=== PATIENT | male | born 1955 | race African-American/Black ===

== ENCOUNTER 2016-11-21 10:40 | Emergency (ER) | payer OTHER ==
[~2016-11-21] VITALS: Ht 182.9 cm; Wt 63.5 kg
[~2016-11-21 10:40] MED LIST: AMLO10TA4 PO; DIPH50CA37 PO; HYDR-548 PO; HYDR50TA3 PO; Lisinopril PO; OXYC30TA2 PO; PHEN100C4 PO; QUET300T2 PO
[2016-11-21] MEDS ORDERED: HYDROMORPHONE 1 MG/1 ML DISP.SYRIN IM ONE (11:00)
--- NOTE | 2016-11-21 11:06 | NUR ---
MSE COMPLETED, PT REC'D DILUADID, ACI GIVEN. PT AMBULATED W/O DIFF, STATED HE CALLED [facility] FOR A RIDE.
[2016-11-21 11:07] VITALS: BP 148/95
[2016-11-21] MEDS ORDERED: HYDROMORPHONE 2 MG/1 ML DISP.SYRIN ONE (11:09)
[2016-11-21] MEDS ORDERED: HYDROMORPHONE 1 MG/1 ML DISP.SYRIN ONE (11:10)
== END 2016-11-21 11:09 | disposition home or self-care (01) ==
LOC: ER 10:40
DX: M54.2 Cervicalgia (principal); G89.29 Other chronic pain; F17.200 Nicotine dependence, unspecified, uncomplicated; M25.552 Pain in left hip; I10 Essential (primary) hypertension; F31.9 Bipolar disorder, unspecified; F20.9 Schizophrenia, unspecified; Z88.6 Allergy status to analgesic agent; Z95.2 Presence of prosthetic heart valve
CPT/HCPCS: A4663; J1170

== ENCOUNTER 2016-12-20 10:39 | Emergency (ER) | payer OTHER ==
[~2016-12-20] VITALS: Ht 185.4 cm; Wt 61.2 kg
[2016-12-20] MEDS ORDERED: HYDROMORPHONE 1 MG/1 ML DISP.SYRIN IV ONE (11:00)
[2016-12-20] MEDS ORDERED: LABETALOL HCL 100 MG/20 ML VIAL IV ONE (11:00)
--- NOTE | 2016-12-20 11:09 | NUR ---
PT IS IN ROOM #1A. DR ROACH EVALUATED THE PT.
[2016-12-20] MEDS ORDERED: LABETALOL 20 MG/4 ML VIAL IV ONE (11:12)
[2016-12-20] MEDS ORDERED: HYDROMORPHONE 2 MG/1 ML DISP.SYRIN ONE (11:13)
--- NOTE | 2016-12-20 11:51 | NUR ---
PT WAS D/C TO HOME. D/C INSTRUCTIONS GIVEN TO THE PT.
[2016-12-20 11:53] VITALS: BP 151/86
== END 2016-12-20 11:58 | disposition home or self-care (01) ==
LOC: ER 10:39
DX: M54.9 Dorsalgia, unspecified (principal); I10 Essential (primary) hypertension; G89.29 Other chronic pain; M25.552 Pain in left hip; F17.200 Nicotine dependence, unspecified, uncomplicated; F31.9 Bipolar disorder, unspecified; F20.9 Schizophrenia, unspecified; Z88.6 Allergy status to analgesic agent; Z88.8 Allergy status to other drugs, medicaments and biological substances; W18.30XA Fall on same level, unspecified, initial encounter; Y93.89 Activity, other specified; Y99.8 Other external cause status; Y92.89 Other specified places as the place of occurrence of the external cause
CPT/HCPCS: 72170; 96374; 96375; 99284; A4663; J1170; J3490

== ENCOUNTER 2017-01-17 16:55 | Emergency (ER) | payer OTHER ==
[~2017-01-17] VITALS: Ht 185.4 cm; Wt 63.5 kg
[2017-01-17] MEDS ORDERED: HYDROMORPHONE 2 MG/1 ML DISP.SYRIN ONE (17:15)
[2017-01-17] MEDS ORDERED: HYDROMORPHONE 1 MG/1 ML DISP.SYRIN IV ONE (17:15)
[2017-01-17] MEDS ORDERED: HYDROMORPHONE 1 MG/1 ML DISP.SYRIN ONE (17:15)
[2017-01-17 17:19] VITALS: BP 159/101
--- NOTE | 2017-01-17 17:19 | NUR ---
Written and verbal after care instructions given. Patient verbalizes understanding of instructions. Stressed follow up with pmd. Pt states he will wait in room 4a and rest for a while before leaving.
--- NOTE | 2017-01-17 17:30 | NUR ---
Pt states he feels "much better", pt stated he will take the bus home and ambulated out of ER with steady gait.
== END 2017-01-17 17:32 | disposition home or self-care (01) ==
LOC: ER 16:55
DX: M25.552 Pain in left hip (principal); M25.551 Pain in right hip; G89.29 Other chronic pain; M54.2 Cervicalgia; I10 Essential (primary) hypertension; F20.9 Schizophrenia, unspecified; F31.9 Bipolar disorder, unspecified; Z88.6 Allergy status to analgesic agent; Z88.8 Allergy status to other drugs, medicaments and biological substances
CPT/HCPCS: A4663; J1170

== ENCOUNTER 2017-01-22 10:23 | Inpatient (IN) | payer OTHER ==
[~2017-01-22] VITALS: Ht 185.4 cm; Wt 65.8 kg
--- NOTE | 2017-01-22 11:02 | NUR ---
Pt ambulated to room with steady shuffled gait, changed into gown and placed on monitor. Pt ST on monitor. Resp even and unlabored. Pt c/o heavy etoh, not eating, generalized weakness, abd pain and N/V. No neuro deficits noted. Equal push/pull and manager publishing. MD at bedside.
[2017-01-22] MEDS ORDERED: IV NORMAL SALINE 1000 ML BAG IV ONE (11:15)
[2017-01-22] MEDS ORDERED: PANTOPRAZOLE SODIUM 40 MG VIAL IV ONE (11:15)
[2017-01-22 11:33] LABS: *BILIRUBIN,URIN NEGATIVE (NEGATIVE); *BLOOD, URINE NEGATIVE (NEGATIVE); *CLARITY,URINE CLEAR (CLEAR); *COLOR,URINE YELLOW (YELLOW); *KETONES,URINE NEGATIVE (NEGATIVE); *PROTEIN,URINE 1+ (NEGATIVE); LEUKOCYTE ESTERASE ,URINE NEGATIVE (NEGATIVE); NITRITE, URINE NEGATIVE (NEGATIVE); UGLUCOSE NEGATIVE (NEGATIVE)
[2017-01-22] MEDS ORDERED: PANTOPRAZOLE SODIUM 40 MG VIAL ONE (11:36)
[2017-01-22 11:44] LABS: CALCIUM 9.3 mg/dL (8.5-10.1); POTASSIUM 4.1 mmol/L (3.5-5.1)
[2017-01-22 11:44] LABS: RBC,URINE 0-3 /HPF (0-3)
[2017-01-22 11:45] LABS: BACTERIA,URINE NONE SEEN /HPF (NONE SEEN); SQUAMOUS EPITHELIAL CELL,UR MODERATE /HPF (NONE SEEN)
[2017-01-22 11:46] LABS: CALCIUM OXALATE CRYSTALS,UR MOD /HPF (NONE SEEN); MUCUS,URINE FEW /LPF (0-FEW)
[2017-01-22 11:50] LABS: ALBUMIN 3.4 g/dL (3.4-5.0); BILIRUBIN,DIRECT 0.1 mg/dL (0.0-0.2); BILIRUBIN,TOTAL 0.2 mg/dL (0.2-1.0); TOTAL PROTEIN, SERUM 8.1 g/dL (6.4-8.2)
[2017-01-22 11:51] LABS: TROPONIN I < 0.017 ng/mL (0.00-0.056)
[2017-01-22 12:00] LABS: BASOPHILS % (AUTO) 0.6 % (0.0-2.0); EOSINOPHILS # (AUTO) 0.3 K/uL (0.0-0.7); EOSINOPHILS % (AUTO) 6.6 % (0.0-7.0); HEMATOCRIT 38.6 % (40-50); HEMOGLOBIN 11.9 G/DL (14.0-18.0); LYMPHOCYTES # (AUTO) 1.1 K/UL (0.8-4.8); LYMPHOCYTES % (AUTO) 23.7 % (20.5-51.5); MEAN CORPUSCULAR HGB CONC 31 g/dL (32.0-37.0); MEAN CORPUSCULAR VOLUME 91.1 FL (82.0-92.0); MONOCYTES # (AUTO) 0.6 K/UL (0.1-1.30); MONOCYTES % (AUTO) 12.2 % (0.0-11.0); NEUTROPHILS # (AUTO) 2.6 K/UL (1.8-8.9); NEUTROPHILS % (AUTO) 56.9 % (38.5-71.5); PLATELET COUNT (AUTO) 199 K/UL (150-450); RED BLOOD CELL COUNT(AUTO) 4.24 MIL/UL (4.7-6.1); RED CELL DISTRIBUTION WIDTH 13.6 % (11.5-14.5); WHITE BLOOD COUNT (AUTO) 4.6 K/UL (4.0-11.2)
[2017-01-22] MEDS ORDERED: MORPHINE SULFATE 4 MG/1 ML DISP.SYRIN IV ONE (12:15)
[2017-01-22] MEDS ORDERED: LABETALOL HCL 100 MG/20 ML VIAL IV ONE (12:15)
[2017-01-22] MEDS ORDERED: diphenhydrAMINE 50 MG CAPSULE PO ONE (12:15)
[2017-01-22] MEDS ORDERED: ONDANSETRON 4 MG/2 ML VIAL IV ONE (12:15)
[2017-01-22] MEDS ORDERED: ONDANSETRON 4 MG/2 ML VIAL ONE (12:29)
[2017-01-22] MEDS ORDERED: MORPHINE SULFATE 4 MG/1 ML DISP.SYRIN ONE (12:29)
[2017-01-22] MEDS ORDERED: diphenhydrAMINE 50 MG CAPSULE ONE (12:31)
[2017-01-22] MEDS ORDERED: LABETALOL 20 MG/4 ML VIAL IV ONE (12:37)
--- NOTE | 2017-01-22 12:37 | NUR ---
pt conts to c/o pain. MD notified. Pt medicated for pain and nausea, will monitor for effects of medication. Pt medicated for elevated blood pressure, will monitor for effects of medication. Pt resting in position of comfort for self. Fluid bolus infusing freely to gravity
[2017-01-22 12:46] LABS: LACTIC ACID 1.3 mmol/L (0.4-2.0)
--- NOTE | 2017-01-22 14:45 | NUR ---
Per Dr Leon she spoke with Dr Gillespie via telephone and pt may be admitted to tele.
--- NOTE | 2017-01-22 14:55 | NUR ---
SBAR report given to tele floor, admission paperwork requested from ER admitting.
--- NOTE | 2017-01-22 15:25 | NUR ---
Pt trans to tele floor, admission paperwork still pending.
--- NOTE | 2017-01-22 15:30 | NUR ---
RECEIVED PATIENT FROM ER
[2017-01-22 16:20] VITALS: BP 185/128
[2017-01-22] MEDS ORDERED: ACETAMINOPHEN 325 MG TABLET PO PRN (16:45)
[2017-01-22] MEDS ORDERED: Z GUARD REMEDY PASTE 57 GM TUBE TOP PRN (16:45)
[2017-01-22] MEDS ORDERED: ZOLPIDEM 5 MG TABLET PO PRN (16:45)
[2017-01-22] MEDS ORDERED: ONDANSETRON 4 MG/2 ML VIAL IV PRN (16:45)
[2017-01-22] MEDS ORDERED: MVI ADULT 10 ML VIAL=1 AMP 10 ML, FOLIC ACID 1 MG, THIAMINE HCL INJ 100 MG, MAGNESIUM S... IV SCH ×5 (16:45)
[2017-01-22] MEDS ORDERED: MAGNESIUM HYDROXIDE 30 ML LIQUID UDC PO PRN (16:45)
[2017-01-22] MEDS ORDERED: THIAMINE HCL 200 MG/2 ML VIAL IM ONE (17:00)
[2017-01-22] MEDS ORDERED: MAGNESIUM SULFATE/D5W 100 ML IV SCH (17:00)
[2017-01-22] MEDS: IV D5/ 0.9% NACL 1,000 ML IV PRN (17:40)
[2017-01-22] MEDS: MULTIVITAMINS,THERAPEUTIC TABLET PO SCH (17:50)
[2017-01-22] MEDS: HYDROCODONE/APAP 5-325MG TABLET PO PRN (18:18)
--- NOTE | 2017-01-22 18:57 | NUR ---
GAVE REPORT TO WATER PUMP SERVICER
[2017-01-22 19:00] VITALS: BP 177/122
[2017-01-22] MEDS: LORAZEPAM 2 MG/1 ML VIAL IV PRN (19:05)
[2017-01-22 19:11] LABS: *AMPHETAMINE, URINE NEGATIVE (NEGATIVE); *BARBITURATE, URINE NEGATIVE (NEGATIVE); *CANNABINOID, URINE NEGATIVE (NEGATIVE); *COCCAINE, URINE NEGATIVE (NEGATIVE); *OPIATE, URINE NEGATIVE (NEGATIVE); *PHENCYCLIDINE SCREEN,URINE NEGATIVE (NEGATIVE)
--- NOTE | 2017-01-22 20:00 | NUR ---
received patient alert,slightly confused,received Ativan 2 mg iv ,stated does not help, remains anxious,keep asking for more pain medications,ivf,infiltrated,restarted in right wrist ,continue closely monitor.
[2017-01-22] MEDS: diphenhydrAMINE 50 MG CAPSULE PO SCH (20:56)
[2017-01-22] MEDS: QUETIAPINE FUMARATE 200 MG TABLET PO SCH (20:57)
[2017-01-22] MEDS ORDERED: Medication Not On Formulary EA (Quetiapine Fumarate (Seroquel) 800 MG) PO SCH (21:00)
[2017-01-22] MEDS ORDERED: AMLODIPINE 10 MG TABLET ONE (21:38)
[2017-01-22] MEDS ORDERED: HYDROCHLOROTHIAZIDE 25 MG TABLET ONE (21:38)
[2017-01-22] MEDS: AMLODIPINE 10 MG TABLET PO SCH (21:41)
[2017-01-22] MEDS: HYDROCHLOROTHIAZIDE 25 MG TABLET PO SCH (21:43)
--- NOTE | 2017-01-22 21:45 | NUR ---
bp 194/135, notified,to continue home bp medication Norvasc and Hydrochlorothiazide.first dose now and given,Md aware of patient wants more pain medication,no new order.
[2017-01-22 23:58] VITALS: BP 188/131
[2017-01-23] MEDS ORDERED: CLONIDINE HCL 0.1 MG TABLET PO ONE (01:00)
--- NOTE | 2017-01-23 01:00 | NUR ---
Clonidine 0.1 mg po admin for bp 188/131.
[2017-01-23] MEDS: LORAZEPAM 2 MG/1 ML VIAL IV PRN ×2 (02:42→18:49)
[2017-01-23 04:00] VITALS: BP 181/127
[2017-01-23] MEDS: hydrALAZINE HCL 25 MG TABLET PO PRN (04:54)
[2017-01-23] MEDS ORDERED: hydrALAZINE HCL 25 MG TABLET ONE (05:02)
[2017-01-23 06:45] LABS: CALCIUM 10.1 mg/dL (8.5-10.1); MAGNESIUM 1.9 mg/dL (1.8-2.4); PHOSPHOROUS 3.1 mg/dL (2.5-4.9); POTASSIUM 3.6 mmol/L (3.5-5.1)
[2017-01-23 07:00] LABS: EOSINOPHILS # (AUTO) 0.2 K/uL (0.0-0.7); LYMPHOCYTES # (AUTO) 1.2 K/UL (0.8-4.8); MONOCYTES # (AUTO) 0.4 K/UL (0.1-1.30)
[2017-01-23 07:04] LABS: EOSINOPHILS % (AUTO) 4.4 % (0.0-7.0); LYMPHOCYTES % (AUTO) 23.4 % (20.5-51.5); MEAN CORPUSCULAR HEMOGLOBIN 29.6 UUG (27.0-31.0); MEAN CORPUSCULAR HGB CONC 32 g/dL (32.0-37.0); MONOCYTES % (AUTO) 8.5 % (0.0-11.0); NEUTROPHILS # (AUTO) 3.4 K/UL (1.8-8.9); NEUTROPHILS % (AUTO) 63.7 % (38.5-71.5); PLATELET COUNT (AUTO) 182 K/UL (150-450); RED BLOOD CELL COUNT(AUTO) 4.65 MIL/UL (4.7-6.1); RED CELL DISTRIBUTION WIDTH 13.9 % (11.5-14.5); WHITE BLOOD COUNT (AUTO) 5.2 K/UL (4.0-11.2)
[2017-01-23 07:08] LABS: HEMOGLOBIN 13.8 G/DL (14.0-18.0)
[2017-01-23 07:09] LABS: HEMATOCRIT 42.8 % (40-50)
--- NOTE | 2017-01-23 07:56 | NUR ---
PATIENT RECEIVED IN ROOM RESTING WITH EYES CLOSED IN NO ACUTE DISTRESS. HR 101 ON AVIATION ELECTRONIC WARFARE OPERATOR. RESPIRATIONS EVEN AND UNLABORED. SAFETY MAINTAINED.
[2017-01-23] MEDS: diphenhydrAMINE 50 MG CAPSULE PO SCH ×2 (08:41→20:34)
[2017-01-23] MEDS: HYDROCHLOROTHIAZIDE 25 MG TABLET PO SCH (08:41)
[2017-01-23] MEDS: MULTIVITAMINS,THERAPEUTIC TABLET PO SCH (08:41)
[2017-01-23] MEDS: AMLODIPINE 10 MG TABLET PO SCH (08:41)
[2017-01-23] MEDS: HYDROCODONE/APAP 5-325MG TABLET PO PRN ×3 (08:44→20:34)
[2017-01-23] MEDS: IV D5/ 0.9% NACL 1,000 ML IV PRN ×2 (10:46→21:57)
[2017-01-23 11:13] VITALS: BP 142/94
--- NOTE | 2017-01-23 11:17 | NUR ---
PATIENT PARTICIPATED WITH PT AMBULATED IN ROOM WITH MAX ASSIST.
[2017-01-23 15:26] VITALS: BP 149/109
--- NOTE | 2017-01-23 18:35 | NUR ---
END OF SHIFT NOTE: PATIENT IN NO ACUTE DISTRESS THROUGHOUT SHIFT. PAIN MANAGED WITH MEDICATION PRESCRIBED. VSS. SR/ ST ON ACCOUNTING TECHNICIAN. ENCOURAGED PATIENT TO CALL FOR ASSISTANCE WHEN HE WANTS TO GET OUT OF BED AND VOICED UNDERSTANDING. FALL PRECAUTIONS IN PLACE. IVF RUNNING. CALL LIGHT AT REACH. NEEDS MET BY STAFF.
[2017-01-23 19:00] VITALS: BP 135/107
--- NOTE | 2017-01-23 20:00 | NUR ---
PATIENT CONFUSED,FORGETFUL,ATTEMPTING GETTING OUT OF BED VERY UNSTEADY GAIT,IVF IN RIGHT WRIST GOT INFILTRATED D/C AND RESTARTED IN LEFT HAND,TRANSFER PATIENT TO ROOM 211 FOR CLOSELY MONITOR.
[2017-01-23] MEDS: QUETIAPINE FUMARATE 200 MG TABLET PO SCH (20:35)
[2017-01-24] VITALS: BP 159/108
[2017-01-24 04:00] VITALS: BP 156/122
[2017-01-24] MEDS: hydrALAZINE HCL 25 MG TABLET PO PRN ×2 (06:40→20:05)
--- NOTE | 2017-01-24 07:00 | NUR ---
PATIENT RECEIVED IN ROOM RESTING WITH EYES CLOSED IN NO ACUTE DISTRESS. RESPIRATIONS EVEN AND UNLABORED. IVF RUNNING. FALL PRECAUTIONS IN PLACE.
[2017-01-24] MEDS: MULTIVITAMINS,THERAPEUTIC TABLET PO SCH (08:26)
[2017-01-24] MEDS: AMLODIPINE 10 MG TABLET PO SCH (08:27)
[2017-01-24] MEDS: LORAZEPAM 2 MG/1 ML VIAL IV PRN ×3 (08:28→22:43)
[2017-01-24] MEDS: diphenhydrAMINE 50 MG CAPSULE PO SCH ×2 (08:28→21:03)
[2017-01-24] MEDS: HYDROCHLOROTHIAZIDE 25 MG TABLET PO SCH (08:28)
[2017-01-24] MEDS: IV D5/ 0.9% NACL 1,000 ML IV PRN ×2 (08:29→22:47)
[2017-01-24 11:03] VITALS: BP 149/100
--- NOTE | 2017-01-24 12:00 | NUR ---
PATIENT PULLED OUT IV MOVING FROM CHAIR TO BED.
--- NOTE | 2017-01-24 14:30 | NUR ---
NEW IV SITE TO LFA GAUGE 20.
[2017-01-24 15:24] VITALS: BP 159/111
--- NOTE | 2017-01-24 19:15 | NUR ---
END OF SHIFT NOTE: PATIENT IN NO ACUTE DISTRESS THROUGHOUT SHIFT. PATIENT NEEDS RE-ORIENTATIONS AT TIMES. PATIENT IS IMPULSIVE AND GETS OUT OF BED WITHOUT ASSISTANCE AND HAS UNSTEADY GAIT. UNABLE TO FOLLOW DIRECTIONS DESPITE OF FREQUENT TEACHING DONE. ATIVAN PRN GIVEN ORDERED. VSS. RESPIRATIONS EVEN AND UNLABORED. INCONTINENT OF B+B. INDEPENDENT WITH BED MOBILITY. NEEDS MET BY STAFF.
[2017-01-24] MEDS: HYDROCODONE/APAP 5-325MG TABLET PO PRN (19:29)
[2017-01-24 20:00] VITALS: BP 164/112
--- NOTE | 2017-01-24 20:00 | NUR ---
PATIENT RESTING IN BED,NO AGITATION NOTED, STATED IN PAIN KEEP REQUESTING FOR PAIN MEDS,BP ELEVATED 164/112, APRESOLINE 25 MG ADMIN ,AND NORCO 5-325 MG PO GIVEN FOR PAIN.PATIENT REMAINS CONFUSED,FORGETFUL, HIGH RISK FALL,BED ALARM ON,CLOSELY MONITOR.
[2017-01-24] MEDS: QUETIAPINE FUMARATE 200 MG TABLET PO SCH (21:03)
[2017-01-25 00:15] VITALS: BP 135/99
[2017-01-25 04:24] VITALS: BP 132/100
[2017-01-25] MEDS: HYDROCODONE/APAP 5-325MG TABLET PO PRN ×4 (04:47→19:37)
--- NOTE | 2017-01-25 06:00 | NUR ---
End of shift report:patient sleep well through the night, appears comfortable,Caldwell admin for pain control, bp this am WNL,SR on tele monitor.
[2017-01-25 06:44] LABS: BASOPHILS % (AUTO) 0.2 % (0.0-2.0); EOSINOPHILS # (AUTO) 0.2 K/uL (0.0-0.7); EOSINOPHILS % (AUTO) 3.7 % (0.0-7.0); HEMATOCRIT 42.7 % (40-50); HEMOGLOBIN 13.5 G/DL (14.0-18.0); LYMPHOCYTES # (AUTO) 1.5 K/UL (0.8-4.8); LYMPHOCYTES % (AUTO) 30.8 % (20.5-51.5); MEAN CORPUSCULAR HEMOGLOBIN 28.5 UUG (27.0-31.0); MEAN CORPUSCULAR HGB CONC 32 g/dL (32.0-37.0); MEAN CORPUSCULAR VOLUME 90.1 FL (82.0-92.0); MONOCYTES # (AUTO) 0.6 K/UL (0.1-1.30); MONOCYTES % (AUTO) 11.4 % (0.0-11.0); NEUTROPHILS # (AUTO) 2.7 K/UL (1.8-8.9); NEUTROPHILS % (AUTO) 53.9 % (38.5-71.5); PLATELET COUNT (AUTO) 171 K/UL (150-450); RED BLOOD CELL COUNT(AUTO) 4.74 MIL/UL (4.7-6.1); RED CELL DISTRIBUTION WIDTH 13.6 % (11.5-14.5)
[2017-01-25 07:01] LABS: CALCIUM 9.8 mg/dL (8.5-10.1); CREATININE 0.9 mg/dL (0.6-1.3); POTASSIUM 3.2 mmol/L (3.5-5.1)
--- NOTE | 2017-01-25 08:00 | NUR ---
AWAKE COOPERATE BUT STILL CONFUSED NO SOB OR PAIN EAT BREAKFAST WELL ON ASPIRATION /FALL PRECAUTION BED ALARM ON AND CALL MEZA IN REACH CONTINUE IVF
[2017-01-25] MEDS: diphenhydrAMINE 50 MG CAPSULE PO SCH ×2 (08:29→20:50)
[2017-01-25] MEDS: HYDROCHLOROTHIAZIDE 25 MG TABLET PO SCH (08:29)
[2017-01-25] MEDS: MULTIVITAMINS,THERAPEUTIC TABLET PO SCH (08:29)
[2017-01-25] MEDS: AMLODIPINE 10 MG TABLET PO SCH (08:29)
[2017-01-25] MEDS: IV D5/ 0.9% NACL 1,000 ML IV PRN ×2 (08:59→19:50)
[2017-01-25] MEDS ORDERED: POTASSIUM CHLORIDE 20 MEQ POWDER PACKET PO ONE (09:30)
--- NOTE | 2017-01-25 10:00 | NUR ---
DR SHEIKH SEE PATIENT AND LAB RESULT NEW ORDER IN CHART POTASSIUM PO GAVE ORDER
[2017-01-25] MEDS: LORAZEPAM 2 MG/1 ML VIAL IV PRN (11:21)
[2017-01-25 11:37] VITALS: BP 141/98
--- NOTE | 2017-01-25 13:00 | NUR ---
EAT LUNCH WELL RESTING NO RESPIRATORY DISTRESS STATE MED ATIVAN HELP TO RELIEF ANXIETY
[2017-01-25 15:19] VITALS: BP 129/97
--- NOTE | 2017-01-25 17:00 | NUR ---
HEMODYNAMIC STATUS STABLE ,PAIN UNDER CONTROL SAFETY MEASURE PROVIDED CALL MEZA WITHIN REACH AND BED ALARM ON NO SOB OR RESPIRATORY DISTRESS
--- NOTE | 2017-01-25 19:40 | NUR ---
PATIENT RECEIVED IN ROOM AWAKE AND ALERT, IN NO ACUTE DISTRESS. RESPIRATIONS EVEN AND UNLABORED. C/O ABD PAIN, PRN NORCO GIVEN PER REQUEST PRESCRIBED. WILL REASSESS, SEE eMAR. IVF RUNNING. FALL PRECAUTIONS IN PLACE. CALL LIGHT IN REACH. WILL CONTINUE TO MONITOR
[2017-01-25 20:00] VITALS: BP 140/99
[2017-01-25] MEDS: QUETIAPINE FUMARATE 200 MG TABLET PO SCH (20:49)
[2017-01-25] MEDS: hydrALAZINE HCL 25 MG TABLET PO PRN (23:58)
[2017-01-26 00:23] VITALS: BP 156/105
[2017-01-26] MEDS: HYDROCODONE/APAP 5-325MG TABLET PO PRN ×3 (00:58→12:26)
[2017-01-26 04:53] VITALS: BP 130/94
[2017-01-26] MEDS: IV D5/ 0.9% NACL 1,000 ML IV PRN (05:26)
--- NOTE | 2017-01-26 06:00 | NUR ---
PT IN BED RESTING WITH EYES CLOSED. NO ACUTE DISTRESS NOTED. SLEPT WELL PER SHIFT. NO SIGNIFICANT CHANGES PER SHIFT. PAIN CONTROLLED WITH PRN NORCO GIVEN PRESCRIBED. ALL NEEDS MET BY STAFF. ON TELE SR ON THE MONITOR, HR-91 AT THIS TIME. CALL LIGHT IN REACH. FALL PRECAUTIONS & SAFETY MAINTAINED.
[2017-01-26 07:25] LABS: BASOPHILS % (AUTO) 0.5 % (0.0-2.0); EOSINOPHILS # (AUTO) 0.2 K/uL (0.0-0.7); EOSINOPHILS % (AUTO) 3.6 % (0.0-7.0); HEMATOCRIT 40.7 % (40-50); HEMOGLOBIN 12.8 G/DL (14.0-18.0); LYMPHOCYTES # (AUTO) 1.3 K/UL (0.8-4.8); LYMPHOCYTES % (AUTO) 27.3 % (20.5-51.5); MEAN CORPUSCULAR HEMOGLOBIN 28.4 UUG (27.0-31.0); MEAN CORPUSCULAR HGB CONC 31 g/dL (32.0-37.0); MEAN CORPUSCULAR VOLUME 90.2 FL (82.0-92.0); MONOCYTES # (AUTO) 0.6 K/UL (0.1-1.30); MONOCYTES % (AUTO) 13.1 % (0.0-11.0); NEUTROPHILS # (AUTO) 2.8 K/UL (1.8-8.9); NEUTROPHILS % (AUTO) 55.5 % (38.5-71.5); PLATELET COUNT (AUTO) 177 K/UL (150-450); RED BLOOD CELL COUNT(AUTO) 4.51 MIL/UL (4.7-6.1); RED CELL DISTRIBUTION WIDTH 13.5 % (11.5-14.5); WHITE BLOOD COUNT (AUTO) 4.9 K/UL (4.0-11.2)
[2017-01-26 07:29] LABS: CALCIUM 9.8 mg/dL (8.5-10.1); CREATININE 0.9 mg/dL (0.6-1.3); POTASSIUM 3.8 mmol/L (3.5-5.1)
[2017-01-26] MEDS: LORAZEPAM 2 MG/1 ML VIAL IV PRN (07:41)
--- NOTE | 2017-01-26 07:45 | NUR ---
RECEIVED PATIENT AWAKE ALERT TO SELF BUT CONFUSED AND DISORIENTED WANTING TO GO HOME WANTING TO KNOW WHEN THE DOCTOR WILL BE HERE GOT OUT OF BED SO MANY TIME SETTING OFF THE BED ALARM.PATIENT MEDICATED WITH ATIVAN ORDERED REASSURED MADE COMFORTABLE.
--- NOTE | 2017-01-26 08:10 | NUR ---
IV SITE INFILTERATED ATTEMPTED BY TWO NURSES TO REINSERT BUT UNABLE PATIENT IS COMPLAINING OF GENERALISED PAIN MEDICATED WITH ORAL PAIN MEDICATION ORDERED.PATIENT REMAINS CONFUSED AND DISORIENTED REORIENTATION IS ONGOING.
[2017-01-26] MEDS: diphenhydrAMINE 50 MG CAPSULE PO SCH (08:29)
[2017-01-26] MEDS: MULTIVITAMINS,THERAPEUTIC TABLET PO SCH (08:29)
[2017-01-26] MEDS: AMLODIPINE 10 MG TABLET PO SCH (08:30)
[2017-01-26] MEDS: HYDROCHLOROTHIAZIDE 25 MG TABLET PO SCH (08:33)
--- NOTE | 2017-01-26 09:25 | NUR ---
PATIENT REMOVED HIS TELEMETRY REFUSED TO HAVE IT REAPPLIED HE IS NOW FULLY DRESSED WITH HIS PERSONAL CLOTHES BUT I REMINDED HIM THAT HE STILL HAS TO WAIT FOR THE DOCTOR TO SEE HIM AND DISCHARGE HIM BEFORE HE CAN GO HOME SEEMS TO UNDERSTAND BUT VERY TEMPORARY.WILL CONTINUE TO OBSERVE.
[2017-01-26 11:09] VITALS: BP 131/96
--- NOTE | 2017-01-26 13:25 | NUR ---
PATIENT SEEN BY DR SHEIKH WITH ORDER TO DISCHARGE PATIENT TO [facility] TODAY.PATIENT AWARE AND STATED THAT HE WILL RATHER GO HOME BUT DR LOVE CONVINCED THE PATIENT TO GO FOR REHAB FIRST THEN HE CAN GO HOME.
--- NOTE | 2017-01-26 13:30 | NUR ---
CALLED PAULIN RACHAEL AND REPORT GIVEN TO MARION FOR CONTINUING CARE.
--- NOTE | 2017-01-26 13:40 | NUR ---
PATIENT DISCHARGED PICKED UP BY MED RESPONSE IN SATISFACTORY CONDITION WITH ALL HIS PERSONAL BELONGINGS.
[2017-01-26] MEDS ORDERED: HYDR25TA4 PO (22:19)
[2017-01-26] MEDS ORDERED: ACET325C PO (22:19)
[2017-01-26] MEDS ORDERED: HYDR-3651 PO (22:19)
[2017-01-26] MEDS ORDERED: MAGN400O4 PO (22:19)
[2017-01-26] MEDS ORDERED: HYDR-4076 PO (22:19)
[2017-01-26] MEDS ORDERED: ZOLP5TAB7 PO (22:19)
[2017-01-26] MEDS ORDERED: AMLO10TA2 PO (22:19)
[2017-01-26] MEDS ORDERED: MULT-24 PO (22:19)
[2017-01-26] MEDS ORDERED: MULTI INGREDIENT TP (22:19)
== END 2017-01-26 13:40 | DRG 775 ==
LOC: ER 10:23 → TELE 15:29 → MED 01-26 12:16
PROVIDERS: ADMIT Family Medicine; ATTEND Family Medicine
DX: F10.231 Alcohol dependence with withdrawal delirium (principal); N17.0 Acute kidney failure with tubular necrosis; E87.0 Hyperosmolality and hypernatremia; E86.9 Volume depletion, unspecified; F10.229 Alcohol dependence with intoxication, unspecified; Y90.9 Presence of alcohol in blood, level not specified; F31.9 Bipolar disorder, unspecified; D64.9 Anemia, unspecified; E87.6 Hypokalemia; F17.210 Nicotine dependence, cigarettes, uncomplicated; G89.29 Other chronic pain; Z96.649 Presence of unspecified artificial hip joint; I10 Essential (primary) hypertension
CPT/HCPCS: 36415; 70030-TC; 71010; 80307; 83605; 83690; 83735; 84100; 85025; 85730; 93005; 97001; 97116; 97530; A4663; C9113; J2060; J2270; J2405; J3411; J3475; J3490; J7030; J7042; Q0163

== ENCOUNTER 2017-01-26 20:16 | Emergency (ER) | payer OTHER ==
[~2017-01-26] VITALS: Ht 182.9 cm; Wt 65.8 kg
[~2017-01-26 20:16] MED LIST changes: -AMLO10TA4 PO; -HYDR-548 PO; -HYDR50TA3 PO; -Lisinopril PO; -OXYC30TA2 PO; -PHEN100C4 PO
--- NOTE | 2017-01-26 20:38 | NUR ---
PT SENT FOR EVAL. PT CONFUSED ATTEMPTING TO LEAVE [facility] HOME, COMING FROM [facility], PT IS ALERT, ORIENTED X 2-3, NO RESP DISTRESS NOTED OR REPORTED UPON ASSESSMENT...
--- NOTE | 2017-01-26 21:00 | NUR ---
PT CLEARED FOR PSYCH EVAL... LPS CONTACTED...
[2017-01-26 21:55] LABS: BASOPHILS # (AUTO) 0.1 K/uL (0.0-8.0); BASOPHILS % (AUTO) 0.7 % (0.0-2.0); EOSINOPHILS # (AUTO) 0.1 K/uL (0.0-0.7); EOSINOPHILS % (AUTO) 1.4 % (0.0-7.0); HEMATOCRIT 37.9 % (40-50); HEMOGLOBIN 11.8 G/DL (14.0-18.0); LYMPHOCYTES # (AUTO) 1.4 K/UL (0.8-4.8); LYMPHOCYTES % (AUTO) 17.3 % (20.5-51.5); MEAN CORPUSCULAR HEMOGLOBIN 28.2 UUG (27.0-31.0); MEAN CORPUSCULAR HGB CONC 31 g/dL (32.0-37.0); MEAN CORPUSCULAR VOLUME 90.8 FL (82.0-92.0); MONOCYTES # (AUTO) 0.9 K/UL (0.1-1.30); MONOCYTES % (AUTO) 11.2 % (0.0-11.0); NEUTROPHILS # (AUTO) 5.6 K/UL (1.8-8.9); NEUTROPHILS % (AUTO) 69.4 % (38.5-71.5); PLATELET COUNT (AUTO) 197 K/UL (150-450); RED BLOOD CELL COUNT(AUTO) 4.17 MIL/UL (4.7-6.1); RED CELL DISTRIBUTION WIDTH 13.7 % (11.5-14.5); WHITE BLOOD COUNT (AUTO) 8.1 K/UL (4.0-11.2)
[2017-01-26 21:57] LABS: *BILIRUBIN,URIN NEGATIVE (NEGATIVE); *BLOOD, URINE NEGATIVE (NEGATIVE); *CLARITY,URINE SLIGHTLY CLOUDY (CLEAR); *COLOR,URINE YELLOW (YELLOW); *KETONES,URINE TRACE (NEGATIVE); *PROTEIN,URINE NEGATIVE (NEGATIVE); *UROBILINOGEN,URINE 0.2 E.U./dl (NORMAL); LEUKOCYTE ESTERASE ,URINE NEGATIVE (NEGATIVE); NITRITE, URINE NEGATIVE (NEGATIVE); PH,URINE 5.5 (5.0-8.0); UGLUCOSE NEGATIVE (NEGATIVE)
--- NOTE | 2017-01-26 22:00 | NUR ---
PT NOT MEETING CRITERIA FOR HOLD, CONTACTED PTS [facility]IST[facility] STATES THEY NO LONGER HAVE PLACEMENT FOR PT... ADVISED...
[2017-01-26 22:09] LABS: CALCIUM 9.9 mg/dL (8.5-10.1); CARBON DIOXIDE 31 mmol/L (21-32); CHLORIDE 103 mmol/L (98-107); GFR 57 mL/min (>60); GLUCOSE 99 mg/dL (74-106); POTASSIUM 3.3 mmol/L (3.5-5.1); SODIUM SERUM 140 mmol/L (136-145); UREA NITROGEN, BLOOD 25 mg/dL (7-18)
[2017-01-26 22:10] LABS: BACTERIA,URINE NONE SEEN /HPF (NONE SEEN); SQUAMOUS EPITHELIAL CELL,UR NONE SEEN /HPF (NONE SEEN)
[2017-01-26 22:11] LABS: ETHANOL < 3 MG/DL (0-0)
[2017-01-26 22:14] LABS: CREATININE 1.5 mg/dL (0.6-1.3)
[2017-01-26 22:15] LABS: ALANINE AMINOTRANSFERASE 34 U/L (16-63); ALBUMIN 3.7 g/dL (3.4-5.0); ALKALINE PHOSPHATASE 134 U/L (50-136); ASPARTATE AMINOTRANSFERASE 33 U/L (15-37); BILIRUBIN,DIRECT 0.1 mg/dL (0.0-0.2); BILIRUBIN,TOTAL 0.2 mg/dL (0.2-1.0); TOTAL PROTEIN, SERUM 8.4 g/dL (6.4-8.2)
[2017-01-26 22:18] LABS: ACETAMINOPHEN < 2.0 ug/mL (10-30)
[2017-01-26] MEDS ORDERED: HYDR-3651 PO (22:19)
[2017-01-26] MEDS ORDERED: MULT-24 PO (22:19)
[2017-01-26] MEDS ORDERED: HYDR-4076 PO (22:19)
[2017-01-26] MEDS ORDERED: MULTI INGREDIENT TP (22:19)
[2017-01-26] MEDS ORDERED: ACET325C PO (22:19)
[2017-01-26] MEDS ORDERED: AMLO10TA2 PO (22:19)
[2017-01-26] MEDS ORDERED: ZOLP5TAB7 PO (22:19)
[2017-01-26] MEDS ORDERED: MAGN400O4 PO (22:19)
[2017-01-26] MEDS ORDERED: HYDR25TA4 PO (22:19)
[2017-01-26 22:20] LABS: *AMPHETAMINE, URINE NEGATIVE (NEGATIVE); *BARBITURATE, URINE NEGATIVE (NEGATIVE); *CANNABINOID, URINE NEGATIVE (NEGATIVE); *COCCAINE, URINE NEGATIVE (NEGATIVE); *OPIATE, URINE POSITIVE (NEGATIVE); *PHENCYCLIDINE SCREEN,URINE NEGATIVE (NEGATIVE)
[2017-01-26] MEDS ORDERED: QUETIAPINE FUMARATE 25 MG TABLET PO ONE (22:45)
--- NOTE | 2017-01-26 23:00 | NUR ---
PER ERMD, WILL HAVE SW MEET WITH PT FOR PLACEMENT...
[2017-01-26] MEDS ORDERED: QUETIAPINE FUMARATE 100 MG TABLET ONE (23:20)
[2017-01-26] MEDS ORDERED: QUETIAPINE FUMARATE 200 MG TABLET ONE (23:20)
--- NOTE | 2017-01-27 01:00 | NUR ---
PT IS ALERT, ORIENTED X 2-3, NO RESP DISTRESS NOTED OR REPORTED UPON ASSESSMENT... WILL CONTINUE TO MONITOR FOR SAFETY, COMFORT, AND PAIN....
[2017-01-27] MEDS ORDERED: HYDROMORPHONE HCL 2 MG TABLET PO ONE (02:30)
[2017-01-27] MEDS ORDERED: HYDROMORPHONE HCL 2 MG TABLET ONE (02:44)
--- NOTE | 2017-01-27 03:00 | NUR ---
PT IS ALERT, ORIENTED X 2-3, NO RESP DISTRESS NOTED OR REPORTED UPON ASSESSMENT... WILL CONTINUE TO MONITOR FOR SAFETY, COMFORT, AND PAIN.... PT REQUESTING SANDWICH AND DRINK, BOTH PROVIDED... PT RETURNED TO SLEEP...
--- NOTE | 2017-01-27 05:00 | NUR ---
PT IS ALERT, ORIENTED X 2-3, NO RESP DISTRESS NOTED OR REPORTED UPON ASSESSMENT... WILL CONTINUE TO MONITOR FOR SAFETY, COMFORT, AND PAIN....
--- NOTE | 2017-01-27 07:00 | NUR ---
CARE ENDORSED TO DAYSHIFT NURSE, PT PT IS ALERT, ORIENTED X 2-3, NO RESP DISTRESS NOTED OR REPORTED UPON ASSESSMENT...
--- NOTE | 2017-01-27 07:10 | NUR ---
PT IS RESTING IN BED W/ BOTH EYES CLOSED. NAD NOTED.
--- NOTE | 2017-01-27 07:30 | NUR ---
BREAKFAST PROVIDED. PT DENIES PAIN. LEFT MESSAGE FOR KRYSTYNA(LOOP SEWER). AWAITING CALL BACK.
--- NOTE | 2017-01-27 08:00 | NUR ---
PT STATES HE DOES NOT WANT TO GO BACK TO [facility]. HE LIKES TO BE DISCHARGED.
--- NOTE | 2017-01-27 08:02 | NUR ---
PT STATES" I DON'T WANT TO WAIT AND WANT TO LEAVE NOW. I DON'T CARE TO SEE SMALL BUSINESS CONSULTANT.". DR ROACH AWARE. Addendum: 01/27/17 at 0904 by MYOUABIAN PT STATES" I DO NOT WANT TO SEE SMALL BUSINESS CONSULTANT ANY MORE AND JUST WANT TO LEAVE, I CAN TAKE CARE OF MYSELF. I WANT TO JUST BE DISCHARGED." DR ROACH AWARE.
--- NOTE | 2017-01-27 08:03 | NUR ---
Patient discharged in stable conditon. Written and verbal after care instructions given. Patient verbalizes understanding of instructions. PT LEFT ER W/ STEADY GAIT.
[2017-01-27 09:15] VITALS: BP 139/103
== END 2017-01-27 08:09 | disposition home or self-care (01) ==
LOC: ER 20:23
DX: F31.9 Bipolar disorder, unspecified (principal); G89.29 Other chronic pain; I10 Essential (primary) hypertension; R51 Headache; F10.20 Alcohol dependence, uncomplicated; F17.200 Nicotine dependence, unspecified, uncomplicated; F20.9 Schizophrenia, unspecified; Z88.6 Allergy status to analgesic agent; Z88.8 Allergy status to other drugs, medicaments and biological substances
CPT/HCPCS: 36415; 70450; 71010; 80307; 85025; 93005; A4663; G0480-TC; G6040-TC

== ENCOUNTER 2017-02-28 18:33 | Emergency (ER) | payer OTHER ==
[~2017-02-28] VITALS: Ht 185.4 cm; Wt 67.1 kg
[~2017-02-28 18:33] MED LIST changes: +ACET325C PO; +AMLO10TA2 PO; +HYDR-3974 PO; +HYDR-4076 PO; +HYDR25TA4 PO; +MAGN400O6 PO; +MULT-24 PO; +MULTI INGREDIENT TP; +ZOLP5TAB8 PO
[2017-02-28] MEDS ORDERED: HYDROMORPHONE 1 MG/1 ML DISP.SYRIN IV ONE (20:45)
--- NOTE | 2017-02-28 21:23 | NUR ---
Patient discharged to home in stable conditon. Written and verbal after care instructions given. Patient verbalizes understanding of instructions.
[2017-02-28] MEDS ORDERED: HYDROMORPHONE 2 MG/1 ML DISP.SYRIN ONE (21:28)
[2017-02-28] MEDS ORDERED: HYDROMORPHONE 1 MG/1 ML DISP.SYRIN ONE (21:28)
== END 2017-02-28 21:59 | disposition home or self-care (01) ==
LOC: ER 18:39
DX: G89.29 Other chronic pain (principal); M25.551 Pain in right hip; M25.552 Pain in left hip; Z76.0 Encounter for issue of repeat prescription; F10.10 Alcohol abuse, uncomplicated; F17.200 Nicotine dependence, unspecified, uncomplicated; Z88.6 Allergy status to analgesic agent; I10 Essential (primary) hypertension; F20.9 Schizophrenia, unspecified; M54.9 Dorsalgia, unspecified; F32.9 Major depressive disorder, single episode, unspecified; Z96.643 Presence of artificial hip joint, bilateral
CPT/HCPCS: 96374; 99284; A4663; J1170 ×2

== ENCOUNTER 2017-03-20 17:12 | Inpatient (IN) | payer OTHER ==
[~2017-03-20] VITALS: Ht 188 cm; Wt 64.9 kg
--- NOTE | 2017-03-20 17:29 | NUR ---
Unable to reconcile medications from previous information due to pt's current medical condition.
[2017-03-20] MEDS ORDERED: IV NORMAL SALINE 1000 ML BAG IV ONE ×2 (17:30→18:45)
--- NOTE | 2017-03-20 17:30 | NUR ---
Code sepsis initiated per protocol, Dr. Edouard notified.
[2017-03-20] MEDS ORDERED: ACETAMINOPHEN 325 MG TABLET PO ONE (17:45)
[2017-03-20] MEDS ORDERED: ACETAMINOPHEN ES 500 MG TABLET ONE (17:59)
[2017-03-20 18:01] LABS: BASOPHILS % (AUTO) 0.1 % (0.0-2.0); EOSINOPHILS % (AUTO) 0.2 % (0.0-7.0); HEMATOCRIT 33.9 % (40-50); HEMOGLOBIN 11.3 G/DL (14.0-18.0); LYMPHOCYTES # (AUTO) 0.2 K/UL (0.8-4.8); LYMPHOCYTES % (AUTO) 0.8 % (20.5-51.5); MEAN CORPUSCULAR HEMOGLOBIN 28.9 UUG (27.0-31.0); MEAN CORPUSCULAR HGB CONC 33 g/dL (32.0-37.0); MONOCYTES # (AUTO) 0.2 K/UL (0.1-1.30); MONOCYTES % (AUTO) 0.8 % (0.0-11.0); NEUTROPHILS # (AUTO) 23.3 K/UL (1.8-8.9); NEUTROPHILS % (AUTO) 98.1 % (38.5-71.5); PLATELET COUNT (AUTO) 271 K/UL (150-450)
[2017-03-20 18:05] LABS: CREATININE 1.4 mg/dL (0.6-1.3); POTASSIUM 3.9 mmol/L (3.5-5.1)
--- NOTE | 2017-03-20 18:08 | NUR ---
Reviewed pt's home medications from previous record with pt and pt's current record updated accordingly.
[2017-03-20 18:09] LABS: WHITE BLOOD COUNT (AUTO) 23.7 K/UL (4.0-11.2)
[2017-03-20 18:11] LABS: BILIRUBIN,DIRECT 0.1 mg/dL (0.0-0.2); BILIRUBIN,TOTAL 0.4 mg/dL (0.2-1.0); TOTAL PROTEIN, SERUM 8.3 g/dL (6.4-8.2)
[2017-03-20 18:28] LABS: BAND % (MANUAL) 8 % (0-10); LYMPHOCYTES % (MANUAL) 2 % (20-40); MONOCYTES % (MANUAL) 1 % (2-10); NEUTROPHILS % (MANUAL) 89 % (42-75)
[2017-03-20] MEDS ORDERED: VANCOMYCIN IV 1,000 MG in IV DEXTROSE 5% 250 ML IV ONE (18:45)
[2017-03-20] MEDS ORDERED: GENTAMICIN SULFATE INJ 80 MG in IV DEXTROSE 5% 100 ML IV ONE (18:45)
[2017-03-20] MEDS ORDERED: CEFTAZIDIME 1 G in IV DEXTROSE 5% 50 ML IV ONE (18:45)
--- NOTE | 2017-03-20 19:30 | NUR ---
Received report from ANNALISA Whiteside. Assumed care of pt at this time. Pt resting in position of comfort for self. Pt ST on monitor. Resp even and unlabored. Pt c/o 04/16 chronic back pain. MD notified. Awaiting further orders. Admission pending. Awaiting call back from [facility] .
--- NOTE | 2017-03-20 19:40 | NUR ---
Clint paged for Dr. Farley
[2017-03-20] MEDS ORDERED: CEFTRIAXONE 1 G VIAL ONE (20:29)
[2017-03-20] MEDS ORDERED: GENTAMICIN SULFATE 80 MG/2 ML VIAL ONE (20:29)
[2017-03-20] MEDS ORDERED: CEFTRIAXONE 1 G in IV DEXTROSE 5% 50 ML IV ONE (20:30)
[2017-03-20 20:46] LABS: *BILIRUBIN,URIN NEGATIVE (NEGATIVE); *BLOOD, URINE NEGATIVE (NEGATIVE); *CLARITY,URINE CLEAR (CLEAR); *COLOR,URINE YELLOW (YELLOW); *KETONES,URINE NEGATIVE (NEGATIVE); *PROTEIN,URINE TRACE (NEGATIVE); LEUKOCYTE ESTERASE ,URINE TRACE (NEGATIVE); NITRITE, URINE NEGATIVE (NEGATIVE); UGLUCOSE NEGATIVE (NEGATIVE)
[2017-03-20 20:56] LABS: RBC,URINE 0-3 /HPF (0-3); SQUAMOUS EPITHELIAL CELL,UR FEW /HPF (NONE SEEN)
--- NOTE | 2017-03-20 21:00 | NUR ---
Second IV established. First ABT infusion completed with no adverse reactions noted. Second ABT infusion started, will monitor for any adverse reactions. Pt resting in position of comfort for self. Pt remains ST on monitor. Resp even and unlabored.
[2017-03-20] MEDS ORDERED: VANCOMYCIN IV 200 ML ONE (21:30)
--- NOTE | 2017-03-20 21:37 | NUR ---
No adverse reaction noted from Gentamicin. Vancomycin started, will monitor for any adverse reactions. Report called to ANNALISA Miller. Preparing to transfer pt to the floor.
--- NOTE | 2017-03-20 21:50 | NUR ---
RECEIVED PATIENT FROM ER VIA [employer]. DX: HEAT STROKE AND POSSIBLE ENDOCARDITIS UNDER THE CARE OF DR. CARLOS SANDERS. PATIENT IS ALERT, RESPONSIVE, IN NO ACUTE DISTRESS. BELONGING LIST DONE, PERSONAL MEDICATIONS ACCOUNTED AND TURNED OVER TO PHARMACY. PLAN OF CARE INITIATED. CALLED MD FOR NEW ADMISSION ORDERS. SAFETY MEASURES IN PLACE, CALL LIGHT WITHIN REACH, BED ALARM ON. WILL CONTINUE TO MONITOR. Addendum: 03/21/17 at 0459 by TRAN RAYMOND RN PT ADMITTED TO TELE. PT IS SINUS RHYTHM ON MECHANICAL PRODUCT ENGINEER.
[2017-03-20 22:08] VITALS: BP 107/73
[2017-03-20] MEDS ORDERED: ONDANSETRON 4 MG/2 ML VIAL IV PRN (23:15)
[2017-03-20] MEDS ORDERED: ZOLPIDEM 5 MG TABLET PO PRN (23:15)
[2017-03-20] MEDS ORDERED: Medication Not On Formulary EA (Acetaminophen 650 MG) PO PRN (23:15)
[2017-03-20] MEDS ORDERED: ACETAMINOPHEN 325 MG TABLET PO PRN (23:15)
[2017-03-20] MEDS ORDERED: HYDROCODONE/APAP 5-325MG TABLET PO PRN (23:15)
[2017-03-20] MEDS ORDERED: MAGNESIUM HYDROXIDE 30 ML LIQUID UDC PO PRN ×2 (23:15)
[2017-03-20] MEDS: HYDROMORPHONE 1 MG/1 ML DISP.SYRIN IV PRN (23:58)
[2017-03-21 00:02] VITALS: BP 111/70
[2017-03-21] MEDS ORDERED: HYDROMORPHONE 1 MG/1 ML DISP.SYRIN ONE ×2 (00:06→04:00)
[2017-03-21] MEDS: HYDROMORPHONE 1 MG/1 ML DISP.SYRIN IV PRN ×2 (03:52→08:29)
[2017-03-21 04:00] VITALS: BP 113/82
[2017-03-21] MEDS ORDERED: PIPERACILLIN SODIUM/TAZO 3.375 GM VIAL ONE (04:54)
[2017-03-21] MEDS: PIPERACILLIN/TAZOBACTAM/D5W 3.375 G in PREMIXED 1 EACH IV SCH ×3 (05:45→21:52)
--- NOTE | 2017-03-21 06:00 | NUR ---
PT SLEEPING, EASILY AROUSABLE, IN NO ACUTE DISTRESS. PT IS ON TELE - SINUS RHTHYM. IVF RUNNING, NO INFILTRATION NOTED. ANTIBIOTIC IV ADMINISTERED ORDERED, NO ADVERSE REACTION NOTED. CALL LIGHT WITHIN REACH, BED ALARM ON, WILL CONTINUE TO MONITOR.
[2017-03-21 07:09] LABS: EOSINOPHILS # (AUTO) 0.3 K/uL (0.0-0.7); EOSINOPHILS % (AUTO) 0.7 % (0.0-7.0); LYMPHOCYTES # (AUTO) 1.5 K/UL (0.8-4.8); LYMPHOCYTES % (AUTO) 3.8 % (20.5-51.5); MEAN CORPUSCULAR HGB CONC 33 g/dL (32.0-37.0); MEAN CORPUSCULAR VOLUME 88.9 FL (82.0-92.0); NEUTROPHILS # (AUTO) 35.7 K/UL (1.8-8.9); NEUTROPHILS % (AUTO) 90.5 % (38.5-71.5); PLATELET COUNT (AUTO) 215 K/UL (150-450)
[2017-03-21 07:19] LABS: HEMATOCRIT 28.2 % (40-50); HEMOGLOBIN 9.2 G/DL (14.0-18.0); RED BLOOD CELL COUNT(AUTO) 3.17 MIL/UL (4.7-6.1); WHITE BLOOD COUNT (AUTO) 39.5 K/UL (4.0-11.2)
[2017-03-21 08:00] LABS: BILIRUBIN,TOTAL 0.2 mg/dL (0.2-1.0); CREATININE 1.3 mg/dL (0.6-1.3); MAGNESIUM 1.7 mg/dL (1.8-2.4); PHOSPHOROUS 3.2 mg/dL (2.5-4.9); POTASSIUM 3.8 mmol/L (3.5-5.1); TOTAL PROTEIN, SERUM 6.8 g/dL (6.4-8.2)
--- NOTE | 2017-03-21 08:16 | NUR ---
DR. CIFUENTES NOTIFED OF WBC 39.5. NO NEW ORDERS.
[2017-03-21] MEDS: MULTIVITAMINS,THERAPEUTIC TABLET PO SCH (08:28)
[2017-03-21] MEDS: PANTOPRAZOLE SODIUM 40 MG TABLET.DR PO SCH (08:28)
[2017-03-21] MEDS ORDERED: MAGNESIUM OXIDE 400 MG TABLET PO ONE (08:30)
[2017-03-21 08:32] LABS: THYROID STIMULATING HORMONE 0.524 mIU/mL (0.358-3.740)
[2017-03-21] MEDS ORDERED: HEPARIN/D5W DRIP 500 ML IV PRN (09:30)
[2017-03-21 09:40] LABS: BAND % (MANUAL) 10 % (0-10); EOSINOPHILS % (MANUAL) 2 % (0-8); LYMPHOCYTES % (MANUAL) 5 % (20-40); MONOCYTES % (MANUAL) 2 % (2-10); NEUTROPHILS % (MANUAL) 81 % (42-75)
[2017-03-21] MEDS ORDERED: HEPARIN SODIUM,PORCINE 5,000 UNITS/ML VIAL IV PRN (10:30)
[2017-03-21] MEDS ORDERED: HEPARIN SODIUM,PORCINE 5,000 UNITS/ML VIAL IV ONE (10:30)
[2017-03-21] MEDS: FERROUS SULFATE 325 MG TABEC PO SCH ×2 (10:35→20:06)
[2017-03-21] MEDS: ASPIRIN EC 325 MG TABLET.DR PO SCH (10:47)
[2017-03-21] MEDS: diphenhydrAMINE 50 MG CAPSULE PO SCH ×2 (10:47→20:06)
[2017-03-21 11:04] VITALS: BP 107/77
[2017-03-21] MEDS: IV NS 1000 ML 1,000 ML IV PRN ×2 (11:52)
[2017-03-21] MEDS: HYDROMORPHONE 2 MG/1 ML DISP.SYRIN IV PRN ×3 (12:20→20:48)
[2017-03-21] MEDS ORDERED: VANCOMYCIN IV 1,250 MG in IV DEXTROSE 5% 500 ML IV SCH (15:00)
[2017-03-21 15:05] VITALS: BP 108/73
[2017-03-21] MEDS: VANCOMYCIN IV 1 G in PREMIXED 0 EACH IV SCH (15:22)
--- NOTE | 2017-03-21 15:44 | NUR ---
Clinical pharmacy note-Vancomycin dosing per pharmacy Subjective: To start Vancomycin dosing on this patient for documented infection(endocarditis per ER MD note) Objective: BUN 19 Scr 1.3 WBC 39.5 Temp 98 Assessment/Plan: Patient had Vancomycin 1 gram in ER last night at 2121. Will continue as 1gram IV every 18hrs(second dose today at 1500). Vancomycin trough by 4th dose(not ordered yet) for expected trough around 16. Will monitor renal function closely to adjust the dose if needed. Will follow daily.
--- NOTE | 2017-03-21 17:13 | NUR ---
0920 SPEECH WRITER CALLED TROPONIN RESULTS [address] CIFUENTES. NEW ORDER FOR HEPARIN DRIP. 1030 HEPARIN BOLUS GIVEN BY SPEECH WRITER PER PROTOCOL. 1113 HEPARIN DRIP INITIATED PER PROTOCOL. PT. TOLERATING DRIP WITH NO UNTOWARD EFFECTS. BLOOD CULTURE POSITIVE AND PT. STARTED ON VANCO IV PER NOV AND TOLERATING WELL. PT. FEELS IMPROVED PAIN CONTROL WITH DILAUDID 2MG IV. GOOD APPETITE. VOIDS WELL PER URINAL.
--- NOTE | 2017-03-21 18:27 | NUR ---
PT. OFF THE FLOOR TO CT OF HEAD. DISCUSSED CARE PLAN WITH DR. TO. HEPARIN ON HOLD UNTIL CT RESULTS BACK. PT. LEFT VIA [facility] WITH O2 VIA N/C.
--- NOTE | 2017-03-21 18:30 | NUR ---
PT. RETURN TO FLOOR. LASIX GIVEN PER NOV. AWAITING CT SCAN RESULTS.
[2017-03-21] MEDS: FUROSEMIDE 40 MG/4 ML VIAL IV SCH (18:33)
[2017-03-21 19:00] VITALS: BP 121/88
--- NOTE | 2017-03-21 20:00 | NUR ---
MD'S VERBAL ORDER FROM DR. GONZALEZ TAKEN AND READ BACK FOR SEROQUEL 300MG PO HS. NEW MD'S ORDER CARRIED OUT.
[2017-03-21] MEDS: DOCUSATE SODIUM 100 MG CAPSULE PO SCH (20:06)
[2017-03-21] MEDS ORDERED: QUETIAPINE FUMARATE 200 MG TABLET ONE (21:13)
--- NOTE | 2017-03-21 21:15 | NUR ---
CALLED NICOLE FROM RADIOLOGY TO FOLLOW UP CT SCAN HEAD RESULTS. Addendum: 03/22/17 at 0121 by TRAN RAYMOND RN CORRECTION: CT SCAN BRAIN RESULTS
--- NOTE | 2017-03-21 21:48 | NUR ---
DR. GONZALEZ NOTIFIED REGARDING BLOOD CULTURE RESULTS: GRAM POSITIVE COCCI IN CHAINS.
[2017-03-21] MEDS: QUETIAPINE FUMARATE 200 MG TABLET PO SCH (21:50)
--- NOTE | 2017-03-21 22:20 | NUR ---
DR. TO (GLOBAL VP CREATIVE + CONTENT MARKETING) NOTIFIED REGARDING CT SCAN BRAIN RESULTS - NO ACUTE INTRACTRANIAL STROKE/HEMORRHAGE (PLS REFER TO RADIOLOGY REPORT # [id number]). AWAITING FOR FURTHER NEW ORDERS/INSTRUCTION ON HEPARIN DRIP.
--- NOTE | 2017-03-21 23:30 | NUR ---
RESTARTED HEPARIN DRIP, WITNESSED BY EMILIE FANG, STRIP MILL OPERATOR AWARE. NO CHANGE FROM PREVIOUS RATE 19.5 ML/HR WITH PTT 45.9 PT IS ASLEEP, EASILY AROUSABLE, IN NO ACUTE DISTRESS. WILL CONTINUE TO MONITOR. Addendum: 03/21/17 at 2350 by TRAN RAYMOND RN PTT ORDERED 6 HRS AFTER START OF INFUSION. LAB ORDER REQUEST FOR 03/22/17 AT 0530 Addendum: 03/22/17 at 0124 by TRAN RAYMOND RN ADDITIONAL NOTES: FOLLOWED HEPARIN INFUSION PER PROTOCOL
[2017-03-22 00:03] VITALS: BP 118/85
[2017-03-22] MEDS: HYDROMORPHONE 2 MG/1 ML DISP.SYRIN IV PRN ×5 (00:53→20:33)
[2017-03-22 04:00] VITALS: BP 148/96
[2017-03-22] MEDS: PIPERACILLIN/TAZOBACTAM/D5W 3.375 G in PREMIXED 1 EACH IV SCH ×3 (05:04→22:01)
--- NOTE | 2017-03-22 05:42 | NUR ---
PT SLEPT WELL, IN NO ACUTE DISTRESS. PT IS ON TELE SINUS RHYTHM 90. HEPARIN DRIP INFUSING, NO S/S OF INFILTRATION. PTT LEVEL DRAWN AT 0530, AWAITING FOR RESULTS. PT NO S/S OF BLEEDING. ANTIBIOTIC IV ADMINISTERED ORDERED, NO ADVERSE REACTION NOTED. PAIN MANAGEMENT ORDERED, TREATMENT EFFECTIVE. CALL LIGHT WITHIN REACH, BED ALARM ON. WILL CONTINUE TO MONITOR.
[2017-03-22] MEDS: PANTOPRAZOLE SODIUM 40 MG TABLET.DR PO SCH (06:23)
[2017-03-22] MEDS: FUROSEMIDE 40 MG/4 ML VIAL IV SCH (08:43)
[2017-03-22] MEDS: FERROUS SULFATE 325 MG TABEC PO SCH ×2 (08:43→20:32)
[2017-03-22] MEDS: ASPIRIN EC 325 MG TABLET.DR PO SCH (08:43)
[2017-03-22] MEDS: diphenhydrAMINE 50 MG CAPSULE PO SCH ×2 (08:43→20:31)
[2017-03-22] MEDS: MULTIVITAMINS,THERAPEUTIC TABLET PO SCH (08:43)
[2017-03-22] MEDS: VANCOMYCIN IV 1 G in PREMIXED 0 EACH IV SCH (09:59)
[2017-03-22 10:04] LABS: BASOPHILS # (AUTO) 0.3 K/uL (0.0-8.0); BASOPHILS % (AUTO) 1.4 % (0.0-2.0); EOSINOPHILS # (AUTO) 0.1 K/uL (0.0-0.7); EOSINOPHILS % (AUTO) 0.6 % (0.0-7.0); HEMOGLOBIN 9.7 G/DL (14.0-18.0); LYMPHOCYTES # (AUTO) 1.1 K/UL (0.8-4.8); LYMPHOCYTES % (AUTO) 5.3 % (20.5-51.5); MEAN CORPUSCULAR HEMOGLOBIN 27.8 UUG (27.0-31.0); MEAN CORPUSCULAR HGB CONC 31 g/dL (32.0-37.0); MEAN CORPUSCULAR VOLUME 88.3 FL (82.0-92.0); MONOCYTES # (AUTO) 1.1 K/UL (0.1-1.30); MONOCYTES % (AUTO) 5.3 % (0.0-11.0); NEUTROPHILS # (AUTO) 18.7 K/UL (1.8-8.9); NEUTROPHILS % (AUTO) 87.4 % (38.5-71.5); PLATELET COUNT (AUTO) 257 K/UL (150-450)
[2017-03-22 10:09] LABS: CREATININE 1.1 mg/dL (0.6-1.3); POTASSIUM 3.5 mmol/L (3.5-5.1)
[2017-03-22 10:12] LABS: RED BLOOD CELL COUNT(AUTO) 3.51 MIL/UL (4.7-6.1); WHITE BLOOD COUNT (AUTO) 21.3 K/UL (4.0-11.2)
[2017-03-22 10:16] LABS: BILIRUBIN,TOTAL 0.2 mg/dL (0.2-1.0); MAGNESIUM 1.6 mg/dL (1.8-2.4); PHOSPHOROUS 2.8 mg/dL (2.5-4.9); TOTAL PROTEIN, SERUM 7.6 g/dL (6.4-8.2)
[2017-03-22 11:59] VITALS: BP 123/84
[2017-03-22 12:06] LABS: BAND % (MANUAL) 6 % (0-10); LYMPHOCYTES % (MANUAL) 2 % (20-40); MONOCYTES % (MANUAL) 6 % (2-10); NEUTROPHILS % (MANUAL) 86 % (42-75)
[2017-03-22] MEDS ORDERED: POTASSIUM CHLORIDE 20 MEQ POWDER PACKET PO ONE (13:30)
[2017-03-22] MEDS: MAGNESIUM SULFATE/D5W 100 ML IV SCH ×4 (14:03→20:41)
--- NOTE | 2017-03-22 16:01 | NUR ---
Clinical pharmacy note-Vancomycin dosing per pharmacy Subjective: To continue Vancomycin dosing on this patient for documented infection(endocarditis per ER MD note) Objective: BUN 19 (03/21) Scr 1.3 (03/21) WBC 39.5 (03/21) Temp 98.3 Assessment/Plan: Will continue as 1gram IV every 18hrs(third dose today at 0900). Vancomycin trough by 4th dose( ordered and due tomorrow 0230 early am) for expected trough around 16. Rn endorsed to hold if trough >20. Will check trough in am and continue as appropriate. Will monitor renal function closely to adjust the dose if needed. Will follow daily.
[2017-03-22 16:11] VITALS: BP 114/87
--- NOTE | 2017-03-22 17:02 | NUR ---
NO MAGNESIUM IN PIXIS. CALLED PHARMACY TO REFILL
--- NOTE | 2017-03-22 18:17 | NUR ---
STILL NO MAGNESIUM IN PIXIS, PHARMACY CALLED AGAIN
[2017-03-22 20:00] VITALS: BP 113/75
[2017-03-22] MEDS: DOCUSATE SODIUM 100 MG CAPSULE PO SCH (20:31)
[2017-03-22] MEDS: QUETIAPINE FUMARATE 200 MG TABLET PO SCH (20:32)
[2017-03-23] VITALS: BP 123/75
[2017-03-23] MEDS: VANCOMYCIN IV 1 G in PREMIXED 0 EACH IV SCH (03:35)
[2017-03-23 04:00] VITALS: BP 117/79
[2017-03-23] MEDS: HYDROMORPHONE 2 MG/1 ML DISP.SYRIN IV PRN ×5 (04:05→20:19)
[2017-03-23] MEDS: PIPERACILLIN/TAZOBACTAM/D5W 3.375 G in PREMIXED 1 EACH IV SCH ×2 (05:31→13:44)
[2017-03-23] MEDS: PANTOPRAZOLE SODIUM 40 MG TABLET.DR PO SCH (06:28)
--- NOTE | 2017-03-23 06:44 | NUR ---
PT IN BED, RESTING COMFERTABELY. RESP IS EVEN AND UNLABORED. NO SOB. ON 2L OF O2 VIA N.C. PT ON TELE MONITORING WITH SR. IV ON LEFT BREAST AND LORENZO MIDLINE, PATENT AND INTACT. PAIN CONTROLLED WELL WITH PRN MED. ALL DUE MEDS GIVEN ORDERED AND ANGELA WELL. CALL LIGHT KEPT WIT HIN REACH. WILL CONT TO MONITOR.
[2017-03-23 06:56] LABS: BILIRUBIN,TOTAL 0.5 mg/dL (0.2-1.0); MAGNESIUM 2.6 mg/dL (1.8-2.4); PHOSPHOROUS 3.8 mg/dL (2.5-4.9); POTASSIUM 3.9 mmol/L (3.5-5.1); TOTAL PROTEIN, SERUM 7.6 g/dL (6.4-8.2)
--- NOTE | 2017-03-23 08:05 | NUR ---
AWAKE ALERT NO SIGNS OF DISTRESS BUT CHRONIC LOWER CADY PAIN MANAGE WITH DILAUDID PRN. SR ON MONITOR
[2017-03-23] MEDS: MULTIVITAMINS,THERAPEUTIC TABLET PO SCH (08:09)
[2017-03-23] MEDS: FERROUS SULFATE 325 MG TABEC PO SCH ×2 (08:09→20:19)
[2017-03-23] MEDS: diphenhydrAMINE 50 MG CAPSULE PO SCH ×2 (08:09→20:20)
[2017-03-23] MEDS: ASPIRIN 81 MG TAB.CHEW PO SCH (08:11)
[2017-03-23] MEDS ORDERED: IV NORMAL SALINE 250 ML IV ONE (08:25)
[2017-03-23] MEDS ORDERED: IOHEXOL 300MG/ML 100 ML INFUS..BTL ONE (08:25)
[2017-03-23 10:29] LABS: BASOPHILS % (AUTO) 0.2 % (0.0-2.0); EOSINOPHILS # (AUTO) 0.1 K/uL (0.0-0.7); EOSINOPHILS % (AUTO) 0.6 % (0.0-7.0); HEMOGLOBIN 9.7 G/DL (14.0-18.0); LYMPHOCYTES # (AUTO) 1.3 K/UL (0.8-4.8); LYMPHOCYTES % (AUTO) 7.9 % (20.5-51.5); MEAN CORPUSCULAR HEMOGLOBIN 28.3 UUG (27.0-31.0); MEAN CORPUSCULAR HGB CONC 32 g/dL (32.0-37.0); MEAN CORPUSCULAR VOLUME 87.7 FL (82.0-92.0); MONOCYTES # (AUTO) 1.6 K/UL (0.1-1.30); MONOCYTES % (AUTO) 9.4 % (0.0-11.0); NEUTROPHILS # (AUTO) 13.6 K/UL (1.8-8.9); NEUTROPHILS % (AUTO) 81.9 % (38.5-71.5); PLATELET COUNT (AUTO) 278 K/UL (150-450); RED BLOOD CELL COUNT(AUTO) 3.42 MIL/UL (4.7-6.1); WHITE BLOOD COUNT (AUTO) 16.6 K/UL (4.0-11.2)
--- NOTE | 2017-03-23 10:30 | NUR ---
CT LUMBAR AND THORACIC SPINE DONE AWAITING FOR RESULTS
--- NOTE | 2017-03-23 10:58 | NUR ---
Clinical pharmacy note-Vancomycin dosing per pharmacy Subjective: To continue Vancomycin dosing on this patient for Sepsis, GPC bacteremia==> Strep preliminary Hx SBE, s/p valve replacement==> no obvious vegetations per 2D ECHO (Per ID note) Objective: BUN 11 Scr 1.0 WBC 21.3 Temp 99.1 Vanco trough level: 9.1 Assessment/Plan: Since vanco trough level is subtherapeutic, will change dose from 1gram IVPB q18hrs to 1gm IVPB q15h for predicted vanco trough level of 15.6 mcg/ml at steady state. Second dose is due today at 1800. Plan to draw vanco trough level before 4th dose of current regimen (not yet ordered). Will monitor renal function closely to adjust the dose if needed. Will follow daily.
[2017-03-23 11:56] VITALS: BP 110/61
--- NOTE | 2017-03-23 12:10 | NUR ---
CONTINUE WITH PAIN MANAGEMENT WITH TEMPORARY RELIEF
[2017-03-23 16:51] VITALS: BP 127/64
--- NOTE | 2017-03-23 17:35 | NUR ---
NO ACUTE CHANGE RESULT OF CT LUMBAR AND SPIE IN SEE COPY. NO SIGNS OF SOB, CONTINUE IV ANTIBIOTICS
[2017-03-23] MEDS ORDERED: VANCOMYCIN IV 1 G in PREMIXED 0 EACH IV SCH (18:00)
--- NOTE | 2017-03-23 19:20 | NUR ---
RECEIVED PT IN BED, AWAKE ALERT, WATCHING TV. RESP IS EVEN AND UNLABORED. NO SOB. NO ACUTE DISTRESS. PT IS SR ON TELE. MIDLINE IV ON RIGHT UPPER ARM, PATENT AND INTACT. CALL LIGHT KEPT WITHIN REACH.
[2017-03-23] MEDS: DOCUSATE SODIUM 100 MG CAPSULE PO SCH (20:18)
[2017-03-23] MEDS: QUETIAPINE FUMARATE 200 MG TABLET PO SCH (20:19)
[2017-03-23 21:02] VITALS: BP 133/81
[2017-03-23] MEDS ORDERED: CEFTRIAXONE 1 G VIAL ONE (22:06)
[2017-03-23] MEDS: CEFTRIAXONE 2 G in IV DEXTROSE 5% 100 ML IV SCH (23:04)
[2017-03-24 00:22] VITALS: BP 120/77
[2017-03-24] MEDS: HYDROMORPHONE 2 MG/1 ML DISP.SYRIN IV PRN ×5 (00:38→22:04)
[2017-03-24 04:18] VITALS: BP 142/78
[2017-03-24] MEDS: PANTOPRAZOLE SODIUM 40 MG TABLET.DR PO SCH (06:18)
--- NOTE | 2017-03-24 06:40 | NUR ---
PT IN BED, RESTING COMFORTABLY. RESP IS EVEN AND UNLABORED. NO SOB. NO ACUTE DISTRESS. PT MAINTAINED NPO P MIDNIGHT. INFORMED PT TO REMAIN NPO FOR KIANNA, PT ACKNOWLEDGED UNDERSTANDING. PT ON TELE WITH SR. PAIN MANAGED WITH PRN PAIN MEDICATIONS. R UPPER ARM MIDLINE IS PATENT AND INTACT.
--- NOTE | 2017-03-24 07:00 | NUR ---
NPO FOR KIANNA CONTINUE TELE MONITORING SR ON MONITOR
[2017-03-24] MEDS: FERROUS SULFATE 325 MG TABEC PO SCH ×2 (08:08→20:25)
[2017-03-24] MEDS: MULTIVITAMINS,THERAPEUTIC TABLET PO SCH (08:08)
[2017-03-24] MEDS: diphenhydrAMINE 50 MG CAPSULE PO SCH ×2 (08:08→20:25)
[2017-03-24] MEDS: ASPIRIN 81 MG TAB.CHEW PO SCH (08:08)
[2017-03-24 08:13] LABS: BASOPHILS # (AUTO) 0.1 K/uL (0.0-8.0); BASOPHILS % (AUTO) 0.5 % (0.0-2.0); EOSINOPHILS # (AUTO) 0.1 K/uL (0.0-0.7); EOSINOPHILS % (AUTO) 0.8 % (0.0-7.0); HEMATOCRIT 29.6 % (40-50); HEMOGLOBIN 9.7 G/DL (14.0-18.0); LYMPHOCYTES # (AUTO) 1.1 K/UL (0.8-4.8); LYMPHOCYTES % (AUTO) 7.9 % (20.5-51.5); MEAN CORPUSCULAR HEMOGLOBIN 28.5 UUG (27.0-31.0); MEAN CORPUSCULAR HGB CONC 33 g/dL (32.0-37.0); MEAN CORPUSCULAR VOLUME 87.1 FL (82.0-92.0); MONOCYTES # (AUTO) 1.4 K/UL (0.1-1.30); MONOCYTES % (AUTO) 10.1 % (0.0-11.0); NEUTROPHILS # (AUTO) 10.9 K/UL (1.8-8.9); NEUTROPHILS % (AUTO) 80.7 % (38.5-71.5); PLATELET COUNT (AUTO) 288 K/UL (150-450); WHITE BLOOD COUNT (AUTO) 13.6 K/UL (4.0-11.2)
[2017-03-24 08:17] LABS: CREATININE 0.9 mg/dL (0.6-1.3); PHOSPHOROUS 3.4 mg/dL (2.5-4.9); POTASSIUM 4.1 mmol/L (3.5-5.1)
--- NOTE | 2017-03-24 11:19 | NUR ---
TO OR FOR KIANNA VIA BED ACCOMPANIED BY STAFF, REPORT GIVEN TO STAFF
[2017-03-24 11:24] VITALS: BP 128/85
[2017-03-24] MEDS ORDERED: LIDOCAINE HCL 2% 5 ML JELLY ONE (11:27)
--- NOTE | 2017-03-24 14:00 | NUR ---
BACK FROM RR POST KIANNA ACCOMPANIED BY STAFF AWAKE ALERT NO SIGNS OF DISTRESS VS WNL
[2017-03-24] MEDS ORDERED: IV LACTATED RINGERS SOLUTION 1,000 ML BAG IV ONE (14:58)
[2017-03-24] MEDS ORDERED: PROPOFOL 200 MG/20 ML BOTTLE IV ONE (14:58)
--- NOTE | 2017-03-24 15:45 | NUR ---
SEEN BY DR SHEIKH SEE NOTES
[2017-03-24 15:51] VITALS: BP 127/81
[2017-03-24] MEDS: RIVAROXABAN 10 MG TABLET PO SCH (17:08)
[2017-03-24 20:00] VITALS: BP 123/83
[2017-03-24] MEDS: DOCUSATE SODIUM 100 MG CAPSULE PO SCH (20:25)
[2017-03-24] MEDS: CEFTRIAXONE 2 G in IV DEXTROSE 5% 100 ML IV SCH (20:25)
[2017-03-24] MEDS: QUETIAPINE FUMARATE 200 MG TABLET PO SCH (20:25)
[2017-03-25] MEDS: HYDROMORPHONE 2 MG/1 ML DISP.SYRIN IV PRN ×6 (02:06→23:44)
[2017-03-25 05:02] VITALS: BP 119/80
[2017-03-25] MEDS: PANTOPRAZOLE SODIUM 40 MG TABLET.DR PO SCH (06:09)
--- NOTE | 2017-03-25 07:07 | NUR ---
RES IN BED, RESTING COMFERTABELY. NO APPERENT DISTRESS. RESP IS EVEN AND UNLABORED. LOWER BACK PAIN MANAGED VIA PRN MEDS. ALL DUE MEDS GIVEN ORDERED AND TOLERATED WELL. CALL LIGHT WITHIN REACH.
[2017-03-25 07:40] LABS: BASOPHILS # (AUTO) 0.3 K/uL (0.0-8.0); BASOPHILS % (AUTO) 2.3 % (0.0-2.0); EOSINOPHILS # (AUTO) 0.2 K/uL (0.0-0.7); EOSINOPHILS % (AUTO) 1.3 % (0.0-7.0); HEMATOCRIT 28.7 % (40-50); HEMOGLOBIN 9.3 G/DL (14.0-18.0); LYMPHOCYTES # (AUTO) 1.2 K/UL (0.8-4.8); LYMPHOCYTES % (AUTO) 9.9 % (20.5-51.5); MEAN CORPUSCULAR HEMOGLOBIN 28.6 UUG (27.0-31.0); MEAN CORPUSCULAR HGB CONC 32 g/dL (32.0-37.0); MEAN CORPUSCULAR VOLUME 88.6 FL (82.0-92.0); MONOCYTES # (AUTO) 1.3 K/UL (0.1-1.30); MONOCYTES % (AUTO) 11.2 % (0.0-11.0); NEUTROPHILS # (AUTO) 8.8 K/UL (1.8-8.9); NEUTROPHILS % (AUTO) 75.3 % (38.5-71.5); PLATELET COUNT (AUTO) 279 K/UL (150-450); RED BLOOD CELL COUNT(AUTO) 3.24 MIL/UL (4.7-6.1); WHITE BLOOD COUNT (AUTO) 11.8 K/UL (4.0-11.2)
[2017-03-25 08:03] LABS: CREATININE 0.9 mg/dL (0.6-1.3); POTASSIUM 4.6 mmol/L (3.5-5.1)
[2017-03-25] MEDS: ASPIRIN 81 MG TAB.CHEW PO SCH (08:15)
[2017-03-25] MEDS: FERROUS SULFATE 325 MG TABEC PO SCH ×2 (08:15→20:28)
[2017-03-25] MEDS: diphenhydrAMINE 50 MG CAPSULE PO SCH ×2 (08:15→20:27)
[2017-03-25] MEDS: MULTIVITAMINS,THERAPEUTIC TABLET PO SCH (08:15)
[2017-03-25 09:55] LABS: BAND % (MANUAL) 1 % (0-10); EOSINOPHILS % (MANUAL) 2 % (0-8); LYMPHOCYTES % (MANUAL) 11 % (20-40); MONOCYTES % (MANUAL) 12 % (2-10); NEUTROPHILS % (MANUAL) 74 % (42-75)
[2017-03-25 11:27] VITALS: BP 113/75
--- NOTE | 2017-03-25 12:00 | NUR ---
TRANSFERRED FROM U TO 226 TELE STATUS SR WITH BB, ALERT AND ORIENTED X3 NO SIGNS OF DISTRESS. DENIES CHEST PAIN Addendum: 03/25/17 at 1626 by ALYSHA MENDEZ RN ERROR
--- NOTE | 2017-03-25 12:05 | NUR ---
CONTINUE WITH PAIN MANAGEMENT, DC PLANNING INITIATED AWAITING PICCLINE FOR PENITENTIARY USE FOR ANTIBIOTIC
[2017-03-25 15:41] VITALS: BP 122/84
--- NOTE | 2017-03-25 16:18 | NUR ---
NO CHANGE IN STATUS CONTINUE WITH OBSERVATION
[2017-03-25] MEDS: RIVAROXABAN 10 MG TABLET PO SCH (17:37)
--- NOTE | 2017-03-25 19:40 | NUR ---
RECEIVED PT'S A/A/O X4;S/P PICC LINE INSERTION X2 LUMENS @ RIGHT UPPER ARM;W/MINIMAL BLOODY OOZING;PRESSURE D/S'S ON;NO ACTIVE BLEEDING NOTED.PT HAD A PLAN TO [facility] AT 5AM BY [facility] FOR CTA CHEST;CONSENT'S DONE SINCE AM SHIFT;PT VERBALIZED UNDERSTANDING THE PROCEDURE NOTED.UPDATED THE PLAN OF CARE,PAIN MANAGEMENT DURING THIS TIME.ABX'S GIVEN MD'S ORDER;PT TOLERATED WELL,DENIED OF ANY CHEST PAIN NOTED.
[2017-03-25 20:00] VITALS: BP 158/97
[2017-03-25] MEDS: CEFTRIAXONE 2 G in IV DEXTROSE 5% 100 ML IV SCH (20:14)
[2017-03-25] MEDS: QUETIAPINE FUMARATE 200 MG TABLET PO SCH (20:27)
[2017-03-25] MEDS: DOCUSATE SODIUM 100 MG CAPSULE PO SCH (20:27)
--- NOTE | 2017-03-25 23:55 | NUR ---
SNACK'S GIVEN TO PT REQUEST PRIOR NPO AFTER MIDNIGHT FOR TEST IN AM;PT VERBALIZED UNDERSTANDING AND COOPERATIVE W/ADVICE NOTED.TELEMETRY'S SR 77/MIN.CONTINUED MONITORING TO PT.NO ACTIVE BLEEDING FROM THE PICC LINE SITE.
[2017-03-26] VITALS (7 sets, daily range): BP systolic 106–142; BP diastolic 65–90
--- NOTE | 2017-03-26 03:15 | NUR ---
CALLED [facility] @ BY GERI/BATCH DUMPER BUT IT'S SUBACUTE AREA;TRANSFERRED THE PHONE CALL TO NURSING INSURANCE RATER;GERI'S ABLE TO TALK TO MACIE /INSURANCE RATER;SHE STATED TO CALL AGAIN @ 8AM TODAY IN ORDER TO GIVE REPORT TO RN WHO'S ON DUTY AT THAT TIME. GERI/BATCH DUMPER ALSO CALLED [facility] ( MED RESPONSE)TO ARRANGE TRANSPORTATION AND WE GOT THE EARLIEST TIME WILL BE AT 8 AM;INGE/GUNJAN RADIOSONDE OPERATOR'S NOTIFIED UPON THIS TIME ABOUT THE ARRANGEMENT,INGE STATED THAT SHE'LL CALL [facility] IN ORDER TO CONFIRM WITH MACIE AGAIN.
[2017-03-26] MEDS: HYDROMORPHONE 2 MG/1 ML DISP.SYRIN IV PRN ×4 (03:37→21:53)
--- NOTE | 2017-03-26 06:30 | NUR ---
ASSISTED PT FOR BED BATH AND CHANGED GOWN,PICC LINE SITE'S CLEAN AND DRY,INTACT NOTED.KEPT NPO FOR CTA CHEST IN AM.EDUCATED TO PT ABOUT THE ARRANGEMENT THIS AM;PT VERBALIZED UNDERSTANDING AND COOPERATIVE W/ASSISTANCE;DENIED OF PAIN AT THIS TIME.TELEMETRY'S SR 74/MIN.NO DISTRESS NOTED IN THE SHIFT,PAIN'S CONTROLLED.
[2017-03-26 06:41] LABS: BASOPHILS % (AUTO) 0.3 % (0.0-2.0); EOSINOPHILS # (AUTO) 0.3 K/uL (0.0-0.7); EOSINOPHILS % (AUTO) 3.1 % (0.0-7.0); HEMATOCRIT 27.6 % (40-50); LYMPHOCYTES # (AUTO) 1.1 K/UL (0.8-4.8); MEAN CORPUSCULAR HEMOGLOBIN 28.5 UUG (27.0-31.0); MEAN CORPUSCULAR HGB CONC 33 g/dL (32.0-37.0); MEAN CORPUSCULAR VOLUME 87.8 FL (82.0-92.0); MONOCYTES # (AUTO) 1.1 K/UL (0.1-1.30); MONOCYTES % (AUTO) 12.5 % (0.0-11.0); NEUTROPHILS # (AUTO) 6.3 K/UL (1.8-8.9); NEUTROPHILS % (AUTO) 71.1 % (38.5-71.5); PLATELET COUNT (AUTO) 361 K/UL (150-450); RED BLOOD CELL COUNT(AUTO) 3.14 MIL/UL (4.7-6.1); WHITE BLOOD COUNT (AUTO) 8.8 K/UL (4.0-11.2)
[2017-03-26] MEDS: PANTOPRAZOLE SODIUM 40 MG TABLET.DR PO SCH (07:00)
[2017-03-26 07:04] LABS: CREATININE 0.9 mg/dL (0.6-1.3); POTASSIUM 3.8 mmol/L (3.5-5.1)
--- NOTE | 2017-03-26 07:25 | NUR ---
RESTING IN BED AWAKE ALERT AND ORIENTED X3 NO SIGNS OF PAIN OR DISTRESS WITH O2 3L NC, KEPT NPO FOR CTA , CT CHEST AT [place] AT 1100
--- NOTE | 2017-03-26 08:20 | NUR ---
TO RASHEEDA AGUILERA VIA [facility] FOR CTA CHEST, STABLE, NO SIGNS OF PAIN. REPORT GIVEN TO S.O. STAFF AND AMBULANCE CREW
[2017-03-26] MEDS: diphenhydrAMINE 50 MG CAPSULE PO SCH ×2 (08:47→20:27)
[2017-03-26] MEDS: FERROUS SULFATE 325 MG TABEC PO SCH ×2 (08:47→20:28)
[2017-03-26] MEDS: ASPIRIN 81 MG TAB.CHEW PO SCH (08:47)
[2017-03-26] MEDS: MULTIVITAMINS,THERAPEUTIC TABLET PO SCH (08:48)
--- NOTE | 2017-03-26 10:47 | NUR ---
STILL IN [facility]
--- NOTE | 2017-03-26 13:30 | NUR ---
BACK FROM [facility] AGUILER[facility] POST CTA CHEST AWAKE ALERT VIA AMBULANCE, NO SIGNS OF DISTRESS WITH 2L NC
[2017-03-26] MEDS: RIVAROXABAN 10 MG TABLET PO SCH (17:43)
--- NOTE | 2017-03-26 18:11 | NUR ---
NO ACUTE CHANGE, SLIGHT SEROUS DRAINAGE NOTED PICC LINE SITE DRESSING CHANGED ASEPTICALLY, FLUSHED ROUTINELY WITH GOOD BLOOD RETURN
[2017-03-26] MEDS: CEFTRIAXONE 2 G in IV DEXTROSE 5% 100 ML IV SCH (20:27)
[2017-03-26] MEDS: DOCUSATE SODIUM 100 MG CAPSULE PO SCH (20:28)
[2017-03-26] MEDS: QUETIAPINE FUMARATE 200 MG TABLET PO SCH (20:28)
[2017-03-27 00:23] VITALS: BP 127/76
[2017-03-27] MEDS: HYDROMORPHONE 2 MG/1 ML DISP.SYRIN IV PRN ×6 (02:29→23:07)
[2017-03-27 04:36] VITALS: BP 138/85
--- NOTE | 2017-03-27 05:41 | NUR ---
ON PAIN MANAGEMENT FOR LOWER BACK PAIN, MEDICATED WITH DILAUDID AND WITH HELP. PICC LINE ON LORENZO PATENT AND INTACT. IN NO ACUTE SIGNS OF DISTRESS. SAFETY MAINTAINED THROUGHOUT SHIFT. CALL LIGHT WITHIN.
[2017-03-27] MEDS: PANTOPRAZOLE SODIUM 40 MG TABLET.DR PO SCH (06:14)
--- NOTE | 2017-03-27 07:10 | NUR ---
PATIENT RECEIVED IN ROOM RESTING ALERT, AWAKE AND ORIENTED IN NO ACUTE DISTRESS. NO C/O PAIN AT THIS TIME. CALL LIGHT AT REACH.
[2017-03-27] MEDS: FERROUS SULFATE 325 MG TABEC PO SCH ×2 (08:20→20:51)
[2017-03-27] MEDS: MULTIVITAMINS,THERAPEUTIC TABLET PO SCH (08:20)
[2017-03-27] MEDS: diphenhydrAMINE 50 MG CAPSULE PO SCH ×2 (08:20→21:49)
[2017-03-27 11:34] VITALS: BP 118/78
[2017-03-27 15:59] VITALS: BP 138/84
[2017-03-27] MEDS: RIVAROXABAN 10 MG TABLET PO SCH (17:40)
--- NOTE | 2017-03-27 18:10 | NUR ---
END OF SHIFT NOTE: PATIENT IN NO ACUTE DISTRESS THROUGHOUT SHIFT. PAIN MANAGED WITH MEDICATION PRESCRIBED. VSS. PATIENT WITH GOOD APPETITE. ABLE TO ASSIST WITH ADLs. PICC LINE INTACT AND PATENT. NEEDS MET BY STAFF.
--- NOTE | 2017-03-27 19:00 | NUR ---
RECEIVED PATIENT IN BED, ALERT ORIENTED, NO SOB NO CHEST PAIN, ON PAIN MANAGEMENT, CONT ABX FOR ENDOCARDITIS WITH NO ASE NOTED, R UPPER ARM PICC LINE PATENT AND INTACT, CONT ON OXYGEN 2 LITERS NC, OXYGEN SAT WNL. NO S/S OF DISTRESS.
[2017-03-27 20:00] VITALS: BP 157/99
[2017-03-27] MEDS: CEFTRIAXONE 2 G in IV DEXTROSE 5% 100 ML IV SCH (20:50)
[2017-03-27] MEDS: DOCUSATE SODIUM 100 MG CAPSULE PO SCH (20:50)
[2017-03-27] MEDS: QUETIAPINE FUMARATE 200 MG TABLET PO SCH (20:52)
[2017-03-28] MEDS: HYDROMORPHONE 2 MG/1 ML DISP.SYRIN IV PRN ×5 (03:35→21:20)
[2017-03-28 05:18] VITALS: BP 159/85
--- NOTE | 2017-03-28 05:31 | NUR ---
PATIENT SLEPT MOST OF THE NIGHT, NO SOB NO CHEST PAIN, ON PAIN MANAGEMENT, KEPT CLEAN AND DRY, NO S/S OF DISTRESS.
[2017-03-28] MEDS: PANTOPRAZOLE SODIUM 40 MG TABLET.DR PO SCH (06:00)
[2017-03-28 06:50] LABS: POTASSIUM 4.2 mmol/L (3.5-5.1)
[2017-03-28 07:06] LABS: BASOPHILS % (AUTO) 0.4 % (0.0-2.0); EOSINOPHILS # (AUTO) 0.3 K/uL (0.0-0.7); EOSINOPHILS % (AUTO) 3.5 % (0.0-7.0); HEMOGLOBIN 9.8 G/DL (14.0-18.0); LYMPHOCYTES # (AUTO) 1.3 K/UL (0.8-4.8); LYMPHOCYTES % (AUTO) 16.1 % (20.5-51.5); MEAN CORPUSCULAR HEMOGLOBIN 28.1 UUG (27.0-31.0); MEAN CORPUSCULAR HGB CONC 32 g/dL (32.0-37.0); MEAN CORPUSCULAR VOLUME 87.8 FL (82.0-92.0); MONOCYTES # (AUTO) 0.8 K/UL (0.1-1.30); MONOCYTES % (AUTO) 10.8 % (0.0-11.0); NEUTROPHILS # (AUTO) 5.4 K/UL (1.8-8.9); NEUTROPHILS % (AUTO) 69.2 % (38.5-71.5); WHITE BLOOD COUNT (AUTO) 7.9 K/UL (4.0-11.2)
[2017-03-28 07:14] LABS: HEMATOCRIT 30.6 % (40-50); PLATELET COUNT (AUTO) 454 K/UL (150-450); RED BLOOD CELL COUNT(AUTO) 3.48 MIL/UL (4.7-6.1)
[2017-03-28] MEDS: diphenhydrAMINE 50 MG CAPSULE PO SCH ×2 (08:08→20:01)
[2017-03-28] MEDS: FERROUS SULFATE 325 MG TABEC PO SCH ×2 (08:08→20:45)
[2017-03-28] MEDS: MULTIVITAMINS,THERAPEUTIC TABLET PO SCH (08:08)
--- NOTE | 2017-03-28 08:10 | NUR ---
awake alert, states has low back pain- medicated with Dilaudid 2 mg IV as prn, 02 2l/nc, expalined plan of care-verbalized understanding, needs attended and safety measures maintained, call light within reach
--- NOTE | 2017-03-28 10:48 | NUR ---
Faxed [facility] [ ; [id number] [facility] [place] [address]] the patients inquiry. Guardado will review and follow up.
[2017-03-28 11:52] VITALS: BP 137/91
[2017-03-28 16:05] VITALS: BP 148/96
[2017-03-28] MEDS: RIVAROXABAN 10 MG TABLET PO SCH (17:34)
--- NOTE | 2017-03-28 18:10 | NUR ---
resting in bed, states pain 10/17, requested pain med q 4h this shift for lower back, no distress noted, all needs attended and met, comfort measures provided, safety measures maintained- call light within reach
[2017-03-28 19:42] VITALS: BP 148/94
--- NOTE | 2017-03-28 20:00 | NUR ---
RECEIVED PATIENT IN BED, ALERT ORIENTED, CONT ON PAIN MANAGEMENT, NO SOB NO CHEST PAIN NOTED, KEPT CLEAN AND DRY, CONT TO MONITOR.
[2017-03-28] MEDS: QUETIAPINE FUMARATE 200 MG TABLET PO SCH (20:01)
[2017-03-28] MEDS: DOCUSATE SODIUM 100 MG CAPSULE PO SCH (20:01)
[2017-03-28] MEDS: CEFTRIAXONE 2 G in IV DEXTROSE 5% 100 ML IV SCH (20:04)
[2017-03-29] MEDS: HYDROMORPHONE 2 MG/1 ML DISP.SYRIN IV PRN ×3 (02:23→10:49)
--- NOTE | 2017-03-29 05:07 | NUR ---
PATIENT SLEPT MOST OF THE NIGHT, ON PAIN MANAGEMENT, PICC LINE INTACT, PATENT, ON OXYGEN 2LITER NC, NO SOB NO CHEST PAIN , NO DESATURATION NOTED, CALL LIGHT WITHIN REACH. CONT TO MONITOR.
[2017-03-29 05:13] VITALS: BP 124/82
[2017-03-29] MEDS: PANTOPRAZOLE SODIUM 40 MG TABLET.DR PO SCH (06:05)
[2017-03-29 06:33] LABS: CREATININE 0.9 mg/dL (0.6-1.3); POTASSIUM 4.3 mmol/L (3.5-5.1)
--- NOTE | 2017-03-29 07:10 | NUR ---
awake alert and oriented, states pain on lower back 10/17, explained plan of care- verbalized understanding, PICC line on the right upper arm intact and in place, call light within reach
[2017-03-29 07:50] LABS: BASOPHILS # (AUTO) 0.2 K/uL (0.0-8.0); BASOPHILS % (AUTO) 2.2 % (0.0-2.0); EOSINOPHILS # (AUTO) 0.3 K/uL (0.0-0.7); EOSINOPHILS % (AUTO) 3.6 % (0.0-7.0); HEMATOCRIT 29.6 % (40-50); HEMOGLOBIN 9.5 G/DL (14.0-18.0); LYMPHOCYTES # (AUTO) 1.1 K/UL (0.8-4.8); LYMPHOCYTES % (AUTO) 12.4 % (20.5-51.5); MEAN CORPUSCULAR HEMOGLOBIN 27.9 UUG (27.0-31.0); MEAN CORPUSCULAR HGB CONC 32 g/dL (32.0-37.0); MONOCYTES # (AUTO) 0.9 K/UL (0.1-1.30); MONOCYTES % (AUTO) 10.2 % (0.0-11.0); NEUTROPHILS # (AUTO) 6.6 K/UL (1.8-8.9); NEUTROPHILS % (AUTO) 71.6 % (38.5-71.5); PLATELET COUNT (AUTO) 494 K/UL (150-450); WHITE BLOOD COUNT (AUTO) 9.1 K/UL (4.0-11.2)
[2017-03-29] MEDS: FERROUS SULFATE 325 MG TABEC PO SCH (08:46)
[2017-03-29] MEDS: diphenhydrAMINE 50 MG CAPSULE PO SCH (08:46)
[2017-03-29] MEDS: MULTIVITAMINS,THERAPEUTIC TABLET PO SCH (08:46)
[2017-03-29] MEDS ORDERED: FERR325T28 PO (09:10)
[2017-03-29] MEDS ORDERED: RIVA10TA PO (09:10)
[2017-03-29] MEDS ORDERED: QUET200T PO (09:10)
[2017-03-29] MEDS ORDERED: CEFT2VIA14 IV (09:10)
--- NOTE | 2017-03-29 10:42 | NUR ---
The patient will be discharged today to [facility] [ ; [address] [place] [address]] via [facility]. The patient is aware of his discharge and in agreement. He was reminded that he needs to finish his course of antibiotics and suggested not to leave AMA because he didn't finish his IV antibiotics from his last SNF placement and left AMA. He acknowledged and stated he made a mistake last time. Spoke to Debby from [facility] who confirmed that they will admit the patient today. His RN, Olivia, is aware of his discharge plan and will call the facility for the report.
--- NOTE | 2017-03-29 10:57 | NUR ---
medicated with Dilaudid 2mg iv as ordered prn for c/o low back pain, repositioned to side with heels off loaded with pillow- no redness noted, dry and applied lotion, call light within reach, informed ambulance will be here between [id number] for poultry picking machine tender to go to [facility]
--- NOTE | 2017-03-29 11:20 | NUR ---
report given to Maryse FANG at [facility]
[2017-03-29 12:02] VITALS: BP 126/84
[2017-03-29 12:04] VITALS: BP 126/84
--- NOTE | 2017-03-29 12:15 | NUR ---
discharge instructions given, verbalized understanding, informed home meds will be given to [facility]
--- NOTE | 2017-03-29 13:46 | NUR ---
ambulance here, report given, taken per gurney in stable condition with all belongings
== END 2017-03-29 13:46 | DRG 206 ==
LOC: ER 17:15 → TELE 21:37 → MED 03-24 14:45 → TELE 03-25 18:45 → MED 03-27 14:23
PROVIDERS: ADMIT Internal Medicine; ATTEND Internal Medicine
PROC: 05H533Z Insertion of Infusion Device into Right Subclavian Vein, Percutaneous Approach (ICD-10-PCS; principal; 2017-03-21)
PROC: B246ZZ4 Ultrasonography of Right and Left Heart, Transesophageal (ICD-10-PCS; 2017-03-24)
PROC: 05H533Z Insertion of Infusion Device into Right Subclavian Vein, Percutaneous Approach (ICD-10-PCS; 2017-03-25)
DX: T82.6XXA Infection and inflammatory reaction due to cardiac valve prosthesis, initial encounter (principal); R65.20 Severe sepsis without septic shock; I21.4 Non-ST elevation (NSTEMI) myocardial infarction; N17.0 Acute kidney failure with tubular necrosis; E43 Unspecified severe protein-calorie malnutrition; I50.43 Acute on chronic combined systolic (congestive) and diastolic (congestive) heart failure; A41.9 Sepsis, unspecified organism; B95.4 Other streptococcus as the cause of diseases classified elsewhere; E11.9 Type 2 diabetes mellitus without complications; I33.0 Acute and subacute infective endocarditis; T82.867A Thrombosis due to cardiac prosthetic devices, implants and grafts, initial encounter; Y71.2 Prosthetic and other implants, materials and accessory cardiovascular devices associated with adverse incidents; Y92.89 Other specified places as the place of occurrence of the external cause; I11.0 Hypertensive heart disease with heart failure; F31.9 Bipolar disorder, unspecified; F17.210 Nicotine dependence, cigarettes, uncomplicated; E83.42 Hypomagnesemia; E61.1 Iron deficiency; Z68.1 Body mass index [BMI] 19.9 or less, adult; G40.909 Epilepsy, unspecified, not intractable, without status epilepticus; G89.4 Chronic pain syndrome; Z86.19 Personal history of other infectious and parasitic diseases; F20.0 Paranoid schizophrenia; K04.7 Periapical abscess without sinus; K74.60 Unspecified cirrhosis of liver; Z91.81 History of falling; Z91.14 Patient's other noncompliance with medication regimen; Z95.3 Presence of xenogenic heart valve; Z96.643 Presence of artificial hip joint, bilateral; J18.9 Pneumonia, unspecified organism; M47.9 Spondylosis, unspecified; Z88.6 Allergy status to analgesic agent; Z88.8 Allergy status to other drugs, medicaments and biological substances; K76.9 Liver disease, unspecified; F10.21 Alcohol dependence, in remission
CPT/HCPCS: 36415; 36569; 70030-TC; 70450; 71010; 82378; 83550; 83605; 83735; 84100; 84443; 85025; 85730; 87040; 87077; 87086; 93005; 93307; 93312; A4663; C1751; J0696; J1170; J1580; J1644; J1940; J2543; J3370; J3475; J3490; J7030; J7050; J7060; J7120; Q0163; Q9967

== ENCOUNTER 2017-04-01 16:45 | Emergency (ER) | payer OTHER ==
[~2017-04-01] VITALS: Ht 182.9 cm; Wt 59.0 kg
[~2017-04-01 16:45] MED LIST changes: +CEFT2VIA14 IV; +FERR325T28 PO; -MULTI INGREDIENT TP; +QUET200T PO; +RIVA10TA PO
--- NOTE | 2017-04-01 17:40 | NUR ---
PT IS IN ROOM #2B. DR GRAY EVALUATED THE PT.
[2017-04-01] MEDS: HYDROCODONE/APAP 5-325MG TABLET PO ONE (17:55)
--- NOTE | 2017-04-01 17:56 | NUR ---
PT STATED HE NEEDS TO LEAVE , BECAUSE HE HAS [address] AND HE IS IN HURRY. PT LEFT ER. NO S/S OF DISTRESS THIS TIME . GAIT IS STABLE. DR GRAY NOTIFIED.
[2017-04-01] MEDS ORDERED: HYDROCODONE/APAP 5-325MG TABLET ONE (17:59)
== END 2017-04-01 18:00 | disposition left against medical advice (07) ==
LOC: ER 16:45
DX: M54.5 Low back pain (principal); G89.29 Other chronic pain; I10 Essential (primary) hypertension; F31.9 Bipolar disorder, unspecified; F20.9 Schizophrenia, unspecified; F10.20 Alcohol dependence, uncomplicated; F17.200 Nicotine dependence, unspecified, uncomplicated; Z53.20 Procedure and treatment not carried out because of patient's decision for unspecified reasons; Z88.6 Allergy status to analgesic agent; Z88.8 Allergy status to other drugs, medicaments and biological substances; Z79.01 Long term (current) use of anticoagulants; Z95.2 Presence of prosthetic heart valve; W01.0XXA Fall on same level from slipping, tripping and stumbling without subsequent striking against object, initial encounter; Y93.89 Activity, other specified; Y92.89 Other specified places as the place of occurrence of the external cause; Y99.8 Other external cause status
CPT/HCPCS: 72110; A4663

== ENCOUNTER 2017-04-10 17:52 | Emergency (ER) | payer OTHER ==
[~2017-04-10] VITALS: Ht 185.4 cm; Wt 59.0 kg
[~2017-04-10 17:52] MED LIST changes: -AMLO10TA2 PO; -CEFT2VIA14 IV; -HYDR-4076 PO; -MAGN400O6 PO; -QUET200T PO; -RIVA10TA PO; -ZOLP5TAB8 PO
[2017-04-10] MEDS ORDERED: HYDROMORPHONE 1 MG/1 ML DISP.SYRIN IV ONE (18:00)
--- NOTE | 2017-04-10 18:24 | NUR ---
PT WAS EVALUATED BY DR ROACH. PT WAS MEDICATED ACCORDING TO ER MD ORDER. PT TOLERATED TO MEDICATION WITHOUT COMPLICATIONS. PT WAS D/C TO HOME. D/C INSTRUCTIONS GIVEN TO THE PT.
[2017-04-10] MEDS ORDERED: HYDROMORPHONE 1 MG/1 ML DISP.SYRIN ONE (18:28)
[2017-04-10 18:32] VITALS: BP 142/65
== END 2017-04-10 18:33 | disposition home or self-care (01) ==
LOC: ER 17:53
DX: G89.29 Other chronic pain (principal); M54.2 Cervicalgia; M25.552 Pain in left hip; I10 Essential (primary) hypertension; F20.9 Schizophrenia, unspecified; Z88.6 Allergy status to analgesic agent; F17.200 Nicotine dependence, unspecified, uncomplicated; Z95.2 Presence of prosthetic heart valve; G40.909 Epilepsy, unspecified, not intractable, without status epilepticus; Z96.643 Presence of artificial hip joint, bilateral
CPT/HCPCS: A4663; J1170

== ENCOUNTER 2017-05-08 13:06 | Emergency (ER) | payer OTHER ==
[~2017-05-08] VITALS: Ht 188 cm; Wt 61.2 kg
[2017-05-08] MEDS ORDERED: HYDROMORPHONE 1 MG/1 ML DISP.SYRIN IV ONE (13:45)
--- NOTE | 2017-05-08 13:48 | NUR ---
PAMELA ADMIN, PT D/C'D HOME, ACI GIVEN. PT AMBULATED W/O DIFF/TOOK ALL BELONGINGS.
[2017-05-08 13:49] VITALS: BP 152/101
[2017-05-08] MEDS ORDERED: HYDROMORPHONE 2 MG/1 ML DISP.SYRIN ONE (13:55)
== END 2017-05-08 13:50 | disposition home or self-care (01) ==
LOC: ER 13:06
DX: M54.9 Dorsalgia, unspecified (principal); M54.2 Cervicalgia; M25.559 Pain in unspecified hip; I10 Essential (primary) hypertension; R56.9 Unspecified convulsions; F31.9 Bipolar disorder, unspecified; F20.9 Schizophrenia, unspecified
CPT/HCPCS: A4663; J1170

== ENCOUNTER 2017-06-08 19:22 | Emergency (ER) | payer OTHER ==
[~2017-06-08] VITALS: Ht 185.4 cm; Wt 61.2 kg
--- NOTE | 2017-06-08 22:30 | NUR ---
PATIENT IN WAITING ROOM WAITING FOR ROOM OPENING IN ER. PATIENT WITH NO DISTRESS NOTED
[2017-06-09] MEDS ORDERED: HYDROMORPHONE 1 MG/1 ML DISP.SYRIN IV ONE (01:45)
--- NOTE | 2017-06-09 01:48 | NUR ---
Patient discharged to home in stable conditon. Written and verbal after care instructions given. Patient verbalizes understanding of instructions.
[2017-06-09] MEDS ORDERED: HYDROMORPHONE 2 MG/1 ML DISP.SYRIN ONE ×2 (01:49→01:55)
== END 2017-06-09 01:52 | disposition home or self-care (01) ==
LOC: ER 19:23
DX: G89.29 Other chronic pain (principal); M25.552 Pain in left hip; M54.2 Cervicalgia; I10 Essential (primary) hypertension; F20.9 Schizophrenia, unspecified; F32.9 Major depressive disorder, single episode, unspecified; Z95.2 Presence of prosthetic heart valve; Z96.643 Presence of artificial hip joint, bilateral
CPT/HCPCS: A4663; J1170

== ENCOUNTER 2017-06-13 12:51 | Emergency (ER) | payer OTHER ==
[~2017-06-13] VITALS: Ht 185.4 cm; Wt 59.0 kg
--- NOTE | 2017-06-13 14:14 | NUR ---
Patient discharged to home in stable conditon. Written and verbal after care instructions given to patient. Patient verbalizes understanding of instructions. Patient left ER with brisk steady gait.
== END 2017-06-13 14:16 | disposition home or self-care (01) ==
LOC: ER 12:53
DX: G89.29 Other chronic pain (principal); M54.2 Cervicalgia; M25.559 Pain in unspecified hip; F17.200 Nicotine dependence, unspecified, uncomplicated; I10 Essential (primary) hypertension; Z95.2 Presence of prosthetic heart valve
CPT/HCPCS: A4663; J1170

== ENCOUNTER 2017-07-10 21:04 | Emergency (ER) | payer OTHER ==
[~2017-07-10] VITALS: Ht 185.4 cm; Wt 76.2 kg
--- NOTE | 2017-07-10 22:52 | NUR ---
Dr. Wang at bedside for MSE
[2017-07-10] MEDS ORDERED: MAGNESIUM CITRATE 296 ML BOTTLE PO ONE (23:00)
[2017-07-10] MEDS ORDERED: OXYCODONE/APAP 5-325 MG TABLET PO ONE (23:00)
[2017-07-10] MEDS ORDERED: MAGNESIUM HYDROXIDE 30 ML LIQUID UDC PO ONE (23:00)
--- NOTE | 2017-07-10 23:14 | NUR ---
Patient discharged to home in stable conditon. Written and verbal after care instructions given. Patient verbalizes understanding of instructions. WALKED OUT OF ER WITH NO DISTRESS NOTED
[2017-07-10 23:15] VITALS: BP 159/101
[2017-07-10] MEDS ORDERED: OXYCODONE/APAP 5-325 MG TABLET ONE (23:18)
[2017-07-10] MEDS ORDERED: MAGNESIUM CITRATE 296 ML BOTTLE ONE (23:19)
[2017-07-10] MEDS ORDERED: MAGNESIUM HYDROXIDE 30 ML LIQUID UDC ONE (23:19)
[2017-07-11] MEDS ORDERED: OXYC30TA2 PO (19:00)
== END 2017-07-10 23:16 | disposition home or self-care (01) ==
LOC: ER 21:05
DX: G89.29 Other chronic pain (principal); M25.552 Pain in left hip; F17.200 Nicotine dependence, unspecified, uncomplicated; F11.10 Opioid abuse, uncomplicated; I10 Essential (primary) hypertension; Z88.6 Allergy status to analgesic agent; Z95.2 Presence of prosthetic heart valve; F20.9 Schizophrenia, unspecified; G40.909 Epilepsy, unspecified, not intractable, without status epilepticus; Z98.890 Other specified postprocedural states
CPT/HCPCS: 99284; 99406; A4663

== ENCOUNTER 2017-07-11 18:51 | Emergency (ER) | payer OTHER ==
[~2017-07-11] VITALS: Ht 185.4 cm; Wt 63.5 kg
[2017-07-11] MEDS ORDERED: OXYC30TA2 PO (19:00)
[2017-07-11] MEDS ORDERED: HYDROMORPHONE 1 MG/1 ML DISP.SYRIN IV ONE (19:45)
[2017-07-11] MEDS ORDERED: HYDROMORPHONE 2 MG/1 ML DISP.SYRIN ONE (19:58)
--- NOTE | 2017-07-11 20:07 | NUR ---
Patient discharged to home in stable conditon. Written and verbal after care instructions given. Patient verbalizes understanding of instructions. WALKED OUT OF ER WITH STEADY GAIT.NO DISTRESS NOTED
[2017-07-11 20:10] VITALS: BP 159/100
== END 2017-07-11 20:11 | disposition home or self-care (01) ==
LOC: ER 18:55
DX: Z76.0 Encounter for issue of repeat prescription (principal); G89.29 Other chronic pain; M54.2 Cervicalgia; M25.551 Pain in right hip; M25.552 Pain in left hip; F17.200 Nicotine dependence, unspecified, uncomplicated; I10 Essential (primary) hypertension; F20.9 Schizophrenia, unspecified; Z88.6 Allergy status to analgesic agent; Z95.2 Presence of prosthetic heart valve; G40.909 Epilepsy, unspecified, not intractable, without status epilepticus
CPT/HCPCS: 96374; 99284; A4663; J1170

== ENCOUNTER 2017-08-10 18:21 | Emergency (ER) | payer OTHER ==
[~2017-08-10] VITALS: Ht 185.4 cm; Wt 63.2 kg
[~2017-08-10 18:21] MED LIST changes: -FERR325T28 PO; -HYDR-3974 PO; +OXYC30TA2 PO
--- NOTE | 2017-08-10 19:01 | NUR ---
DR ROACH AT THE BEDSIDE FOR EVAL AND EXAM.
[2017-08-10] MEDS ORDERED: HYDROMORPHONE 1 MG/1 ML DISP.SYRIN IV ONE ×2 (19:15→23:30)
[2017-08-10] MEDS ORDERED: HYDROMORPHONE 4 MG/1 ML DISP.SYRIN ONE ×2 (19:34→23:34)
[2017-08-10] MEDS ORDERED: LABETALOL HCL 100 MG/20 ML VIAL IV ONE ×3 (20:30→22:45)
[2017-08-10] MEDS ORDERED: LABETALOL HCL 100 MG/20 ML VIAL ONE ×2 (20:36→22:59)
--- NOTE | 2017-08-10 23:25 | NUR ---
Patient discharged to home in stable conditon. Written and verbal after care instructions given. Patient verbalizes understanding of instructions.
[2017-08-10 23:26] VITALS: BP 168/110
== END 2017-08-10 23:26 | disposition home or self-care (01) ==
LOC: ER 18:24
DX: G89.29 Other chronic pain (principal); I10 Essential (primary) hypertension; F20.9 Schizophrenia, unspecified; F32.9 Major depressive disorder, single episode, unspecified; G40.909 Epilepsy, unspecified, not intractable, without status epilepticus; Z88.5 Allergy status to narcotic agent; Z95.2 Presence of prosthetic heart valve; F17.200 Nicotine dependence, unspecified, uncomplicated; Z88.8 Allergy status to other drugs, medicaments and biological substances
CPT/HCPCS: 96374; 96375; 96376; 99284; A4663; J1170 ×2; J3490 ×2

== ENCOUNTER 2017-09-09 10:40 | Inpatient (IN) | payer OTHER ==
[~2017-09-09] VITALS: Ht 185.4 cm; Wt 59.9 kg
--- NOTE | 2017-09-09 12:54 | NUR ---
Spoke with Ronaldo ([phone] ) for PICC Line insertion (as ordered by ), eta 1.5 hrs.
--- NOTE | 2017-09-09 12:58 | NUR ---
[id number]- 1st contact with patient, Dr Judge at bedside. Patient is Aox4, respiration:easy, afebrile with congestive coughing heard, no sob at this time.
[2017-09-09] MEDS ORDERED: IV NORMAL SALINE 1000 ML BAG IV ONE (13:00)
--- NOTE | 2017-09-09 13:23 | NUR ---
IV fluid infusion is pending. Patient is waiting for the PICC line nurse, notified.
[2017-09-09] MEDS ORDERED: HYDROMORPHONE 1 MG/1 ML DISP.SYRIN IM ONE (13:30)
[2017-09-09] MEDS ORDERED: HYDROMORPHONE 1 MG/1 ML DISP.SYRIN ONE ×2 (13:55→16:41)
--- NOTE | 2017-09-09 14:49 | NUR ---
IVF bolus started w/ pump at right upper arm midline PIV.
[2017-09-09 14:51] LABS: BASOPHILS # (AUTO) 0.1 K/uL (0.0-8.0); BASOPHILS % (AUTO) 0.9 % (0.0-2.0); EOSINOPHILS # (AUTO) 0.1 K/uL (0.0-0.7); EOSINOPHILS % (AUTO) 0.8 % (0.0-7.0); HEMATOCRIT 36.4 % (36.7-47.1); HEMOGLOBIN 11.9 g/dL (12.5-16.3); LYMPHOCYTES # (AUTO) 1.5 K/uL (20.0-40.0); LYMPHOCYTES % (AUTO) 19.6 % (20.5-51.5); MEAN CORPUSCULAR HEMOGLOBIN 28.1 uug (23.8-33.4); MEAN CORPUSCULAR HGB CONC 33 g/dL (32.5-36.3); MEAN CORPUSCULAR VOLUME 85.9 fL (73.0-96.2); MONOCYTES # (AUTO) 0.6 K/uL (2.0-10.0); MONOCYTES % (AUTO) 7.6 % (0.0-11.0); NEUTROPHILS # (AUTO) 5.3 K/uL (1.8-8.9); NEUTROPHILS % (AUTO) 71.1 % (38.5-71.5); PLATELET COUNT (AUTO) 202 K/uL (152-348); RED BLOOD CELL COUNT(AUTO) 4.24 MIL/uL (4.06-5.63); WHITE BLOOD COUNT (AUTO) 7.5 K/uL (3.6-10.2)
[2017-09-09 14:58] LABS: *BILIRUBIN,URIN NEGATIVE (NEGATIVE); *BLOOD, URINE NEGATIVE (NEGATIVE); *CLARITY,URINE CLEAR (CLEAR); *COLOR,URINE YELLOW (YELLOW); *KETONES,URINE NEGATIVE (NEGATIVE); *PROTEIN,URINE NEGATIVE (NEGATIVE); *UROBILINOGEN,URINE 0.2 E.U./dl (NORMAL); LEUKOCYTE ESTERASE ,URINE NEGATIVE (NEGATIVE); NITRITE, URINE NEGATIVE (NEGATIVE); PH,URINE 7.5 (5.0-8.0); UGLUCOSE NEGATIVE (NEGATIVE)
[2017-09-09 15:01] LABS: POTASSIUM 3.8 mmol/L (3.5-5.1)
[2017-09-09 15:06] LABS: BILIRUBIN,DIRECT 0.1 mg/dL (0.0-0.2); BILIRUBIN,TOTAL 0.3 mg/dL (0.2-1.0); TOTAL PROTEIN, SERUM 8.6 g/dL (6.4-8.2)
[2017-09-09 15:06] LABS: RBC,URINE 0-3 /HPF (0-3); SQUAMOUS EPITHELIAL CELL,UR FEW /HPF (NONE SEEN); WBC,URINE 0-3 /HPF (0-3)
[2017-09-09] MEDS ORDERED: LABETALOL HCL 100 MG/20 ML VIAL IV ONE ×2 (15:15→15:45)
[2017-09-09] MEDS ORDERED: LABETALOL HCL 100 MG/20 ML VIAL ONE (15:32)
--- NOTE | 2017-09-09 15:41 | NUR ---
1000ML are all INFUSED, pt tolerated well.
[2017-09-09] MEDS ORDERED: diphenhydrAMINE 50 MG/1 ML VIAL IV ONE (16:30)
[2017-09-09] MEDS ORDERED: HYDROMORPHONE 1 MG/1 ML DISP.SYRIN IV ONE (16:30)
[2017-09-09] MEDS ORDERED: diphenhydrAMINE 50 MG/1 ML VIAL ONE (16:41)
--- NOTE | 2017-09-09 18:46 | NUR ---
Patient is resting comfortably on bed while watching bedside TV. PATIENT IS PAIN FREE AT THIS TIME.
--- NOTE | 2017-09-09 19:15 | NUR ---
hands off report gvjasen to ANNALISA toth
--- NOTE | 2017-09-09 19:23 | NUR ---
Assumed care of patient. no acute distress noted. All patient needs attended and met. Call light is within reach. Will continue to monitor patient.
--- NOTE | 2017-09-09 20:50 | NUR ---
Report given to Andrew FANG in inpatient tele. Patient noted with no acute distress and informed of transfer. Admitting MD Dr. Max Young. Belongings list completed
--- NOTE | 2017-09-09 21:02 | NUR ---
Pt. admitted to telemetry , under care of Dr. Young Belongs List completed
[2017-09-09] MEDS ORDERED: MAGNESIUM HYDROXIDE 30 ML LIQUID UDC PO PRN (22:45)
[2017-09-09] MEDS ORDERED: ENOXAPARIN SODIUM 40 MG/0.4 ML DISP.SYRIN SQ SCH (22:45)
[2017-09-09] MEDS ORDERED: QUETIAPINE FUMARATE 200 MG TABLET PO SCH (22:45)
[2017-09-09] MEDS ORDERED: ONDANSETRON 4 MG/2 ML VIAL IV PRN (22:45)
[2017-09-09] MEDS ORDERED: ACETAMINOPHEN 325 MG TABLET PO PRN (22:45)
[2017-09-09] MEDS ORDERED: CLONIDINE HCL 0.2 MG TABLET PO PRN (22:45)
[2017-09-09 22:49] VITALS: BP 170/113
--- NOTE | 2017-09-09 23:00 | NUR ---
PT IN ROOM C/O PAIN AND REQUESTING DILAUDID. STATES HE DOES NOT CARE ABOUT ANY OTHER MEDICATION BESIDES THIS MEDICATION. DR AADM EMMANUEL INFORMED AND STATED HE CAN ONLY TAKE OXYCONTIN NOW BUT REFUSES TO ORDER DILAUDED. PT INFORMED.
[2017-09-09] MEDS ORDERED: CLONIDINE HCL 0.2 MG TABLET ONE (23:22)
[2017-09-09] MEDS ORDERED: ENOXAPARIN SODIUM 40 MG/0.4 ML DISP.SYRIN SQ ONE (23:23)
[2017-09-09] MEDS ORDERED: QUETIAPINE FUMARATE 100 MG TABLET ONE (23:24)
[2017-09-09] MEDS ORDERED: QUETIAPINE FUMARATE 200 MG TABLET ONE (23:24)
--- NOTE | 2017-09-10 00:26 | NUR ---
PT IN ROOM STILL C/O PAIN AND REQUESTING DILAUDED IVP. DR YESY OWUSU AND STATED HE AGREES WITH DR ADAM EMMANUEL AND CAN ONLY RECEIVE OXYCONTIN PO AT THIS TIME. PT MADE AWARE. CONTINUE TO MONITOR. PT STATES HE REFUSES OXYCONTIN AND WILL JUST "WAIT". CALL LIGHT PLACED WITHIN REACH.
[2017-09-10 00:40] VITALS: BP 162/109
--- NOTE | 2017-09-10 01:00 | NUR ---
PT IN ROOM ALERT AWAKE IN NO ACUTE DISTRESS. BP NOW 162/109. DENIES ANY HEADACHES OR DIZZINESS. STATES HE WILL WAIT FOR PAIN MEDICATION IN THE MORNING. CONTINUING TO MONITOR I&O. CALL LIGHT WITHIN REACH.
[2017-09-10 04:32] VITALS: BP 115/74
--- NOTE | 2017-09-10 05:00 | NUR ---
PT IN ROOM ASLEEP IN NO ACUTE DISTRESS. BP NOTED 115/74. LAB DRAWS THIS AM. CONTINUE TO MONITOR. CALL LIGHT PLACED WITHIN REACH.
[2017-09-10 05:31] LABS: BASOPHILS % (AUTO) 0.7 % (0.0-2.0); CREATININE 1.1 mg/dL (0.6-1.3); EOSINOPHILS # (AUTO) 0.2 K/uL (0.0-0.7); EOSINOPHILS % (AUTO) 3.4 % (0.0-7.0); HEMATOCRIT 35.9 % (36.7-47.1); HEMOGLOBIN 12.1 g/dL (12.5-16.3); LYMPHOCYTES # (AUTO) 1.3 K/uL (20.0-40.0); LYMPHOCYTES % (AUTO) 26.8 % (20.5-51.5); MAGNESIUM 1.7 mg/dL (1.8-2.4); MEAN CORPUSCULAR HGB CONC 34 g/dL (32.5-36.3); MEAN CORPUSCULAR VOLUME 85.7 fL (73.0-96.2); MONOCYTES # (AUTO) 0.6 K/uL (2.0-10.0); MONOCYTES % (AUTO) 11.5 % (0.0-11.0); NEUTROPHILS # (AUTO) 2.8 K/uL (1.8-8.9); NEUTROPHILS % (AUTO) 57.6 % (38.5-71.5); PHOSPHOROUS 4.3 mg/dL (2.5-4.9); PLATELET COUNT (AUTO) 191 K/uL (152-348); POTASSIUM 3.4 mmol/L (3.5-5.1); RED BLOOD CELL COUNT(AUTO) 4.18 MIL/uL (4.06-5.63); WHITE BLOOD COUNT (AUTO) 4.9 K/uL (3.6-10.2)
[2017-09-10 05:54] LABS: THYROID STIMULATING HORMONE 0.892 mIU/mL (0.358-3.740)
--- NOTE | 2017-09-10 06:15 | NUR ---
PT REQUESTING ROUTINE OXYCONTIN AM MEDICATION EARLY. STATES THAT HE WANTS ANYTHING RIGHT NOW FOR HIS PAIN 7/10 TO LEFT HIP AREA. CHARGE NURSE AWARE.
[2017-09-10] MEDS ORDERED: OXYCODONE HCL 10 MG TAB.SR.12H PO ONE (06:16)
--- NOTE | 2017-09-10 07:35 | NUR ---
PT IN ROOM ALERT AWAKE IN NO ACUTE DISTRESS. . DENIES ANY HEADACHES OR DIZZINESS. STATES HE WILL WAIT FOR PAIN MEDICATION CONTINUING TO MONITOR I&O. CALL LIGHT WITHIN REACH.
[2017-09-10] MEDS ORDERED: OXYCODONE HCL 10 MG TAB.SR.12H PO SCH (09:00)
[2017-09-10] MEDS ORDERED: HYDROCHLOROTHIAZIDE 25 MG TABLET PO SCH (09:00)
[2017-09-10] MEDS ORDERED: MULTIVITAMINS,THERAPEUTIC TABLET PO SCH (09:00)
[2017-09-10 11:06] VITALS: BP 95/65
--- NOTE | 2017-09-10 13:25 | NUR ---
D/C ORDERS RECEIVED NOTED AND CARRIED OUT.PT LEFT THE FACILITY WITHOUT SIGNING THE PAPER ,D/C MIDLINE PER MD ORDERS.PT LEFT THE FACILITY VIA WALKING .
[2017-09-10] MEDS ORDERED: POTASSIUM CHLORIDE 20 MEQ TAB.PRT.SR PO ONE (14:00)
[2017-09-10] MEDS ORDERED: MAGNESIUM SULFATE/D5W 100 ML IV SCH (14:00)
[2017-09-10] MEDS ORDERED: OXYCODONE HCL 5 MG TABLET PO SCH (17:00)
[2017-09-10] MEDS ORDERED: ENOXAPARIN SODIUM 40 MG/0.4 ML DISP.SYRIN SQ SCH (21:00)
== END 2017-09-10 13:30 | disposition home or self-care (01) | DRG 199 ==
LOC: ER 10:40 → TELE 20:54
PROVIDERS: ATTEND Nurse Practitioner Acute Care
PROC: 05H533Z Insertion of Infusion Device into Right Subclavian Vein, Percutaneous Approach (ICD-10-PCS; principal; 2017-09-09)
DX: I11.9 Hypertensive heart disease without heart failure (principal); F20.9 Schizophrenia, unspecified; G40.909 Epilepsy, unspecified, not intractable, without status epilepticus; F17.210 Nicotine dependence, cigarettes, uncomplicated; G89.29 Other chronic pain; Z91.14 Patient's other noncompliance with medication regimen; Z59.0 Homelessness; Z95.2 Presence of prosthetic heart valve; Z96.643 Presence of artificial hip joint, bilateral; M19.90 Unspecified osteoarthritis, unspecified site; M54.2 Cervicalgia; R05 Cough; R06.02 Shortness of breath; Z88.6 Allergy status to analgesic agent; R51 Headache
CPT/HCPCS: 36415; 70030-TC; 71045; 83605; 83690; 83735; 84100; 84443; 85025; 85730; 87040; 87086; 93005; A4663; J1170; J1200; J1650; J3490

== ENCOUNTER 2017-09-15 09:28 | Emergency (ER) | payer OTHER ==
[~2017-09-15] VITALS: Ht 177.8 cm; Wt 63.2 kg
[2017-09-15] MEDS ORDERED: HYDROMORPHONE 1 MG/1 ML DISP.SYRIN IV ONE (10:00)
--- NOTE | 2017-09-15 10:39 | NUR ---
Patient discharged to home in stable conditon. Written and verbal after care instructions given. Patient verbalizes understanding of instructions.PT WALKS IN STEADY GAIT.
[2017-09-15] MEDS ORDERED: HYDROMORPHONE 2 MG/1 ML DISP.SYRIN ONE (10:40)
[2017-09-15] MEDS ORDERED: HYDROMORPHONE 1 MG/1 ML DISP.SYRIN ONE (10:41)
[2017-09-15] MEDS ORDERED: HYDROMORPHONE 1 MG/1 ML DISP.SYRIN IM ONE (10:45)
== END 2017-09-15 10:41 | disposition home or self-care (01) ==
LOC: ER 09:28
DX: G89.29 Other chronic pain (principal); G40.909 Epilepsy, unspecified, not intractable, without status epilepticus; M25.552 Pain in left hip; F32.9 Major depressive disorder, single episode, unspecified; F20.9 Schizophrenia, unspecified; I10 Essential (primary) hypertension; Z88.5 Allergy status to narcotic agent; Z95.2 Presence of prosthetic heart valve; F17.200 Nicotine dependence, unspecified, uncomplicated
CPT/HCPCS: A4663; J1170

== ENCOUNTER 2017-10-07 13:05 | Emergency (ER) | payer OTHER ==
[~2017-10-07] VITALS: Ht 185.4 cm; Wt 63.5 kg
[2017-10-07] MEDS ORDERED: HYDROMORPHONE 1 MG/1 ML DISP.SYRIN IV ONE (13:30)
[2017-10-07] MEDS ORDERED: HYDROMORPHONE 1 MG/1 ML DISP.SYRIN IM ONE (13:45)
[2017-10-07 13:52] VITALS: BP 155/106
--- NOTE | 2017-10-07 13:52 | NUR ---
Patient discharged to home in stable conditon. Written and verbal after care instructions given. Patient verbalizes understanding of instructions.
[2017-10-07] MEDS ORDERED: HYDROMORPHONE 2 MG/1 ML DISP.SYRIN ONE (13:55)
== END 2017-10-07 13:54 | disposition home or self-care (01) ==
LOC: ER 13:17
DX: G89.29 Other chronic pain (principal); M54.2 Cervicalgia; F20.9 Schizophrenia, unspecified; G40.909 Epilepsy, unspecified, not intractable, without status epilepticus; I10 Essential (primary) hypertension; F17.200 Nicotine dependence, unspecified, uncomplicated; Z88.5 Allergy status to narcotic agent; Z95.2 Presence of prosthetic heart valve; Z88.8 Allergy status to other drugs, medicaments and biological substances
CPT/HCPCS: 96372; 99283; A4663; J1170

== ENCOUNTER 2017-10-31 19:00 | Inpatient (IN) | payer OTHER ==
[~2017-10-31] VITALS: Ht 185.4 cm; Wt 69.4 kg
--- NOTE | 2017-10-31 19:20 | NUR ---
ADY AKHTAR AT BEDSIDE FOR MSE.
--- NOTE | 2017-10-31 19:25 | NUR ---
Call placed to [facility] for PICC Line placement.
[2017-10-31] MEDS ORDERED: IV NORMAL SALINE 1000 ML BAG IV ONE (19:30)
[2017-10-31] MEDS ORDERED: HYDROMORPHONE 1 MG/1 ML DISP.SYRIN IV ONE (19:30)
[2017-10-31] MEDS ORDERED: HYDROMORPHONE 4 MG/1 ML DISP.SYRIN ONE (19:41)
[2017-10-31] MEDS ORDERED: HYDROMORPHONE 1 MG/1 ML DISP.SYRIN IM ONE (19:45)
[2017-10-31 19:59] LABS: BASOPHILS % (AUTO) 0.7 % (0.0-2.0); CREATININE 1.2 mg/dL (0.6-1.3); EOSINOPHILS # (AUTO) 0.2 K/uL (0.0-0.7); EOSINOPHILS % (AUTO) 2.6 % (0.0-7.0); HEMOGLOBIN 10.7 g/dL (12.5-16.3); LYMPHOCYTES # (AUTO) 1.6 K/uL (20.0-40.0); LYMPHOCYTES % (AUTO) 28.1 % (20.5-51.5); MEAN CORPUSCULAR HEMOGLOBIN 28.5 uug (23.8-33.4); MEAN CORPUSCULAR HGB CONC 32 g/dL (32.5-36.3); MEAN CORPUSCULAR VOLUME 88.2 fL (73.0-96.2); MONOCYTES # (AUTO) 0.7 K/uL (2.0-10.0); MONOCYTES % (AUTO) 12.5 % (0.0-11.0); NEUTROPHILS # (AUTO) 3.2 K/uL (1.8-8.9); NEUTROPHILS % (AUTO) 56.1 % (38.5-71.5); PLATELET COUNT (AUTO) 438 K/uL (152-348); POTASSIUM 3.8 mmol/L (3.5-5.1); RED BLOOD CELL COUNT(AUTO) 3.74 MIL/uL (4.06-5.63); WHITE BLOOD COUNT (AUTO) 5.7 K/uL (3.6-10.2)
--- NOTE | 2017-10-31 20:00 | NUR ---
Lab at pt bedside for blood draw.
[2017-10-31 20:10] LABS: BILIRUBIN,DIRECT 0.1 mg/dL (0.0-0.2); BILIRUBIN,TOTAL 0.2 mg/dL (0.2-1.0); TOTAL PROTEIN, SERUM 8.9 g/dL (6.4-8.2)
--- NOTE | 2017-10-31 20:16 | NUR ---
Patient awaiting PICC placement at this time. patient in bed, no acute distress at this time. Endorses adequate pain relief s/p IM Dilaudid 3mg. Patient has significant cardiac history.Patient on manager cardiac cath , NSR noted. No acute distress at this time. Respirations even and unlabored. no SOB or congestion noted. no cardiovascular distress at this time. Denies chest pain. All pulses present and palpable. No GI/ distress noted. Denies Nausea/Vomiting. Patient noted w/ RLE swelling/redness. tender to touch. ER MD aware, awaiting further management . Patient plan of care at this time contains inpatient admission to Telemetry. Awaiting call back from [facility] for MD to MD panel call.
[2017-10-31] MEDS ORDERED: VANCOMYCIN IV 1,000 MG in IV DEXTROSE 5% 250 ML IV ONE (20:30)
[2017-10-31 20:37] LABS: *BILIRUBIN,URIN NEGATIVE (NEGATIVE); *BLOOD, URINE NEGATIVE (NEGATIVE); *COLOR,URINE YELLOW (YELLOW); *KETONES,URINE NEGATIVE (NEGATIVE); *PROTEIN,URINE 1+ (NEGATIVE); *UROBILINOGEN,URINE 0.2 E.U./dl (NORMAL); LEUKOCYTE ESTERASE ,URINE NEGATIVE (NEGATIVE); NITRITE, URINE NEGATIVE (NEGATIVE); PH,URINE 6.5 (5.0-8.0); UGLUCOSE NEGATIVE (NEGATIVE)
[2017-10-31 20:47] LABS: *CLARITY,URINE SLIGHTLY HAZY (CLEAR)
[2017-10-31 20:48] LABS: SQUAMOUS EPITHELIAL CELL,UR MODERATE /HPF (NONE SEEN)
--- NOTE | 2017-10-31 21:00 | NUR ---
PICC LINE TECH AT BEDSIDE FOR LINE PLACEMENT PER ORDER.
[2017-10-31] MEDS ORDERED: HYDROMORPHONE 2 MG/1 ML DISP.SYRIN ONE (21:03)
[2017-10-31] MEDS ORDERED: VANCOMYCIN IV 200 ML ONE (21:03)
--- NOTE | 2017-10-31 21:43 | NUR ---
Pt. admitted to TELE, under care of Dr. Tamayo Belongs List completed
--- NOTE | 2017-10-31 21:45 | NUR ---
PT RECEIVED FROM ED, VIA [employer]. ORIENTED TO ROOM. A/OX4. ABLE TO MAKE NEEDS KNOWN. IN NO ACUTE DISTRESS. NO C/O PAIN AT THIS TIME. BP ELEVATED AT 180/125, MD NOTIFIED.93 SINUS RHYTHM ON THE TELE MONITOR. IVF AND IV ABX VANCO INFUSING. PICC LINE ON LORENZO INTACT AND PATENT. ON RA, TOLERATING WELL. AFEBRILE. HOB ELEVATED. SAFETY MEASURES IMPLEMENTED. BED ALARM SET. CALL LIGHT WITHIN REACH.
[2017-10-31 22:14] VITALS: BP 180/125
[2017-10-31] MEDS ORDERED: MAGNESIUM HYDROXIDE 30 ML LIQUID UDC PO PRN (22:45)
[2017-10-31] MEDS ORDERED: ZOLPIDEM 5 MG TABLET PO PRN (22:45)
[2017-10-31] MEDS ORDERED: ACETAMINOPHEN 325 MG TABLET PO PRN (22:45)
[2017-10-31] MEDS ORDERED: ALBUTEROL SULFATE 2.5 MG/3 ML NEBU NEB PRN (22:45)
[2017-10-31] MEDS: BENAZEPRIL HCL 5 MG TABLET PO SCH (23:51)
[2017-10-31] MEDS: QUETIAPINE FUMARATE 200 MG TABLET PO SCH (23:51)
[2017-10-31] MEDS: CARVEDILOL 12.5 MG TABLET PO SCH (23:51)
[2017-11-01 00:37] VITALS: BP 182/125
[2017-11-01] MEDS ORDERED: PIPERACILLIN/TAZOBACTAM/D5W 100 ML IV ONE (00:45)
[2017-11-01] MEDS: PIPERACILLIN/TAZOBACTAM/D5W 3.375 G in PREMIXED 1 EACH IV SCH ×4 (00:58→21:05)
[2017-11-01] MEDS: HYDROMORPHONE 2 MG/1 ML DISP.SYRIN IV PRN ×5 (00:59→20:59)
[2017-11-01 04:00] VITALS: BP 131/87
--- NOTE | 2017-11-01 06:20 | NUR ---
END OF SHIFT NOTES. PT SLEPT WELL THROUGHOUT SHIFT. IN STABLE CONDITION. BP WNL. 71 SINUS RHYTHM ON THE TELE MONITOR. IV ABX INFUSED. PICC LINE INTACT AND PATENT. AFEBRILE. TOLERATED RA WELL. PAIN MANAGED. HEADACHE AND RIGHT LOWER LEG PAIN CEASED. ALL NEEDS ATTENDED. SAFETY MAINTAINED. CALL LIGHT WITHIN REACH.
[2017-11-01] MEDS: PANTOPRAZOLE SODIUM 40 MG TABLET.DR PO SCH (06:30)
[2017-11-01 07:38] LABS: BILIRUBIN,TOTAL 0.2 mg/dL (0.2-1.0); CREATININE 1.1 mg/dL (0.6-1.3); MAGNESIUM 1.9 mg/dL (1.8-2.4); PHOSPHOROUS 3.8 mg/dL (2.5-4.9); POTASSIUM 3.6 mmol/L (3.5-5.1); TOTAL PROTEIN, SERUM 7.1 g/dL (6.4-8.2)
[2017-11-01 07:52] LABS: BASOPHILS % (AUTO) 0.7 % (0.0-2.0); EOSINOPHILS # (AUTO) 0.2 K/uL (0.0-0.7); EOSINOPHILS % (AUTO) 3.2 % (0.0-7.0); LYMPHOCYTES # (AUTO) 1.3 K/uL (20.0-40.0); LYMPHOCYTES % (AUTO) 26.6 % (20.5-51.5); MEAN CORPUSCULAR HEMOGLOBIN 29.2 uug (23.8-33.4); MEAN CORPUSCULAR HGB CONC 33 g/dL (32.5-36.3); MEAN CORPUSCULAR VOLUME 89.6 fL (73.0-96.2); MONOCYTES # (AUTO) 0.7 K/uL (2.0-10.0); MONOCYTES % (AUTO) 14.1 % (0.0-11.0); NEUTROPHILS # (AUTO) 2.8 K/uL (1.8-8.9); NEUTROPHILS % (AUTO) 55.4 % (38.5-71.5); PLATELET COUNT (AUTO) 370 K/uL (152-348)
[2017-11-01 08:08] LABS: HEMATOCRIT 27.8 % (36.7-47.1); HEMOGLOBIN 9.1 g/dL (12.5-16.3)
[2017-11-01] MEDS: ASPIRIN EC 81 MG TABLET.DR PO SCH (08:08)
[2017-11-01] MEDS: BENAZEPRIL HCL 5 MG TABLET PO SCH ×2 (08:09→20:58)
[2017-11-01] MEDS: ASCORBIC ACID 500 MG TABLET PO SCH (08:09)
[2017-11-01] MEDS: CARVEDILOL 12.5 MG TABLET PO SCH ×2 (08:09→17:00)
[2017-11-01] MEDS: ZINC SULFATE 220 MG CAPSULE PO SCH (08:09)
[2017-11-01] MEDS: MULTIVITAMINS,THERAPEUTIC TABLET PO SCH (08:09)
[2017-11-01 08:15] LABS: THYROID STIMULATING HORMONE 3.437 mIU/mL (0.358-3.740)
[2017-11-01 11:42] VITALS: BP 137/89
--- NOTE | 2017-11-01 13:51 | NUR ---
MD consult received Reason: wound Patient admitted for cellulitis. On cardiac diet, eating well without issues, appetite is reportedly improving. n/v resolved. Nutrition assessment was completed. Patient is already on daily vitamins/minerals for wound healing (MVI, vitamin C 500mg, and zinc sulfate 220mg) Will f/u per nutrition policy. RD available PRN. Addendum: 11/01/17 at [address] Amended: Links added.
[2017-11-01] MEDS: VANCOMYCIN IV 1 G in PREMIXED 0 EACH IV SCH (14:14)
--- NOTE | 2017-11-01 14:17 | NUR ---
Clinical Pharmacy Note: Vancomycin Pharmacy to Dose Subjective: To start vanco in this 62 y/o gentleman for indication of cellulitis Objective: height 185 cm weight 63 kg BUN 15 Scr 1.2 wbc 5.7 temp 98.9 1gm vanco given in Er 10/31 @2121 Assessment/Plan Will start regiem n of vancomycin 1gm q18h for estimated trough of 16, 2nd dose today at 1500. Will order trough before 4th scheduled dose (not ordered yet). Will check renal function daily and dose per level if to appear unstable. Will follow
[2017-11-01 15:40] VITALS: BP 113/75
--- NOTE | 2017-11-01 18:00 | NUR ---
Patient alert, in no distress. Pain management as ordered. Skin care provided for right leg, pending wound consult. VS stable, afebrile. Safety measures in place, will continue to monitor.
--- NOTE | 2017-11-01 19:25 | NUR ---
PT RECEIVED IN BED, AWAKE. A/OX4. ABLE TO MAKE NEEDS KNOWN. V/S STABLE. IN NO ACUTE DISTRESS. PT C/O OF RIGHT LOWER LEG PAIN 03/16. IV TKO AT 3CC. PICC LIE INTACT AND PATENT, SALINE FLUSHED. ON RA, TOLERATING WELL AFEBRILE. RIGHT LEG OPEN TO AIR. HOB ELEVATED. SAFETY MEASURES IMPLEMENTED. BED ALARM SET. CALL LIGHT WITHIN REACH.
[2017-11-01 20:00] VITALS: BP 142/87
[2017-11-01] MEDS: QUETIAPINE FUMARATE 200 MG TABLET PO SCH (20:57)
[2017-11-01] MEDS ORDERED: DOCUSATE SODIUM 250 MG CAPSULE PO SCH (21:00)
[2017-11-02] MEDS: HYDROMORPHONE 2 MG/1 ML DISP.SYRIN IV PRN ×6 (00:46→22:41)
[2017-11-02 04:44] VITALS: BP 117/76
[2017-11-02] MEDS: PIPERACILLIN/TAZOBACTAM/D5W 3.375 G in PREMIXED 1 EACH IV SCH ×3 (05:10→22:41)
[2017-11-02] MEDS ORDERED: HYDROMORPHONE 2 MG/1 ML DISP.SYRIN ONE (05:45)
[2017-11-02] MEDS: PANTOPRAZOLE SODIUM 40 MG TABLET.DR PO SCH (06:54)
[2017-11-02] MEDS: ASCORBIC ACID 500 MG TABLET PO SCH (08:41)
[2017-11-02] MEDS: ASPIRIN EC 81 MG TABLET.DR PO SCH (08:41)
[2017-11-02] MEDS: ZINC SULFATE 220 MG CAPSULE PO SCH (08:41)
[2017-11-02] MEDS: MULTIVITAMINS,THERAPEUTIC TABLET PO SCH (08:41)
[2017-11-02] MEDS: BENAZEPRIL HCL 5 MG TABLET PO SCH ×2 (08:42→21:00)
[2017-11-02] MEDS: CARVEDILOL 12.5 MG TABLET PO SCH ×2 (08:42→18:17)
[2017-11-02] MEDS: VANCOMYCIN IV 1 G in PREMIXED 0 EACH IV SCH (08:44)
[2017-11-02 11:03] VITALS: BP 121/78
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
[2017-11-02] MEDS ORDERED: MINERAL OIL/PETROLATUM,WHITE 57 GM TUBE TOP PRN (11:45)
--- NOTE | 2017-11-02 14:30 | NUR ---
Wound treatment on right leg done as ordered. Wound with minimal exudate, no bleeding.
[2017-11-02 15:06] VITALS: BP 114/78
[2017-11-02] MEDS ORDERED: LIDOCAINE HCL 1% 20 ML VIAL IJ STA (16:36)
--- NOTE | 2017-11-02 16:40 | NUR ---
Clinical Pharmacy Note: Vancomycin Pharmacy to Dose Subjective: To continue vanco in this 62 y/o gentleman for indication of cellulitis Objective: height 185 cm weight 63 kg BUN 15 (11/01) Scr 1.2(11/01) wbc 5.7(11/01) temp 98.4 Assessment/Plan Will continue regiem n of vancomycin 1gm q18h for estimated trough of 16, 3rd dose today at 0900. Will order trough before 4th scheduled dose (not ordered yet). Will check renal function daily and dose per level if to appear unstable. Will follow
--- NOTE | 2017-11-02 18:00 | NUR ---
Patient is s/p wound debridement on right lower leg. Dressing intac/dry, no bleeding. VS stable, afebrile. Patient has been tolerating diet with good appetite. Pain management as ordered. Safety measures in place.
[2017-11-02 20:00] VITALS: BP 120/80
[2017-11-02] MEDS: QUETIAPINE FUMARATE 200 MG TABLET PO SCH (22:40)
[2017-11-02] MEDS ORDERED: DOCUSATE SODIUM 100 MG CAPSULE PO ONE (23:45)
[2017-11-03] VITALS (7 sets, daily range): BP systolic 117–174; BP diastolic 36–102
[2017-11-03] MEDS: DOCUSATE SODIUM 100 MG CAPSULE PO SCH ×2 (00:06→22:05)
[2017-11-03] MEDS: VANCOMYCIN IV 1 G in PREMIXED 0 EACH IV SCH ×2 (03:32→15:21)
[2017-11-03] MEDS: HYDROMORPHONE 2 MG/1 ML DISP.SYRIN IV PRN ×5 (05:26→22:06)
[2017-11-03] MEDS: PIPERACILLIN/TAZOBACTAM/D5W 3.375 G in PREMIXED 1 EACH IV SCH ×3 (05:27→22:06)
[2017-11-03 06:56] LABS: CREATININE 1.1 mg/dL (0.6-1.3); PHOSPHOROUS 3.6 mg/dL (2.5-4.9); POTASSIUM 3.8 mmol/L (3.5-5.1)
[2017-11-03 07:08] LABS: BASOPHILS % (AUTO) 0.6 % (0.0-2.0); EOSINOPHILS # (AUTO) 0.3 K/uL (0.0-0.7); EOSINOPHILS % (AUTO) 4.5 % (0.0-7.0); HEMATOCRIT 28.8 % (36.7-47.1); HEMOGLOBIN 9.5 g/dL (12.5-16.3); LYMPHOCYTES # (AUTO) 1.8 K/uL (20.0-40.0); LYMPHOCYTES % (AUTO) 31.9 % (20.5-51.5); MEAN CORPUSCULAR HEMOGLOBIN 29.4 uug (23.8-33.4); MEAN CORPUSCULAR HGB CONC 33 g/dL (32.5-36.3); MONOCYTES # (AUTO) 0.7 K/uL (2.0-10.0); MONOCYTES % (AUTO) 12.8 % (0.0-11.0); NEUTROPHILS # (AUTO) 2.8 K/uL (1.8-8.9); NEUTROPHILS % (AUTO) 50.2 % (38.5-71.5); PLATELET COUNT (AUTO) 328 K/uL (152-348); RED BLOOD CELL COUNT(AUTO) 3.24 MIL/uL (4.06-5.63); WHITE BLOOD COUNT (AUTO) 5.6 K/uL (3.6-10.2)
[2017-11-03] MEDS: PANTOPRAZOLE SODIUM 40 MG TABLET.DR PO SCH (08:51)
[2017-11-03] MEDS: CARVEDILOL 12.5 MG TABLET PO SCH ×2 (08:52→18:08)
[2017-11-03] MEDS: ASCORBIC ACID 500 MG TABLET PO SCH (09:45)
[2017-11-03] MEDS: ZINC SULFATE 220 MG CAPSULE PO SCH (09:45)
[2017-11-03] MEDS: ASPIRIN EC 81 MG TABLET.DR PO SCH (09:45)
[2017-11-03] MEDS: BENAZEPRIL HCL 5 MG TABLET PO SCH ×2 (09:46→21:00)
[2017-11-03] MEDS: MULTIVITAMINS,THERAPEUTIC TABLET PO SCH (09:49)
--- NOTE | 2017-11-03 13:05 | NUR ---
Clinical Pharmacy Note: Vancomycin Pharmacy to Dose Subjective: To continue vanco in this 62 y/o gentleman for indication of cellulitis Objective: height 185 cm weight 63 kg BUN 13 Scr 1.1 wbc 5.6 temp 98.0 Vanco trough level: 8.7 Assessment/Plan Since vanco trough level is 8.7 mcg/ml, will change vanco dose from 1gm IVPB q18h to vanco 1gm IVPB q12hr for estimated trough of 17 mcg/ml at steady state. 2nd dose is due today at 1500. Will order trough before 4th scheduled dose (not ordered yet). Will check renal function daily and adjust the dose if needed. Will follow
[2017-11-03] MEDS: CLONIDINE HCL 0.1 MG TABLET PO PRN (18:11)
[2017-11-03] MEDS: QUETIAPINE FUMARATE 200 MG TABLET PO SCH (22:06)
--- NOTE | 2017-11-03 22:28 | NUR ---
Lotensin not administered, not available in the Pyxis. BP 137, 87 P 69.
[2017-11-04] MEDS: HYDROMORPHONE 2 MG/1 ML DISP.SYRIN IV PRN ×6 (02:03→21:30)
[2017-11-04] MEDS: VANCOMYCIN IV 1 G in PREMIXED 0 EACH IV SCH ×2 (02:03→15:55)
[2017-11-04] MEDS: CLONIDINE HCL 0.1 MG TABLET PO PRN (04:41)
[2017-11-04 05:30] VITALS: BP 163/94
[2017-11-04] MEDS: PIPERACILLIN/TAZOBACTAM/D5W 3.375 G in PREMIXED 1 EACH IV SCH ×3 (05:36→21:39)
[2017-11-04 06:24] VITALS: BP 137/80
[2017-11-04] MEDS: PANTOPRAZOLE SODIUM 40 MG TABLET.DR PO SCH (06:42)
--- NOTE | 2017-11-04 06:43 | NUR ---
Pt requested to increase Dilaudid to 2mg last night because the original dosage wasn't effective after 30 mins. okay'd the new order. Pt continues in pain of right leg and asks for pain medication Q4H. Pt had large urine output last night, however, pt was drinking a lot of juice and water. Otherwise stable all night.
--- NOTE | 2017-11-04 07:32 | NUR ---
Received client in bed sleeping supine, no hydration running at this time. Removed 280mls of urine output from the urinal. No apparent s/s of pain, distress, discomfort or SOB. HOB is at semi high fowlers. Bed is at the lowest position for safety, call light within reach for assistance.
[2017-11-04] MEDS: MULTIVITAMINS,THERAPEUTIC TABLET PO SCH (08:33)
[2017-11-04] MEDS: ZINC SULFATE 220 MG CAPSULE PO SCH (08:33)
[2017-11-04] MEDS: ASCORBIC ACID 500 MG TABLET PO SCH (08:33)
[2017-11-04] MEDS: CARVEDILOL 12.5 MG TABLET PO SCH ×2 (08:34→17:28)
[2017-11-04] MEDS: BENAZEPRIL HCL 5 MG TABLET PO SCH ×2 (08:34→21:31)
[2017-11-04] MEDS: ASPIRIN EC 81 MG TABLET.DR PO SCH (08:34)
[2017-11-04 11:30] VITALS: BP 141/86
--- NOTE | 2017-11-04 12:57 | NUR ---
Wound care completed at this time, client tolerated well and noted to help lift up his right leg for treatment. Compliant with care. Client stated pain 7.5/10, pain medication given
--- NOTE | 2017-11-04 13:04 | NUR ---
Clinical Pharmacy Note: Vancomycin Pharmacy to Dose Subjective: To continue vanco in this 62 y/o gentleman for indication of cellulitis Objective: height 185 cm weight 63 kg BUN 13 (11/03) Scr 1.1(11/03) wbc 5.6(11/03) temp 98.0 Assessment/Plan Will continue vanco 1gm IVPB q12hr for estimated trough of 17 mcg/ml at steady state. 3rd dose was given today at 0203. Will order trough before 4th scheduled dose (ordered for today at 1430). Will check renal function daily and adjust the dose if needed. Will follow Addendum: 11/04/17 at 1531 by BRANDON TAMAYO VANCOMYCIN TROUGH 15.3 TODAY AT 1450. WILL CONTINUE SAME DOSE AND MONITOR DAILY
[2017-11-04 15:40] VITALS: BP 136/88
--- NOTE | 2017-11-04 18:00 | NUR ---
End of shift notes: Client has been compliant with medications and nursing care. Client has been in bed most of the day watching television. Snacks provided and given throughout the day as requested, pain medication given as ordered and as requested by client. There is no s/s of distress, discomfort, pain or SOB at this time. NS running at 3cc TKO for three lumen PICC line. Client is supine in a high fowlers position with the bed at lowest position for safety and call light within reach for assistance. Client is alert and oriented times 3-4. Client uses urinal. No O2 needed, client is in RA.
--- NOTE | 2017-11-04 19:30 | NUR ---
PT IN ROOM ALERT AWAKE IN NO ACUTE DISTRESS. PT'S DRESSING TO RIGHT LOWER EXTREMITY IN TACT WITH NO ACTIVE BLEEDING OR DRAINAGE. PICC LINE TO RIGHT UPPER ARM PATENT AND INTACT. PT AWARE TO ASK FOR ASSISTANCE WHEN NEEDED. NO REACTION TO RECENT IV ABX THERAPY. CONTINUE TO MONITOR. CALL LIGHT PLACED WITHIN REACH. DENIES ANY HEADACHES OR SOB.
[2017-11-04 20:00] VITALS: BP 156/84
[2017-11-04] MEDS: QUETIAPINE FUMARATE 200 MG TABLET PO SCH (21:30)
[2017-11-04] MEDS: DOCUSATE SODIUM 100 MG CAPSULE PO SCH (21:31)
[2017-11-05] MEDS: HYDROMORPHONE 2 MG/1 ML DISP.SYRIN IV PRN ×6 (01:22→23:23)
--- NOTE | 2017-11-05 02:00 | NUR ---
PT IN ROOM ASLEEP IN NO ACUTE DISTRESS SINCE RECEIVING RECENT DILAUDED MEDICATION. NO REACTION TO RECENT IV ZOSYN ABX THERAPY. CONTINUE TO MONITOR. CALL LIGHT PLACED WITHIN REACH.
[2017-11-05] MEDS: VANCOMYCIN IV 1 G in PREMIXED 0 EACH IV SCH ×2 (02:11→14:09)
--- NOTE | 2017-11-05 05:00 | NUR ---
PT IN ROOM ALERT IN NO ACUTE DISTRESS. STATES PAIN TO RIGHT LOWER EXTREMITY AFFECTED SITE. DRESSING REPLACED. PT TOLERATED WELL. CONTINUE TO MONITOR. PT AWARE TO ASK FOR ASSISTANCE WHEN NEEDED.
[2017-11-05 05:19] VITALS: BP 157/99
[2017-11-05] MEDS: PIPERACILLIN/TAZOBACTAM/D5W 3.375 G in PREMIXED 1 EACH IV SCH ×3 (06:21→21:51)
[2017-11-05] MEDS: PANTOPRAZOLE SODIUM 40 MG TABLET.DR PO SCH (06:34)
--- NOTE | 2017-11-05 07:26 | NUR ---
Received client sleeping supine in a high semi fowlers position. No apparent s/s of pain, SOB, distress or discomfort. ATB running from the rn plastic surgery. No oxygen in use. Urinal by bedside. bed at lowest position for safety and call light within reach for assistance
[2017-11-05] MEDS: ASPIRIN EC 81 MG TABLET.DR PO SCH (08:04)
[2017-11-05] MEDS: CARVEDILOL 12.5 MG TABLET PO SCH ×2 (08:05→17:47)
[2017-11-05] MEDS: ZINC SULFATE 220 MG CAPSULE PO SCH (08:05)
[2017-11-05] MEDS: ASCORBIC ACID 500 MG TABLET PO SCH (08:05)
[2017-11-05] MEDS: MULTIVITAMINS,THERAPEUTIC TABLET PO SCH (08:05)
--- NOTE | 2017-11-05 08:30 | NUR ---
Inform pharmacy that there was nor Lotensin in the pixis. Pharmacist aware and will send someone to re-stock
--- NOTE | 2017-11-05 09:40 | NUR ---
Call pharmacy to remind them about the Lotensin. Pharmacist aware about the time frame and stated someone should be up soon to re-stock
[2017-11-05] MEDS: BENAZEPRIL HCL 5 MG TABLET PO SCH ×2 (10:14→21:48)
--- NOTE | 2017-11-05 10:15 | NUR ---
Lotensin given late due to the unavailability in the Pyxis. Client was in no apparent distress, or discomfort, BP was 120/60
--- NOTE | 2017-11-05 10:46 | NUR ---
Wound care done, cleanse with NS, pat dry, hydrogel applied, covered with Mepilex and applied Eucerin to dry area. Noted, initialed, time and dated
[2017-11-05 11:32] VITALS: BP 139/86
--- NOTE | 2017-11-05 12:59 | NUR ---
Clinical Pharmacy Note: Vancomycin Pharmacy to Dose Subjective: To continue vanco in this 62 y/o gentleman for indication of cellulitis Objective: height 185 cm weight 63 kg BUN 13 (11/03) Scr 1.1(11/03) wbc 5.6(11/03) temp 98.2 Assessment/Plan Will continue Vancomycin 1 gram IV every 12hrs (6th dose given today at 0211) for now. Will monitor daily.
[2017-11-05 15:30] VITALS: BP 137/86
--- NOTE | 2017-11-05 19:00 | NUR ---
PATIENT ALERT ORIENTED, NO SOB NO CHEST PAIN, NOTED, CONT ON PAIN MANAGEMENT R LEG CELLULITIS, KEPT SITE CLEAN AND DRY, CONT TO MONITOR.
[2017-11-05 20:57] VITALS: BP 151/91
[2017-11-05] MEDS: DOCUSATE SODIUM 100 MG CAPSULE PO SCH (21:48)
[2017-11-05] MEDS: QUETIAPINE FUMARATE 200 MG TABLET PO SCH (21:48)
[2017-11-06] MEDS: VANCOMYCIN IV 1 G in PREMIXED 0 EACH IV SCH ×2 (02:10→15:00)
[2017-11-06 04:00] VITALS: BP 143/88
[2017-11-06] MEDS: PIPERACILLIN/TAZOBACTAM/D5W 3.375 G in PREMIXED 1 EACH IV SCH ×2 (05:42→13:13)
--- NOTE | 2017-11-06 05:53 | NUR ---
PATIENT SLEPT MOST OF THE NIGHT NO SOB NO CHEST PAIN, CONT ON PAIN MANAGEMENT, CONT TO MONITOR.
[2017-11-06] MEDS: HYDROMORPHONE 2 MG/1 ML DISP.SYRIN IV PRN ×3 (06:19→14:28)
[2017-11-06] MEDS: PANTOPRAZOLE SODIUM 40 MG TABLET.DR PO SCH (06:19)
[2017-11-06] MEDS: CARVEDILOL 12.5 MG TABLET PO SCH (08:09)
[2017-11-06] MEDS: ASPIRIN EC 81 MG TABLET.DR PO SCH (08:23)
[2017-11-06] MEDS: MULTIVITAMINS,THERAPEUTIC TABLET PO SCH (08:23)
[2017-11-06] MEDS: ZINC SULFATE 220 MG CAPSULE PO SCH (08:23)
[2017-11-06] MEDS: ASCORBIC ACID 500 MG TABLET PO SCH (08:23)
[2017-11-06] MEDS: BENAZEPRIL HCL 5 MG TABLET PO SCH (08:25)
[2017-11-06] MEDS ORDERED: ASPI-618 PO (10:18)
[2017-11-06] MEDS ORDERED: BENA5TAB2 PO (10:18)
[2017-11-06] MEDS ORDERED: CARV12.52 PO (10:18)
[2017-11-06] MEDS ORDERED: SULF1TAB48 PO (10:18)
[2017-11-06 10:55] VITALS: BP 135/87
--- NOTE | 2017-11-06 10:55 | NUR ---
Clinical Pharmacy Note: Vancomycin Pharmacy to Dose Subjective: To continue vanco in this 62 y/o gentleman for indication of cellulitis Objective: height 185 cm weight 63 kg BUN 13 (11/03) Scr 1.1(11/03) wbc 5.6(11/03) temp 97.8 trough: 15.3 (11/04 @1430) Assessment/Plan Will continue Vancomycin 1 gram IV every 12hrs for now. Will monitor daily. If renal function were to change, will order level or change regimen as needed. Will follow
[2017-11-06 14:06] VITALS: BP 140/89
--- NOTE | 2017-11-06 14:45 | NUR ---
PICC line triple lumen on right upper arm removed. Patient tolerated procedure well. Pressure dressing applied. No signs/symptoms of bleeding.
[2017-11-06 14:58] VITALS: BP 140/82
--- NOTE | 2017-11-06 15:00 | NUR ---
Vanco IV not administered. Patient discharged to home with home health.
--- NOTE | 2017-11-06 16:05 | NUR ---
Patient left the unit, ambulatory, assisted by NUTRITION AIDES TEACHER. Patient is alert, in no distress. Discharge papers, discharge teachings, prescription provided, patient verbalized understanding. VS stable, afebrile. PICC line removed, ID band removed, bus token provided, all belongings sent with the patient.
[2018-02-12] MEDS ORDERED: AMOX-430 PO (16:27)
== END 2017-11-06 16:15 | disposition home health service (06) | DRG 383 ==
LOC: ER 19:00 → TELE 21:04 → MED 11-01 11:30
PROVIDERS: ADMIT Internal Medicine; ATTEND Internal Medicine
PROC: 05HY33Z Insertion of Infusion Device into Upper Vein, Percutaneous Approach (ICD-10-PCS; 2017-10-31)
PROC: 0JBN0ZZ Excision of Right Lower Leg Subcutaneous Tissue and Fascia, Open Approach (ICD-10-PCS; principal; 2017-11-02)
DX: L03.115 Cellulitis of right lower limb (principal); E43 Unspecified severe protein-calorie malnutrition; I11.0 Hypertensive heart disease with heart failure; I50.42 Chronic combined systolic (congestive) and diastolic (congestive) heart failure; K74.60 Unspecified cirrhosis of liver; L97.819 Non-pressure chronic ulcer of other part of right lower leg with unspecified severity; I87.2 Venous insufficiency (chronic) (peripheral); G40.909 Epilepsy, unspecified, not intractable, without status epilepticus; M19.90 Unspecified osteoarthritis, unspecified site; Z95.2 Presence of prosthetic heart valve; Z96.643 Presence of artificial hip joint, bilateral; Z91.14 Patient's other noncompliance with medication regimen; Z98.1 Arthrodesis status; F20.0 Paranoid schizophrenia; Z79.899 Other long term (current) drug therapy; G89.4 Chronic pain syndrome; F17.210 Nicotine dependence, cigarettes, uncomplicated; D64.9 Anemia, unspecified; Z68.20 Body mass index [BMI] 20.0-20.9, adult
CPT/HCPCS: 36415; 36556; 36569; 70030-TC; 71045; 83550; 83605; 83735; 84100; 84443; 85025; 85730; 87040; 87086; 93005; A4217; A4663; J1170; J2543; J3370; J3490; J7030; J7040

== ENCOUNTER 2017-11-15 03:10 | Emergency (ER) | payer OTHER ==
[~2017-11-15] VITALS: Ht 182.9 cm; Wt 64.9 kg
[~2017-11-15 03:10] MED LIST changes: +ASPI-618 PO; +BENA5TAB2 PO; +CARV12.52 PO; +SULF1TAB48 PO
--- NOTE | 2017-11-15 05:00 | NUR ---
Dr. Judge at bedside for MSE.
[2017-11-15] MEDS ORDERED: HYDROMORPHONE 1 MG/1 ML DISP.SYRIN IM ONE (05:15)
[2017-11-15] MEDS ORDERED: HYDROMORPHONE 4 MG/1 ML DISP.SYRIN ONE (05:19)
--- NOTE | 2017-11-15 05:20 | NUR ---
Patient discharged to home in stable conditon. Written and verbal after care instructions given. Patient verbalizes understanding of instructions. Pt ambulated out of ER with steady gait, VSS, no acute signs of distress, reports feeling better, all belongings taken.
[2017-11-15 06:46] VITALS: BP 188/100
[2018-02-12] MEDS ORDERED: AMOX-430 PO (16:27)
== END 2017-11-15 05:20 | disposition home or self-care (01) ==
LOC: ER 03:13
DX: G89.29 Other chronic pain (principal); I10 Essential (primary) hypertension; Z76.0 Encounter for issue of repeat prescription; Z88.5 Allergy status to narcotic agent; Z88.8 Allergy status to other drugs, medicaments and biological substances; Z79.82 Long term (current) use of aspirin; Z79.891 Long term (current) use of opiate analgesic; Z79.899 Other long term (current) drug therapy
CPT/HCPCS: A4663; J1170

== ENCOUNTER 2017-12-10 15:02 | Emergency (ER) | payer OTHER ==
[~2017-12-10] VITALS: Ht 185.4 cm; Wt 63.5 kg
--- NOTE | 2017-12-10 15:45 | NUR ---
Pt d/c by with verbal ACI.
[2018-02-12] MEDS ORDERED: AMOX-430 PO (16:27)
== END 2017-12-10 16:00 | disposition home or self-care (01) ==
LOC: ER 15:04
DX: G89.29 Other chronic pain (principal); M54.2 Cervicalgia; M25.551 Pain in right hip; M25.552 Pain in left hip; I10 Essential (primary) hypertension; Z88.5 Allergy status to narcotic agent; Z88.8 Allergy status to other drugs, medicaments and biological substances; Z79.82 Long term (current) use of aspirin; Z79.891 Long term (current) use of opiate analgesic; Z79.899 Other long term (current) drug therapy
CPT/HCPCS: A4663

== ENCOUNTER 2018-01-20 09:50 | Emergency (ER) | payer OTHER ==
[~2018-01-20] VITALS: Ht 188 cm; Wt 77.1 kg
--- NOTE | 2018-01-20 10:12 | NUR ---
PATIENT WAS SEEN BY DR ROACH. DC, RX (INCLUDING PRECAUTIONS) GIVEN AND EXPLAINED TO PATIENT WHO STATES HE UNDERSTANDS ALL INSTRUCTIONS.
[2018-02-12] MEDS ORDERED: AMOX-430 PO (16:27)
== END 2018-01-20 10:14 | disposition home or self-care (01) ==
LOC: ER 09:50
DX: F32.9 Major depressive disorder, single episode, unspecified (principal); F20.9 Schizophrenia, unspecified; G89.29 Other chronic pain; G40.909 Epilepsy, unspecified, not intractable, without status epilepticus; I10 Essential (primary) hypertension; Z76.0 Encounter for issue of repeat prescription; Z79.82 Long term (current) use of aspirin; Z88.5 Allergy status to narcotic agent; Z95.2 Presence of prosthetic heart valve; F17.200 Nicotine dependence, unspecified, uncomplicated
CPT/HCPCS: A4663

== ENCOUNTER 2018-02-16 19:49 | Emergency (ER) | payer OTHER ==
[~2018-02-16] VITALS: Ht 188 cm; Wt 59.0 kg
[~2018-02-16 19:49] MED LIST changes: +AMOX-430 PO; -DIPH50CA37 PO; -OXYC30TA2 PO; -SULF1TAB48 PO
--- NOTE | 2018-02-16 20:14 | NUR ---
Dr. Judeg at bedside for MSE.
[2018-02-16] MEDS ORDERED: HYDROMORPHONE 2 MG/1 ML DISP.SYRIN ONE (20:23)
[2018-02-16] MEDS: HYDROMORPHONE 1 MG/1 ML DISP.SYRIN IM ONE (20:24)
--- NOTE | 2018-02-16 20:26 | NUR ---
Patient discharged to home in stable conditon. Written and verbal after care instructions given. Patient verbalizes understanding of instructions. Patient ambulated out of ER with steady gait, no acute signs of distress, VSS, all belongings taken.
[2018-02-16 20:28] VITALS: BP 125/89
== END 2018-02-16 20:28 | disposition home or self-care (01) ==
LOC: ER 19:52
DX: Z76.0 Encounter for issue of repeat prescription (principal); G89.29 Other chronic pain; G40.909 Epilepsy, unspecified, not intractable, without status epilepticus; I10 Essential (primary) hypertension; F20.9 Schizophrenia, unspecified; F17.210 Nicotine dependence, cigarettes, uncomplicated; Z96.643 Presence of artificial hip joint, bilateral; Z88.5 Allergy status to narcotic agent; Z88.6 Allergy status to analgesic agent; Z88.8 Allergy status to other drugs, medicaments and biological substances; Z59.0 Homelessness
CPT/HCPCS: A4663; J1170

== ENCOUNTER 2018-03-18 09:51 | Emergency (ER) | payer OTHER ==
[~2018-03-18] VITALS: Ht 185.4 cm; Wt 61.7 kg
[~2018-03-18 09:51] MED LIST changes: -BENA5TAB2 PO; +BENA5TAB5 PO
[2018-03-18] MEDS ORDERED: diphenhydrAMINE 50 MG/1 ML VIAL IM ONE (10:15)
[2018-03-18] MEDS ORDERED: MORPHINE SULFATE 4 MG/1 ML DISP.SYRIN IM ONE (10:15)
[2018-03-18] MEDS ORDERED: MORPHINE SULFATE 4 MG/1 ML DISP.SYRIN ONE (10:16)
[2018-03-18] MEDS ORDERED: diphenhydrAMINE 50 MG/1 ML VIAL ONE (10:16)
--- NOTE | 2018-03-18 10:25 | NUR ---
mse completed, meds admin, pt d/c'd home, aci/rx x4 given. pt ambulated w/o diff/took all belongings.
[2018-03-18 10:35] VITALS: BP 188/120
== END 2018-03-18 10:30 | disposition home or self-care (01) ==
LOC: ER 09:51
DX: Z76.0 Encounter for issue of repeat prescription (principal); G89.29 Other chronic pain; M54.2 Cervicalgia; M25.559 Pain in unspecified hip; I10 Essential (primary) hypertension; Z88.5 Allergy status to narcotic agent; Z88.8 Allergy status to other drugs, medicaments and biological substances; Z79.82 Long term (current) use of aspirin; Z79.899 Other long term (current) drug therapy; Z59.0 Homelessness
CPT/HCPCS: A4663; J1200; J2270

== ENCOUNTER 2018-04-12 18:40 | Emergency (ER) | payer OTHER ==
[~2018-04-12] VITALS: Ht 185.4 cm; Wt 59.6 kg
--- NOTE | 2018-04-12 19:07 | NUR ---
PT IS IN ROOM #2A, WAITING FOR DR NORTH RE-EVALUATION. REPORT GIVEN TO GRAIN WEIGHER RN.
--- NOTE | 2018-04-12 19:15 | NUR ---
Dr. Farley at bedside for pt evaluation.
--- NOTE | 2018-04-12 19:39 | NUR ---
EKG done, lab works being drawn.
[2018-04-12 20:56] LABS: BASOPHILS % (AUTO) 0.5 % (0.0-2.0); EOSINOPHILS # (AUTO) 0.1 K/uL (0.0-0.7); HEMOGLOBIN 11.9 g/dL (12.5-16.3); LYMPHOCYTES # (AUTO) 1.6 K/uL (20.0-40.0); LYMPHOCYTES % (AUTO) 18.9 % (20.5-51.5); MEAN CORPUSCULAR HEMOGLOBIN 28.5 uug (23.8-33.4); MEAN CORPUSCULAR HGB CONC 32 g/dL (32.5-36.3); MEAN CORPUSCULAR VOLUME 88.6 fL (73.0-96.2); MONOCYTES # (AUTO) 0.8 K/uL (2.0-10.0); MONOCYTES % (AUTO) 9.9 % (0.0-11.0); NEUTROPHILS # (AUTO) 5.9 K/uL (1.8-8.9); NEUTROPHILS % (AUTO) 69.7 % (38.5-71.5); PLATELET COUNT (AUTO) 253 K/uL (152-348); RED BLOOD CELL COUNT(AUTO) 4.18 MIL/uL (4.06-5.63); WHITE BLOOD COUNT (AUTO) 8.5 K/uL (3.6-10.2)
--- NOTE | 2018-04-12 21:00 | NUR ---
Multiple attempts to place saline lock with no success.
[2018-04-12 21:05] LABS: CREATININE 1.5 mg/dL (0.6-1.3); POTASSIUM 3.5 mmol/L (3.5-5.1)
--- NOTE | 2018-04-12 21:17 | NUR ---
Dr. Farley informed of orthostatic VS. Lying down 180/120; sitting 157/129; standing 161/119. No changes in HR 70's.
--- NOTE | 2018-04-12 21:22 | NUR ---
After multiple attempts by several RNs, Angio g 22 inserted at right lower forearm by Becky Madison LVN.
[2018-04-12 21:23] LABS: BILIRUBIN,DIRECT 0.1 mg/dL (0.0-0.2); BILIRUBIN,TOTAL 0.3 mg/dL (0.2-1.0); TOTAL PROTEIN, SERUM 8.5 g/dL (6.4-8.2)
--- NOTE | 2018-04-12 21:44 | NUR ---
PAGED EPPIC PANEL. WAITING FOR DR WARREN TO CALL BACK
--- NOTE | 2018-04-12 21:48 | NUR ---
Dr. Roy returned call and spoke with Dr. Farley.
[2018-04-12 22:34] LABS: *BILIRUBIN,URIN NEGATIVE (NEGATIVE); *BLOOD, URINE NEGATIVE (NEGATIVE); *CLARITY,URINE CLEAR (CLEAR); *COLOR,URINE YELLOW (YELLOW); *KETONES,URINE TRACE (NEGATIVE); *PROTEIN,URINE 2+ (NEGATIVE); LEUKOCYTE ESTERASE ,URINE TRACE (NEGATIVE); NITRITE, URINE NEGATIVE (NEGATIVE); PH,URINE 6.5 (5.0-8.0); UGLUCOSE NEGATIVE (NEGATIVE)
[2018-04-12 22:44] LABS: RBC,URINE 0-3 /HPF (0-3)
[2018-04-12 22:45] LABS: BACTERIA,URINE NONE SEEN /HPF (NONE SEEN); CALCIUM OXALATE CRYSTALS,UR FEW /HPF (NONE SEEN); MUCUS,URINE FEW /LPF (0-FEW); RENAL EPITHELIAL CELLS,URINE FEW /LPF (NONE SEEN); SQUAMOUS EPITHELIAL CELL,UR MODERATE /HPF (NONE SEEN)
[2018-04-12] MEDS ORDERED: HYDROMORPHONE 1 MG/1 ML DISP.SYRIN IV ONE (22:45)
[2018-04-12] MEDS ORDERED: IV NORMAL SALINE 1000 ML BAG IV ONE (22:45)
[2018-04-12] MEDS ORDERED: diphenhydrAMINE 50 MG/1 ML VIAL IV ONE (22:45)
[2018-04-12] MEDS ORDERED: diphenhydrAMINE 50 MG/1 ML VIAL ONE (23:03)
[2018-04-12] MEDS ORDERED: HYDROMORPHONE 2 MG/1 ML DISP.SYRIN ONE (23:04)
[2018-04-12] MEDS ORDERED: AMLO10TA4 PO (23:46)
[2018-04-12] MEDS ORDERED: HYDR-548 PO (23:47)
[2018-04-13] MEDS ORDERED: LABETALOL HCL 100 MG/20 ML VIAL ONE (02:43)
[2018-04-13] MEDS ORDERED: hydrALAZINE HCL 20 MG/1 ML VIAL IV ONE (02:45)
[2018-04-13] MEDS ORDERED: LABETALOL HCL 100 MG/20 ML VIAL IV ONE ×2 (02:45→03:15)
--- NOTE | 2018-04-13 03:00 | NUR ---
Dr. Farley aware Apresoline IV not available housewide.
[2018-04-13] MEDS ORDERED: CLONIDINE HCL 0.2 MG TABLET PO ONE ×2 (03:15→04:30)
[2018-04-13] MEDS ORDERED: HYDROMORPHONE 1 MG/1 ML DISP.SYRIN IM ONE (03:15)
--- NOTE | 2018-04-13 03:16 | NUR ---
Labetalol dose repeated, also given Catapres PO.
[2018-04-13] MEDS ORDERED: CLONIDINE HCL 0.2 MG TABLET ONE ×2 (03:17→04:34)
[2018-04-13] MEDS ORDERED: HYDROMORPHONE 2 MG/1 ML DISP.SYRIN ONE (03:19)
--- NOTE | 2018-04-13 03:40 | NUR ---
MD aware of persistent high blood pressure. Pt comfortable, watching TV show. Has been voiding to moderate amounts of clear monroe urine.
[2018-04-13] MEDS ORDERED: IV NORMAL SALINE 1000 ML BAG IV ONE (04:30)
[2018-04-13 07:35] LABS: CREATININE 1.3 mg/dL (0.6-1.3); POTASSIUM 3.6 mmol/L (3.5-5.1)
--- NOTE | 2018-04-13 07:38 | NUR ---
didiar report received from Mamadou FANG. is receiving 2nd dose of IV kcll Addendum: 04/13/18 at 0741 by CHRIS correction to last nurses notes/ IV kcl : wrong entry for this particula patient.
[2018-04-13 08:24] LABS: BASOPHILS % (AUTO) 0.6 % (0.0-2.0); EOSINOPHILS # (AUTO) 0.1 K/uL (0.0-0.7); EOSINOPHILS % (AUTO) 2.2 % (0.0-7.0); HEMATOCRIT 36.3 % (36.7-47.1); HEMOGLOBIN 11.4 g/dL (12.5-16.3); LYMPHOCYTES # (AUTO) 1.7 K/uL (20.0-40.0); LYMPHOCYTES % (AUTO) 29.3 % (20.5-51.5); MEAN CORPUSCULAR HEMOGLOBIN 28.4 uug (23.8-33.4); MEAN CORPUSCULAR HGB CONC 32 g/dL (32.5-36.3); MEAN CORPUSCULAR VOLUME 90.4 fL (73.0-96.2); MONOCYTES # (AUTO) 0.6 K/uL (2.0-10.0); MONOCYTES % (AUTO) 10.7 % (0.0-11.0); NEUTROPHILS # (AUTO) 3.2 K/uL (1.8-8.9); NEUTROPHILS % (AUTO) 57.2 % (38.5-71.5); PLATELET COUNT (AUTO) 217 K/uL (152-348); RED BLOOD CELL COUNT(AUTO) 4.01 MIL/uL (4.06-5.63); WHITE BLOOD COUNT (AUTO) 5.7 K/uL (3.6-10.2)
[2018-04-13 08:53] VITALS: BP 142/98
--- NOTE | 2018-04-13 09:05 | NUR ---
discharged with home going instructions and prescription for pain.
== END 2018-04-13 09:08 | disposition home or self-care (01) ==
LOC: ER 18:42
DX: K29.20 Alcoholic gastritis without bleeding (principal); I10 Essential (primary) hypertension; G89.29 Other chronic pain; F17.200 Nicotine dependence, unspecified, uncomplicated; Z88.5 Allergy status to narcotic agent; Z88.8 Allergy status to other drugs, medicaments and biological substances; Z59.0 Homelessness
CPT/HCPCS: 36415; 71045; 74176; 80048 ×2; 80076; 81001; 83605; 83690; 84484; 85025 ×2; 85730; 87040 ×2; 93005; 96361; 96372; 96374; 96375; 96376; 99285; A4663; J1170 ×2; J1200; J3490; J7030 ×2; 70030-TC

== ENCOUNTER 2018-05-07 14:36 | Emergency (ER) | payer OTHER ==
[~2018-05-07] VITALS: Ht 182.9 cm; Wt 63.5 kg
[~2018-05-07 14:36] MED LIST changes: +AMLO10TA4 PO; -AMOX-430 PO; -CARV12.52 PO; +HYDR-548 PO
[2018-05-07] MEDS ORDERED: CIPROFLOXACIN HCL 250 MG TABLET ONE (16:04)
--- NOTE | 2018-05-07 16:25 | NUR ---
at bedside to see and examine patient
--- NOTE | 2018-05-07 16:55 | NUR ---
dcd instructions and prescription given to patient. Pt. left room ambulatory [id number].
[2018-05-07] MEDS ORDERED: HYDROMORPHONE HCL 2 MG TABLET PO ONE (17:00)
== END 2018-05-07 17:00 | disposition home or self-care (01) ==
LOC: ER 14:36
DX: S70.02XA Contusion of left hip, initial encounter (principal); G89.29 Other chronic pain; M25.552 Pain in left hip; I10 Essential (primary) hypertension; F17.200 Nicotine dependence, unspecified, uncomplicated; Z88.5 Allergy status to narcotic agent; Z88.8 Allergy status to other drugs, medicaments and biological substances; Z59.0 Homelessness; W01.0XXA Fall on same level from slipping, tripping and stumbling without subsequent striking against object, initial encounter; Y93.89 Activity, other specified; Y92.89 Other specified places as the place of occurrence of the external cause; Y99.8 Other external cause status
CPT/HCPCS: 99283; A4663

== ENCOUNTER 2018-05-16 13:24 | Emergency (ER) | payer OTHER ==
[~2018-05-16] VITALS: Ht 182.9 cm; Wt 63.5 kg
[2018-05-16] MEDS ORDERED: HYDROMORPHONE 1 MG/1 ML DISP.SYRIN IM ONE (14:45)
[2018-05-16] MEDS ORDERED: diphenhydrAMINE 50 MG/1 ML VIAL IM ONE (14:45)
[2018-05-16] MEDS ORDERED: diphenhydrAMINE 50 MG/1 ML VIAL ONE (14:54)
[2018-05-16] MEDS ORDERED: HYDROMORPHONE 2 MG/1 ML DISP.SYRIN ONE (14:55)
--- NOTE | 2018-05-16 14:56 | NUR ---
Patient discharged to home in stable conditon with slow steady gait. Written and verbal after care instructions given to patient. Patient verbalizes understanding of instructions.
== END 2018-05-16 15:00 | disposition home or self-care (01) ==
LOC: ER 13:24
DX: S69.91XA Unspecified injury of right wrist, hand and finger(s), initial encounter (principal); G89.29 Other chronic pain; I10 Essential (primary) hypertension; F17.200 Nicotine dependence, unspecified, uncomplicated; Z88.5 Allergy status to narcotic agent; Z88.8 Allergy status to other drugs, medicaments and biological substances; Z59.0 Homelessness; W01.0XXA Fall on same level from slipping, tripping and stumbling without subsequent striking against object, initial encounter; Y93.89 Activity, other specified; Y92.89 Other specified places as the place of occurrence of the external cause; Y99.8 Other external cause status
CPT/HCPCS: 96372 ×2; 99284; A4663; J1170; J1200

== ENCOUNTER 2018-05-24 18:07 | Inpatient (IN) | payer OTHER ==
[~2018-05-24] VITALS: Ht 180.3 cm; Wt 64.9 kg
[2018-05-24] MEDS ORDERED: CEFEPIME HCL 1 G in IV DEXTROSE 5% 50 ML IV ONE (18:45)
[2018-05-24] MEDS ORDERED: VANCOMYCIN IV 1,000 MG in IV DEXTROSE 5% 250 ML IV ONE (18:45)
[2018-05-24] MEDS ORDERED: ACETAMINOPHEN 325 MG TABLET PO ONE (18:45)
[2018-05-24 19:46] LABS: BASOPHILS # (AUTO) 0.1 K/uL (0.0-8.0); BASOPHILS % (AUTO) 0.7 % (0.0-2.0); EOSINOPHILS # (AUTO) 0.1 K/uL (0.0-0.7); EOSINOPHILS % (AUTO) 0.5 % (0.0-7.0); HEMATOCRIT 30.9 % (36.7-47.1); LYMPHOCYTES # (AUTO) 1.2 K/uL (20.0-40.0); LYMPHOCYTES % (AUTO) 11.1 % (20.5-51.5); MEAN CORPUSCULAR HEMOGLOBIN 28.4 uug (23.8-33.4); MEAN CORPUSCULAR HGB CONC 32 g/dL (32.5-36.3); MEAN CORPUSCULAR VOLUME 87.8 fL (73.0-96.2); MONOCYTES # (AUTO) 1.8 K/uL (2.0-10.0); MONOCYTES % (AUTO) 16.1 % (0.0-11.0); NEUTROPHILS # (AUTO) 7.9 K/uL (1.8-8.9); NEUTROPHILS % (AUTO) 71.6 % (38.5-71.5); PLATELET COUNT (AUTO) 341 K/uL (152-348); RED BLOOD CELL COUNT(AUTO) 3.53 MIL/uL (4.06-5.63)
[2018-05-24 20:03] LABS: EOSINOPHILS % (MANUAL) 1 % (0-8); LYMPHOCYTES % (MANUAL) 9 % (20-40); MONOCYTES % (MANUAL) 12 % (2-10); NEUTROPHILS % (MANUAL) 78 % (42-75)
[2018-05-24 20:07] LABS: CREATININE 1.1 mg/dL (0.6-1.3); POTASSIUM 3.8 mmol/L (3.5-5.1)
[2018-05-24 20:13] LABS: BILIRUBIN,DIRECT 0.1 mg/dL (0.0-0.2); BILIRUBIN,TOTAL 0.3 mg/dL (0.2-1.0); TOTAL PROTEIN, SERUM 8.1 g/dL (6.4-8.2)
[2018-05-24] MEDS ORDERED: ACETAMINOPHEN 325 MG TABLET ONE (20:19)
[2018-05-24] MEDS ORDERED: VANCOMYCIN IV 200 ML ONE (20:35)
[2018-05-24] MEDS ORDERED: CEFEPIME HCL 1 G VIAL ONE (20:35)
[2018-05-24] MEDS ORDERED: IV NORMAL SALINE 1000 ML BAG IV ONE (20:45)
[2018-05-24] MEDS ORDERED: LIDOCAINE 1%-EPI 1:100,000 20 ML VIAL TP ONE (21:30)
[2018-05-24] MEDS ORDERED: HYDROMORPHONE 1 MG/1 ML DISP.SYRIN ONE (22:55)
[2018-05-24] MEDS ORDERED: HYDROMORPHONE 1 MG/1 ML DISP.SYRIN IV ONE (23:00)
[2018-05-25] VITALS: BP 160/107
[2018-05-25] MEDS ORDERED: ZOLPIDEM 5 MG TABLET PO PRN (00:15)
[2018-05-25] MEDS ORDERED: ACETAMINOPHEN 325 MG TABLET PO PRN (00:15)
[2018-05-25] MEDS ORDERED: PIPERACILLIN/TAZOBACTAM/D5W 50 ML IV SCH (01:00)
[2018-05-25] MEDS ORDERED: PIPERACILLIN SODIUM/TAZO 3.375 GM VIAL ONE (01:17)
[2018-05-25] MEDS: IV NS 1000 ML 1,000 ML IV PRN ×2 (01:33→18:03)
[2018-05-25] MEDS: HYDROMORPHONE 1 MG/1 ML DISP.SYRIN IV PRN ×6 (01:51→21:53)
[2018-05-25 04:00] VITALS: BP 128/74
[2018-05-25] MEDS: PANTOPRAZOLE SODIUM 40 MG TABLET.DR PO SCH (06:10)
[2018-05-25 06:38] LABS: CREATININE 1.1 mg/dL (0.6-1.3); MAGNESIUM 1.9 mg/dL (1.8-2.4); PHOSPHOROUS 3.1 mg/dL (2.5-4.9); POTASSIUM 3.4 mmol/L (3.5-5.1)
[2018-05-25 06:58] LABS: BASOPHILS % (AUTO) 0.4 % (0.0-2.0); EOSINOPHILS # (AUTO) 0.1 K/uL (0.0-0.7); EOSINOPHILS % (AUTO) 1.2 % (0.0-7.0); HEMOGLOBIN 9.1 g/dL (12.5-16.3); LYMPHOCYTES # (AUTO) 1.5 K/uL (20.0-40.0); LYMPHOCYTES % (AUTO) 16.2 % (20.5-51.5); MEAN CORPUSCULAR HEMOGLOBIN 28.6 uug (23.8-33.4); MEAN CORPUSCULAR HGB CONC 33 g/dL (32.5-36.3); MEAN CORPUSCULAR VOLUME 87.8 fL (73.0-96.2); MONOCYTES # (AUTO) 1.2 K/uL (2.0-10.0); MONOCYTES % (AUTO) 13.9 % (0.0-11.0); NEUTROPHILS # (AUTO) 6.1 K/uL (1.8-8.9); NEUTROPHILS % (AUTO) 68.3 % (38.5-71.5); PLATELET COUNT (AUTO) 313 K/uL (152-348); RED BLOOD CELL COUNT(AUTO) 3.19 MIL/uL (4.06-5.63)
[2018-05-25] MEDS: PIPERACILLIN/TAZOBACTAM/D5W 50 ML IV SCH ×3 (08:44→21:00)
[2018-05-25] MEDS: VANCOMYCIN IV 1 G in PREMIXED 0 EACH IV SCH ×2 (10:07→22:57)
[2018-05-25 11:47] LABS: *BILIRUBIN,URIN NEGATIVE (NEGATIVE); *BLOOD, URINE NEGATIVE (NEGATIVE); *CLARITY,URINE CLEAR (CLEAR); *COLOR,URINE YELLOW (YELLOW); *KETONES,URINE NEGATIVE (NEGATIVE); *PROTEIN,URINE 2+ (NEGATIVE); LEUKOCYTE ESTERASE ,URINE NEGATIVE (NEGATIVE); NITRITE, URINE NEGATIVE (NEGATIVE); UGLUCOSE NEGATIVE (NEGATIVE)
[2018-05-25 11:55] VITALS: BP 138/82
[2018-05-25 12:03] LABS: BACTERIA,URINE NONE SEEN /HPF (NONE SEEN); RBC,URINE 0-3 /HPF (0-3)
[2018-05-25 12:04] LABS: SQUAMOUS EPITHELIAL CELL,UR FEW /HPF (NONE SEEN)
[2018-05-25 14:00] VITALS: BP 133/87
[2018-05-25] MEDS ORDERED: POTASSIUM CHLORIDE 20 MEQ TAB.PRT.SR PO ONE (15:15)
[2018-05-25] MEDS ORDERED: POTASSIUM CHLORIDE 20 MEQ TAB.PRT.SR PO STA (15:32)
[2018-05-25 20:31] VITALS: BP 142/87
[2018-05-25] MEDS: QUETIAPINE FUMARATE 200 MG TABLET PO SCH (21:00)
[2018-05-26] MEDS: PIPERACILLIN/TAZOBACTAM/D5W 50 ML IV SCH ×4 (02:24→19:59)
[2018-05-26] MEDS: HYDROMORPHONE 1 MG/1 ML DISP.SYRIN IV PRN ×5 (03:54→19:59)
[2018-05-26 05:37] VITALS: BP 152/94
[2018-05-26] MEDS: PANTOPRAZOLE SODIUM 40 MG TABLET.DR PO SCH (06:10)
[2018-05-26 07:16] LABS: POTASSIUM 3.8 mmol/L (3.5-5.1)
[2018-05-26] MEDS: MULTIVITAMINS,THERAPEUTIC TABLET PO SCH (07:57)
[2018-05-26] MEDS: AMLODIPINE 10 MG TABLET PO SCH (07:58)
[2018-05-26] MEDS: HYDROCHLOROTHIAZIDE 25 MG TABLET PO SCH (07:59)
[2018-05-26 11:03] VITALS: BP 124/74
[2018-05-26] MEDS: VANCOMYCIN IV 1 G in PREMIXED 0 EACH IV SCH ×2 (11:34→22:10)
[2018-05-26] MEDS: IV NS 1000 ML 1,000 ML IV PRN (11:37)
[2018-05-26 15:03] VITALS: BP 109/58
[2018-05-26 19:32] VITALS: BP 143/96
[2018-05-26] MEDS: QUETIAPINE FUMARATE 200 MG TABLET PO SCH (20:42)
[2018-05-27] VITALS (14 sets, daily range): BP systolic 111–168; BP diastolic 75–104
[2018-05-27] MEDS: HYDROMORPHONE 1 MG/1 ML DISP.SYRIN IV PRN ×6 (00:34→23:28)
[2018-05-27] MEDS: PIPERACILLIN/TAZOBACTAM/D5W 50 ML IV SCH ×4 (02:06→19:34)
[2018-05-27] MEDS: PANTOPRAZOLE SODIUM 40 MG TABLET.DR PO SCH (06:03)
[2018-05-27] MEDS: IV NS 1000 ML 1,000 ML IV PRN (06:06)
[2018-05-27] MEDS: HYDROCHLOROTHIAZIDE 25 MG TABLET PO SCH (08:35)
[2018-05-27] MEDS: MULTIVITAMINS,THERAPEUTIC TABLET PO SCH (08:35)
[2018-05-27] MEDS: AMLODIPINE 10 MG TABLET PO SCH (08:36)
[2018-05-27] MEDS: VANCOMYCIN IV 1 G in PREMIXED 0 EACH IV SCH ×2 (10:24→21:08)
[2018-05-27] MEDS ORDERED: LIDOCAINE HCL 1% 20 ML VIAL MC ONE (14:51)
[2018-05-27] MEDS ORDERED: IV NORMAL SALINE 1000 ML BAG IV ONE (14:51)
[2018-05-27] MEDS ORDERED: PROPOFOL 200 MG/20 ML BOTTLE IV ONE (14:51)
[2018-05-27] MEDS ORDERED: hydrALAZINE HCL 20 MG/1 ML VIAL IV PRN (16:15)
[2018-05-27] MEDS: QUETIAPINE FUMARATE 200 MG TABLET PO SCH (20:26)
[2018-05-28] MEDS: PIPERACILLIN/TAZOBACTAM/D5W 50 ML IV SCH ×3 (01:33→13:43)
[2018-05-28] MEDS: IV NS 1000 ML 1,000 ML IV PRN ×2 (03:39→20:09)
[2018-05-28] MEDS: HYDROMORPHONE 1 MG/1 ML DISP.SYRIN IV PRN ×6 (03:39→21:04)
[2018-05-28 04:43] VITALS: BP 105/68
[2018-05-28 06:04] LABS: CREATININE 1.2 mg/dL (0.6-1.3); POTASSIUM 3.7 mmol/L (3.5-5.1)
[2018-05-28 06:18] LABS: BASOPHILS # (AUTO) 0.1 K/uL (0.0-8.0); EOSINOPHILS # (AUTO) 0.3 K/uL (0.0-0.7); EOSINOPHILS % (AUTO) 5.5 % (0.0-7.0); HEMATOCRIT 28.7 % (36.7-47.1); HEMOGLOBIN 9.5 g/dL (12.5-16.3); LYMPHOCYTES # (AUTO) 1.3 K/uL (20.0-40.0); LYMPHOCYTES % (AUTO) 25.3 % (20.5-51.5); MEAN CORPUSCULAR HEMOGLOBIN 28.4 uug (23.8-33.4); MEAN CORPUSCULAR HGB CONC 33 g/dL (32.5-36.3); MEAN CORPUSCULAR VOLUME 85.7 fL (73.0-96.2); MONOCYTES # (AUTO) 0.6 K/uL (2.0-10.0); MONOCYTES % (AUTO) 11.5 % (0.0-11.0); NEUTROPHILS # (AUTO) 2.9 K/uL (1.8-8.9); NEUTROPHILS % (AUTO) 56.7 % (38.5-71.5); PLATELET COUNT (AUTO) 391 K/uL (152-348); RED BLOOD CELL COUNT(AUTO) 3.35 MIL/uL (4.06-5.63); WHITE BLOOD COUNT (AUTO) 5.2 K/uL (3.6-10.2)
[2018-05-28] MEDS: PANTOPRAZOLE SODIUM 40 MG TABLET.DR PO SCH (06:23)
[2018-05-28] MEDS: HYDROCHLOROTHIAZIDE 25 MG TABLET PO SCH (08:35)
[2018-05-28] MEDS: AMLODIPINE 10 MG TABLET PO SCH (08:35)
[2018-05-28] MEDS: MULTIVITAMINS,THERAPEUTIC TABLET PO SCH (08:35)
[2018-05-28] MEDS: VANCOMYCIN IV 1 G in PREMIXED 0 EACH IV SCH (09:20)
[2018-05-28 11:13] VITALS: BP 123/75
[2018-05-28] MEDS ORDERED: hydrALAZINE HCL 10 MG TABLET PO PRN (12:00)
[2018-05-28 15:21] VITALS: BP 120/75
[2018-05-28 19:30] VITALS: BP 154/95
[2018-05-28] MEDS: QUETIAPINE FUMARATE 200 MG TABLET PO SCH (20:09)
[2018-05-28] MEDS: AMOXICILLIN-CLAVUL 875-125MG TABLET PO SCH (20:09)
[2018-05-29] MEDS: HYDROMORPHONE 1 MG/1 ML DISP.SYRIN IV PRN ×6 (00:07→17:06)
[2018-05-29 03:31] VITALS: BP 142/83
[2018-05-29] MEDS: PANTOPRAZOLE SODIUM 40 MG TABLET.DR PO SCH (06:08)
[2018-05-29] MEDS: IV NS 1000 ML 1,000 ML IV PRN (10:06)
[2018-05-29] MEDS: HYDROCHLOROTHIAZIDE 25 MG TABLET PO SCH (10:14)
[2018-05-29] MEDS: AMOXICILLIN-CLAVUL 875-125MG TABLET PO SCH (10:14)
[2018-05-29] MEDS: AMLODIPINE 10 MG TABLET PO SCH (10:15)
[2018-05-29] MEDS: MULTIVITAMINS,THERAPEUTIC TABLET PO SCH (10:15)
[2018-05-29 11:10] VITALS: BP 145/89
[2018-05-29 15:02] VITALS: BP 149/90
== END 2018-05-29 18:15 | disposition home or self-care (01) | DRG 710 ==
LOC: ER 18:09 → TELE 23:54 → MED 05-25 15:30
PROVIDERS: ADMIT Nurse Practitioner Acute Care; ATTEND Nurse Practitioner Acute Care
PROC: 0J9N0ZZ Drainage of Right Lower Leg Subcutaneous Tissue and Fascia, Open Approach (ICD-10-PCS; 2018-05-24)
PROC: B548ZZA Ultrasonography of Superior Vena Cava, Guidance (ICD-10-PCS; 2018-05-24)
PROC: 02HV33Z Insertion of Infusion Device into Superior Vena Cava, Percutaneous Approach (ICD-10-PCS; 2018-05-24)
PROC: B24BZZ4 Ultrasonography of Heart with Aorta, Transesophageal (ICD-10-PCS; principal; 2018-05-27)
DX: A41.9 Sepsis, unspecified organism (principal); E87.2 Acidosis; E43 Unspecified severe protein-calorie malnutrition; R64 Cachexia; M60.003 Infective myositis, unspecified right leg; L02.415 Cutaneous abscess of right lower limb; E88.09 Other disorders of plasma-protein metabolism, not elsewhere classified; F20.0 Paranoid schizophrenia; I11.0 Hypertensive heart disease with heart failure; Z95.2 Presence of prosthetic heart valve; G40.909 Epilepsy, unspecified, not intractable, without status epilepticus; L03.115 Cellulitis of right lower limb; Z68.1 Body mass index [BMI] 19.9 or less, adult; D63.8 Anemia in other chronic diseases classified elsewhere; G89.29 Other chronic pain; K76.9 Liver disease, unspecified; M19.90 Unspecified osteoarthritis, unspecified site; Z96.643 Presence of artificial hip joint, bilateral; Z98.1 Arthrodesis status; I25.2 Old myocardial infarction; E87.6 Hypokalemia; F17.210 Nicotine dependence, cigarettes, uncomplicated; F10.21 Alcohol dependence, in remission; F19.11 Other psychoactive substance abuse, in remission; M62.50 Muscle wasting and atrophy, not elsewhere classified, unspecified site; I50.32 Chronic diastolic (congestive) heart failure
CPT/HCPCS: 36415; 36556; 70030-TC; 71045; 83605; 83735; 84100; 85025; 85730; 87040; 87070; 87077; 87086; 93005; 93307; 93312; A4663; C1751; J0692; J1170; J2543; J3370; J3490; J7030; J7040; J7060

== ENCOUNTER 2018-06-07 12:34 | Emergency (ER) | payer OTHER ==
[~2018-06-07] VITALS: Ht 180.3 cm; Wt 61.2 kg
[~2018-06-07 12:34] MED LIST changes: -ASPI-618 PO; -BENA5TAB5 PO
[2018-06-07] MEDS ORDERED: HYDROCODONE/APAP 5-325MG TABLET ONE (12:50)
[2018-06-07] MEDS ORDERED: HYDROCODONE/APAP 5-325MG TABLET PO ONE (13:00)
--- NOTE | 2018-06-07 13:36 | NUR ---
Patient discharged to home in stable conditon. Written and verbal after care instructions given. Patient verbalizes understanding of instructions.
[2018-06-07 13:37] VITALS: BP 152/86
== END 2018-06-07 13:38 | disposition home or self-care (01) ==
LOC: ER 12:34
DX: S70.02XA Contusion of left hip, initial encounter (principal); I10 Essential (primary) hypertension; G89.29 Other chronic pain; F17.200 Nicotine dependence, unspecified, uncomplicated; Z88.5 Allergy status to narcotic agent; Z88.8 Allergy status to other drugs, medicaments and biological substances; Z59.0 Homelessness; W01.0XXA Fall on same level from slipping, tripping and stumbling without subsequent striking against object, initial encounter; Y93.89 Activity, other specified; Y92.89 Other specified places as the place of occurrence of the external cause; Y99.8 Other external cause status
CPT/HCPCS: 73502; A4663

== ENCOUNTER 2018-06-09 15:28 | Emergency (ER) | payer OTHER ==
[~2018-06-09] VITALS: Ht 182.9 cm; Wt 68.0 kg
[2018-06-09] MEDS ORDERED: HYDROMORPHONE 1 MG/1 ML DISP.SYRIN ONE (15:45)
[2018-06-09] MEDS ORDERED: HYDROMORPHONE 1 MG/1 ML DISP.SYRIN IM ONE (15:45)
[2018-06-09] MEDS ORDERED: HYDROMORPHONE 2 MG/1 ML DISP.SYRIN ONE (15:45)
[2018-06-09 15:51] VITALS: BP 148/98
--- NOTE | 2018-06-09 15:52 | NUR ---
Patient discharged to home in stable conditon. Written and verbal after care instructions given. Patient verbalizes understanding of instructions.
== END 2018-06-09 15:52 | disposition home or self-care (01) ==
LOC: ER 15:30
DX: G89.29 Other chronic pain (principal); M25.551 Pain in right hip; M25.552 Pain in left hip; M54.2 Cervicalgia; Z76.0 Encounter for issue of repeat prescription; I10 Essential (primary) hypertension; F17.200 Nicotine dependence, unspecified, uncomplicated; Z88.5 Allergy status to narcotic agent; Z88.8 Allergy status to other drugs, medicaments and biological substances; Z59.0 Homelessness
CPT/HCPCS: 96372; 99283; A4663; J1170 ×2

== ENCOUNTER 2018-06-10 14:25 | Emergency (ER) | payer OTHER ==
[~2018-06-10] VITALS: Ht 185.4 cm; Wt 60.8 kg
[2018-06-10] MEDS ORDERED: HYDROMORPHONE 1 MG/1 ML DISP.SYRIN IV ONE (15:00)
[2018-06-10] MEDS ORDERED: HYDROMORPHONE 2 MG/1 ML DISP.SYRIN ONE (15:00)
[2018-06-10] MEDS ORDERED: HYDROMORPHONE 1 MG/1 ML DISP.SYRIN ONE (15:00)
--- NOTE | 2018-06-10 15:20 | NUR ---
Patient discharged to home in stable conditon. Written and verbal after care instructions given. Patient verbalizes understanding of instructions.PT WALKS IN STEADY GAIT. PT NOT DRIVING
== END 2018-06-10 15:21 | disposition home or self-care (01) ==
LOC: ER 14:29
DX: G89.29 Other chronic pain (principal); M54.2 Cervicalgia; M25.551 Pain in right hip; M25.552 Pain in left hip; I10 Essential (primary) hypertension; F17.200 Nicotine dependence, unspecified, uncomplicated; Z88.5 Allergy status to narcotic agent; Z88.8 Allergy status to other drugs, medicaments and biological substances; Z59.0 Homelessness
CPT/HCPCS: 96374; 99284; A4663; J1170 ×2

== ENCOUNTER 2018-07-07 10:19 | Inpatient (IN) | payer OTHER ==
[~2018-07-07] VITALS: Ht 185.4 cm; Wt 61.7 kg
[~2018-07-07 10:19] MED LIST changes: +HYDR-4354 PO; -HYDR-548 PO
[2018-07-07] MEDS ORDERED: PHEN100C4 PO (10:44)
[2018-07-07] MEDS ORDERED: LIDOCAINE 1%-EPI 1:100,000 20 ML VIAL TP ONE (10:45)
[2018-07-07] MEDS ORDERED: LIDOCAINE 1%-EPI 1:100,000 20 ML VIAL ONE (10:55)
[2018-07-07 11:14] LABS: BASOPHILS % (AUTO) 0.3 % (0.0-2.0); EOSINOPHILS % (AUTO) 0.2 % (0.0-7.0); LYMPHOCYTES # (AUTO) 0.5 K/uL (20.0-40.0); LYMPHOCYTES % (AUTO) 8.4 % (20.5-51.5); MEAN CORPUSCULAR HGB CONC 33 g/dL (32.5-36.3); MEAN CORPUSCULAR VOLUME 84.3 fL (73.0-96.2); MONOCYTES # (AUTO) 0.4 K/uL (2.0-10.0); MONOCYTES % (AUTO) 7.3 % (0.0-11.0); NEUTROPHILS # (AUTO) 5.1 K/uL (1.8-8.9); NEUTROPHILS % (AUTO) 83.8 % (38.5-71.5); PLATELET COUNT (AUTO) 278 K/uL (152-348); RED BLOOD CELL COUNT(AUTO) 3.91 MIL/uL (4.06-5.63); WHITE BLOOD COUNT (AUTO) 6.1 K/uL (3.6-10.2)
[2018-07-07 11:23] LABS: CREATININE 1.4 mg/dL (0.6-1.3); POTASSIUM 3.9 mmol/L (3.5-5.1)
[2018-07-07] MEDS ORDERED: METOCLOPRAMIDE HCL 10 MG/2 ML VIAL IV PRN (13:30)
[2018-07-07] MEDS ORDERED: Z GUARD REMEDY PASTE 57 GM TUBE TOP PRN (13:30)
[2018-07-07] MEDS ORDERED: hydrALAZINE HCL 20 MG/1 ML VIAL IV PRN (13:30)
[2018-07-07] MEDS ORDERED: MAGNESIUM HYDROXIDE 30 ML LIQUID UDC PO PRN (13:30)
[2018-07-07] MEDS ORDERED: MORPHINE SULFATE 2 MG/1 ML DISP.SYRIN IV PRN (13:30)
[2018-07-07] MEDS ORDERED: NITROGLYCERIN 0.4 MG/TAB BOTTLE SL ONE (13:30)
[2018-07-07] MEDS ORDERED: ACETAMINOPHEN 325 MG TABLET PO PRN (13:30)
[2018-07-07] MEDS ORDERED: LORAZEPAM 2 MG/1 ML VIAL IV PRN (13:45)
--- NOTE | 2018-07-07 14:20 | NUR ---
PATIENT ADMITTED ON TELE TO ROOM 221 FROM ER. ARRIVED VIA GURNEY. HR SINUS TACHY. PATIENT COMPLAINS OF SLIGHT CHEST PAIN 12/15. ADMISSION ORDERS BY MD IN. NURSING ADMISSION ASSESSMENTS DONE. ORIENTED PATIENT TO ROOM/UNIT. COMFORT MEASURES PROVIDED. CALL LIGHT WITHIN REACH.
[2018-07-07] MEDS: HYDROMORPHONE 1 MG/1 ML DISP.SYRIN IV PRN ×2 (15:03→20:12)
[2018-07-07 15:14] VITALS: BP 153/103
--- NOTE | 2018-07-07 15:20 | NUR ---
PHARMACY CLINICAL NOTES: (VANCOMYCIN DOSING) S: 63 YO male with multiple previous admission for cellulitis. MD ordered Vancomycin O: BUN/SCR 13/1.4; WBC 6.1; TEMP 98.3; DOSING WT 143 LBS A/P: will Dose Vancomycin as 1 gm q18h, estimated peak of 40 and trough of 18. will ck level prior to 4th dose of vanco ( not ordered in [facility])and will adjust the dose if needed. Will continue to monitor.
[2018-07-07] MEDS ORDERED: VANCOMYCIN IV 1 G in PREMIXED 0 EACH IV SCH (16:00)
--- NOTE | 2018-07-07 16:00 | NUR ---
NITROGLYCERINE GIVEN EARLIER, PATIENT REPORTS CHEST PAIN HAS SUBSIDED
--- NOTE | 2018-07-07 18:17 | NUR ---
MIDLINE INSERTION DONE BY PICC LINE NURSE ON LORENZO #20, PROCEDURE WELL TOLERATED.
--- NOTE | 2018-07-07 18:38 | NUR ---
PATIENT IN ROOM AWAKE, STABLE THROUGHOUT SHIFT. ON TELE SINUS RHYTHM. S/P MIDLINE INSERTION, WELL TOLERATED. LORENZO #20 MIDLINE INTACT AND PATENT. IVF INFUSING WELL. ALL NEEDS ATTENDED AND ANTICIPATED. CALL LIGHT WITHIN REACH.
[2018-07-07] MEDS: IV NS 1000 ML 1,000 ML IV PRN (18:50)
[2018-07-07 19:54] VITALS: BP 146/94
[2018-07-07] MEDS: PHENYTOIN SODIUM EXTENDED 100 MG CAPSULE.SA PO SCH (20:11)
[2018-07-07] MEDS: HYDROCODONE/APAP 10-325 MG TABLET PO PRN (20:12)
[2018-07-07] MEDS: QUETIAPINE FUMARATE 200 MG TABLET PO SCH (20:13)
[2018-07-07] MEDS ORDERED: Medication Not On Formulary EA (Quetiapine Fumarate (Seroquel) 800 MG) PO SCH (21:00)
[2018-07-08] VITALS (7 sets, daily range): BP systolic 135–169; BP diastolic 87–112
[2018-07-08] MEDS: IV NS 1000 ML 1,000 ML IV PRN ×2 (03:40→16:47)
[2018-07-08] MEDS: HYDROMORPHONE 1 MG/1 ML DISP.SYRIN IV PRN ×4 (03:44→20:07)
--- NOTE | 2018-07-08 06:00 | NUR ---
STATES SLEPT WELL .AFTER PAIN MED GIVEN
[2018-07-08 06:31] LABS: BASOPHILS % (AUTO) 0.4 % (0.0-2.0); EOSINOPHILS # (AUTO) 0.1 K/uL (0.0-0.7); HEMATOCRIT 32.9 % (36.7-47.1); HEMOGLOBIN 10.6 g/dL (12.5-16.3); LYMPHOCYTES # (AUTO) 1.3 K/uL (20.0-40.0); LYMPHOCYTES % (AUTO) 35.2 % (20.5-51.5); MEAN CORPUSCULAR HEMOGLOBIN 27.9 uug (23.8-33.4); MEAN CORPUSCULAR HGB CONC 32 g/dL (32.5-36.3); MEAN CORPUSCULAR VOLUME 86.5 fL (73.0-96.2); MONOCYTES # (AUTO) 0.5 K/uL (2.0-10.0); MONOCYTES % (AUTO) 12.5 % (0.0-11.0); NEUTROPHILS # (AUTO) 1.8 K/uL (1.8-8.9); NEUTROPHILS % (AUTO) 48.9 % (38.5-71.5); PLATELET COUNT (AUTO) 234 K/uL (152-348); RED BLOOD CELL COUNT(AUTO) 3.81 MIL/uL (4.06-5.63); WHITE BLOOD COUNT (AUTO) 3.6 K/uL (3.6-10.2)
[2018-07-08] MEDS: PANTOPRAZOLE SODIUM 40 MG TABLET.DR PO SCH (06:32)
[2018-07-08 06:43] LABS: BILIRUBIN,DIRECT 0.1 mg/dL (0.0-0.2); BILIRUBIN,TOTAL 0.2 mg/dL (0.2-1.0); CREATININE 1.2 mg/dL (0.6-1.3); MAGNESIUM 1.8 mg/dL (1.8-2.4); PHOSPHOROUS 3.1 mg/dL (2.5-4.9); POTASSIUM 3.6 mmol/L (3.5-5.1); TOTAL PROTEIN, SERUM 7.5 g/dL (6.4-8.2)
--- NOTE | 2018-07-08 07:15 | NUR ---
PATIENT RECEIVED AWAKE AND ALERT THIS AM LAYING DOWN IN BED ABLE TO VERBALIZE NEEDS, CONTINUE TO MONITOR NO DISTRESS NOTED.
[2018-07-08] MEDS: HYDROCHLOROTHIAZIDE 25 MG TABLET PO SCH (08:20)
[2018-07-08] MEDS: MULTIVITAMINS,THERAPEUTIC TABLET PO SCH (08:20)
--- NOTE | 2018-07-08 08:20 | NUR ---
PATIENT COMPLAINING OF PAIN THIS AM, GENERALIZED PAIN AND RIGHT LEG. PAIN IS 7 OUT OF 10 AND FEELS IT GETTING WORSE, PRN JAMIN REFUSED , REQUESTED DILAUDID.
[2018-07-08] MEDS: AMLODIPINE 10 MG TABLET PO SCH (08:21)
[2018-07-08] MEDS: ASPIRIN EC 81 MG TABLET.DR PO SCH (08:21)
[2018-07-08] MEDS: NICOTINE 14 MG/24HR PATCH TD SCH (08:21)
[2018-07-08] MEDS: VANCOMYCIN IV 1 G in PREMIXED 0 EACH IV SCH ×2 (09:10→20:06)
--- NOTE | 2018-07-08 11:31 | NUR ---
PHARMACY CLINICAL NOTES: (VANCOMYCIN DOSING) S:To continue vanco dosing for this 63 YO male for cellulitis. O: BUN/SCR 12/1.2; WBC 3.6; TEMP 97.5 ht 185.4 cm wt 61.6 kg A/P: Since srcr has decreased, will change dose to Vancomycin as 1 gm q12h (as per previous vanco trough level estimated 15 mcg/ml). 1st dose was given today at 0900. will ck level prior to 4th dose of vanco ( not ordered in [facility]) and will adjust the dose if needed. Will continue to monitor. Will follow up
--- NOTE | 2018-07-08 19:20 | NUR ---
RECEIVED PATIENT LYING IN BED. AAOX4. IN NO ACUTE DISTRESS. COMPLAINED OF PAIN ON RIGHT LEG, WILL PROVIDE DILAUDID PER ORDER. DENIES ANY SOB. MIDLINE ON RIGHT UPPER ARM INTACT AND PATENT. IVF INFUSING. NEEDS ASSESSED AND ATTENDED TO. SAFETY MEASURE INITIATED AND CALL MEZA WITHIN REACH.
[2018-07-08] MEDS: QUETIAPINE FUMARATE 200 MG TABLET PO SCH (20:08)
[2018-07-08] MEDS: PHENYTOIN SODIUM EXTENDED 100 MG CAPSULE.SA PO SCH (20:08)
--- NOTE | 2018-07-08 20:30 | NUR ---
WOUND SPECIMEN AND TREATMENT DONE TO RIGHT LEG PER ORDER. PATIENT REFUSING KPAD AT THIS TIME.
[2018-07-09] MEDS: HYDROMORPHONE 1 MG/1 ML DISP.SYRIN IV PRN ×4 (02:07→20:47)
[2018-07-09] MEDS: ZOLPIDEM 5 MG TABLET PO PRN (02:11)
[2018-07-09 03:25] VITALS: BP 145/92
[2018-07-09] MEDS: PANTOPRAZOLE SODIUM 40 MG TABLET.DR PO SCH (06:04)
--- NOTE | 2018-07-09 06:28 | NUR ---
AAOX4. IN NO ACUTE DISTRESS. DILAUDID PRN PER ORDER GIVEN FOR COMPLAIN OF RIGHT LEG PAIN AND EFFECTIVE. DENIES ANY SOB. MIDLINE ON RIGHT UPPER ARM INTACT AND PATENT. IVF INFUSING. NO ADVERSE REACTION FROM IV ABX NOTED. NEEDS ATTENDED TO AND MET. SAFETY MEASURE MAINTAINED AND CALL MEZA WITHIN REACH.
[2018-07-09 06:51] LABS: BASOPHILS % (AUTO) 0.7 % (0.0-2.0); EOSINOPHILS # (AUTO) 0.2 K/uL (0.0-0.7); EOSINOPHILS % (AUTO) 3.5 % (0.0-7.0); HEMATOCRIT 32.1 % (36.7-47.1); HEMOGLOBIN 10.5 g/dL (12.5-16.3); LYMPHOCYTES # (AUTO) 1.3 K/uL (20.0-40.0); LYMPHOCYTES % (AUTO) 29.5 % (20.5-51.5); MEAN CORPUSCULAR HEMOGLOBIN 28.2 uug (23.8-33.4); MEAN CORPUSCULAR HGB CONC 33 g/dL (32.5-36.3); MEAN CORPUSCULAR VOLUME 86.4 fL (73.0-96.2); MONOCYTES # (AUTO) 0.5 K/uL (2.0-10.0); MONOCYTES % (AUTO) 10.8 % (0.0-11.0); NEUTROPHILS # (AUTO) 2.5 K/uL (1.8-8.9); NEUTROPHILS % (AUTO) 55.5 % (38.5-71.5); PLATELET COUNT (AUTO) 252 K/uL (152-348); RED BLOOD CELL COUNT(AUTO) 3.71 MIL/uL (4.06-5.63); WHITE BLOOD COUNT (AUTO) 4.4 K/uL (3.6-10.2)
[2018-07-09 07:04] LABS: CREATININE 1.2 mg/dL (0.6-1.3); POTASSIUM 4.1 mmol/L (3.5-5.1)
[2018-07-09 08:36] VITALS: BP 145/92
[2018-07-09] MEDS: MULTIVITAMINS,THERAPEUTIC TABLET PO SCH (08:38)
[2018-07-09] MEDS: ASPIRIN EC 81 MG TABLET.DR PO SCH (08:38)
[2018-07-09] MEDS: NICOTINE 14 MG/24HR PATCH TD SCH (08:38)
[2018-07-09] MEDS: AMLODIPINE 10 MG TABLET PO SCH (08:38)
[2018-07-09] MEDS: HYDROCHLOROTHIAZIDE 25 MG TABLET PO SCH (08:38)
[2018-07-09] MEDS: IV NS 1000 ML 1,000 ML IV PRN (08:45)
[2018-07-09] MEDS: VANCOMYCIN IV 1 G in PREMIXED 0 EACH IV SCH ×2 (09:17→22:02)
--- NOTE | 2018-07-09 09:42 | NUR ---
PHARMACY CLINICAL NOTES: (VANCOMYCIN DOSING) S:To continue vanco dosing for this 63 YO male for cellulitis. O: BUN/SCR 14/1.2; WBC 4.4; TEMP 98.2 ht 185.4 cm wt 61.6 kg Trough pending today at 2029 A/P: Will continue vanco 1 gm q12h (as per previous admit vanco trough level estimated 15 mcg/ml). Trough due tonight at 2030 before 4th dose. RN endorsed to hold if tr >20. Will check level in am and adjust as needed. Will follow
[2018-07-09 11:00] VITALS: BP 118/84
[2018-07-09] MEDS: SILVER SULFADIAZINE 1% CREAM 25 GM TUBE TP SCH (14:18)
[2018-07-09 15:14] VITALS: BP 133/87
--- NOTE | 2018-07-09 19:20 | NUR ---
RECEIVED PT AWAKE, ALERT AND ORIENTEDX4. PT SHOWS NO SIGNS OF DISTRESS. IV INTACT. CALL LIGHT WITHIN REACH. SAFETY AND COMFORT PROVIDED. WILL CONTINUE TO MONITOR.
[2018-07-09] MEDS: PHENYTOIN SODIUM EXTENDED 100 MG CAPSULE.SA PO SCH (20:42)
[2018-07-09] MEDS: QUETIAPINE FUMARATE 200 MG TABLET PO SCH (20:43)
[2018-07-09 22:09] VITALS: BP 135/90
--- NOTE | 2018-07-09 22:53 | NUR ---
HANDS OFF REPORT GIVEN TO ERICA FANG. PT STABLE WITH NO ACUTE DISTRESS. SAFETY AND COMFORT PROVIDED. WILL CONTINUE TO MONITOR.
--- NOTE | 2018-07-09 23:00 | NUR ---
Received pt report at bedside from ANNALISA NUNEZ. Pt resting comfortably in bed, arousable to name call and touch. Environmental safety maintained at all times. Comfort measures implemented. Call light within reach. Will continue to monitor and carry out all orders.
[2018-07-10] MEDS: IV NS 1000 ML 1,000 ML IV PRN (02:09)
[2018-07-10] MEDS: HYDROMORPHONE 1 MG/1 ML DISP.SYRIN IV PRN ×2 (02:13→08:18)
[2018-07-10] MEDS: ZOLPIDEM 5 MG TABLET PO PRN (02:15)
--- NOTE | 2018-07-10 05:33 | NUR ---
Assumed care from Nurse Iyer; patient not in acute distress; c/o pain x1 and medicated with dilaudid with good result; safety rounds done; bed alarm on; continue to monitor; continue plan of care
[2018-07-10 06:15] LABS: BASOPHILS % (AUTO) 0.8 % (0.0-2.0); EOSINOPHILS # (AUTO) 0.2 K/uL (0.0-0.7); EOSINOPHILS % (AUTO) 5.6 % (0.0-7.0); HEMATOCRIT 31.2 % (36.7-47.1); HEMOGLOBIN 10.1 g/dL (12.5-16.3); LYMPHOCYTES # (AUTO) 1.3 K/uL (20.0-40.0); LYMPHOCYTES % (AUTO) 30.4 % (20.5-51.5); MEAN CORPUSCULAR HEMOGLOBIN 28.2 uug (23.8-33.4); MEAN CORPUSCULAR HGB CONC 33 g/dL (32.5-36.3); MEAN CORPUSCULAR VOLUME 86.5 fL (73.0-96.2); MONOCYTES # (AUTO) 0.5 K/uL (2.0-10.0); MONOCYTES % (AUTO) 11.9 % (0.0-11.0); NEUTROPHILS # (AUTO) 2.2 K/uL (1.8-8.9); NEUTROPHILS % (AUTO) 51.3 % (38.5-71.5); PLATELET COUNT (AUTO) 250 K/uL (152-348); WHITE BLOOD COUNT (AUTO) 4.4 K/uL (3.6-10.2)
[2018-07-10] MEDS: PANTOPRAZOLE SODIUM 40 MG TABLET.DR PO SCH (06:16)
[2018-07-10 06:24] LABS: POTASSIUM 4.2 mmol/L (3.5-5.1)
[2018-07-10 06:26] VITALS: BP 125/88
[2018-07-10] MEDS: NICOTINE 14 MG/24HR PATCH TD SCH (08:00)
[2018-07-10] MEDS: ASPIRIN EC 81 MG TABLET.DR PO SCH (08:00)
[2018-07-10] MEDS: AMLODIPINE 10 MG TABLET PO SCH (08:00)
[2018-07-10] MEDS: HYDROCHLOROTHIAZIDE 25 MG TABLET PO SCH (08:00)
[2018-07-10] MEDS: MULTIVITAMINS,THERAPEUTIC TABLET PO SCH (08:00)
[2018-07-10] MEDS: VANCOMYCIN IV 1 G in PREMIXED 0 EACH IV SCH (08:47)
[2018-07-10] MEDS: SILVER SULFADIAZINE 1% CREAM 25 GM TUBE TP SCH (09:03)
[2018-07-10] MEDS ORDERED: SULF1TAB48 PO (10:40)
--- NOTE | 2018-07-10 11:16 | NUR ---
PHARMACY CLINICAL NOTES: (VANCOMYCIN DOSING) S:To continue vanco dosing for this 63 YO male for cellulitis. O: BUN/SCR 18/1.0; WBC 4.4; TEMP 98 ht 185.4 cm wt 61.6 kg Vanco trough level: 15.1 (drawn on 07/09 at 2030) A/P: Since vanco trough level is within therapeutic range, will continue same dose of vanco 1 gm IVPB q12h for today. Next dose due today at 2100. If srcr will remain as 1.0 or drop, will repeat the trough level to ensure therapeutic range. Will follow
[2018-07-10 11:24] VITALS: BP 141/97
[2018-07-10] MEDS: HYDROCODONE/APAP 10-325 MG TABLET PO PRN (12:28)
--- NOTE | 2018-07-10 12:41 | NUR ---
d/c orders received noted and carried out,d/c midline per md orders,d/c instruction and education given to the pt,pt verbalized understanding ll the instruction,pt said he willfollow up with his dr,pt left the facility via walking in stable condition
== END 2018-07-10 12:45 | disposition home or self-care (01) | DRG 199 ==
LOC: ER 10:19 → TELE 13:24 → MED 07-08 15:25
PROVIDERS: ADMIT Nurse Practitioner Acute Care; ATTEND Nurse Practitioner Acute Care
PROC: 0H9KXZZ Drainage of Right Lower Leg Skin, External Approach (ICD-10-PCS; principal; 2018-07-07)
PROC: 05HY33Z Insertion of Infusion Device into Upper Vein, Percutaneous Approach (ICD-10-PCS; principal; 2018-07-07)
DX: I16.0 Hypertensive urgency (principal); N17.0 Acute kidney failure with tubular necrosis; E43 Unspecified severe protein-calorie malnutrition; F20.0 Paranoid schizophrenia; I50.32 Chronic diastolic (congestive) heart failure; S81.831S Puncture wound without foreign body, right lower leg, sequela; D64.9 Anemia, unspecified; L02.415 Cutaneous abscess of right lower limb; I11.0 Hypertensive heart disease with heart failure; F10.10 Alcohol abuse, uncomplicated; F11.10 Opioid abuse, uncomplicated; F17.210 Nicotine dependence, cigarettes, uncomplicated; Z59.0 Homelessness; Z95.3 Presence of xenogenic heart valve; Z96.643 Presence of artificial hip joint, bilateral; Z98.1 Arthrodesis status; Z88.6 Allergy status to analgesic agent; K76.9 Liver disease, unspecified; X78.8XXS Intentional self-harm by other sharp object, sequela; F19.10 Other psychoactive substance abuse, uncomplicated; M19.90 Unspecified osteoarthritis, unspecified site; I70.0 Atherosclerosis of aorta; G89.29 Other chronic pain; I25.2 Old myocardial infarction; G40.909 Epilepsy, unspecified, not intractable, without status epilepticus; Z87.828 Personal history of other (healed) physical injury and trauma; F31.9 Bipolar disorder, unspecified; Z68.1 Body mass index [BMI] 19.9 or less, adult
CPT/HCPCS: 36415; 36569; 70030-TC; 71045; 83605; 83735; 84100; 85025; 85730; 87070; 93005; A4663; G0378; J1170; J3370; J3490; J7030

== ENCOUNTER 2018-07-10 19:22 | Emergency (ER) | payer OTHER ==
[~2018-07-10] VITALS: Ht 185.4 cm; Wt 61.7 kg
[~2018-07-10 19:22] MED LIST changes: -ACET325C PO; -HYDR-4354 PO; +HYDR-548 PO; +PHEN100C4 PO; +SULF1TAB48 PO
[2018-07-10] MEDS ORDERED: HYDROMORPHONE 1 MG/1 ML DISP.SYRIN ONE (20:06)
[2018-07-10] MEDS ORDERED: HYDROMORPHONE 2 MG/1 ML DISP.SYRIN ONE (20:06)
[2018-07-10] MEDS ORDERED: HYDROMORPHONE 1 MG/1 ML DISP.SYRIN IM ONE (20:15)
--- NOTE | 2018-07-10 20:22 | NUR ---
Patient discharged to home in stable conditon. Written and verbal after care instructions given. Patient verbalizes understanding of instructions.
== END 2018-07-10 20:23 | disposition home or self-care (01) ==
LOC: ER 19:24
DX: Z76.0 Encounter for issue of repeat prescription (principal); I10 Essential (primary) hypertension; G89.29 Other chronic pain; F17.200 Nicotine dependence, unspecified, uncomplicated; Z88.6 Allergy status to analgesic agent; Z88.8 Allergy status to other drugs, medicaments and biological substances
CPT/HCPCS: 96372; 99283; J1170 ×2; A4663

== ENCOUNTER 2018-09-10 10:15 | Emergency (ER) | payer OTHER ==
[~2018-09-10] VITALS: Ht 172.7 cm; Wt 68.0 kg
[~2018-09-10 10:15] MED LIST changes: -HYDR-548 PO; -SULF1TAB48 PO
--- NOTE | 2018-09-10 10:51 | NUR ---
Patient discharged to home in stable conditon. Written and verbal after care instructions given. Patient verbalizes understanding of instructions.pt walks in steady gait.
[2018-09-10] MEDS ORDERED: HYDROMORPHONE 2 MG/1 ML DISP.SYRIN ONE (10:55)
[2018-09-10] MEDS ORDERED: HYDROMORPHONE 1 MG/1 ML DISP.SYRIN ONE (10:55)
[2018-09-10] MEDS ORDERED: HYDROMORPHONE 1 MG/1 ML DISP.SYRIN IM ONE (11:00)
--- NOTE | 2018-09-10 11:00 | NUR ---
[facility] sandwich and juice provided for pt.
== END 2018-09-10 11:03 | disposition home or self-care (01) ==
LOC: ER 10:17
DX: G89.29 Other chronic pain (principal); I10 Essential (primary) hypertension; F17.200 Nicotine dependence, unspecified, uncomplicated; Z88.5 Allergy status to narcotic agent; Z88.8 Allergy status to other drugs, medicaments and biological substances; Z79.899 Other long term (current) drug therapy
CPT/HCPCS: 96372; 99283; J1170 ×2; A4663

== ENCOUNTER 2018-10-05 18:11 | Emergency (ER) | payer OTHER ==
[~2018-10-05] VITALS: Ht 185.4 cm; Wt 60.9 kg
--- NOTE | 2018-10-05 18:40 | NUR ---
PATIENT WAS MSE BY DR ROACH IN ROOM 05A
[2018-10-05] MEDS ORDERED: HYDROMORPHONE 1 MG/1 ML DISP.SYRIN IM ONE (18:45)
[2018-10-05] MEDS ORDERED: HYDROMORPHONE 2 MG/1 ML DISP.SYRIN ONE (18:50)
[2018-10-05] MEDS ORDERED: HYDROMORPHONE 1 MG/1 ML DISP.SYRIN ONE (18:50)
--- NOTE | 2018-10-05 18:57 | NUR ---
Patient discharged to home in stable conditon. Written and verbal after care instructions given. Patient verbalizes understanding of instructions.
[2018-10-05 19:00] VITALS: BP 146/92
[2018-10-18] MEDS ORDERED: LEVO500T2 PO (11:18)
[2018-10-18] MEDS ORDERED: SULF1TAB48 PO (11:18)
== END 2018-10-05 19:03 | disposition home or self-care (01) ==
LOC: ER 18:11
DX: G89.29 Other chronic pain (principal); M54.2 Cervicalgia; M25.552 Pain in left hip; I10 Essential (primary) hypertension; F17.200 Nicotine dependence, unspecified, uncomplicated; G40.909 Epilepsy, unspecified, not intractable, without status epilepticus; Z88.2 Allergy status to sulfonamides; Z79.899 Other long term (current) drug therapy; Z96.643 Presence of artificial hip joint, bilateral; Z88.8 Allergy status to other drugs, medicaments and biological substances
CPT/HCPCS: 96372; 99283; J1170 ×2; A4663

== ENCOUNTER 2018-10-14 17:01 | Inpatient (IN) | payer OTHER ==
[~2018-10-14] VITALS: Ht 185.4 cm; Wt 63.5 kg
--- NOTE | 2018-10-14 17:19 | NUR ---
PT A/OX4, PRESENTS TO THE ER C/O LUE PAIN. UPON ASSESSMENT, AN OPEN WOUND APPROXIMATELY 0.5 INCH IN LENGTH NOTED AT THE LAC. PT REPORTS THE WOUND HAS BEEN OPEN FOR ABOUT COUPLE WEEKS. PAIN IS NON-PROVOKED, SHARP IN QUALITY, DOES NOT RADIATE, 8/10, CONSTANT. PT DENIES C/P, SOB, N/V/D, DIZZINESS, HEADACHE. ER MD AT BEDSIDE FOR MSE.
[2018-10-14] MEDS ORDERED: OXYCODONE/APAP 5-325 MG TABLET ONE (17:26)
[2018-10-14] MEDS ORDERED: NEOMY/BACITRA/POLYMYXIN B OINT UD PACKET TP ONE ×2 (17:26→17:30)
[2018-10-14] MEDS ORDERED: CEFTRIAXONE 1 G VIAL ONE (17:27)
[2018-10-14] MEDS ORDERED: SULFAMETH/TRIMETH 800/160 MG TABLET ONE (17:27)
[2018-10-14] MEDS ORDERED: OXYCODONE/APAP 5-325 MG TABLET PO ONE (17:30)
[2018-10-14] MEDS ORDERED: SULFAMETH/TRIMETH 800/160 MG TABLET PO ONE (17:30)
[2018-10-14] MEDS ORDERED: CEFTRIAXONE 1 G VIAL IM ONE (17:30)
--- NOTE | 2018-10-14 17:56 | NUR ---
PT TAKEN TO RADIOLOGY FOR CT SCAN.
--- NOTE | 2018-10-14 18:09 | NUR ---
PT BACK IN ER FROM RADIOLOGY.
--- NOTE | 2018-10-14 19:07 | NUR ---
SHIFT REPORT GIVEN TO ANNALISA MAS.
--- NOTE | 2018-10-14 19:15 | NUR ---
Pt observed to be sitting up in bed AAO x 3, in no acute distress.
--- NOTE | 2018-10-14 20:45 | NUR ---
Pt stating that he is still having pain on LUE. Dr Farley notified. Pt in no acute distress.
--- NOTE | 2018-10-14 22:08 | NUR ---
Panel call placed to [employer] . Call back pending.
--- NOTE | 2018-10-14 22:17 | NUR ---
Dr. Farley on phone with Dr. Chiu.
--- NOTE | 2018-10-14 22:17 | NUR ---
ADY MD on phone with [employer] for panel call.
[2018-10-14 23:15] LABS: BASOPHILS % (AUTO) 0.7 % (0.0-2.0); EOSINOPHILS # (AUTO) 0.2 K/uL (0.0-0.7); EOSINOPHILS % (AUTO) 3.2 % (0.0-7.0); HEMATOCRIT 35.9 % (36.7-47.1); HEMOGLOBIN 11.5 g/dL (12.5-16.3); LYMPHOCYTES # (AUTO) 1.7 K/uL (20.0-40.0); LYMPHOCYTES % (AUTO) 31.4 % (20.5-51.5); MEAN CORPUSCULAR HEMOGLOBIN 27.1 uug (23.8-33.4); MEAN CORPUSCULAR HGB CONC 32 g/dL (32.5-36.3); MEAN CORPUSCULAR VOLUME 84.9 fL (73.0-96.2); MONOCYTES # (AUTO) 0.5 K/uL (2.0-10.0); MONOCYTES % (AUTO) 9.5 % (0.0-11.0); NEUTROPHILS # (AUTO) 2.9 K/uL (1.8-8.9); NEUTROPHILS % (AUTO) 55.2 % (38.5-71.5); PLATELET COUNT (AUTO) 316 K/uL (152-348); RED BLOOD CELL COUNT(AUTO) 4.23 MIL/uL (4.06-5.63); WHITE BLOOD COUNT (AUTO) 5.3 K/uL (3.6-10.2)
[2018-10-14 23:16] LABS: *BILIRUBIN,URIN NEGATIVE (NEGATIVE); *BLOOD, URINE NEGATIVE (NEGATIVE); *CLARITY,URINE CLEAR (CLEAR); *COLOR,URINE YELLOW (YELLOW); *KETONES,URINE NEGATIVE (NEGATIVE); *UROBILINOGEN,URINE 0.2 E.U./dl (NORMAL); LEUKOCYTE ESTERASE ,URINE NEGATIVE (NEGATIVE); NITRITE, URINE NEGATIVE (NEGATIVE); UGLUCOSE NEGATIVE (NEGATIVE)
[2018-10-14 23:30] LABS: BILIRUBIN,DIRECT 0.1 mg/dL (0.0-0.2); BILIRUBIN,TOTAL 0.2 mg/dL (0.2-1.0); POTASSIUM 4.6 mmol/L (3.5-5.1); TOTAL PROTEIN, SERUM 8.7 g/dL (6.4-8.2)
[2018-10-14] MEDS ORDERED: IV NS 1000 ML 1,000 ML IV PRN (23:32)
[2018-10-14 23:40] LABS: RBC,URINE 0-3 /HPF (0-3)
[2018-10-14 23:41] LABS: BACTERIA,URINE NONE SEEN /HPF (NONE SEEN); SQUAMOUS EPITHELIAL CELL,UR FEW /HPF (NONE SEEN)
--- NOTE | 2018-10-14 23:44 | NUR ---
Report given to Pranav HARRINGTON
[2018-10-14] MEDS ORDERED: Z GUARD REMEDY PASTE 57 GM TUBE TOP PRN (23:45)
[2018-10-14] MEDS ORDERED: ONDANSETRON 4 MG/2 ML VIAL IV PRN (23:45)
[2018-10-14] MEDS ORDERED: ACETAMINOPHEN 325 MG TABLET PO PRN (23:45)
[2018-10-14] MEDS ORDERED: CEFTRIAXONE 1 G in IV DEXTROSE 5% 50 ML IV SCH (23:45)
--- NOTE | 2018-10-15 00:05 | NUR ---
Pt. admitted to [facility] , under care of Dr. Chiu Belongs List completed
[2018-10-15 00:15] VITALS: BP 191/109
[2018-10-15] MEDS ORDERED: hydrALAZINE HCL 20 MG/1 ML VIAL IV ONE (00:30)
--- NOTE | 2018-10-15 00:30 | NUR ---
RECEIVED PATIENT VIA GURNEY FROM ER. PATIENT IS A/O X4. PLEASANT WHEN APPROACHED. C/O PAIN 8/10 IN LEFT ARM. H/L INTACT AND PATENT. BP 191/109. ALL OTHER VSS. ORIENTED PATIENT TO ROOM AND CALL LIGHT. NO RESP. DISTRESS NOTED. CALL LIGHT IN REACH. ALL NEEDS ATTENDED. WILL CONTINUE TO MONITOR.
--- NOTE | 2018-10-15 00:45 | NUR ---
NOTIFIED T[facility]-TRANSITION MGR J[employer] ENTERPRISE ARCHITECT FOR FURTHER ORDER. RECEIVED ORDER FOR HYDRALAZINE 10MG IVP X1. ADMINISTERED PER SWINE GENETICS RESEARCHER. WILL CONTINUE TO MONITOR AND ASSESS.
[2018-10-15] MEDS: HYDROCODONE/APAP 5-325MG TABLET PO PRN ×2 (00:59→12:10)
[2018-10-15] MEDS ORDERED: VANCOMYCIN IV 1 G in PREMIXED 0 EACH IV ONE (01:00)
--- NOTE | 2018-10-15 01:00 | NUR ---
PATIENT GIVEN NORCO 1 TAB PO PRN FOR PAIN.
[2018-10-15 01:15] VITALS: BP 129/58
--- NOTE | 2018-10-15 01:15 | NUR ---
PATIENT AWAKE, SITTING IN BED WATCHING TV. RECHECKED BLOOD PRESSURE 129/58. ALL OTHER VSS. WILL CONTINUE TO MONITOR AND ASSESS.
--- NOTE | 2018-10-15 01:40 | NUR ---
PATIENT C/O "FAST HEARTBEAT." CHECKED APICAL AND RECEIVED HEART RATE OF 115-120. PATIENT IS STILL C/O PAIN STATING NORCO IS INEFFECTIVE. CALLED OUT TO T[facility]IKO FOR FURTHER ORDERS.
[2018-10-15] MEDS ORDERED: LORAZEPAM 1 MG TABLET PO ONE (01:45)
[2018-10-15] MEDS ORDERED: HYDROMORPHONE 2 MG/1 ML DISP.SYRIN IV ONE (01:45)
--- NOTE | 2018-10-15 01:55 | NUR ---
PATIENT GIVEN DILAUDID 1MG IV X1 PER CLIENT CARE SPECIALIST AND ATIVAN 1MG PO PRN FOR ANXIETY. PATIENT ALSO PLACED ON TELE ORDERED PER SHINGLE CUTTER. ON TELE ST 120'S. WILL CONTINUE TO MONITOR AND ASSESS.
--- NOTE | 2018-10-15 03:00 | NUR ---
PATIENTS HEART RATE DECREASED TO ST 109. ALL OTHER VSS. WILL CONTINUE TO MONITOR AND ASSESS.
[2018-10-15 04:23] VITALS: BP 106/50
[2018-10-15 06:48] LABS: BASOPHILS % (AUTO) 0.4 % (0.0-2.0); EOSINOPHILS # (AUTO) 0.1 K/uL (0.0-0.7); EOSINOPHILS % (AUTO) 2.1 % (0.0-7.0); HEMATOCRIT 31.7 % (36.7-47.1); HEMOGLOBIN 10.3 g/dL (12.5-16.3); LYMPHOCYTES % (AUTO) 20.1 % (20.5-51.5); MEAN CORPUSCULAR HEMOGLOBIN 27.3 uug (23.8-33.4); MEAN CORPUSCULAR HGB CONC 32 g/dL (32.5-36.3); MEAN CORPUSCULAR VOLUME 84.1 fL (73.0-96.2); MONOCYTES # (AUTO) 0.5 K/uL (2.0-10.0); MONOCYTES % (AUTO) 9.5 % (0.0-11.0); NEUTROPHILS # (AUTO) 3.3 K/uL (1.8-8.9); NEUTROPHILS % (AUTO) 67.9 % (38.5-71.5); PLATELET COUNT (AUTO) 265 K/uL (152-348); RED BLOOD CELL COUNT(AUTO) 3.78 MIL/uL (4.06-5.63); WHITE BLOOD COUNT (AUTO) 4.8 K/uL (3.6-10.2)
[2018-10-15 06:59] LABS: BILIRUBIN,TOTAL 0.2 mg/dL (0.2-1.0); CREATININE 1.4 mg/dL (0.6-1.3); MAGNESIUM 1.8 mg/dL (1.8-2.4); PHOSPHOROUS 3.7 mg/dL (2.5-4.9); POTASSIUM 3.6 mmol/L (3.5-5.1); TOTAL PROTEIN, SERUM 7.1 g/dL (6.4-8.2)
[2018-10-15] MEDS: AMLODIPINE 10 MG TABLET PO SCH (08:52)
[2018-10-15] MEDS: MULTIVITAMINS,THERAPEUTIC TABLET PO SCH (08:52)
[2018-10-15] MEDS: HYDROCHLOROTHIAZIDE 25 MG TABLET PO SCH (08:53)
--- NOTE | 2018-10-15 11:36 | NUR ---
Clinical pharmacy note-Vancomycin dosing per pharmacy Subjective: To start Vancomycin dosing on this patient for cellulitis Objective: BUN 18 Scr 1.4 WBC 4.8 Temp 98.4 Ht 185.43cm Wt 63.5kg Assessment/Plan: Patient had Vancomycin 1 gram today at 0108. Will continue Vancomycin 1gram IV every 21hrs(second dose tonight at 2200) and draw trough by 4th dose (not ordered yet) for expected trough around 15. Will monitor daily.
[2018-10-15 12:16] VITALS: BP 122/76
--- NOTE | 2018-10-15 13:48 | NUR ---
WOUND CARE CONSULT: PT PRESENTS WITH SWELLING AND RED AREA TO LEFT ARM, DRY ESCHARS TO RT HAND AND LEFT FOOT, ALL PRESENT ON ADMISSION. RECOMMEND SURGICAL CONSULT FOR LEFT ARM. PT ABLE TO TURN AND REPOSITION IN BED. WILL SEE PRN. CURRENT ERYN SCORE IS 22. Addendum: 10/15/18 at 1349 by ANALI ÁLVAREZ RN Amended: Links added.
[2018-10-15] MEDS: IV NS 1000 ML 1,000 ML IV PRN (15:29)
[2018-10-15 16:03] VITALS: BP 113/76
[2018-10-15] MEDS: METHADONE HCL 10 MG TABLET PO PRN (16:07)
[2018-10-15] MEDS: CEFTRIAXONE 1 G in IV DEXTROSE 5% 50 ML IV SCH (16:07)
[2018-10-15] MEDS ORDERED: LIDOCAINE 2%-EPI 1:100,000 20 ML VIAL TP ONE (17:30)
--- NOTE | 2018-10-15 18:59 | NUR ---
patient has been cooperative with care, all needs met, reporting continuous pain. Pain medication changed to Methadone by LEATHA alvarenga. Patient had needle aspiration of left arm wound, and no orders for wound care provided at this time. Light compression in place for bleeding. Patient in bed, bed inlow position, side rails up x2.
[2018-10-15 20:00] VITALS: BP 124/70
--- NOTE | 2018-10-15 20:00 | NUR ---
RECEIVED PATIENT AWAKE IN BED. A/O X3. FORGETFUL AT TIMES. DENIES ANY PAIN OR DISCOMFORT. NO RESP. DISTRESS NOTED. IVF INFUSING WELL TO RIGHT FA #20 GAUGE. VS WNL. DRESSING NOTED TO LEFT UPPER ARM, C/D/I. BED ALARM ON FOR SAFETY. CALL LIGHT IN REACH. ALL NEEDS ATTENDED. WILL CONTINUE TO MONITOR AND ASSESS.
[2018-10-15] MEDS: CULTURELLE CAPSULE PO SCH (21:07)
[2018-10-15] MEDS: PHENYTOIN SODIUM EXTENDED 100 MG CAPSULE.SA PO SCH (21:07)
[2018-10-15] MEDS: QUETIAPINE FUMARATE 200 MG TABLET PO SCH (21:44)
[2018-10-15] MEDS: VANCOMYCIN IV 1 G in PREMIXED 0 EACH IV SCH (22:20)
[2018-10-16] MEDS: IV NS 1000 ML 1,000 ML IV PRN ×2 (02:41→18:33)
[2018-10-16] MEDS: METHADONE HCL 10 MG TABLET PO PRN ×2 (04:20→15:19)
--- NOTE | 2018-10-16 04:20 | NUR ---
PATIENT AWAKE IN BED. ASKING FOR METHADONE FOR PAIN. PATIENT GIVEN 10MG PO ORDERED PRN. VSS. BED ALARM ON. CALL LIGHT IN REACH. ALL NEEDS ATTENDED. WILL CONTINUE TO MONITOR AND ASSESS.
[2018-10-16 05:00] VITALS: BP 126/77
--- NOTE | 2018-10-16 05:02 | NUR ---
PATIENT ASLEEP IN BED. NO RESP. DISTRESS NOTED. VSS. IVF INFUSING. BED ALARM ON. CALL LIGHT IN REACH. ALL NEEDS ATTENDED. WILL CONTINUE TO MONITOR AND ASSESS.
--- NOTE | 2018-10-16 07:15 | NUR ---
received report from shift nurse manager nurse, patient in bed asleep, no distress noted at this time, bed in low position, side rails up x2. Bed alarm on.
[2018-10-16] MEDS: MULTIVITAMINS,THERAPEUTIC TABLET PO SCH (09:03)
[2018-10-16] MEDS: CULTURELLE CAPSULE PO SCH ×2 (09:03→20:48)
[2018-10-16] MEDS: HYDROCHLOROTHIAZIDE 25 MG TABLET PO SCH (09:05)
[2018-10-16] MEDS: AMLODIPINE 10 MG TABLET PO SCH (09:05)
[2018-10-16 11:23] VITALS: BP 122/66
--- NOTE | 2018-10-16 14:39 | NUR ---
Clinical pharmacy note-Vancomycin dosing per pharmacy Subjective: To continue Vancomycin dosing on this patient for cellulitis Objective: BUN 18 (28) Scr 1.4 (2/8) WBC 4.8 (2/8) Temp 98 Ht 185.43cm Wt 63.5kg trough due tomorrow at 1530 Assessment/Plan: Patient had Vancomycin 1 gram today at 0108. Will continue Vancomycin 1gram IV every 21hrs(3rd dose tonight at 1900) and draw trough by 4th dose (due tomorrow at 1530) for expected trough around 15. Will check level and adjust as needed Will monitor daily.
[2018-10-16 15:05] VITALS: BP 132/68
[2018-10-16] MEDS: CEFTRIAXONE 1 G in IV DEXTROSE 5% 50 ML IV SCH (16:59)
[2018-10-16] MEDS: VANCOMYCIN IV 1 G in PREMIXED 0 EACH IV SCH (18:54)
--- NOTE | 2018-10-16 19:00 | NUR ---
received from day shift rn alert and oriented, with the same ivf on, no complaints, able to turn to sides. encouraged to,
[2018-10-16 20:00] VITALS: BP 155/76
[2018-10-16] MEDS: QUETIAPINE FUMARATE 200 MG TABLET PO SCH (20:48)
[2018-10-16] MEDS: PHENYTOIN SODIUM EXTENDED 100 MG CAPSULE.SA PO SCH (20:48)
[2018-10-17] MEDS: MAGNESIUM HYDROXIDE 30 ML LIQUID UDC PO PRN (04:33)
--- NOTE | 2018-10-17 04:36 | NUR ---
patient voids via the urinal. Milk of magnesia given as patient has no recorded bm,toleratd well
[2018-10-17 04:45] VITALS: BP 138/90
--- NOTE | 2018-10-17 07:15 | NUR ---
RECEIVED REPORT FROM SUCCESS COACH, PATIENT IN BED , BED IN LOW POSITION WITH 2 SIDE RAILS UPS AND BED ALARM ON. NO C/O PAIN NOTED AT THIS TIME. NO ACUTE DISTRESS AT THIS TIME. WILL CONTINUE TO MONITOR.
[2018-10-17 07:16] LABS: CREATININE 0.9 mg/dL (0.6-1.3); MAGNESIUM 1.7 mg/dL (1.8-2.4); PHOSPHOROUS 3.9 mg/dL (2.5-4.9); POTASSIUM 3.9 mmol/L (3.5-5.1)
[2018-10-17 07:26] LABS: BASOPHILS % (AUTO) 0.7 % (0.0-2.0); EOSINOPHILS # (AUTO) 0.2 K/uL (0.0-0.7); EOSINOPHILS % (AUTO) 4.7 % (0.0-7.0); HEMATOCRIT 30.9 % (36.7-47.1); HEMOGLOBIN 10.1 g/dL (12.5-16.3); LYMPHOCYTES # (AUTO) 1.3 K/uL (20.0-40.0); LYMPHOCYTES % (AUTO) 33.9 % (20.5-51.5); MEAN CORPUSCULAR HEMOGLOBIN 27.4 uug (23.8-33.4); MEAN CORPUSCULAR HGB CONC 33 g/dL (32.5-36.3); MEAN CORPUSCULAR VOLUME 84.2 fL (73.0-96.2); MONOCYTES # (AUTO) 0.5 K/uL (2.0-10.0); MONOCYTES % (AUTO) 13.3 % (0.0-11.0); NEUTROPHILS # (AUTO) 1.8 K/uL (1.8-8.9); NEUTROPHILS % (AUTO) 47.4 % (38.5-71.5); PLATELET COUNT (AUTO) 249 K/uL (152-348); RED BLOOD CELL COUNT(AUTO) 3.67 MIL/uL (4.06-5.63); WHITE BLOOD COUNT (AUTO) 3.9 K/uL (3.6-10.2)
[2018-10-17] MEDS: CULTURELLE CAPSULE PO SCH ×2 (09:29→20:27)
[2018-10-17] MEDS: MULTIVITAMINS,THERAPEUTIC TABLET PO SCH (09:30)
[2018-10-17] MEDS: HYDROCHLOROTHIAZIDE 25 MG TABLET PO SCH (09:30)
[2018-10-17] MEDS: AMLODIPINE 10 MG TABLET PO SCH (09:30)
[2018-10-17] MEDS: METHADONE HCL 10 MG TABLET PO PRN ×2 (09:36→21:36)
[2018-10-17 11:06] VITALS: BP 120/76
[2018-10-17] MEDS: IV NS 1000 ML 1,000 ML IV PRN (11:40)
[2018-10-17] MEDS: MAGNESIUM SULFATE/D5W 100 ML IV SCH ×2 (12:06→13:28)
[2018-10-17 15:03] VITALS: BP 138/84
--- NOTE | 2018-10-17 16:25 | NUR ---
Clinical pharmacy note-Vancomycin dosing per pharmacy Subjective: To continue Vancomycin dosing on this 63 yo male patient for cellulitis Objective: BUN 16 Scr 0.9 WBC 3.9 Temp 98.3 Ht 185.43cm Wt 63.5kg Vanco trough level: 8.1 Assessment/Plan: Since vanco trough level is 8.1, Will change vanco dose from 1gram IVPB every 21hrs to 1gm IVPB q15h for predicted vanco trough level of 15 mcg/ml at steady state. 1st dose today at 1700. Plan to draw trough by 4th dose (not yet ordered). Will monitor renal function & adjust the dose if needed. Will monitor daily.
[2018-10-17] MEDS: MEROPENEM 1 G in IV NORMAL SALINE 100 ML IV SCH (16:26)
[2018-10-17] MEDS: VANCOMYCIN IV 1 G in PREMIXED 0 EACH IV SCH (17:26)
--- NOTE | 2018-10-17 18:51 | NUR ---
patient in bed in sitting position watching TV, with IV on right forearm patent. No SOB noted at this time, no c/o pain at this time. bed on low position with 2 siderails up, bed alarms on.
--- NOTE | 2018-10-17 19:23 | NUR ---
patient received on bed on high back rest alert and oriented, on isolation ESBL of the urine. with Merrem and vancomycin ivpb infusing per day shift rn, with call light withion reach
--- NOTE | 2018-10-17 19:42 | NUR ---
patient has no recorded bm and was given Milk of magnesia in the shift production associate yesterday and had no no bm after but claims he had a bm at 4pm 10/16 yesterday
[2018-10-17] MEDS: QUETIAPINE FUMARATE 200 MG TABLET PO SCH (20:27)
[2018-10-17] MEDS: PHENYTOIN SODIUM EXTENDED 100 MG CAPSULE.SA PO SCH (20:27)
--- NOTE | 2018-10-17 20:38 | NUR ---
VANCOMYCIN DOSE CONSUMED ,MEDICATIONS DUE GIVEN
[2018-10-17 20:39] VITALS: BP 136/83
[2018-10-18] MEDS: MEROPENEM 1 G in IV NORMAL SALINE 100 ML IV SCH (03:52)
[2018-10-18] MEDS: MAGNESIUM HYDROXIDE 30 ML LIQUID UDC PO PRN (05:13)
[2018-10-18 05:39] VITALS: BP 129/70
--- NOTE | 2018-10-18 06:17 | NUR ---
millk of magnesia given as patient has no bm yet
[2018-10-18 07:40] LABS: CREATININE 0.9 mg/dL (0.6-1.3); MAGNESIUM 2.1 mg/dL (1.8-2.4); POTASSIUM 4.2 mmol/L (3.5-5.1)
[2018-10-18] MEDS: CULTURELLE CAPSULE PO SCH (08:31)
[2018-10-18] MEDS: VANCOMYCIN IV 1 G in PREMIXED 0 EACH IV SCH (08:31)
[2018-10-18] MEDS: MULTIVITAMINS,THERAPEUTIC TABLET PO SCH (08:31)
[2018-10-18] MEDS: AMLODIPINE 10 MG TABLET PO SCH (08:35)
[2018-10-18] MEDS: HYDROCHLOROTHIAZIDE 25 MG TABLET PO SCH (08:38)
--- NOTE | 2018-10-18 08:40 | NUR ---
Clinical pharmacy note-Vancomycin dosing per pharmacy Subjective: To continue Vancomycin dosing on this 63 yo male patient for cellulitis Objective: BUN 16 Scr 0.9 WBC 3.9 (10/17) Temp 98.2 Ht 185.43cm Wt 63.5kg Vanco trough level: 8.1 (on 10/17 at 1530) Assessment/Plan: Will continue same dose of vanco 1gm IVPB q15h for today. 2nd dose dose today at 0800. Plan to draw trough by 4th dose (not yet ordered). Will monitor renal function & adjust the dose if needed. Will monitor daily.
[2018-10-18] MEDS: METHADONE HCL 10 MG TABLET PO PRN (09:56)
--- NOTE | 2018-10-18 09:56 | NUR ---
PATIENT REQUESTED FOR METHADONE GIVEN ORDERED AND EXPRESSED EFFECTIVENESS AND WILL CONTINUE TO OBSERVE
[2018-10-18 11:12] VITALS: BP 138/86
[2018-10-18] MEDS ORDERED: LEVO500T2 PO (11:18)
[2018-10-18] MEDS ORDERED: SULF1TAB48 PO (11:18)
--- NOTE | 2018-10-18 12:30 | NUR ---
PATIENT DISCHARGED TO SELF BY W/CHAIR ESCORTED TO OUTSIDE THE HOSPITAL IN FRONT OF [facility] STATED WILL CATCH THE BUS STATED DOES NOT LIVE FAR FROM HERE DISCHARGE INSTRUCTIONS AND PRESCRIPTIONS GIVEN INCLUDING TO FOLLOW UP WITH HIS PRIMARY DOCTOR AND TO TAKE HIS ANTIBIOTICS ORDERED AND HE EXPRESSED UNDERSTANDING.[facility] PHARMACIST WAS ALSO HERE TO EDUCATE PATIENT.LEFT WITH ALL OF HIS PERSONAL BELONGINGS IN SATISFACTORY CONDITION
[2018-10-18 20:22] VITALS: BP 121/85
== END 2018-10-18 12:30 | disposition home or self-care (01) | DRG 383 ==
LOC: ER 17:04 → MED 23:51 → TELE 10-15 01:00 → MED 10-15 10:50
PROVIDERS: ADMIT Internal Medicine; ATTEND Nurse Practitioner Acute Care
PROC: 0JJV3ZZ Inspection of Upper Extremity Subcutaneous Tissue and Fascia, Percutaneous Approach (ICD-10-PCS; principal; 2018-10-15)
PROC: 0HBRXZZ Excision of Toe Nail, External Approach (ICD-10-PCS; principal; 2018-10-15)
DX: L03.114 Cellulitis of left upper limb (principal); I13.0 Hypertensive heart and chronic kidney disease with heart failure and stage 1 through stage 4 chronic kidney disease, or unspecified chronic kidney disease; F11.20 Opioid dependence, uncomplicated; F20.0 Paranoid schizophrenia; I50.42 Chronic combined systolic (congestive) and diastolic (congestive) heart failure; S51.032S Puncture wound without foreign body of left elbow, sequela; D63.8 Anemia in other chronic diseases classified elsewhere; B96.1 Klebsiella pneumoniae [K. pneumoniae] as the cause of diseases classified elsewhere; X78.8XXS Intentional self-harm by other sharp object, sequela; Z91.14 Patient's other noncompliance with medication regimen; Z95.3 Presence of xenogenic heart valve; Z96.643 Presence of artificial hip joint, bilateral; G40.909 Epilepsy, unspecified, not intractable, without status epilepticus; G89.29 Other chronic pain; L60.3 Nail dystrophy; F31.9 Bipolar disorder, unspecified; M19.90 Unspecified osteoarthritis, unspecified site; Z79.899 Other long term (current) drug therapy; N39.0 Urinary tract infection, site not specified; Z16.12 Extended spectrum beta lactamase (ESBL) resistance; N18.9 Chronic kidney disease, unspecified; K76.9 Liver disease, unspecified; M19.022 Primary osteoarthritis, left elbow
CPT/HCPCS: 36415; 70030-TC; 71045; 73200; 83605; 83735; 84100; 85025; 85730; 87040; 87077; 87086; 93005; A4663; G0378; J0360; J0696; J1170; J2185; J3370; J3475; J3490; J7030; J7050; J7060

== ENCOUNTER 2018-10-25 17:30 | Emergency (ER) | payer OTHER ==
[~2018-10-25] VITALS: Ht 185.4 cm; Wt 62.6 kg
[~2018-10-25 17:30] MED LIST changes: +LEVO500T2 PO; +SULF1TAB48 PO
[2018-10-25] MEDS ORDERED: HYDROMORPHONE 1 MG/1 ML DISP.SYRIN IM ONE (19:15)
[2018-10-25] MEDS ORDERED: HYDROMORPHONE 2 MG/1 ML DISP.SYRIN ONE (19:24)
--- NOTE | 2018-10-25 19:28 | NUR ---
Patient given written and verbal discharge instructions. Patient verbalizes understanding of instructions. Patient is ambulatory with steady gait. Refuses offer of [facility] placement. Patient given list of available shelters in surrounding area. Homeless patient waiver form signed by patient.
[2018-10-25 19:29] VITALS: BP 154/94
== END 2018-10-25 19:30 | disposition home or self-care (01) ==
LOC: ER 17:30
DX: G89.29 Other chronic pain (principal); M25.551 Pain in right hip; M25.552 Pain in left hip; Z76.0 Encounter for issue of repeat prescription; I10 Essential (primary) hypertension; F17.200 Nicotine dependence, unspecified, uncomplicated; Z88.5 Allergy status to narcotic agent; Z88.8 Allergy status to other drugs, medicaments and biological substances; Z79.2 Long term (current) use of antibiotics; Z79.899 Other long term (current) drug therapy
CPT/HCPCS: 96372; 99283; J1170; A4663

== ENCOUNTER 2018-11-11 18:14 | Emergency (ER) | payer OTHER ==
[~2018-11-11] VITALS: Ht 182.9 cm; Wt 59.0 kg
--- NOTE | 2018-11-11 18:50 | NUR ---
Dr Judge is at bedside, pending orders at this time
--- NOTE | 2018-11-11 19:01 | NUR ---
SBAR to ANNALISA Stanley
[2018-11-11] MEDS ORDERED: HYDROMORPHONE 1 MG/1 ML DISP.SYRIN IM ONE (19:15)
[2018-11-11] MEDS ORDERED: HYDROMORPHONE 2 MG/1 ML DISP.SYRIN ONE (19:18)
[2018-11-11 19:28] VITALS: BP 166/97
== END 2018-11-11 19:29 | disposition home or self-care (01) ==
LOC: ER 18:14
DX: G89.29 Other chronic pain (principal); M54.2 Cervicalgia; M25.559 Pain in unspecified hip; Z76.0 Encounter for issue of repeat prescription; I10 Essential (primary) hypertension; F17.200 Nicotine dependence, unspecified, uncomplicated; Z88.5 Allergy status to narcotic agent; Z88.8 Allergy status to other drugs, medicaments and biological substances; Z79.899 Other long term (current) drug therapy; Z88.2 Allergy status to sulfonamides; Z79.1 Long term (current) use of non-steroidal anti-inflammatories (NSAID)
CPT/HCPCS: 96372; 99283; J1170; A4663

== ENCOUNTER 2018-12-08 11:30 | Emergency (ER) | payer OTHER ==
[~2018-12-08] VITALS: Ht 185.4 cm; Wt 62.6 kg
[~2018-12-08 11:30] MED LIST changes: -LEVO500T2 PO; -SULF1TAB48 PO
[2018-12-08] MEDS ORDERED: HYDROMORPHONE 1 MG/1 ML DISP.SYRIN IM ONE (12:30)
[2018-12-08] MEDS ORDERED: HYDROMORPHONE 2 MG/1 ML DISP.SYRIN ONE (12:37)
--- NOTE | 2018-12-08 12:42 | NUR ---
PT WAS EVALUATED BY DR ROACH. PT IS IN ROOM #1B UNDER DIRECT OBSERVATION OF LEN TURNER.
--- NOTE | 2018-12-08 12:43 | NUR ---
PT WAS D/C'd TO HOME. D/C INSTRUCTIONS GIVEN TO THE PT.
[2018-12-08 12:47] VITALS: BP 143/78
== END 2018-12-08 12:48 | disposition home or self-care (01) ==
LOC: ER 11:30
DX: Z48.01 Encounter for change or removal of surgical wound dressing (principal); G89.29 Other chronic pain; M54.2 Cervicalgia; M54.9 Dorsalgia, unspecified; I10 Essential (primary) hypertension; F17.200 Nicotine dependence, unspecified, uncomplicated; Z88.5 Allergy status to narcotic agent; Z88.8 Allergy status to other drugs, medicaments and biological substances; Z79.899 Other long term (current) drug therapy
CPT/HCPCS: 96372; 99283; J1170; A4663

== ENCOUNTER 2018-12-28 17:24 | Inpatient (IN) | payer OTHER ==
[~2018-12-28] VITALS: Ht 185.4 cm; Wt 60.5 kg
[2018-12-28] MEDS ORDERED: ACETAMINOPHEN ES 500 MG TABLET PO ONE (18:00)
[2018-12-28] MEDS ORDERED: IV NORMAL SALINE 1000 ML BAG IV ONE (18:00)
[2018-12-28] MEDS ORDERED: PIPERACILLIN SODIUM/TAZOBACTAM 3.375 G in IV DEXTROSE 5% 50 ML IV ONE (18:00)
[2018-12-28] MEDS ORDERED: VANCOMYCIN IV 1,000 MG in IV DEXTROSE 5% 250 ML IV ONE (18:00)
[2018-12-28 18:23] LABS: BASOPHILS % (AUTO) 0.3 % (0.0-2.0); EOSINOPHILS % (AUTO) 0.5 % (0.0-7.0); HEMATOCRIT 29.7 % (36.7-47.1); HEMOGLOBIN 9.4 g/dL (12.5-16.3); LYMPHOCYTES # (AUTO) 1.3 K/uL (20.0-40.0); LYMPHOCYTES % (AUTO) 13.3 % (20.5-51.5); MEAN CORPUSCULAR HEMOGLOBIN 26.4 uug (23.8-33.4); MEAN CORPUSCULAR HGB CONC 32 g/dL (32.5-36.3); MEAN CORPUSCULAR VOLUME 83.5 fL (73.0-96.2); MONOCYTES # (AUTO) 1.1 K/uL (2.0-10.0); MONOCYTES % (AUTO) 10.8 % (0.0-11.0); NEUTROPHILS # (AUTO) 7.6 K/uL (1.8-8.9); NEUTROPHILS % (AUTO) 75.1 % (38.5-71.5); PLATELET COUNT (AUTO) 274 K/uL (152-348); RED BLOOD CELL COUNT(AUTO) 3.56 MIL/uL (4.06-5.63); WHITE BLOOD COUNT (AUTO) 10.1 K/uL (3.6-10.2)
[2018-12-28 18:33] LABS: CREATININE 1.4 mg/dL (0.6-1.3); POTASSIUM 4.5 mmol/L (3.5-5.1)
[2018-12-28 18:38] LABS: BILIRUBIN,DIRECT 0.2 mg/dL (0.0-0.2); BILIRUBIN,TOTAL 0.3 mg/dL (0.2-1.0); TOTAL PROTEIN, SERUM 8.7 g/dL (6.4-8.2)
--- NOTE | 2018-12-28 18:40 | NUR ---
PT IS IN ROOM #2A. DR ROACH EVALUATED THE PT.
[2018-12-28] MEDS ORDERED: PIPERACILLIN/TAZOBACTAM/D5W 50 ML IV ONE (18:47)
[2018-12-28] MEDS ORDERED: ACETAMINOPHEN ES 500 MG TABLET ONE (18:47)
--- NOTE | 2018-12-28 19:16 | NUR ---
REPORT GIVEN TO REPORTS ANALYSIS MANAGERFAN MAIL EDITOR.
[2018-12-28] MEDS ORDERED: VANCOMYCIN IV 200 ML ONE (19:26)
[2018-12-28] MEDS ORDERED: HYDROMORPHONE 2 MG/1 ML DISP.SYRIN ONE (19:53)
[2018-12-28] MEDS ORDERED: HYDROMORPHONE 1 MG/1 ML DISP.SYRIN IV ONE (20:00)
--- NOTE | 2018-12-28 20:10 | NUR ---
Report given to Florecita FANG Tele.
[2018-12-28 20:21] LABS: *BILIRUBIN,URIN NEGATIVE (NEGATIVE); *BLOOD, URINE NEGATIVE (NEGATIVE); *CLARITY,URINE CLEAR (CLEAR); *COLOR,URINE YELLOW (YELLOW); *KETONES,URINE NEGATIVE (NEGATIVE); LEUKOCYTE ESTERASE ,URINE NEGATIVE (NEGATIVE); NITRITE, URINE NEGATIVE (NEGATIVE); PH,URINE 7.5 (5.0-8.0); UGLUCOSE NEGATIVE (NEGATIVE)
--- NOTE | 2018-12-28 20:25 | NUR ---
Received patient from ER, A/O x 3. Denies pain at the moment. On room air. Vital signs stable. Oriented patient to the room. Noted left leg cellulitis, bigger then the right leg. IVF infusing on the right AC, patent and intact. Safety initiated. Call light within reach. Will closely monitor.
[2018-12-28 20:28] LABS: SQUAMOUS EPITHELIAL CELL,UR FEW /HPF (NONE SEEN)
[2018-12-28] MEDS ORDERED: Z GUARD REMEDY PASTE 57 GM TUBE TOP PRN (21:00)
[2018-12-28] MEDS ORDERED: VANCOMYCIN IV 1 G in PREMIXED 0 EACH IV SCH (21:00)
[2018-12-28] MEDS ORDERED: ONDANSETRON 4 MG/2 ML VIAL IV PRN (21:00)
[2018-12-28] MEDS ORDERED: ZOLPIDEM 5 MG TABLET PO PRN (21:00)
[2018-12-28] MEDS ORDERED: MAGNESIUM HYDROXIDE 30 ML LIQUID UDC PO PRN (21:00)
[2018-12-28] MEDS: PIPERACILLIN SODIUM/TAZOBACTAM 4.5 G in IV DEXTROSE 5% 50 ML IV SCH ×2 (22:00→23:00)
[2018-12-28] MEDS: PHENYTOIN SODIUM EXTENDED 100 MG CAPSULE.SA PO SCH (22:02)
[2018-12-28] MEDS: HYDROCHLOROTHIAZIDE 25 MG TABLET PO SCH (22:03)
[2018-12-28] MEDS: AMLODIPINE 10 MG TABLET PO SCH (22:03)
[2018-12-28] MEDS: QUETIAPINE FUMARATE 200 MG TABLET PO SCH (22:03)
[2018-12-28] MEDS: IV NS 1000 ML 1,000 ML IV PRN (22:03)
[2018-12-28 22:30] VITALS: BP 160/105
[2018-12-29] VITALS: BP 148/88
[2018-12-29] MEDS ORDERED: PIPERACILLIN/TAZO 4.5 GM VIAL IV ONE (00:46)
[2018-12-29] MEDS: HYDROCODONE/APAP 5-325MG TABLET PO PRN ×3 (03:07→13:40)
[2018-12-29 05:00] VITALS: BP 141/86
--- NOTE | 2018-12-29 06:17 | NUR ---
IV on the right AC infiltrated. Will attempt to insert one. For now, IV is held back. Patient slept t/o shift. C/O pain in the left lower ext. Medication given, stated relief. Vital signs stable. Good urine output. All meds given as ordered. All needs met.
--- NOTE | 2018-12-29 07:00 | NUR ---
patient is resting in bed, AO4, pain on LLLeg reported and will follow up with pain med per orders shift coordinator nurse indorsed that IV was infiltrated and she needs to put ABX on Hold Safety reinforced
--- NOTE | 2018-12-29 07:30 | NUR ---
Called the pharmacy to put fluids and Abx on hold and ordered Mid Line waiting for Midline nurse
[2018-12-29] MEDS ORDERED: ZOLPIDEM 5 MG TABLET PO PRN (08:00)
[2018-12-29 08:18] LABS: CREATININE 1.2 mg/dL (0.6-1.3); MAGNESIUM 1.9 mg/dL (1.8-2.4); PHOSPHOROUS 3.4 mg/dL (2.5-4.9); POTASSIUM 4.1 mmol/L (3.5-5.1)
[2018-12-29] MEDS: HYDROCHLOROTHIAZIDE 25 MG TABLET PO SCH (09:31)
[2018-12-29] MEDS: AMLODIPINE 10 MG TABLET PO SCH (09:31)
[2018-12-29 10:08] LABS: THYROID STIMULATING HORMONE 0.997 mIU/mL (0.358-3.740)
--- NOTE | 2018-12-29 10:30 | NUR ---
Lab called about Gram posit blood culture preliminary Reported to Dr Max Callejas gonna order consult fo ID
--- NOTE | 2018-12-29 11:38 | NUR ---
Still waiting for Midline insertion
[2018-12-29 11:40] VITALS: BP 127/84
--- NOTE | 2018-12-29 13:24 | NUR ---
PHARMACY CLINICAL NOTES: ( VANCOMYCIN DOSING) S: To start vancomycin dosing for this 63 yo male for Cellulitis O: BUN/SCR 15/1.2 (decreasing), WBC 9.9, TEMP 97.8 ht 185 cm wt 60 kg A/P: Patient received vanco 1gm IVPB x1 in ED at 1800. No IV line this am (infiltrated per RN) until midline placed in the afternoon. Will start Vancomycin 1gm IVPB q12hrs as per previous vanco regimens (previous admissions). His srcr is decreasing. 1st dose today at 1430. Plan to check vanco trough level before 4th dose (not yet ordered). Will monitor renal function & adjust the dose if needed. Will follow
[2018-12-29] MEDS: ACETAMINOPHEN 325 MG TABLET PO PRN ×2 (13:39→20:05)
[2018-12-29] MEDS: PIPERACILLIN SODIUM/TAZOBACTAM 4.5 G in IV DEXTROSE 5% 50 ML IV SCH ×2 (13:47→21:25)
[2018-12-29] MEDS: VANCOMYCIN IV 1 G in PREMIXED 0 EACH IV SCH ×2 (13:57→14:41)
[2018-12-29 16:02] VITALS: BP 126/84
[2018-12-29 20:00] VITALS: BP 120/75
--- NOTE | 2018-12-29 20:00 | NUR ---
Received patient laying comfortably in bed. A/O x 3. No acute distress noted. Denies pain at the moment. On room air. IV on the right upper arm, patent and intact. IV fluids infusing. Small scab in the medial chest. Left leg open wound, right leg anterior to the knees, open wound. Wound care consult ordered. Noted left leg cellulitis, slightly bigger then the right leg. Safety initiated. Call light within reach. Will closely monitor.
[2018-12-29] MEDS: QUETIAPINE FUMARATE 200 MG TABLET PO SCH (20:05)
[2018-12-29] MEDS: PHENYTOIN SODIUM EXTENDED 100 MG CAPSULE.SA PO SCH (20:05)
[2018-12-29] MEDS: CULTURELLE CAPSULE PO SCH (20:05)
[2018-12-29] MEDS ORDERED: ACIDOPHILUS/BULGARICUS CHEW TAB PO SCH (21:00)
[2018-12-29] MEDS: IV NS 1000 ML 1,000 ML IV PRN (22:28)
--- NOTE | 2018-12-29 23:00 | NUR ---
Received report from the RN. patient is sleeping, no acute distress noted. Jerking movements of the right leg, AOx4. Comfort and safety provided. Good appetite and fluid intake.
[2018-12-30] MEDS: HYDROCODONE/APAP 5-325MG TABLET PO PRN ×2 (00:59→09:35)
[2018-12-30] MEDS: VANCOMYCIN IV 1 G in PREMIXED 0 EACH IV SCH ×2 (02:06→15:36)
[2018-12-30 04:56] VITALS: BP 151/75
[2018-12-30] MEDS: PIPERACILLIN SODIUM/TAZOBACTAM 4.5 G in IV DEXTROSE 5% 50 ML IV SCH ×3 (06:05→21:16)
--- NOTE | 2018-12-30 07:01 | NUR ---
Patient slept intermittently through the night. Leg pain was managed with fair results using [place] 5-325. Comfort and safety provided. Wound nurse was updated over the phone.
--- NOTE | 2018-12-30 07:10 | NUR ---
RECEIVED PATIENT IN BED, AWAKE, AOX4. DENIES CHEST PAIN OR SOB. COMPLAINS OF LEFT LEG MILD PAIN AND DOES NOT WANT PAIN MEDICATION AT THIS TIME. RIGHT ARM MIDLINE IN PLACE AND PATENT, FLUSHING WELL WITH NS AT 75 CC/HR RUNNING. ALL NEEDS MET. WILL CONTINUE TO MONITOR PATIENT FOR SAFETY/FALL PREVENTION/PAIN MANAGEMENT.
[2018-12-30 08:15] LABS: CREATININE 1.1 mg/dL (0.6-1.3); POTASSIUM 3.9 mmol/L (3.5-5.1)
[2018-12-30 08:27] LABS: BASOPHILS % (AUTO) 0.4 % (0.0-2.0); EOSINOPHILS # (AUTO) 0.1 K/uL (0.0-0.7); EOSINOPHILS % (AUTO) 0.8 % (0.0-7.0); HEMATOCRIT 30.3 % (36.7-47.1); HEMOGLOBIN 9.8 g/dL (12.5-16.3); LYMPHOCYTES # (AUTO) 0.7 K/uL (20.0-40.0); LYMPHOCYTES % (AUTO) 6.7 % (20.5-51.5); MEAN CORPUSCULAR HEMOGLOBIN 26.7 uug (23.8-33.4); MEAN CORPUSCULAR HGB CONC 32 g/dL (32.5-36.3); MEAN CORPUSCULAR VOLUME 82.5 fL (73.0-96.2); NEUTROPHILS # (AUTO) 8.9 K/uL (1.8-8.9); NEUTROPHILS % (AUTO) 83.1 % (38.5-71.5); PLATELET COUNT (AUTO) 297 K/uL (152-348); RED BLOOD CELL COUNT(AUTO) 3.67 MIL/uL (4.06-5.63); WHITE BLOOD COUNT (AUTO) 10.7 K/uL (3.6-10.2)
[2018-12-30] MEDS: AMLODIPINE 10 MG TABLET PO SCH (09:34)
[2018-12-30] MEDS: CULTURELLE CAPSULE PO SCH ×2 (09:35→20:33)
[2018-12-30] MEDS: HYDROCHLOROTHIAZIDE 25 MG TABLET PO SCH (09:35)
[2018-12-30 11:54] VITALS: BP 132/87
--- NOTE | 2018-12-30 14:04 | NUR ---
PHARMACY CLINICAL NOTES: ( VANCOMYCIN DOSING) S: To continue vancomycin dosing for this 63 yo male for Cellulitis O: BUN/SCR 13/1.1 , WBC 10.7, TEMP 98.5 ht 185 cm wt 60 kg A/P: Will continue Vancomycin 1gm IVPB q12hrs as per previous vanco regimens (previous admissions). His srcr is decreasing. 2nd dose give today at 0230. Plan to check vanco trough level before 4th dose (ordered tomorrow at 0230). Will endorse nurse to hold for over 20. Will monitor renal function & adjust the dose if needed. Will follow
[2018-12-30 15:41] VITALS: BP 152/105
[2018-12-30] MEDS: IV NS 1000 ML 1,000 ML IV PRN (18:02)
[2018-12-30] MEDS ORDERED: LIDOCAINE 1%-EPI 1:100,000 20 ML VIAL IJ ONE (18:30)
[2018-12-30] MEDS ORDERED: MORPHINE SULFATE 2 MG/1 ML DISP.SYRIN IV ONE (19:00)
--- NOTE | 2018-12-30 19:00 | NUR ---
BED SITE I AND D DONE . CONSENT SIGNED. TIME OUT PERFORMED. ONE TIME DOSE OF MORPHINE GIVEN ORDERED.
--- NOTE | 2018-12-30 19:10 | NUR ---
PATIENT COMPLIANT WITH ALL MEDICATION AND TREATMENT THROUGHOUT THE SHIFT. VITAL SIGNS STABLE. IV TO RIGHT ARM INTACT. SAFETY AND FALL PREVENTION IN PLACE.
--- NOTE | 2018-12-30 19:20 | NUR ---
RECEIVED PT AWAKE, ALERT AND ORIENTEDX4. PT SHOWS NO SIGNS OF ACUTE DISTRESS. PT IV INTACT.PT GIVEN ONE TIME PAIN MEDICATION FOR THE I AND D PROCEDURE DONE. PT TOLERATED IT WELL. SAFETY AND COMFORT PROVIDED. WILL CONTINUE TO MONITOR.
[2018-12-30 20:00] VITALS: BP 149/97
[2018-12-30] MEDS: QUETIAPINE FUMARATE 200 MG TABLET PO SCH (20:33)
[2018-12-30] MEDS: PHENYTOIN SODIUM EXTENDED 100 MG CAPSULE.SA PO SCH (20:34)
[2018-12-31] MEDS: VANCOMYCIN IV 1 G in PREMIXED 0 EACH IV SCH (03:51)
[2018-12-31 04:46] VITALS: BP 137/93
--- NOTE | 2018-12-31 04:52 | NUR ---
INFORMATION SENT: FACESHEET,24 HOURS REPORT,OPERATIVE RECORD,PROGRESS NOTES 12/30,UR 12/30 INSURANCE NAME: [facility] FAX NUMBER: [phone] / [phone] FAX SENT
[2018-12-31] MEDS: PIPERACILLIN SODIUM/TAZOBACTAM 4.5 G in IV DEXTROSE 5% 50 ML IV SCH (06:06)
[2018-12-31] MEDS: HYDROCODONE/APAP 5-325MG TABLET PO PRN (06:20)
--- NOTE | 2018-12-31 06:22 | NUR ---
PT SLEPT INTERMITTENTLY. PT SHOWS NO SIGNS OF ACUTE DISTRESS. PT IV INTACT. SAFETY AND COMFORT PROVIDED. DRESSING CHANGED. PT GIVEN NORCO FOR PAIN. PT TOLERATED IT WELL.WILL CONTINUE TO MONITOR.
[2018-12-31 07:30] LABS: BASOPHILS % (AUTO) 0.3 % (0.0-2.0); EOSINOPHILS # (AUTO) 0.1 K/uL (0.0-0.7); EOSINOPHILS % (AUTO) 0.8 % (0.0-7.0); HEMATOCRIT 30.9 % (36.7-47.1); HEMOGLOBIN 9.7 g/dL (12.5-16.3); LYMPHOCYTES # (AUTO) 0.8 K/uL (20.0-40.0); LYMPHOCYTES % (AUTO) 8.1 % (20.5-51.5); MEAN CORPUSCULAR HEMOGLOBIN 26.1 uug (23.8-33.4); MEAN CORPUSCULAR HGB CONC 32 g/dL (32.5-36.3); MEAN CORPUSCULAR VOLUME 82.8 fL (73.0-96.2); MONOCYTES # (AUTO) 0.9 K/uL (2.0-10.0); MONOCYTES % (AUTO) 9.4 % (0.0-11.0); NEUTROPHILS # (AUTO) 7.7 K/uL (1.8-8.9); NEUTROPHILS % (AUTO) 81.4 % (38.5-71.5); PLATELET COUNT (AUTO) 298 K/uL (152-348); RED BLOOD CELL COUNT(AUTO) 3.73 MIL/uL (4.06-5.63); WHITE BLOOD COUNT (AUTO) 9.4 K/uL (3.6-10.2)
--- NOTE | 2018-12-31 07:45 | NUR ---
WOUND CARE CONSULT WOUND CARE RECEIVED CONSULT FOR OPEN WOUND. WOUND CARE WILL DEFER CONSULT AND TREATMENT PLANS TO SURGICAL TEAM WHO ARE CURRENTLY FOLLOWING THIS PATIENT. PATIENT WITH ERYN AT 18, WILL SEE PRN.
[2018-12-31 07:46] LABS: POTASSIUM 3.4 mmol/L (3.5-5.1)
[2018-12-31] MEDS: AMLODIPINE 10 MG TABLET PO SCH (08:34)
[2018-12-31] MEDS: HYDROCHLOROTHIAZIDE 25 MG TABLET PO SCH (08:34)
[2018-12-31] MEDS: CULTURELLE CAPSULE PO SCH (08:34)
[2018-12-31] MEDS ORDERED: SILVER SULFADIAZINE 1% CREAM 50 GM TP SCH ×2 (09:00)
[2018-12-31] MEDS: IV NS 1000 ML 1,000 ML IV PRN (11:16)
[2018-12-31 11:45] VITALS: BP 132/86
[2018-12-31] MEDS ORDERED: MORPHINE SULFATE 2 MG/1 ML DISP.SYRIN IV ONE (11:45)
--- NOTE | 2018-12-31 11:58 | NUR ---
PHARMACY CLINICAL NOTES: ( VANCOMYCIN DOSING) S: To continue vancomycin dosing for this 63 yo male for Cellulitis O: BUN/SCR 10/1.0 , WBC 9.4, TEMP 98.9 Vanco trough level: 17.2 (on 12/31 at 0200) ht 185 cm wt 60 kg A/P: Since vanco trough level is within therapeutic range, will continue same dose of Vancomycin 1gm IVPB q12hrs for today. Next bond due today at 1600. Will monitor renal function & adjust the dose if needed. Will follow
[2018-12-31] MEDS ORDERED: POTASSIUM CHLORIDE 20 MEQ TAB.PRT.SR PO ONE (12:45)
--- NOTE | 2018-12-31 14:40 | NUR ---
Pt DC to self, $2 was provided for bus transportation.Pt DC with all exit care packet, belongings, valuables, and medication form the pharmacy. Pt refused to remove bandages to take pictures of the wounds. Pt states that he rather not take anything off again. pt Stable to DC.
--- NOTE | 2019-01-03 07:39 | NUR ---
INFORMATION SENT: FACESHEET,PROGRESS NOTES 12/31,UR 12/31,DICHARGE SUMMARY INSURANCE NAME: [facility] / [facility] FAX NUMBER: [phone] / [phone] FAX SENT
== END 2018-12-31 14:40 | disposition home or self-care (01) | DRG 383 ==
LOC: ER 17:24 → TELE3 20:13 → MEDSURG3 12-29 01:12
PROC: 05HY33Z Insertion of Infusion Device into Upper Vein, Percutaneous Approach (ICD-10-PCS; principal; 2018-12-29)
PROC: 0J9P3ZX Drainage of Left Lower Leg Subcutaneous Tissue and Fascia, Percutaneous Approach, Diagnostic (ICD-10-PCS; 2018-12-30)
DX: L03.116 Cellulitis of left lower limb (principal); N17.0 Acute kidney failure with tubular necrosis; E43 Unspecified severe protein-calorie malnutrition; R78.81 Bacteremia; F20.0 Paranoid schizophrenia; S81.832S Puncture wound without foreign body, left lower leg, sequela; D64.9 Anemia, unspecified; F31.9 Bipolar disorder, unspecified; I10 Essential (primary) hypertension; G40.909 Epilepsy, unspecified, not intractable, without status epilepticus; L02.416 Cutaneous abscess of left lower limb; Y28 Contact with sharp object, undetermined intent; Z95.2 Presence of prosthetic heart valve; M19.90 Unspecified osteoarthritis, unspecified site; K76.9 Liver disease, unspecified; G89.29 Other chronic pain; Z59.0 Homelessness; Z96.643 Presence of artificial hip joint, bilateral; Z79.899 Other long term (current) drug therapy; B95.5 Unspecified streptococcus as the cause of diseases classified elsewhere; Z68.1 Body mass index [BMI] 19.9 or less, adult
CPT/HCPCS: 36415; 36569; 70030-TC; 71045; 83605; 83735; 84100; 84443; 85025; 85730; 87040; 87070; 87077; 87086; 93005; 93307; A4663; A9150; G0378; J1170; J2270; J2543; J3370; J3490; J7030; J7060

== ENCOUNTER 2019-01-02 19:27 | Emergency (ER) | payer OTHER ==
[~2019-01-02] VITALS: Ht 185.4 cm; Wt 63.5 kg
[~2019-01-02 19:27] MED LIST changes: -MULT-24 PO
[2019-01-02] MEDS ORDERED: NEOMY/BACITRA/POLYMYXIN B OINT UD PACKET TP ONE ×2 (19:45→19:50)
--- NOTE | 2019-01-02 19:45 | NUR ---
Patient ambulated with stable gait. A/Ox4. Speech clear, speaks in complete sentences. Patient came in for wound check of his abscess on LLE (calf area) that has been I/D previously on 12/31/18. Pain localized to the calf, wound is packed. Patient in bed at lowest position, side rails upx2, call light within reach. Fall precautions implemented per protocol. LLE exposed in preparation for MSE by JUAN RAMON.
[2019-01-02] MEDS ORDERED: HYDROMORPHONE 2 MG/1 ML DISP.SYRIN ONE (19:51)
[2019-01-02] MEDS ORDERED: HYDROMORPHONE 1 MG/1 ML DISP.SYRIN IM ONE (20:00)
[2019-01-02 20:10] VITALS: BP 141/83
--- NOTE | 2019-01-02 20:10 | NUR ---
Patient discharged to home in stable conditon. Written and verbal after care instructions given. Patient verbalizes understanding of instructions. Denies any homelessness, states he lives in assisted living. Patient ambulated with stable gait.
== END 2019-01-02 20:12 | disposition home or self-care (01) ==
LOC: ER 19:30
DX: Z48.01 Encounter for change or removal of surgical wound dressing (principal); I10 Essential (primary) hypertension; F17.200 Nicotine dependence, unspecified, uncomplicated; Z88.5 Allergy status to narcotic agent; Z88.8 Allergy status to other drugs, medicaments and biological substances; Z79.899 Other long term (current) drug therapy
CPT/HCPCS: 96372; 99283; J1170; A4663

== ENCOUNTER 2019-02-10 20:05 | Emergency (ER) | payer OTHER ==
[~2019-02-10] VITALS: Ht 185.4 cm; Wt 59.0 kg
[2019-02-10] MEDS ORDERED: HYDROMORPHONE 1 MG/1 ML DISP.SYRIN IV ONE (20:30)
[2019-02-10] MEDS ORDERED: HYDROMORPHONE 2 MG/1 ML DISP.SYRIN ONE (20:32)
--- NOTE | 2019-02-10 20:44 | NUR ---
Patient discharged to home in stable conditon. Written and verbal after care instructions given. Patient verbalizes understanding of instructions. Pt left ER with stable gait. States pain has subsided. Pt states he lives in in a board & care facility. No acute distress noted.
[2019-02-10 20:45] VITALS: BP 147/89
== END 2019-02-10 20:46 | disposition home or self-care (01) ==
LOC: ER 20:08
DX: G89.29 Other chronic pain (principal); M54.2 Cervicalgia; M25.551 Pain in right hip; M25.552 Pain in left hip; I10 Essential (primary) hypertension; F17.200 Nicotine dependence, unspecified, uncomplicated; Z88.5 Allergy status to narcotic agent; Z88.8 Allergy status to other drugs, medicaments and biological substances; Z79.899 Other long term (current) drug therapy
CPT/HCPCS: 96374; 99283; J1170; A4663

== ENCOUNTER 2019-04-26 19:15 | Emergency (ER) | payer MEDICARE, OTHER ==
[~2019-04-26] VITALS: Ht 180.3 cm; Wt 62.6 kg
--- NOTE | 2019-04-26 19:58 | NUR ---
Patient left without being seen by ER physician.
--- NOTE | 2019-04-26 20:03 | NUR ---
Pt walked out of ER in stable gait. No acute distress noted.
== END 2019-04-26 20:04 | disposition left against medical advice (07) ==
LOC: ER 19:20
DX: Z53.21 Procedure and treatment not carried out due to patient leaving prior to being seen by health care provider (principal)

== ENCOUNTER 2019-04-27 18:22 | Emergency (ER) | payer MEDICARE, OTHER ==
[~2019-04-27] VITALS: Ht 185.4 cm; Wt 64.9 kg
--- NOTE | 2019-04-27 19:05 | NUR ---
at bedside to examine patient.
--- NOTE | 2019-04-27 19:05 | NUR ---
Report given to rn. Stanley.
[2019-04-27] MEDS ORDERED: HYDROMORPHONE 1 MG/1 ML DISP.SYRIN IM ONE (19:15)
[2019-04-27] MEDS ORDERED: HYDROMORPHONE 2 MG/1 ML DISP.SYRIN ONE (19:15)
--- NOTE | 2019-04-27 19:16 | NUR ---
Patient discharged to home in stable conditon. Written and verbal after care instructions given. Patient verbalizes understanding of instructions. Pt ambulated out of ER with steady gait, no acute signs of distress, VSS, all belongings taken.
[2019-04-27 19:17] VITALS: BP 152/105
== END 2019-04-27 19:18 | disposition home or self-care (01) ==
LOC: ER 18:25
DX: G89.29 Other chronic pain (principal); M54.2 Cervicalgia; M25.559 Pain in unspecified hip; I10 Essential (primary) hypertension; F20.9 Schizophrenia, unspecified; F17.200 Nicotine dependence, unspecified, uncomplicated; Z88.5 Allergy status to narcotic agent; Z88.8 Allergy status to other drugs, medicaments and biological substances; Z79.899 Other long term (current) drug therapy
CPT/HCPCS: 96372; 99283; J1170; A4663

== ENCOUNTER 2019-06-10 21:49 | Emergency (ER) | payer MEDICARE, OTHER ==
[~2019-06-10] VITALS: Ht 182.9 cm; Wt 59.0 kg
--- NOTE | 2019-06-10 22:00 | NUR ---
PT RECEIVED AMBULATORY W/ ANTALGIC GAIT, ASSISTED BY OWN CANE PT ENDORSES CHRONIC LOWER BACK PN DENIES PARESTHESIAS NOR RADICULOPATHIES TO LE DENIES CHANGES IN B/B FUNCTION
[2019-06-10] MEDS ORDERED: HYDROMORPHONE 1 MG/1 ML DISP.SYRIN IM ONE (22:45)
[2019-06-10] MEDS ORDERED: HYDROMORPHONE 2 MG/1 ML DISP.SYRIN ONE (23:05)
[2019-06-10] MEDS ORDERED: HYDROMORPHONE 1 MG/1 ML DISP.SYRIN ONE (23:05)
--- NOTE | 2019-06-10 23:07 | NUR ---
PT REASSSESSMENT OF IM MEDS DONE AT THIS TIME. PT REQUESTS TO BE DISCHARGED AT THIS TIME PT STATES DECREASE IN PAIN FROM 05/17 TO 8 Patient discharged to home in stable conditon. Written and verbal after care instructions given. Patient verbalizes understanding of instructions. AMBULATORY W/ STABLE GAIT W/ ASSISTANCE OF CANE ALL BELONGINGS W/ PT
[2019-06-11 00:01] VITALS: BP 150/98
== END 2019-06-10 23:07 | disposition home or self-care (01) ==
LOC: ER 21:51
DX: G89.29 Other chronic pain (principal); M54.2 Cervicalgia; M25.552 Pain in left hip; M54.9 Dorsalgia, unspecified; F31.9 Bipolar disorder, unspecified; F20.9 Schizophrenia, unspecified; I10 Essential (primary) hypertension; F17.210 Nicotine dependence, cigarettes, uncomplicated; Z88.5 Allergy status to narcotic agent; Z88.8 Allergy status to other drugs, medicaments and biological substances; Z79.899 Other long term (current) drug therapy
CPT/HCPCS: 96372; 99283; J1170 ×2; A4663

== ENCOUNTER 2019-07-12 08:49 | Emergency (ER) | payer MEDICARE, OTHER ==
--- NOTE | 2019-07-12 08:59 | NUR ---
PT LEFT WITHOUT BEEN TRIAGED.
== END 2019-07-12 09:07 | disposition left against medical advice (07) ==
LOC: ER 08:49
DX: Z53.21 Procedure and treatment not carried out due to patient leaving prior to being seen by health care provider (principal)

== ENCOUNTER 2019-07-14 19:02 | Emergency (ER) | payer MEDICARE, OTHER ==
[~2019-07-14] VITALS: Ht 188 cm; Wt 63.5 kg
[2019-07-14] MEDS ORDERED: HYDROMORPHONE 1 MG/1 ML DISP.SYRIN ONE (19:24)
[2019-07-14] MEDS ORDERED: HYDROMORPHONE 2 MG/1 ML DISP.SYRIN ONE (19:24)
[2019-07-14] MEDS ORDERED: HYDROMORPHONE 1 MG/1 ML DISP.SYRIN IM ONE (19:30)
--- NOTE | 2019-07-14 19:34 | NUR ---
Pt states he wants to be d/c at this time. No acute distress noted. Patient discharged to home in stable conditon. Written and verbal after care instructions given. Patient verbalizes understanding of instructions. Pt walked out of ER in stable gait.
[2019-07-14 19:37] VITALS: BP 169/108
== END 2019-07-14 19:34 | disposition home or self-care (01) ==
LOC: ER 19:02
DX: G89.29 Other chronic pain (principal); M54.2 Cervicalgia; M25.559 Pain in unspecified hip; F20.9 Schizophrenia, unspecified; F31.9 Bipolar disorder, unspecified; I10 Essential (primary) hypertension; F17.210 Nicotine dependence, cigarettes, uncomplicated; Z88.5 Allergy status to narcotic agent; Z88.8 Allergy status to other drugs, medicaments and biological substances; Z79.899 Other long term (current) drug therapy
CPT/HCPCS: 96372; 99283; J1170 ×2; A4663

== ENCOUNTER 2019-07-25 10:09 | Emergency (ER) | payer MEDICARE, OTHER ==
[~2019-07-25] VITALS: Ht 188 cm; Wt 63.5 kg
[2019-07-25] MEDS ORDERED: HYDROMORPHONE 1 MG/1 ML DISP.SYRIN IM ONE (10:30)
[2019-07-25] MEDS ORDERED: HYDROMORPHONE 2 MG/1 ML DISP.SYRIN ONE (10:35)
[2019-07-25 10:41] VITALS: BP 159/110
--- NOTE | 2019-07-25 10:41 | NUR ---
Patient discharged to home in stable conditon. Written and verbal after care instructions given. Patient verbalizes understanding of instructions.
== END 2019-07-25 10:42 | disposition home or self-care (01) ==
LOC: ER 10:09
DX: G89.29 Other chronic pain (principal); M54.2 Cervicalgia; M25.551 Pain in right hip; M25.552 Pain in left hip; F31.9 Bipolar disorder, unspecified; F20.9 Schizophrenia, unspecified; F17.210 Nicotine dependence, cigarettes, uncomplicated; Z88.5 Allergy status to narcotic agent; Z88.8 Allergy status to other drugs, medicaments and biological substances; Z79.899 Other long term (current) drug therapy
CPT/HCPCS: 96372; 99283; J1170; A4663

== ENCOUNTER 2019-07-30 10:19 | Emergency (ER) | payer MEDICARE, OTHER ==
[~2019-07-30] VITALS: Ht 188 cm; Wt 63.5 kg
--- NOTE | 2019-07-30 10:39 | NUR ---
Patient discharged to home in stable conditon & steady gait. Written and verbal after care instructions given to patient. Patient verbalizes understanding & compliance of instructions.
[2019-07-30 10:40] VITALS: BP 172/99
[2019-07-30] MEDS ORDERED: IBUPROFEN 600 MG TABLET ONE (10:40)
[2019-07-30] MEDS ORDERED: IBUPROFEN 600 MG TABLET PO ONE (10:45)
== END 2019-07-30 10:51 | disposition home or self-care (01) ==
LOC: ER 10:19
DX: G40.909 Epilepsy, unspecified, not intractable, without status epilepticus (principal); F31.9 Bipolar disorder, unspecified; I10 Essential (primary) hypertension; F17.210 Nicotine dependence, cigarettes, uncomplicated; Z76.0 Encounter for issue of repeat prescription; Z88.5 Allergy status to narcotic agent; Z88.8 Allergy status to other drugs, medicaments and biological substances; Z79.899 Other long term (current) drug therapy
CPT/HCPCS: A4663

== ENCOUNTER 2019-08-14 09:43 | Emergency (ER) | payer MEDICARE, OTHER ==
[~2019-08-14] VITALS: Ht 182.9 cm; Wt 68.5 kg
[2019-08-14] MEDS ORDERED: HYDROMORPHONE 2 MG/1 ML DISP.SYRIN ONE (10:09)
--- NOTE | 2019-08-14 10:14 | NUR ---
Patient given written and verbal discharge instructions. Patient verbalizes understanding of instructions. Patient is ambulatory with stable gait. Refuses offer of alf placement. Patient given list of available shelters in surrounding area.
[2019-08-14] MEDS ORDERED: HYDROMORPHONE 1 MG/1 ML DISP.SYRIN IM ONE (10:15)
== END 2019-08-14 10:18 | disposition home or self-care (01) ==
LOC: ER 09:43
DX: G89.29 Other chronic pain (principal); M25.552 Pain in left hip; M54.2 Cervicalgia; F31.9 Bipolar disorder, unspecified; F17.210 Nicotine dependence, cigarettes, uncomplicated; F20.9 Schizophrenia, unspecified; Z76.0 Encounter for issue of repeat prescription; Z88.5 Allergy status to narcotic agent; Z88.8 Allergy status to other drugs, medicaments and biological substances; Z79.899 Other long term (current) drug therapy
CPT/HCPCS: 96372; 99283; J1170; A4663

== ENCOUNTER 2019-08-28 11:13 | Emergency (ER) | payer MEDICARE, OTHER ==
[~2019-08-28] VITALS: Ht 185.4 cm; Wt 61.7 kg
--- NOTE | 2019-08-28 11:34 | NUR ---
Dr Judge at the bedside for MSE.
[2019-08-28] MEDS: IV NORMAL SALINE 1000 ML BAG IV ONE (11:59)
[2019-08-28 12:24] LABS: BASOPHILS % (AUTO) 0.4 % (0.0-2.0); EOSINOPHILS # (AUTO) 0.1 K/uL (0.0-0.7); EOSINOPHILS % (AUTO) 1.5 % (0.0-7.0); HEMATOCRIT 41.7 % (36.7-47.1); HEMOGLOBIN 13.2 g/dL (12.5-16.3); LYMPHOCYTES # (AUTO) 1.3 K/uL (20.0-40.0); MEAN CORPUSCULAR HEMOGLOBIN 28.7 uug (23.8-33.4); MEAN CORPUSCULAR HGB CONC 32 g/dL (32.5-36.3); MEAN CORPUSCULAR VOLUME 90.6 fL (73.0-96.2); MONOCYTES # (AUTO) 0.5 K/uL (2.0-10.0); MONOCYTES % (AUTO) 11.2 % (0.0-11.0); NEUTROPHILS # (AUTO) 2.8 K/uL (1.8-8.9); NEUTROPHILS % (AUTO) 59.9 % (38.5-71.5); PLATELET COUNT (AUTO) 198 K/uL (152-348); POTASSIUM 3.7 mmol/L (3.5-5.1); WHITE BLOOD COUNT (AUTO) 4.7 K/uL (3.6-10.2)
[2019-08-28 12:30] LABS: BILIRUBIN,DIRECT 0.1 mg/dL (0.0-0.2); BILIRUBIN,TOTAL 0.2 mg/dL (0.2-1.0); TOTAL PROTEIN, SERUM 8.2 g/dL (6.4-8.2)
[2019-08-28 12:37] LABS: PHENYTOIN (DILANTIN) < 0.5 ug/mL (10.0-20.0)
[2019-08-28] MEDS ORDERED: HYDROMORPHONE 2 MG/1 ML DISP.SYRIN ONE ×2 (12:38→13:48)
[2019-08-28] MEDS: HYDROMORPHONE 1 MG/1 ML DISP.SYRIN IV ONE ×2 (12:40→13:48)
--- NOTE | 2019-08-28 12:47 | NUR ---
Patient is resting comfortably in bed with eyes closed, NAD noted.
[2019-08-28 13:59] VITALS: BP 143/78
--- NOTE | 2019-08-28 13:59 | NUR ---
Patient discharged to home in stable conditon. Written and verbal after care instructions given. Patient verbalizes understanding of instructions.
[2019-08-28 14:23] LABS: *BILIRUBIN,URIN NEGATIVE (NEGATIVE); *BLOOD, URINE NEGATIVE (NEGATIVE); *CLARITY,URINE CLEAR (CLEAR); *COLOR,URINE YELLOW (YELLOW); *KETONES,URINE NEGATIVE (NEGATIVE); *UROBILINOGEN,URINE 0.2 E.U./dl (NORMAL); LEUKOCYTE ESTERASE ,URINE NEGATIVE (NEGATIVE); NITRITE, URINE NEGATIVE (NEGATIVE); PH,URINE 6.5 (5.0-8.0); UGLUCOSE NEGATIVE (NEGATIVE)
== END 2019-08-28 14:00 | disposition home or self-care (01) ==
LOC: ER 11:13
DX: G89.29 Other chronic pain (principal); M54.2 Cervicalgia; M25.551 Pain in right hip; M25.552 Pain in left hip; R42 Dizziness and giddiness; R53.1 Weakness; I10 Essential (primary) hypertension; F17.210 Nicotine dependence, cigarettes, uncomplicated; Z88.5 Allergy status to narcotic agent; Z88.8 Allergy status to other drugs, medicaments and biological substances; Z79.899 Other long term (current) drug therapy
CPT/HCPCS: 36415; 71045; 80048; 80076; 80185; 81001; 83690; 83880; 84484; 85025; 85730; 87077; 87086; 87186; 87400; 93005; 96361; 96374; 96376; 99284; J1170 ×2; 70030-TC; A4663; J7030

== ENCOUNTER 2019-09-07 12:38 | Emergency (ER) | payer MEDICARE, OTHER ==
[~2019-09-07] VITALS: Ht 190.5 cm; Wt 63.5 kg
[2019-09-07 13:40] LABS: BASOPHILS # (AUTO) 0.1 K/uL (0.0-8.0); BASOPHILS % (AUTO) 0.9 % (0.0-2.0); EOSINOPHILS # (AUTO) 0.1 K/uL (0.0-0.7); EOSINOPHILS % (AUTO) 1.9 % (0.0-7.0); HEMATOCRIT 38.5 % (36.7-47.1); HEMOGLOBIN 12.5 g/dL (12.5-16.3); LYMPHOCYTES % (AUTO) 14.3 % (20.5-51.5); MEAN CORPUSCULAR HEMOGLOBIN 29.1 uug (23.8-33.4); MEAN CORPUSCULAR HGB CONC 32 g/dL (32.5-36.3); MONOCYTES # (AUTO) 0.7 K/uL (2.0-10.0); MONOCYTES % (AUTO) 11.1 % (0.0-11.0); NEUTROPHILS # (AUTO) 4.8 K/uL (1.8-8.9); NEUTROPHILS % (AUTO) 71.8 % (38.5-71.5); PLATELET COUNT (AUTO) 232 K/uL (152-348); RED BLOOD CELL COUNT(AUTO) 4.28 MIL/uL (4.06-5.63); WHITE BLOOD COUNT (AUTO) 6.7 K/uL (3.6-10.2)
[2019-09-07 13:52] LABS: BILIRUBIN,DIRECT 0.1 mg/dL (0.0-0.2); BILIRUBIN,TOTAL 0.2 mg/dL (0.2-1.0); CREATININE 1.3 mg/dL (0.6-1.3); POTASSIUM 3.9 mmol/L (3.5-5.1); TOTAL PROTEIN, SERUM 7.6 g/dL (6.4-8.2)
[2019-09-07] MEDS: HYDROMORPHONE 1 MG/1 ML DISP.SYRIN IV ONE ×2 (14:49→14:57)
--- NOTE | 2019-09-07 14:50 | NUR ---
PATIENT WAS SEEN BY MD. HE C/O "SEVERE BODY PAIN". STATES HE TAKES "OXY AND OTHER DRUGS AND HAS HIGH TOLERANCE" FOR PAIN MEDS.
[2019-09-07] MEDS ORDERED: HYDROMORPHONE 2 MG/1 ML DISP.SYRIN ONE (14:58)
--- NOTE | 2019-09-07 15:17 | NUR ---
MED GIVEN SLOWLY ORDERED. PATIEN STATES PAIN HAS DIMINISHED. HE STATES HE DOES NOT DRIVE AND IS AWARE OF DILAUDID PRECAUTIONS/DRUG INTERACTIONS.
--- NOTE | 2019-09-07 15:18 | NUR ---
DC AND FOLLOW UP INSTRUCTIONS GIVEN AND EXPLAINED TO PATIENT WHO STATES HE UNDERSTANDS ALL INSTRUCTIONS.
--- NOTE | 2019-09-07 15:18 | NUR ---
IV removed. Catheter intact and site benign. Pressure and 4x4 gauze applied to site. No bleeding noted.
[2019-09-07 15:59] LABS: THYROID STIMULATING HORMONE 0.342 mIU/mL (0.358-3.740)
[2019-09-12 12:06] LABS: CALCITRIOL VIT D,1,25 DIHYDROX 38.7 pg/mL (19.9-79.3)
== END 2019-09-07 15:19 | disposition home or self-care (01) ==
LOC: ER 12:41
DX: G89.29 Other chronic pain (principal); R53.1 Weakness; I10 Essential (primary) hypertension; F20.9 Schizophrenia, unspecified; F17.210 Nicotine dependence, cigarettes, uncomplicated; Z88.5 Allergy status to narcotic agent; Z88.8 Allergy status to other drugs, medicaments and biological substances; Z79.899 Other long term (current) drug therapy
CPT/HCPCS: 36415; 71045; 80048; 80061; 80076; 82607; 82652; 82728; 83036; 83690; 84153; 84443; 84484; 85025; 85651; 86592; 87806; 93005; 96374; 99284; J1170; 70030-TC; A4663

== ENCOUNTER 2019-10-11 18:30 | Emergency (ER) | payer MEDICARE, OTHER ==
[~2019-10-11] VITALS: Ht 185.4 cm; Wt 67.1 kg
--- NOTE | 2019-10-11 19:13 | NUR ---
RECEIVED HAND OFF AND SBAR FR OUTGOING DAY SHIFT RN (SHANTEL)
--- NOTE | 2019-10-11 19:14 | NUR ---
SBAR report given to Rachael FANG
[2019-10-11] MEDS ORDERED: HYDROMORPHONE 1 MG/1 ML DISP.SYRIN ONE (19:26)
[2019-10-11] MEDS ORDERED: HYDROMORPHONE 2 MG/1 ML DISP.SYRIN ONE ×2 (19:26→20:53)
[2019-10-11] MEDS: HYDROMORPHONE 1 MG/1 ML DISP.SYRIN IM ONE ×2 (19:51→20:57)
[2019-10-11 19:57] LABS: BASOPHILS % (AUTO) 0.6 % (0.0-2.0); EOSINOPHILS # (AUTO) 0.5 K/uL (0.0-0.7); EOSINOPHILS % (AUTO) 8.9 % (0.0-7.0); HEMATOCRIT 36.8 % (36.7-47.1); HEMOGLOBIN 11.8 g/dL (12.5-16.3); LYMPHOCYTES # (AUTO) 1.6 K/uL (20.0-40.0); LYMPHOCYTES % (AUTO) 29.6 % (20.5-51.5); MEAN CORPUSCULAR HEMOGLOBIN 28.4 uug (23.8-33.4); MEAN CORPUSCULAR HGB CONC 32 g/dL (32.5-36.3); MEAN CORPUSCULAR VOLUME 88.3 fL (73.0-96.2); MONOCYTES # (AUTO) 0.7 K/uL (2.0-10.0); MONOCYTES % (AUTO) 13.8 % (0.0-11.0); NEUTROPHILS # (AUTO) 2.5 K/uL (1.8-8.9); NEUTROPHILS % (AUTO) 47.1 % (38.5-71.5); PLATELET COUNT (AUTO) 237 K/uL (152-348); RED BLOOD CELL COUNT(AUTO) 4.17 MIL/uL (4.06-5.63); WHITE BLOOD COUNT (AUTO) 5.4 K/uL (3.6-10.2)
[2019-10-11 20:04] LABS: CREATININE 1.3 mg/dL (0.6-1.3); POTASSIUM 4.1 mmol/L (3.5-5.1)
[2019-10-11 20:09] LABS: BILIRUBIN,DIRECT 0.1 mg/dL (0.0-0.2); BILIRUBIN,TOTAL 0.2 mg/dL (0.2-1.0); TOTAL PROTEIN, SERUM 8.3 g/dL (6.4-8.2)
--- NOTE | 2019-10-11 21:03 | NUR ---
PT DENIES PAIN STATES SECOND JOVANID DOES HELPED WITH HIP PAIN SIGNED HOMELESS DISCHARGE WAIVER Patient discharged to home in stable conditon. Written and verbal after care instructions given. Patient verbalizes understanding of instructions. PT AMBULATORY W/ STABLE GAIT ALL BELONGINGS W/ PT
[2019-10-11 21:04] VITALS: BP 150/89
== END 2019-10-11 21:05 | disposition home or self-care (01) ==
LOC: ER 18:31
DX: G89.29 Other chronic pain (principal); M25.552 Pain in left hip; F17.210 Nicotine dependence, cigarettes, uncomplicated; F10.10 Alcohol abuse, uncomplicated; I10 Essential (primary) hypertension; F31.9 Bipolar disorder, unspecified; Z88.5 Allergy status to narcotic agent; Z88.8 Allergy status to other drugs, medicaments and biological substances; Z79.899 Other long term (current) drug therapy; Z60.2 Problems related to living alone; Z96.642 Presence of left artificial hip joint; Z95.2 Presence of prosthetic heart valve
CPT/HCPCS: 36415; 80048; 80076; 83690; 84484; 85025; 85730; 96372 ×2; 99283; J1170 ×3; 70030-TC; A4663

== ENCOUNTER 2019-10-21 09:26 | Emergency (ER) | payer MEDICARE, OTHER ==
[~2019-10-21] VITALS: Ht 185.4 cm; Wt 63.5 kg
[2019-10-21] MEDS ORDERED: HYDROMORPHONE 1 MG/1 ML DISP.SYRIN IM ONE (10:00)
[2019-10-21] MEDS ORDERED: HYDROMORPHONE 2 MG/1 ML DISP.SYRIN ONE (10:11)
--- NOTE | 2019-10-21 10:14 | NUR ---
Pt is in room #1b. Dr Judge evaluated the pt.
--- NOTE | 2019-10-21 10:22 | NUR ---
PT WAS D/C'D TO HOME. D/C INSTRUCTIONS GIVEN TO THE PT.
[2019-10-21 10:31] VITALS: BP 136/81
== END 2019-10-21 10:32 | disposition home or self-care (01) ==
LOC: ER 09:26
DX: R07.89 Other chest pain (principal); M25.562 Pain in left knee; G89.29 Other chronic pain; M54.2 Cervicalgia; M25.552 Pain in left hip; F32.9 Major depressive disorder, single episode, unspecified; I10 Essential (primary) hypertension; F17.210 Nicotine dependence, cigarettes, uncomplicated; Z88.5 Allergy status to narcotic agent; Z88.8 Allergy status to other drugs, medicaments and biological substances; Z79.899 Other long term (current) drug therapy; W18.39XA Other fall on same level, initial encounter; Y93.89 Activity, other specified; Y92.89 Other specified places as the place of occurrence of the external cause; Y99.8 Other external cause status
CPT/HCPCS: 71045; 73564; 96372; 99284; J1170; A4663

== ENCOUNTER 2019-11-05 10:49 | Emergency (ER) | payer MEDICARE, OTHER ==
--- NOTE | 2019-11-05 10:55 | NUR ---
pt decided to leave without being triaged.
== END 2019-11-05 10:58 | disposition left against medical advice (07) ==
LOC: ER 10:49
DX: M79.606 Pain in leg, unspecified (principal); Z53.21 Procedure and treatment not carried out due to patient leaving prior to being seen by health care provider

== ENCOUNTER 2019-11-09 15:22 | Emergency (ER) | payer MEDICARE, OTHER ==
[~2019-11-09] VITALS: Ht 185.4 cm; Wt 65.8 kg
[2019-11-09] MEDS ORDERED: HYDROMORPHONE 1 MG/1 ML DISP.SYRIN IM ONE (15:30)
[2019-11-09] MEDS ORDERED: HYDROMORPHONE 2 MG/1 ML DISP.SYRIN ONE (15:37)
[2019-11-09 15:53] VITALS: BP 140/80
== END 2019-11-09 15:54 | disposition home or self-care (01) ==
LOC: ER 15:25
DX: G89.29 Other chronic pain (principal); F17.210 Nicotine dependence, cigarettes, uncomplicated; F31.9 Bipolar disorder, unspecified; Z88.5 Allergy status to narcotic agent; Z88.8 Allergy status to other drugs, medicaments and biological substances; Z60.2 Problems related to living alone; Z79.899 Other long term (current) drug therapy
CPT/HCPCS: 96372; 99284; J1170; A4663

== ENCOUNTER 2019-11-12 11:32 | Emergency (ER) | payer MEDICARE, OTHER ==
[~2019-11-12] VITALS: Ht 182.9 cm; Wt 63.5 kg
[2019-11-12] MEDS ORDERED: HYDROMORPHONE 2 MG/1 ML DISP.SYRIN ONE (11:55)
[2019-11-12] MEDS ORDERED: SULFAMETH/TRIMETH 800/160 MG TABLET ONE (11:56)
[2019-11-12] MEDS ORDERED: LIDOCAINE HCL 2% 20 ML VIAL TP ONE (12:00)
[2019-11-12] MEDS ORDERED: HYDROMORPHONE 1 MG/1 ML DISP.SYRIN IM ONE (12:00)
[2019-11-12] MEDS ORDERED: diphenhydrAMINE 50 MG/1 ML VIAL IM ONE (12:00)
[2019-11-12] MEDS ORDERED: SULFAMETH/TRIMETH 800/160 MG TABLET PO ONE (12:00)
--- NOTE | 2019-11-12 12:11 | NUR ---
Patient discharged to home in stable condition with steady gait. Written and verbal after care instructions given to patient. Patient verbalized understanding & compliance of instructions.
[2019-12-05] MEDS ORDERED: CLON0.1T14 PO (11:45)
[2019-12-05] MEDS ORDERED: ACID1TAB4 PO (11:45)
[2019-12-05] MEDS ORDERED: ASPI-618 PO (11:45)
[2019-12-05] MEDS ORDERED: ACET325T53 PO (11:45)
[2019-12-05] MEDS ORDERED: LACT296L PO (11:45)
[2019-12-05] MEDS ORDERED: HYDR2TAB4 PO (11:45)
[2019-12-05] MEDS ORDERED: NITR100C11 PO (11:45)
[2019-12-05] MEDS ORDERED: MULT1TAB73 PO (11:45)
[2019-12-05] MEDS ORDERED: FAMO-132 PO (11:45)
[2019-12-05] MEDS ORDERED: METO25TA6 PO (11:45)
== END 2019-11-12 12:14 | disposition home or self-care (01) ==
LOC: ER 11:39
DX: L02.415 Cutaneous abscess of right lower limb (principal); F17.200 Nicotine dependence, unspecified, uncomplicated; G89.29 Other chronic pain; Z88.8 Allergy status to other drugs, medicaments and biological substances; Z60.2 Problems related to living alone; Z79.899 Other long term (current) drug therapy
CPT/HCPCS: 96372; 99283; J1170; A4217; A4663

== ENCOUNTER 2019-11-21 16:08 | Emergency (ER) | payer MEDICARE, OTHER ==
[~2019-11-21] VITALS: Ht 185.4 cm; Wt 64.9 kg
[2019-11-21] MEDS ORDERED: HYDROMORPHONE 1 MG/1 ML DISP.SYRIN ONE (16:30)
[2019-11-21] MEDS ORDERED: HYDROMORPHONE 1 MG/1 ML DISP.SYRIN IM ONE (16:30)
[2019-11-21] MEDS ORDERED: HYDROMORPHONE 2 MG/1 ML DISP.SYRIN ONE (16:30)
--- NOTE | 2019-11-21 17:06 | NUR ---
Patient discharged to home in stable conditon. Written and verbal after care instructions given. Patient verbalizes understanding of instructions.
== END 2019-11-21 17:00 | disposition home or self-care (01) ==
LOC: ER 16:10
DX: G89.29 Other chronic pain (principal); M54.2 Cervicalgia; M25.552 Pain in left hip; M25.551 Pain in right hip; F17.210 Nicotine dependence, cigarettes, uncomplicated; Z88.5 Allergy status to narcotic agent; Z88.8 Allergy status to other drugs, medicaments and biological substances; Z79.899 Other long term (current) drug therapy
CPT/HCPCS: 96372; 99283; J1170 ×2; A4663

== ENCOUNTER 2019-12-01 19:07 | Inpatient (IN) | payer OTHER, MEDICARE ==
[~2019-12-01] VITALS: Ht 185.4 cm; Wt 63.5 kg
--- NOTE | 2019-12-01 19:31 | NUR ---
Dr. Judge at bedside for MSE.
[2019-12-01] MEDS ORDERED: IV NORMAL SALINE 1000 ML BAG IV ONE (19:45)
--- NOTE | 2019-12-01 20:00 | NUR ---
Unable to start IV after 3 attempts, aware.
--- NOTE | 2019-12-01 20:05 | NUR ---
Xray at bedside.
--- NOTE | 2019-12-01 20:10 | NUR ---
IV normal saline not given due to no IV site.
[2019-12-01 20:24] LABS: BASOPHILS % (AUTO) 0.7 % (0.0-2.0); EOSINOPHILS # (AUTO) 0.2 K/uL (0.0-0.7); EOSINOPHILS % (AUTO) 2.2 % (0.0-7.0); HEMATOCRIT 31.9 % (36.7-47.1); HEMOGLOBIN 10.4 g/dL (12.5-16.3); LYMPHOCYTES # (AUTO) 1.3 K/uL (20.0-40.0); LYMPHOCYTES % (AUTO) 18.6 % (20.5-51.5); MEAN CORPUSCULAR HEMOGLOBIN 28.4 uug (23.8-33.4); MEAN CORPUSCULAR HGB CONC 33 g/dL (32.5-36.3); MEAN CORPUSCULAR VOLUME 86.6 fL (73.0-96.2); MONOCYTES # (AUTO) 0.8 K/uL (2.0-10.0); MONOCYTES % (AUTO) 11.7 % (0.0-11.0); NEUTROPHILS # (AUTO) 4.8 K/uL (1.8-8.9); NEUTROPHILS % (AUTO) 66.8 % (38.5-71.5); PLATELET COUNT (AUTO) 313 K/uL (152-348); RED BLOOD CELL COUNT(AUTO) 3.68 MIL/uL (4.06-5.63); WHITE BLOOD COUNT (AUTO) 7.1 K/uL (3.6-10.2)
[2019-12-01 20:29] LABS: CREATININE 1.8 mg/dL (0.6-1.3); POTASSIUM 4.1 mmol/L (3.5-5.1)
[2019-12-01 20:35] LABS: BILIRUBIN,DIRECT 0.1 mg/dL (0.0-0.2); BILIRUBIN,TOTAL 0.2 mg/dL (0.2-1.0); TOTAL PROTEIN, SERUM 8.2 g/dL (6.4-8.2)
--- NOTE | 2019-12-01 20:43 | NUR ---
Pt unable to provide urine sample at this time.
--- NOTE | 2019-12-01 20:55 | NUR ---
Note mellisa in [facility] - 12/01/19 at [address] Judge on panel call with Dr. Sage Tamayo. Patient accepted for admission to [facility], diagnosis: failure to thrive, intractable pain, and hemodynamic instability.
--- NOTE | 2019-12-01 21:04 | NUR ---
Dr. Judge on panel call with Dr. Sage Tamayo. Patient accepted for admission to [facility], diagnosis: failure to thrive, intractable pain, and hemodynamic instability.
[2019-12-01] MEDS ORDERED: ONDANSETRON 4 MG/2 ML VIAL IV PRN (21:15)
[2019-12-01] MEDS ORDERED: HYDROCODONE/APAP 10-325 MG TABLET PO PRN (21:15)
[2019-12-01] MEDS ORDERED: ACETAMINOPHEN 325 MG TABLET PO PRN (21:15)
--- NOTE | 2019-12-01 22:21 | NUR ---
Report given to Orin FANG Medsurg.
--- NOTE | 2019-12-01 22:40 | NUR ---
Pt transported to [facility], awaiting PICC line insertion.
[2019-12-01] MEDS: QUETIAPINE FUMARATE 200 MG TABLET PO SCH (23:18)
[2019-12-01] MEDS: PHENYTOIN SODIUM EXTENDED 100 MG CAPSULE.SA PO SCH (23:18)
[2019-12-01 23:30] VITALS: BP 146/86
[2019-12-02] MEDS ORDERED: CLONIDINE HCL 0.1 MG TABLET PO PRN (00:30)
--- NOTE | 2019-12-02 01:02 | NUR ---
Patient admitted to Med/surg. Dx: Pain,weakness. A/Ox4. No signs of acute distress noted. Patient has no IV access. PICC line is ordered. Patient ambulates with standby assist. SBP was elevated when first arrived 170-180s. Notified Dr. Cazares. However gave night medication and rechecked BP and was in 140s, but Dr. Cazares ordered Clonidine 0.1mg PRN for SBP >150. No open skin, dry skin on upper and lower extremities. Urine sample sent to lab. Patient oriented to room and unit. Safety measures initiated. Bed is low and locked, call light within reach.
[2019-12-02 01:04] LABS: *BILIRUBIN,URIN NEGATIVE (NEGATIVE); *BLOOD, URINE 2+ (NEGATIVE); *CLARITY,URINE CLOUDY (CLEAR); *COLOR,URINE YELLOW (YELLOW); *KETONES,URINE NEGATIVE (NEGATIVE); *UROBILINOGEN,URINE 0.2 E.U./dl (NORMAL); LEUKOCYTE ESTERASE ,URINE TRACE (NEGATIVE); NITRITE, URINE NEGATIVE (NEGATIVE); UGLUCOSE NEGATIVE (NEGATIVE)
--- NOTE | 2019-12-02 01:05 | NUR ---
Seizure precautions initiated
[2019-12-02 02:19] LABS: WBC,URINE 50-80 /HPF (0-3)
[2019-12-02 02:20] LABS: BACTERIA,URINE MANY /HPF (NONE SEEN); SQUAMOUS EPITHELIAL CELL,UR FEW /HPF (NONE SEEN)
--- NOTE | 2019-12-02 03:54 | NUR ---
Report given to ANNALISA Hillman for continuity of care. Patient is sleeping, no distress noted.
--- NOTE | 2019-12-02 04:00 | NUR ---
Patient received into care laying in bed sleeping. Patient has no s/s of acute distress or discomfort noted or observed by nurse. All safety, fall, and seizure precautions are in place. Call light and personal items are within reach. Will continue to monitor and assess.
[2019-12-02 04:23] VITALS: BP 151/79
[2019-12-02] MEDS: PANTOPRAZOLE SODIUM 40 MG TABLET.DR PO SCH (06:00)
--- NOTE | 2019-12-02 06:00 | NUR ---
Patient slept the remainder of the shift with no complaints of pain or discomfort. Blood pressure of 151/79 was addressed with prescribed catapres at 0.1mg. All safety, fall, and seizure precaution measures remain in place. Call light and personal items are within reach.
[2019-12-02 06:26] LABS: BILIRUBIN,TOTAL 0.2 mg/dL (0.2-1.0); CREATININE 1.5 mg/dL (0.6-1.3); MAGNESIUM 1.9 mg/dL (1.8-2.4); POTASSIUM 3.8 mmol/L (3.5-5.1); TOTAL PROTEIN, SERUM 7.3 g/dL (6.4-8.2)
[2019-12-02 06:33] LABS: THYROID STIMULATING HORMONE 2.679 mIU/mL (0.358-3.740)
[2019-12-02 06:35] LABS: BASOPHILS % (AUTO) 0.5 % (0.0-2.0); EOSINOPHILS # (AUTO) 0.2 K/uL (0.0-0.7); EOSINOPHILS % (AUTO) 3.7 % (0.0-7.0); HEMATOCRIT 30.4 % (36.7-47.1); HEMOGLOBIN 9.7 g/dL (12.5-16.3); LYMPHOCYTES # (AUTO) 1.6 K/uL (20.0-40.0); LYMPHOCYTES % (AUTO) 27.3 % (20.5-51.5); MEAN CORPUSCULAR HEMOGLOBIN 27.9 uug (23.8-33.4); MEAN CORPUSCULAR HGB CONC 32 g/dL (32.5-36.3); MEAN CORPUSCULAR VOLUME 87.2 fL (73.0-96.2); MONOCYTES % (AUTO) 16.7 % (0.0-11.0); NEUTROPHILS % (AUTO) 51.8 % (38.5-71.5); PLATELET COUNT (AUTO) 272 K/uL (152-348); RED BLOOD CELL COUNT(AUTO) 3.49 MIL/uL (4.06-5.63); WHITE BLOOD COUNT (AUTO) 5.8 K/uL (3.6-10.2)
--- NOTE | 2019-12-02 07:00 | NUR ---
Received patient in bed asleep but arousable by name. On room air with no SOB. No s/s of distress. Siderail pads in place for seizure precaution. Bed locked, in lowest position, [id number] up. Call light and personal belongings within reach. Will continue to monitor.
[2019-12-02 07:37] LABS: EOSINOPHILS % (MANUAL) 5 % (0-8); LYMPHOCYTES % (MANUAL) 23 % (20-40); MONOCYTES % (MANUAL) 14 % (2-10); NEUTROPHILS % (MANUAL) 58 % (42-75)
[2019-12-02 08:00] VITALS: BP 140/77
[2019-12-02] MEDS: AMLODIPINE 10 MG TABLET PO SCH (08:46)
[2019-12-02] MEDS: HYDROCHLOROTHIAZIDE 25 MG TABLET PO SCH (08:46)
--- NOTE | 2019-12-02 08:55 | NUR ---
Patient complained of 8/10 aching, chronic generalized pain but mostly on his back, [place] PRN given as ordered.
[2019-12-02] MEDS ORDERED: INFLUENZA VACCINE 2019-2020 0.5 ML DISP.SYRIN IM ONE (09:00)
--- NOTE | 2019-12-02 09:16 | NUR ---
Patient refused Flu vaccine since he received it last Jul 2019 in [place] per patient. Flu vaccine syringe given to pharmacy [facility].
[2019-12-02 12:00] VITALS: BP 135/86
[2019-12-02] MEDS ORDERED: CEFTRIAXONE 1 G in IV DEXTROSE 5% 50 ML IV SCH (12:00)
[2019-12-02] MEDS: ENSURE CLEAR 240 ML LIQUID (MIX BERRY) PO SCH ×2 (15:09→18:23)
[2019-12-02 16:00] VITALS: BP 146/99
--- NOTE | 2019-12-02 16:35 | NUR ---
Midline inserted on LORENZO 18g patent and flushing well. Patient tolerated well.
[2019-12-02] MEDS: CEFTRIAXONE 1 G in IV DEXTROSE 5% 50 ML IV SCH (17:23)
--- NOTE | 2019-12-02 19:07 | NUR ---
Patient in bed awake alert and watching TV. Wanted his dilaudid, will endorse to next shift nurse for administration. not in acute distress.
[2019-12-02] MEDS: HYDROMORPHONE 1 MG/1 ML DISP.SYRIN IV PRN (19:32)
[2019-12-02 20:00] VITALS: BP 154/81
--- NOTE | 2019-12-02 20:00 | NUR ---
AWAKE,ALERT COMPLAINED OF GENERALIZED PAIN,DILAUDID 1 MG GIVEN IV ,HAPPY,SNACKS GIVEN REQUESTED MARVIN CRACKERS RESTING COMFORTABLY
--- NOTE | 2019-12-02 20:00 | NUR ---
AWAKE ,FORGETFUL,FLAT AFFECT.WHEEZING,IV 12.5 ANTIBIOTIC INFUSING,NO MAIN IV INFUSING.CALLED DR LYNN FOR WHEEZING AND RESULT OF CHEST XRAY.ORDERS RECEIVED,HHN GIVEN INCONTINENT OF URINE
[2019-12-02] MEDS: QUETIAPINE FUMARATE 200 MG TABLET PO SCH (21:11)
[2019-12-02] MEDS: PHENYTOIN SODIUM EXTENDED 100 MG CAPSULE.SA PO SCH (21:11)
--- NOTE | 2019-12-02 23:40 | NUR ---
WRONG ASSESSMENT, PT SHOULD BE ON 315 Addendum: 12/02/19 at 2346 by ANNIE SOMMERS RN WRONG ASSESSMENT,PT NOTES SHOUL BE ON ROOM 315
--- NOTE | 2019-12-03 | NUR ---
MEDICATED FOR GENERALIZED PAIN,DILAUDID 1 MG GIVEN.SLEPT AFTER
--- NOTE | 2019-12-03 04:00 | NUR ---
AWAKE,MEDICATED FOR GENERALIZED PAIN DILAUDID 1 MG GIVEN. SLEPT AFTER.
[2019-12-03] MEDS: HYDROMORPHONE 1 MG/1 ML DISP.SYRIN IV PRN ×6 (04:16→22:20)
[2019-12-03 04:41] VITALS: BP 154/90
--- NOTE | 2019-12-03 05:08 | NUR ---
SLEPT AT LONG INTERVALS
[2019-12-03] MEDS: PANTOPRAZOLE SODIUM 40 MG TABLET.DR PO SCH (06:46)
[2019-12-03 07:11] LABS: BASOPHILS % (AUTO) 0.5 % (0.0-2.0); EOSINOPHILS # (AUTO) 0.2 K/uL (0.0-0.7); HEMATOCRIT 30.1 % (36.7-47.1); HEMOGLOBIN 9.8 g/dL (12.5-16.3); LYMPHOCYTES # (AUTO) 1.3 K/uL (20.0-40.0); LYMPHOCYTES % (AUTO) 24.9 % (20.5-51.5); MEAN CORPUSCULAR HEMOGLOBIN 28.3 uug (23.8-33.4); MEAN CORPUSCULAR HGB CONC 32 g/dL (32.5-36.3); MEAN CORPUSCULAR VOLUME 87.3 fL (73.0-96.2); MONOCYTES # (AUTO) 0.7 K/uL (2.0-10.0); MONOCYTES % (AUTO) 13.3 % (0.0-11.0); NEUTROPHILS # (AUTO) 3.1 K/uL (1.8-8.9); NEUTROPHILS % (AUTO) 57.3 % (38.5-71.5); PLATELET COUNT (AUTO) 278 K/uL (152-348); RED BLOOD CELL COUNT(AUTO) 3.45 MIL/uL (4.06-5.63); WHITE BLOOD COUNT (AUTO) 5.4 K/uL (3.6-10.2)
--- NOTE | 2019-12-03 07:20 | NUR ---
Received patient in bed alert, awake, and oriented. On room air with no complaints of SOB. Midline on right upper arm clean and intact. Bed locked, in lowest position, siderails 2x up, call light within reach. Not in acute distress.
[2019-12-03 07:25] LABS: BILIRUBIN,TOTAL 0.1 mg/dL (0.2-1.0); CREATININE 1.4 mg/dL (0.6-1.3); MAGNESIUM 1.9 mg/dL (1.8-2.4); PHOSPHOROUS 3.7 mg/dL (2.5-4.9); POTASSIUM 3.8 mmol/L (3.5-5.1); TOTAL PROTEIN, SERUM 7.2 g/dL (6.4-8.2)
[2019-12-03 08:00] VITALS: BP 148/90
[2019-12-03] MEDS: AMLODIPINE 10 MG TABLET PO SCH (08:54)
[2019-12-03] MEDS: HYDROCHLOROTHIAZIDE 25 MG TABLET PO SCH (08:55)
[2019-12-03] MEDS: ENSURE CLEAR 240 ML LIQUID (MIX BERRY) PO SCH ×2 (09:25→17:52)
[2019-12-03 12:00] VITALS: BP 150/93
[2019-12-03] MEDS: METOPROLOL TARTRATE 25 MG TABLET PO SCH ×2 (12:15→21:05)
[2019-12-03] MEDS: CEFTRIAXONE 1 G in IV DEXTROSE 5% 50 ML IV SCH (17:52)
--- NOTE | 2019-12-03 17:53 | NUR ---
Patient has been complaining 9/10 aching and sharp pain on his lower back and generalized weakness. Been asking for Dilaudid, given PRN as ordered. Patient stating relief of pain to 5/10 after medication.
--- NOTE | 2019-12-03 19:30 | NUR ---
Endorsed to certified nutritionist nurse. Patient watching TV, alert and oriented. No complaints of SOB and not in acute distress.
[2019-12-03 20:00] VITALS: BP 136/90
--- NOTE | 2019-12-03 20:00 | NUR ---
awake alertx3 in no acute distress no complaints made,anticipating for 10pm pain shot, watching tv
[2019-12-03] MEDS: QUETIAPINE FUMARATE 200 MG TABLET PO SCH (21:02)
[2019-12-03] MEDS: PHENYTOIN SODIUM EXTENDED 100 MG CAPSULE.SA PO SCH (21:03)
[2019-12-04] MEDS: HYDROMORPHONE 1 MG/1 ML DISP.SYRIN IV PRN ×6 (02:46→23:02)
[2019-12-04 04:18] VITALS: BP 140/80
--- NOTE | 2019-12-04 06:05 | NUR ---
SLEPT AT LONG INTERVALS
[2019-12-04] MEDS: PANTOPRAZOLE SODIUM 40 MG TABLET.DR PO SCH (06:14)
--- NOTE | 2019-12-04 07:20 | NUR ---
Received patient in bed asleep arousable by name. On room air with no SOB. Midline on right upper arm clean, intact and patent. Bed locked in lowest postition, padded siderails 2x up for seizure precaution. No complaints of headache, blurred vision or dizziness. Call light within reach. Will continue to monitor
[2019-12-04 08:00] VITALS: BP 132/84
[2019-12-04] MEDS: AMLODIPINE 10 MG TABLET PO SCH (08:50)
[2019-12-04] MEDS: METOPROLOL TARTRATE 25 MG TABLET PO SCH ×2 (08:50→20:16)
[2019-12-04] MEDS: ENSURE CLEAR 240 ML LIQUID (MIX BERRY) PO SCH ×2 (08:51→17:26)
--- NOTE | 2019-12-04 10:00 | NUR ---
Offered to clean patient, bed bath, oral care and changed linens. But patient refused, stated it's clean and was changed the day prior. Patient prefer to do ADLs himself.
[2019-12-04] MEDS ORDERED: MEROPENEM 1 G in IV NORMAL SALINE 100 ML IV SCH (11:45)
[2019-12-04 12:00] VITALS: BP 134/86
[2019-12-04] MEDS: ACIDOPHILUS/BULGARICUS CHEW TAB PO SCH ×2 (12:11→20:15)
[2019-12-04] MEDS: MEROPENEM 1 G in IV NORMAL SALINE 100 ML IV SCH ×2 (12:11→23:03)
[2019-12-04 16:00] VITALS: BP 149/98
--- NOTE | 2019-12-04 17:45 | NUR ---
Patient still refused PM care and stated he will take a shower right before he gets discharged. Able to convince to change gown, pants and blankets. Did not want the bed sheets changed. Asked for razor and shaving cream but prefers to do it later at night. Informed patient that he needs to do oral care too but stated he will do everything later at night. Educated on the need and importance of proper hygiene, verbalized understanding. Hygiene materials all placed in the bathroom, pt aware. Informed him to call before getting out of bed. Verbalized understanding.
--- NOTE | 2019-12-04 19:00 | NUR ---
Patient assisted to bathroom and made a BM. Stool was brown, formed. Patient shaved while in the bathroom. Changed clean bedsheets. Patient able to walk but with unsteady gait, needs minimal assistance.
--- NOTE | 2019-12-04 19:11 | NUR ---
Endorsed to shiftman nurse Mi, and introduced to patient. Patient in bed alert awake oriented. Bed locked in lowest position with padded siderails 2x up. No acute distress.
--- NOTE | 2019-12-04 19:25 | NUR ---
RECEIVED PT AWAKE, ALERT AND ORIENTEDX4. PT IN NO ACUTE DISTRESS. SAFETY AND COMFORT PROVIDED. WILL CONTINUE TO MONITOR.
[2019-12-04 20:03] VITALS: BP 136/93
[2019-12-04] MEDS: PHENYTOIN SODIUM EXTENDED 100 MG CAPSULE.SA PO SCH (20:15)
[2019-12-04] MEDS: QUETIAPINE FUMARATE 200 MG TABLET PO SCH (20:16)
[2019-12-05] MEDS: HYDROMORPHONE 1 MG/1 ML DISP.SYRIN IV PRN ×2 (03:01→07:03)
[2019-12-05 05:51] VITALS: BP 127/85
--- NOTE | 2019-12-05 06:10 | NUR ---
PT SLEPT INTERMITTENTLY. PT IN NO ACUTE DISTRESS. PRESCRIBED MEDICATION GIVEN AND PT TOLERATED IT WELL. PT GIVEN 2302H AND 0301H DILAUDID FOR 8/10 GENERALIZED PAIN. PT TOLERATED IT WELL. SAFETY AND COMFORT PROVIDED. ALL NEEDS ARE MET. WILL ENDORSE TO INCOMING NURSE FOR CONTINUITY OF CARE.
[2019-12-05] MEDS: PANTOPRAZOLE SODIUM 40 MG TABLET.DR PO SCH (06:15)
--- NOTE | 2019-12-05 07:03 | NUR ---
PT GIVEN 0703H DILAUDID . PT TOLERATED IT WELL. SAFETY AND COMFORT PROVIDED. WILL ENDORSE TO INCOMING NURSE.
[2019-12-05] MEDS: ENSURE CLEAR 240 ML LIQUID (MIX BERRY) PO SCH (08:45)
[2019-12-05 08:59] LABS: CREATININE 1.2 mg/dL (0.6-1.3)
[2019-12-05] MEDS: METOPROLOL TARTRATE 25 MG TABLET PO SCH (09:09)
[2019-12-05] MEDS: ACIDOPHILUS/BULGARICUS CHEW TAB PO SCH (09:09)
[2019-12-05] MEDS: AMLODIPINE 10 MG TABLET PO SCH (09:09)
[2019-12-05] MEDS: MEROPENEM 1 G in IV NORMAL SALINE 100 ML IV SCH (12:00)
[2019-12-05 12:24] VITALS: BP 152/94
--- NOTE | 2019-12-05 13:50 | NUR ---
PATIENT LEFT VIA AMBULANCE IN STABLE CONDITION AND STABLE VITAL SIGNS TO [facility] ; PATIENT MEDICATION COMPLIANT; REPORT GIVEN TO RN AT FACILITY. PATIENT LEFT WITH ALL BELONGINGS.
[2019-12-06 05:06] LABS: A/G RATIO 0.5 (0.7-1.7); ALBUMIN 2.2 g/dL (2.9-4.4); ALPHA-1-GLOBULIN 0.3 g/dL (0.0-0.4); BETA GLOBULIN 0.8 g/dL (0.7-1.3); GAMMA GLOBULIN 2.2 g/dL (0.4-1.8); GLOBULIN, TOTAL 4.2 g/dL (2.2-3.9); M-SPIKE 0.5 g/dL (Not Observed)
== END 2019-12-05 13:50 | DRG 463 ==
LOC: ER 19:13 → MEDSURG3 22:25
PROVIDERS: ADMIT Internal Medicine; ATTEND Internal Medicine
PROC: 05H933Z Insertion of Infusion Device into Right Brachial Vein, Percutaneous Approach (ICD-10-PCS; principal; 2019-12-02)
PROC: 05H533Z Insertion of Infusion Device into Right Subclavian Vein, Percutaneous Approach (ICD-10-PCS; principal; 2019-12-02)
DX: N39.0 Urinary tract infection, site not specified (principal); N17.0 Acute kidney failure with tubular necrosis; E43 Unspecified severe protein-calorie malnutrition; G93.89 Other specified disorders of brain; I50.42 Chronic combined systolic (congestive) and diastolic (congestive) heart failure; I11.0 Hypertensive heart disease with heart failure; K76.89 Other specified diseases of liver; F20.0 Paranoid schizophrenia; M48.02 Spinal stenosis, cervical region; D50.9 Iron deficiency anemia, unspecified; G40.909 Epilepsy, unspecified, not intractable, without status epilepticus; G89.29 Other chronic pain; R62.7 Adult failure to thrive; Z95.2 Presence of prosthetic heart valve; Z96.643 Presence of artificial hip joint, bilateral; B96.20 Unspecified Escherichia coli [E. coli] as the cause of diseases classified elsewhere; Z16.12 Extended spectrum beta lactamase (ESBL) resistance; F17.210 Nicotine dependence, cigarettes, uncomplicated; I25.2 Old myocardial infarction; R73.03 Prediabetes; Z98.1 Arthrodesis status; R53.1 Weakness; Z86.19 Personal history of other infectious and parasitic diseases; M19.90 Unspecified osteoarthritis, unspecified site; Z68.1 Body mass index [BMI] 19.9 or less, adult; D63.8 Anemia in other chronic diseases classified elsewhere; F19.11 Other psychoactive substance abuse, in remission; Z91.14 Patient's other noncompliance with medication regimen; N20.0 Calculus of kidney; F10.11 Alcohol abuse, in remission; M54.10 Radiculopathy, site unspecified; Z59.0 Homelessness
CPT/HCPCS: 36415; 70030-TC; 71045; 72125; 72131; 76770; 82378; 83550; 83690; 83735; 83970; 84100; 84153; 84155; 84165; 84443; 85025; 85730; 87077; 87086; 87400; 90686; 93005; A4663; G0378; J0696; J1170; J2185; J3490; J7030; J7050; J7060

== ENCOUNTER 2020-02-08 07:44 | Emergency (ER) | payer MEDICARE, OTHER ==
[~2020-02-08] VITALS: Ht 185.4 cm; Wt 68.0 kg
[~2020-02-08 07:44] MED LIST changes: +ACET325T53 PO; +ACID1TAB4 PO; +ASPI-618 PO; +CLON0.1T14 PO; +FAMO-132 PO; -HYDR25TA4 PO; +HYDR2TAB4 PO; +LACT296L PO; +METO25TA6 PO; +MULT-594 PO; +NITR100C11 PO
--- NOTE | 2020-02-08 08:11 | NUR ---
Dr. Leon at bedside for MSE
[2020-02-08] MEDS ORDERED: IV NORMAL SALINE 1000 ML BAG IV ONE ×2 (08:15)
--- NOTE | 2020-02-08 08:55 | NUR ---
Patient taken to CT scan in stable condition
[2020-02-08 09:01] LABS: BASOPHILS # (AUTO) 0.1 K/uL (0.0-8.0); BASOPHILS % (AUTO) 0.7 % (0.0-2.0); EOSINOPHILS # (AUTO) 0.1 K/uL (0.0-0.7); EOSINOPHILS % (AUTO) 1.3 % (0.0-7.0); HEMATOCRIT 39.2 % (36.7-47.1); HEMOGLOBIN 12.9 g/dL (12.5-16.3); LYMPHOCYTES # (AUTO) 1.3 K/uL (20.0-40.0); MEAN CORPUSCULAR HEMOGLOBIN 28.4 uug (23.8-33.4); MEAN CORPUSCULAR HGB CONC 33 g/dL (32.5-36.3); MEAN CORPUSCULAR VOLUME 86.3 fL (73.0-96.2); MONOCYTES # (AUTO) 1.3 K/uL (2.0-10.0); MONOCYTES % (AUTO) 11.6 % (0.0-11.0); NEUTROPHILS # (AUTO) 8.2 K/uL (1.8-8.9); NEUTROPHILS % (AUTO) 74.4 % (38.5-71.5); PLATELET COUNT (AUTO) 303 K/uL (152-348); RED BLOOD CELL COUNT(AUTO) 4.54 MIL/uL (4.06-5.63)
--- NOTE | 2020-02-08 09:04 | NUR ---
Patient back from CT scan
[2020-02-08 09:11] LABS: CREATININE 1.6 mg/dL (0.6-1.3); POTASSIUM 3.8 mmol/L (3.5-5.1)
[2020-02-08 09:17] LABS: BILIRUBIN,DIRECT 0.1 mg/dL (0.0-0.2); BILIRUBIN,TOTAL 0.2 mg/dL (0.2-1.0)
[2020-02-08 10:28] VITALS: BP 158/79
--- NOTE | 2020-02-08 10:29 | NUR ---
Patient given written and verbal discharge instructions. Patient verbalizes understanding of instructions. Patient is ambulatory with steady gait. Refuses offer of jail placement. Patient given list of available shelters in surrounding area.
== END 2020-02-08 10:31 | disposition home or self-care (01) ==
LOC: ER 07:44
DX: S09.90XA Unspecified injury of head, initial encounter (principal); S13.9XXA Sprain of joints and ligaments of unspecified parts of neck, initial encounter; W01.0XXA Fall on same level from slipping, tripping and stumbling without subsequent striking against object, initial encounter; Y92.89 Other specified places as the place of occurrence of the external cause; E86.0 Dehydration; G89.29 Other chronic pain; G40.909 Epilepsy, unspecified, not intractable, without status epilepticus; Z95.2 Presence of prosthetic heart valve; R94.31 Abnormal electrocardiogram [ECG] [EKG]; I10 Essential (primary) hypertension; Z98.1 Arthrodesis status; F17.210 Nicotine dependence, cigarettes, uncomplicated; Z79.82 Long term (current) use of aspirin; Z79.899 Other long term (current) drug therapy; N28.9 Disorder of kidney and ureter, unspecified
CPT/HCPCS: 36415; 70030-TC; 70450; 72125; 85025; 93005; A4663; J7030

== ENCOUNTER 2020-03-04 19:21 | Emergency (ER) | payer MEDICARE, OTHER ==
[~2020-03-04] VITALS: Ht 185.4 cm; Wt 68.0 kg
[2020-03-04] MEDS ORDERED: HYDROMORPHONE 2 MG/1 ML DISP.SYRIN ONE (19:41)
[2020-03-04] MEDS ORDERED: HYDROMORPHONE 1 MG/1 ML DISP.SYRIN ONE (19:42)
[2020-03-04] MEDS ORDERED: HYDROMORPHONE 1 MG/1 ML DISP.SYRIN IM ONE (19:45)
--- NOTE | 2020-03-04 19:50 | NUR ---
Patient discharged to home in stable condition. Written and verbal after care instructions given. Patient verbalizes understanding of instructions. Stressed follow up or return to ER for worsening s/s.
[2020-03-04 19:51] VITALS: BP 167/107
== END 2020-03-04 19:51 | disposition home or self-care (01) ==
LOC: ER 19:26
DX: G89.29 Other chronic pain (principal); M54.2 Cervicalgia; M25.559 Pain in unspecified hip; G40.909 Epilepsy, unspecified, not intractable, without status epilepticus; I10 Essential (primary) hypertension; Z95.2 Presence of prosthetic heart valve; Z96.643 Presence of artificial hip joint, bilateral; Z98.1 Arthrodesis status; F17.210 Nicotine dependence, cigarettes, uncomplicated
CPT/HCPCS: 96372; 99283; J1170 ×2; A4663

== ENCOUNTER 2020-03-10 19:13 | Emergency (ER) | payer MEDICARE, OTHER ==
[~2020-03-10] VITALS: Ht 185.4 cm; Wt 67.6 kg
--- NOTE | 2020-03-10 19:23 | NUR ---
ERMD in room for MSE
[2020-03-10] MEDS ORDERED: HYDROMORPHONE 1 MG/1 ML DISP.SYRIN ONE (19:30)
[2020-03-10] MEDS ORDERED: HYDROMORPHONE 1 MG/1 ML DISP.SYRIN IM ONE (19:30)
[2020-03-10] MEDS ORDERED: HYDROMORPHONE 1 MG/1 ML DISP.SYRIN IV ONE (19:30)
[2020-03-10] MEDS ORDERED: HYDROMORPHONE 2 MG/1 ML DISP.SYRIN ONE (19:30)
--- NOTE | 2020-03-10 19:35 | NUR ---
Patient requested for medication to be administered through PICC line. ERMD made aware and will change order route.
--- NOTE | 2020-03-10 19:36 | NUR ---
Patient discharged to home in stable condition. Written and verbal after care instructions given. Patient verbalizes understanding of instructions. Stressed follow up or return to ER for worsening s/s. Denies any homelessness as of right now, states that he stays in a facility currently. Patient will not be driving, and will be taking a public transportation back.
[2020-03-10 19:37] VITALS: BP 150/98
== END 2020-03-10 19:37 | disposition home or self-care (01) ==
LOC: ER 19:19
DX: G89.21 Chronic pain due to trauma (principal); M25.551 Pain in right hip; M54.2 Cervicalgia; G40.909 Epilepsy, unspecified, not intractable, without status epilepticus; Z95.2 Presence of prosthetic heart valve; Z96.643 Presence of artificial hip joint, bilateral; Z98.1 Arthrodesis status; I10 Essential (primary) hypertension; Z88.4 Allergy status to anesthetic agent; F17.210 Nicotine dependence, cigarettes, uncomplicated
CPT/HCPCS: 96374; 99283; J1170 ×2; A4663

== ENCOUNTER 2020-05-18 11:23 | Emergency (ER) | payer MEDICARE, OTHER ==
[~2020-05-18] VITALS: Ht 185.4 cm; Wt 67.1 kg
[2020-05-18] MEDS ORDERED: HYDROMORPHONE 1 MG/1 ML DISP.SYRIN IM ONE (12:00)
[2020-05-18] MEDS ORDERED: HYDROMORPHONE 1 MG/1 ML DISP.SYRIN ONE (12:09)
[2020-05-18] MEDS ORDERED: HYDROMORPHONE 2 MG/1 ML DISP.SYRIN ONE (12:09)
--- NOTE | 2020-05-18 12:10 | NUR ---
Admin Dilaudid left gluteal. Gave pt RX and d/c instructions, pt verbalized understanding. Pt advised not to drive.
== END 2020-05-18 12:24 | disposition home or self-care (01) ==
LOC: ER 11:23
DX: G89.29 Other chronic pain (principal); M54.5 Low back pain; Z76.0 Encounter for issue of repeat prescription; Z88.6 Allergy status to analgesic agent; Z88.8 Allergy status to other drugs, medicaments and biological substances; Z95.2 Presence of prosthetic heart valve; Z96.643 Presence of artificial hip joint, bilateral; G40.909 Epilepsy, unspecified, not intractable, without status epilepticus; F17.210 Nicotine dependence, cigarettes, uncomplicated; F20.9 Schizophrenia, unspecified; I10 Essential (primary) hypertension
CPT/HCPCS: 96372; 99283; J1170 ×2; A4663

== ENCOUNTER 2020-06-11 10:47 | Emergency (ER) | payer MEDICARE, OTHER ==
[~2020-06-11] VITALS: Ht 188 cm; Wt 63.5 kg
[2020-06-11] MEDS ORDERED: HYDROMORPHONE 1 MG/1 ML DISP.SYRIN IM ONE (11:00)
[2020-06-11] MEDS ORDERED: HYDROMORPHONE 2 MG/1 ML DISP.SYRIN ONE (11:06)
[2020-06-11] MEDS ORDERED: HYDROMORPHONE 1 MG/1 ML DISP.SYRIN ONE (11:07)
[2020-06-11 11:10] VITALS: BP 136/79
== END 2020-06-11 11:10 | disposition home or self-care (01) ==
LOC: ER 10:47
DX: Z76.0 Encounter for issue of repeat prescription (principal); G89.29 Other chronic pain; F20.9 Schizophrenia, unspecified; M54.9 Dorsalgia, unspecified; Z88.6 Allergy status to analgesic agent; Z88.5 Allergy status to narcotic agent; Z88.8 Allergy status to other drugs, medicaments and biological substances; G40.909 Epilepsy, unspecified, not intractable, without status epilepticus; I10 Essential (primary) hypertension; Z95.2 Presence of prosthetic heart valve; Z96.643 Presence of artificial hip joint, bilateral; Z79.899 Other long term (current) drug therapy; F17.210 Nicotine dependence, cigarettes, uncomplicated
CPT/HCPCS: 96372; 99283; J1170 ×2; A4663

== ENCOUNTER 2020-06-25 11:49 | Emergency (ER) | payer MEDICARE, OTHER ==
[~2020-06-25] VITALS: Ht 182.9 cm; Wt 521.2 kg
--- NOTE | 2020-06-25 12:08 | NUR ---
PT IS IN ROOM #2A. DR ALBARRAN eVALUATED THE PT.
[2020-06-25] MEDS ORDERED: LIDOCAINE HCL 1% 20 ML VIAL IJ ONE (12:15)
--- NOTE | 2020-06-25 14:29 | NUR ---
Roofing Subcontractor Consultation: 12:20pm: This SW was called by ED NANALISA Brenner, who was requesting a manager social consultation. Reason for consultation was potential homelessness. SW arrived to the ED and met with ANNALISA Brenner and Dr. Wang. This SW and ED ANNALISA Brenner and Dr. Wang discussed patient's psychosocial needs, however there was some uncertainty of patient's needs. SW then met with patient. Patient is a 65 year old -[place] male. Patient is alert, oriented, receptive to meeting with this SW. Patient reports that he took the bus and came to the ED for a leg abscess. Patient reports that he lives in a sober living home, located at [address] [place] [address]. Patient's phone number is [phone]. Patient denied being homeless. SW explored patient's psychosocial needs, however patient stated that he did not have any questions or concerns at this time. Discharge plans discussed, and patient stated that he would be returning back to his sober living home. Transportation discussed, and patient stated that he would take the bus to return home. Patient was pleasant, engaged in dialogue with this SW, and maintained appropriate eye contact throughout the interview. Patient's affect and behavior were WNL. No hallucinations or delusions reported or observed. Patient's speech was clear, thought process and thought content were appropriate. No SS interventions needed at this time, however SW will remain available, if needed. SW informed ANNALISA Brenner and Dr. Wang of above.
== END 2020-06-25 13:50 | disposition home or self-care (01) ==
LOC: ER 11:49
DX: L02.415 Cutaneous abscess of right lower limb (principal); Z59.0 Homelessness; F17.200 Nicotine dependence, unspecified, uncomplicated; F20.9 Schizophrenia, unspecified; G89.29 Other chronic pain; G40.909 Epilepsy, unspecified, not intractable, without status epilepticus; I10 Essential (primary) hypertension; Z95.2 Presence of prosthetic heart valve; Z88.5 Allergy status to narcotic agent; Z88.8 Allergy status to other drugs, medicaments and biological substances; Z98.1 Arthrodesis status
CPT/HCPCS: 10060; 76882; 99284; J3490; A4217; A4663

== ENCOUNTER 2020-06-27 11:32 | Inpatient (IN) | payer MEDICARE, OTHER ==
[~2020-06-27] VITALS: Ht 188 cm; Wt 68.0 kg
[2020-06-27] MEDS ORDERED: NEOMY/BACITRA/POLYMYXIN B OINT UD PACKET TP ONE (11:58)
[2020-06-27] MEDS ORDERED: MUPIROCIN 2% OINT 22 GM TUBE ONE (11:59)
[2020-06-27] MEDS ORDERED: MUPIROCIN 2% OINT 22 GM TUBE TP ONE (12:00)
--- NOTE | 2020-06-27 12:00 | NUR ---
DR Salinas at the bedside for MSE.
--- NOTE | 2020-06-27 13:53 | NUR ---
PATIENT IS SITTING UP WATCHING TV IN NO DISTRESS. AWAITING TEST RESULTS
[2020-06-27 14:15] LABS: BASOPHILS % (AUTO) 0.1 % (0.0-2.0); EOSINOPHILS # (AUTO) 0.1 K/uL (0.0-0.7); EOSINOPHILS % (AUTO) 0.6 % (0.0-7.0); HEMATOCRIT 33.6 % (36.7-47.1); HEMOGLOBIN 10.8 g/dL (12.5-16.3); LYMPHOCYTES # (AUTO) 0.8 K/uL (20.0-40.0); LYMPHOCYTES % (AUTO) 7.6 % (20.5-51.5); MEAN CORPUSCULAR HEMOGLOBIN 27.8 uug (23.8-33.4); MEAN CORPUSCULAR HGB CONC 32 g/dL (32.5-36.3); MEAN CORPUSCULAR VOLUME 86.5 fL (73.0-96.2); MONOCYTES # (AUTO) 1.4 K/uL (2.0-10.0); MONOCYTES % (AUTO) 12.6 % (0.0-11.0); NEUTROPHILS # (AUTO) 8.7 K/uL (1.8-8.9); NEUTROPHILS % (AUTO) 79.1 % (38.5-71.5); PLATELET COUNT (AUTO) 240 K/uL (152-348); RED BLOOD CELL COUNT(AUTO) 3.88 MIL/uL (4.06-5.63)
[2020-06-27] MEDS ORDERED: IOHEXOL 300MG/ML 100 ML INFUS..BTL ONE (14:18)
[2020-06-27] MEDS ORDERED: SWABABLE VALVE TRANSFER SET EA MC ONE (14:18)
[2020-06-27] MEDS ORDERED: IV NORMAL SALINE 250 ML IV ONE (14:18)
[2020-06-27 14:23] LABS: CREATININE 2.4 mg/dL (0.6-1.3); POTASSIUM 3.9 mmol/L (3.5-5.1)
[2020-06-27] MEDS ORDERED: IV NORMAL SALINE 1000 ML BAG IV ONE (15:00)
[2020-06-27] MEDS ORDERED: HYDR25TA4 PO (15:28)
[2020-06-27] MEDS ORDERED: HYDR-4354 PO (15:28)
--- NOTE | 2020-06-27 15:53 | NUR ---
covid swab sent to lab
--- NOTE | 2020-06-27 16:03 | NUR ---
[facility] AUTHORIZATION NUMBER [id number] inpatient medical/surgical
[2020-06-27] MEDS ORDERED: ONDANSETRON 4 MG/2 ML VIAL IV PRN (17:00)
[2020-06-27] MEDS ORDERED: ACETAMINOPHEN 325 MG TABLET PO PRN ×2 (17:00)
[2020-06-27] MEDS ORDERED: Z GUARD REMEDY PASTE 57 GM TUBE TOP PRN (17:00)
--- NOTE | 2020-06-27 17:54 | NUR ---
PATIENT IS SITTING UP EATING DINNER WITH NO COMPLAINTS. AWAITING COVID RESULTS TO ADMIT TO FLOOR
--- NOTE | 2020-06-27 19:15 | NUR ---
HAND OFF REPORT GIVEN TO CARINA FANG
--- NOTE | 2020-06-27 19:46 | NUR ---
Pt. admitted to Med/Surg, under care of Dr. Bertha Alas. Diagnosis: Abscess. Belongs List completed.
--- NOTE | 2020-06-27 19:50 | NUR ---
Report received from Nidia FANG in ER. All questions answered
--- NOTE | 2020-06-27 19:58 | NUR ---
Patient arrived on unit. Patient is ambulatory and AOx4. All belongings identified and listed. Admission assessment complete. Bed is locked and in lowest position. Will continue to monitor/.
[2020-06-27 20:35] VITALS: BP 123/74
[2020-06-27] MEDS: PHENYTOIN SODIUM EXTENDED 100 MG CAPSULE.SA PO SCH (20:49)
[2020-06-27] MEDS: QUETIAPINE FUMARATE 200 MG TABLET PO SCH (20:49)
[2020-06-27] MEDS: CLINDAMYCIN PHOSPHATE IV 900 MG in IV DEXTROSE 5% 100 ML IV SCH (21:00)
[2020-06-27] MEDS ORDERED: METRONIDAZOLE 500 MG/NS 100ML 500 MG in PREMIXED 1 EACH IV SCH (22:00)
[2020-06-28 04:04] VITALS: BP 123/74
[2020-06-28] MEDS: CLINDAMYCIN PHOSPHATE IV 900 MG in IV DEXTROSE 5% 100 ML IV SCH ×3 (05:18→21:00)
[2020-06-28] MEDS: IV NS 1000 ML 1,000 ML IV PRN (05:20)
--- NOTE | 2020-06-28 06:30 | NUR ---
Patient slept throughout the night with no complaints. Showed no s/s of respiratory distress or chest pain. Bed in lowest position and locked with side rails up X 3. Call light is within reach. Will endorse to oncoming nurse. Addendum: 06/28/20 at 0631 by MARION BOWEN RN side rails up X 2
[2020-06-28] MEDS: PANTOPRAZOLE SODIUM 40 MG TABLET.DR PO SCH (06:35)
[2020-06-28 06:47] LABS: BASOPHILS % (AUTO) 0.2 % (0.0-2.0); EOSINOPHILS # (AUTO) 0.2 K/uL (0.0-0.7); EOSINOPHILS % (AUTO) 2.2 % (0.0-7.0); HEMATOCRIT 29.4 % (36.7-47.1); HEMOGLOBIN 9.9 g/dL (12.5-16.3); LYMPHOCYTES % (AUTO) 12.1 % (20.5-51.5); MEAN CORPUSCULAR HEMOGLOBIN 28.8 uug (23.8-33.4); MEAN CORPUSCULAR HGB CONC 34 g/dL (32.5-36.3); MEAN CORPUSCULAR VOLUME 85.8 fL (73.0-96.2); MONOCYTES # (AUTO) 1.1 K/uL (2.0-10.0); MONOCYTES % (AUTO) 13.9 % (0.0-11.0); NEUTROPHILS # (AUTO) 5.7 K/uL (1.8-8.9); NEUTROPHILS % (AUTO) 71.6 % (38.5-71.5); PLATELET COUNT (AUTO) 220 K/uL (152-348); RED BLOOD CELL COUNT(AUTO) 3.42 MIL/uL (4.06-5.63)
[2020-06-28 06:52] LABS: MAGNESIUM 1.6 mg/dL (1.8-2.4); PHENYTOIN (DILANTIN) 3.9 ug/mL (10.0-20.0); PHOSPHOROUS 2.7 mg/dL (2.5-4.9); POTASSIUM 3.3 mmol/L (3.5-5.1)
[2020-06-28 07:01] LABS: THYROID STIMULATING HORMONE 1.939 mIU/mL (0.358-3.740)
[2020-06-28] MEDS: MULTIVITAMINS,THERAPEUTIC TABLET PO SCH (08:05)
[2020-06-28] MEDS: NICOTINE 14 MG/24HR PATCH TD SCH (08:05)
[2020-06-28] MEDS: HYDROCODONE/APAP 5-325MG TABLET PO PRN (08:06)
[2020-06-28] MEDS: HYDROCHLOROTHIAZIDE 25 MG TABLET PO SCH (08:10)
--- NOTE | 2020-06-28 08:30 | NUR ---
RECEIVED PATIENT AWAKE, ALERT IN BED, ORIENTED X 3-4. VSS. NOTED RIGHT LOWER EXTREMITY DRESSING S/P I&D 2 DAYS AGO. DRESSING DRY AND INTACT. NOTED LEFT UPPER EXTREMITY PAIN. PROVIDED PAIN MEDICATION. CONTINENT OF B/B. ABLE TO AMBULATE TO THE BATHROOM SBA AND USES A URINAL. NO S/S OF SOB OR DISTRESS NOTED AT THIS TIME. SAFETY PRECAUTIONS IN PLACE.
[2020-06-28] MEDS ORDERED: AMLODIPINE 10 MG TABLET PO SCH (09:00)
--- NOTE | 2020-06-28 09:30 | NUR ---
ATTEMPTED TO RESTART IV SITE. MIDLINE RN CONTACTED.
[2020-06-28] MEDS ORDERED: MAGNESIUM SULFATE/D5W 100 ML IV SCH (11:15)
[2020-06-28] MEDS ORDERED: POTASSIUM CHLORIDE 10 MEQ TAB.PRT.SR PO ONE (11:15)
[2020-06-28 11:53] VITALS: BP 127/79
[2020-06-28] MEDS: HYDROCODONE/APAP 10-325 MG TABLET PO PRN ×2 (12:22→17:46)
--- NOTE | 2020-06-28 12:54 | NUR ---
SW NOTE: SW received a consultation for this 65 year old male with a history of substance abuse. Upon hospice social worker evaluation, patient presents alert and oriented times 4. Patient presents with appropriate mood and flat affect. Patient stated that he relapsed on alcohol due to feeling depressed and anxious. Patient elaborated that he felt depressed recently due to, "thinking about how I didn't make it in life". 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 Patient shared that he has been living at [facility] for 15 years and has had several relapses. Patient stated that he takes Seroquel for his depression for over 25 years and it does help him. Patient shared that he is close with his sister, Toya and they occasionally talk on the phone. Patient did not express any additional concerns at this time. SW asked patient if he would like additional resources for substance abuse and patient agreed. SW provided patient with the following substance abuse programs: [facility] Self-helpl[facility] ([phone]); [facility] [address] [place] [address] ([phone]); [address] [address] ([phone]); [facility] ([phone]); [facility] ([phone]); [facility] ([phone]); [facility] ([phone]). SW will continue to remain available to the patient as needed.
[2020-06-28 14:07] LABS: *BILIRUBIN,URIN NEGATIVE (NEGATIVE); *BLOOD, URINE 1+ (NEGATIVE); *CLARITY,URINE CLEAR (CLEAR); *COLOR,URINE YELLOW (YELLOW); *KETONES,URINE NEGATIVE (NEGATIVE); LEUKOCYTE ESTERASE ,URINE NEGATIVE (NEGATIVE); NITRITE, URINE NEGATIVE (NEGATIVE); UGLUCOSE NEGATIVE (NEGATIVE)
[2020-06-28 14:30] LABS: *URINE TOTAL PROTEIN RANDOM 104.6 mg/dL (<150/24HR)
--- NOTE | 2020-06-28 15:33 | NUR ---
midline placement done at bedside. RA gauze 18
[2020-06-28 15:56] VITALS: BP 119/81
--- NOTE | 2020-06-28 16:39 | NUR ---
CONTINUE IV ANTIBIOTIC NO SS OF ALLERGY REACTION
--- NOTE | 2020-06-28 17:50 | NUR ---
PATIENT COMPLAINS OF PAIN. OFFERED NORCO-10 ORDERED. PATIENT REFUSED AFTER MEDICATION WAS ALREADY OPENED. MEDICATION WASTED PER PROTOCOL.
--- NOTE | 2020-06-28 18:00 | NUR ---
PATIENT REQUEST ANOTHER PAIN MEDICATION. PATIENT STATES, "THIS PILL ISN'T WORKING AT ALL. IT DOESN'T HELP WITH THE PAIN." PATIENT STATES THAT HE TOOK DILAUDID DURING PREVIOUS ADMISSIONS. NOTIFIED.
[2020-06-28 18:16] LABS: BACTERIA,URINE RARE /HPF (NONE SEEN); SQUAMOUS EPITHELIAL CELL,UR FEW /HPF (NONE SEEN)
--- NOTE | 2020-06-28 18:21 | NUR ---
NPO POST MN ADVISED FOR I&D LUE BY DR ARGUETA. CONSENT SINGED
--- NOTE | 2020-06-28 19:45 | NUR ---
PATIENT ALERT OIRE Addendum: 06/29/20 at 0643 by SONIA MADISON RN PATIENT ALERT OIRE CHARTING IN ERROR.
--- NOTE | 2020-06-28 19:45 | NUR ---
PATIENT ALERT ORIENTED, NO SOB NO CHEST PAIN. PATIENT CONT ON PAIN MANAGEMENT OF LEFT UPPER EXTREMITY, CONT TO MONITOR.
[2020-06-28] MEDS: PHENYTOIN SODIUM EXTENDED 100 MG CAPSULE.SA PO SCH (20:03)
[2020-06-28 20:04] VITALS: BP 138/87
[2020-06-28] MEDS: QUETIAPINE FUMARATE 200 MG TABLET PO SCH (20:04)
[2020-06-29] VITALS (7 sets, daily range): BP systolic 131–172; BP diastolic 78–91
[2020-06-29] MEDS: IV NS 1000 ML 1,000 ML IV PRN (02:39)
[2020-06-29] MEDS: HYDROCODONE/APAP 5-325MG TABLET PO PRN ×2 (03:32→18:31)
--- NOTE | 2020-06-29 05:25 | NUR ---
PATIENT HAS EPISODE OF ELEVATED BP 171/91, HR 91, AND 161/91, 77. NOTIFY DR. GONZALEZ WITH ORDER.
[2020-06-29] MEDS ORDERED: AMLODIPINE 5 MG TABLET PO SCH (05:30)
[2020-06-29] MEDS: CLINDAMYCIN PHOSPHATE IV 900 MG in IV DEXTROSE 5% 100 ML IV SCH ×3 (05:54→22:24)
[2020-06-29] MEDS: PANTOPRAZOLE SODIUM 40 MG TABLET.DR PO SCH (06:14)
[2020-06-29] MEDS ORDERED: PROPOFOL 200 MG/20 ML BOTTLE IV ONE (07:10)
[2020-06-29] MEDS ORDERED: SEVOFLURANE 250 ML BOTTLE IH ONE (07:10)
[2020-06-29] MEDS ORDERED: CEFAZOLIN 1 G VIAL MC ONE (07:10)
[2020-06-29] MEDS ORDERED: METOCLOPRAMIDE HCL 10 MG/2 ML VIAL IV ONE (07:10)
[2020-06-29 07:49] LABS: BASOPHILS % (AUTO) 0.3 % (0.0-2.0); EOSINOPHILS # (AUTO) 0.1 K/uL (0.0-0.7); EOSINOPHILS % (AUTO) 1.9 % (0.0-7.0); HEMATOCRIT 30.2 % (36.7-47.1); HEMOGLOBIN 10.1 g/dL (12.5-16.3); LYMPHOCYTES # (AUTO) 0.8 K/uL (20.0-40.0); LYMPHOCYTES % (AUTO) 10.2 % (20.5-51.5); MEAN CORPUSCULAR HEMOGLOBIN 28.7 uug (23.8-33.4); MEAN CORPUSCULAR HGB CONC 34 g/dL (32.5-36.3); MEAN CORPUSCULAR VOLUME 85.6 fL (73.0-96.2); MONOCYTES # (AUTO) 0.9 K/uL (2.0-10.0); MONOCYTES % (AUTO) 11.1 % (0.0-11.0); NEUTROPHILS # (AUTO) 5.9 K/uL (1.8-8.9); NEUTROPHILS % (AUTO) 76.5 % (38.5-71.5); PLATELET COUNT (AUTO) 257 K/uL (152-348); RED BLOOD CELL COUNT(AUTO) 3.53 MIL/uL (4.06-5.63); WHITE BLOOD COUNT (AUTO) 7.7 K/uL (3.6-10.2)
[2020-06-29 08:00] LABS: BILIRUBIN,TOTAL 0.1 mg/dL (0.2-1.0); CREATININE 1.7 mg/dL (0.6-1.3); MAGNESIUM 1.8 mg/dL (1.8-2.4); PHOSPHOROUS 3.5 mg/dL (2.5-4.9); POTASSIUM 3.5 mmol/L (3.5-5.1); TOTAL PROTEIN, SERUM 6.7 g/dL (6.4-8.2)
[2020-06-29] MEDS: MULTIVITAMINS,THERAPEUTIC TABLET PO SCH (09:05)
[2020-06-29] MEDS: NICOTINE 14 MG/24HR PATCH TD SCH (09:06)
[2020-06-29] MEDS: HYDROCHLOROTHIAZIDE 25 MG TABLET PO SCH (09:06)
--- NOTE | 2020-06-29 09:20 | NUR ---
Pt received this morning, including endorsement from night nurse that PRN BP medication proven effective. Pt compliant with NPO status except routine medications. No acute distress, denies pain at this time. Pt able to make needs known. Incision and drainage for abscess of left upper arm planned for today. OR nurses arrived, confirmed correct Pt, midline in right upper arm hep locked. VSS. OR nurses removed chart, with consent, and Pt with bed off unit for procedure. Will follow up accordingly.
[2020-06-29] MEDS ORDERED: MIDAZOLAM HCL 2 MG/2 ML VIAL ONE (09:33)
[2020-06-29] MEDS ORDERED: FENTANYL CITRATE 250 MCG/5 ML AMPUL ONE (09:34)
[2020-06-29] MEDS ORDERED: HYDROMORPHONE 2 MG/1 ML DISP.SYRIN ONE (09:34)
[2020-06-29] MEDS ORDERED: POLYMYXIN B SULFATE 500,000 UNITS, BACITRACIN 50,000 UNITS, NORMAL SALINE 20 ML MC ONE ×3 (09:45)
[2020-06-29] MEDS ORDERED: BUPIVACAINE 0.25% 30 ML VIAL ONE (10:10)
[2020-06-29] MEDS ORDERED: HYDROMORPHONE 1 MG/1 ML DISP.SYRIN ONE (10:51)
--- NOTE | 2020-06-29 11:39 | NUR ---
WOUND CARE CONSULT: PT OFF UNIT IN O.R. PER PRIMER SUPERVISOR. WILL SEE PRN.
--- NOTE | 2020-06-29 12:00 | NUR ---
Pt returned to unit and room. No acute distress noted at this time. pt VSS, BP slightly elevated at 151/83, 72. Catapres PRN administered per MD orders. New orders received from OR surgeon, including D/C NPO status, begin Renal diet, OOB AD LEDA, CBC in the am, and wound packing VELMA tomorrow to begin. Call light within reach. Will continue to monitor for safety.
[2020-06-29] MEDS: CLONIDINE HCL 0.1 MG TABLET PO PRN (12:18)
--- NOTE | 2020-06-29 18:36 | NUR ---
PRN [place] administered as PRN ordered for pain 03/16 to left arm surgical site. All needs attended to promptly. Will continue to monitor and endorse.
--- NOTE | 2020-06-29 19:30 | NUR ---
Patient in bed resting, no complain of pain, r arm with dressing intact, assisted with toileting, cont to monitor.
[2020-06-29] MEDS: PHENYTOIN SODIUM EXTENDED 100 MG CAPSULE.SA PO SCH (20:31)
[2020-06-29] MEDS: QUETIAPINE FUMARATE 200 MG TABLET PO SCH (20:32)
[2020-06-30 00:20] VITALS: BP 107/53
[2020-06-30 04:30] VITALS: BP 151/68
[2020-06-30] MEDS: CLINDAMYCIN PHOSPHATE IV 900 MG in IV DEXTROSE 5% 100 ML IV SCH ×3 (05:02→21:47)
[2020-06-30] MEDS: IV NS 1000 ML 1,000 ML IV PRN (05:40)
--- NOTE | 2020-06-30 05:57 | NUR ---
Patient alert oriented, no complain of pain at this time, right upper arm midline intact, patent. Patient left arm with dressing intact, cont to monitor.
[2020-06-30] MEDS: PANTOPRAZOLE SODIUM 40 MG TABLET.DR PO SCH (06:07)
[2020-06-30 07:24] LABS: CREATININE 1.6 mg/dL (0.6-1.3); MAGNESIUM 1.7 mg/dL (1.8-2.4); PHOSPHOROUS 3.4 mg/dL (2.5-4.9); POTASSIUM 3.3 mmol/L (3.5-5.1)
--- NOTE | 2020-06-30 07:30 | NUR ---
Received patient resting in bed. No sign of distress noted at this time. Patient is saturating well on room air. IV is Right upper arm midline running NS at 50 mls per hour. Patient has dressing on LUE and RLE. Seizure precautions in place. All other safety precautions in place with call light and belongings within reach. Will continue to monitor.
[2020-06-30 07:31] LABS: BASOPHILS % (AUTO) 0.4 % (0.0-2.0); EOSINOPHILS # (AUTO) 0.1 K/uL (0.0-0.7); EOSINOPHILS % (AUTO) 2.5 % (0.0-7.0); HEMATOCRIT 29.6 % (36.7-47.1); HEMOGLOBIN 9.7 g/dL (12.5-16.3); LYMPHOCYTES # (AUTO) 1.2 K/uL (20.0-40.0); LYMPHOCYTES % (AUTO) 23.5 % (20.5-51.5); MEAN CORPUSCULAR HEMOGLOBIN 27.9 uug (23.8-33.4); MEAN CORPUSCULAR HGB CONC 33 g/dL (32.5-36.3); MEAN CORPUSCULAR VOLUME 85.4 fL (73.0-96.2); MONOCYTES # (AUTO) 0.7 K/uL (2.0-10.0); MONOCYTES % (AUTO) 13.9 % (0.0-11.0); NEUTROPHILS # (AUTO) 3.1 K/uL (1.8-8.9); NEUTROPHILS % (AUTO) 59.7 % (38.5-71.5); PLATELET COUNT (AUTO) 257 K/uL (152-348); RED BLOOD CELL COUNT(AUTO) 3.47 MIL/uL (4.06-5.63); WHITE BLOOD COUNT (AUTO) 5.3 K/uL (3.6-10.2)
[2020-06-30] MEDS: POTASSIUM CHLORIDE 50 ML IV SCH ×2 (08:30→09:21)
[2020-06-30] MEDS: NICOTINE 14 MG/24HR PATCH TD SCH (08:30)
[2020-06-30] MEDS: HYDROCHLOROTHIAZIDE 25 MG TABLET PO SCH (08:35)
[2020-06-30] MEDS: MULTIVITAMINS,THERAPEUTIC TABLET PO SCH (08:35)
[2020-06-30] MEDS: AMLODIPINE 5 MG TABLET PO SCH (08:36)
[2020-06-30] MEDS: MAGNESIUM SULFATE/D5W 100 ML IV SCH ×2 (10:11→11:29)
[2020-06-30 11:01] VITALS: BP 148/82
[2020-06-30] MEDS: HYDROCODONE/APAP 10-325 MG TABLET PO PRN ×2 (12:29→21:48)
--- NOTE | 2020-06-30 12:39 | NUR ---
Patient's midline is occluded, Will try to reposition. IV infusion on hold at this time. Will continue to monitor.
[2020-06-30 15:51] VITALS: BP 149/88
--- NOTE | 2020-06-30 18:57 | NUR ---
Patient is resting in bed. No distress noted at this time. All medications given as ordered and all comfort measure completed. Seizure precautions in place. Safety precautions in place with call lights and belongings within reach. Will endorse to oncoming nurse.
--- NOTE | 2020-06-30 20:00 | NUR ---
Called to clarify order with Dr Santana who did the I & D. He says too remove the packing and apply neosporin daily. Also patient IV is occluded. Will endorse to oncoming nurse to try reinsertion.
[2020-06-30 20:15] VITALS: BP 163/99
[2020-06-30] MEDS: PHENYTOIN SODIUM EXTENDED 100 MG CAPSULE.SA PO SCH (21:04)
[2020-06-30] MEDS: CLONIDINE HCL 0.1 MG TABLET PO PRN (21:04)
[2020-06-30] MEDS ORDERED: NEOMY/BACITRA/POLYMYXIN B OINT UD PACKET TP ONE ×2 (21:05→21:23)
[2020-06-30] MEDS: QUETIAPINE FUMARATE 200 MG TABLET PO SCH (21:06)
--- NOTE | 2020-06-30 22:52 | NUR ---
Received pt resting in bed and watching tv. AAO x4. No acute distress noted. C/o 8/10 pain on left upper extremity and right lower extremity. PRN [place] and other due meds given. BP elevated, PRN Catapres given. Right upper arm midline, patent and intact. IVF NS @ 50 cc/ hr. Neosporin requested from vendor quality supervisor. Safety measures maintained. Call light and personal items within reach. Will continue to monitor.
[2020-06-30] MEDS: NEOMY/BACITRAC/POLYMI OINT 28.35 GM TUBE TOP SCH (23:05)
[2020-07-01 00:30] VITALS: BP 141/81
[2020-07-01] MEDS: HYDROCODONE/APAP 5-325MG TABLET PO PRN (03:31)
[2020-07-01] MEDS: IV NS 1000 ML 1,000 ML IV PRN (03:38)
[2020-07-01 05:00] VITALS: BP 171/99
[2020-07-01] MEDS: CLINDAMYCIN PHOSPHATE IV 900 MG in IV DEXTROSE 5% 100 ML IV SCH ×2 (05:02→14:23)
[2020-07-01] MEDS: CLONIDINE HCL 0.1 MG TABLET PO PRN (05:17)
[2020-07-01] MEDS: PANTOPRAZOLE SODIUM 40 MG TABLET.DR PO SCH (06:05)
--- NOTE | 2020-07-01 07:30 | NUR ---
Received patient resting in bed. No sign of distress noted at this time. Patient is saturating well on room air. IV is Right upper arm midline running NS at 50 mls per hour. Patient has incision site on LUE that is covered with 4x4 dressing and RLE open to air. Seizure precautions in place. All other safety precautions in place with call light and belongings within reach. Will continue to monitor.
[2020-07-01] MEDS: MULTIVITAMINS,THERAPEUTIC TABLET PO SCH (08:34)
[2020-07-01] MEDS: HYDROCHLOROTHIAZIDE 25 MG TABLET PO SCH (08:38)
[2020-07-01] MEDS: NICOTINE 14 MG/24HR PATCH TD SCH (08:39)
[2020-07-01] MEDS: NEOMY/BACITRAC/POLYMI OINT 28.35 GM TUBE TOP SCH (08:39)
[2020-07-01] MEDS: AMLODIPINE 5 MG TABLET PO SCH (08:39)
[2020-07-01] MEDS: HYDROCODONE/APAP 10-325 MG TABLET PO PRN (11:30)
[2020-07-01 12:00] VITALS: BP 145/84
[2020-07-01] MEDS ORDERED: AMLO5TAB9 PO (12:54)
[2020-07-01] MEDS ORDERED: Neomy/Bacitrac/Polymi Oint TOP (12:54)
[2020-07-01] MEDS ORDERED: AMOX-430 PO (12:54)
[2020-07-01 16:00] VITALS: BP 145/92
--- NOTE | 2020-07-01 17:37 | NUR ---
Patient discharge has been processed. All discharge paperwork given to patient, medication, belongings and valuables. Patient is in room waiting on private transportation to take him to independent living facility. Spoke with Olu from the facility and he is expecting patient. Will continue to monitor.
--- NOTE | 2020-07-01 17:58 | NUR ---
Patient picked up bu ambulance company [facility]. Report given to Qing furniture removalist. Patient left with all his belongings. Discharge instructions given and patient teaching completed about medication compliance.
[2020-07-02 15:06] LABS: A/G RATIO 0.6 (0.7-1.7); ALBUMIN 2.1 g/dL (2.9-4.4); ALPHA-1-GLOBULIN 0.4 g/dL (0.0-0.4); BETA GLOBULIN 1.3 g/dL (0.7-1.3); GAMMA GLOBULIN 1.1 g/dL (0.4-1.8); GLOBULIN, TOTAL 3.8 g/dL (2.2-3.9); M-SPIKE 0.5 g/dL (Not Observed)
== END 2020-07-01 18:00 | DRG 579 ==
LOC: ER 11:32 → MEDSURG3 19:42
PROVIDERS: ADMIT Registered Nurse; ATTEND Registered Nurse
PROC: 0J9F0ZZ Drainage of Left Upper Arm Subcutaneous Tissue and Fascia, Open Approach (ICD-10-PCS; principal; 2020-06-29)
DX: L02.414 Cutaneous abscess of left upper limb (principal); N17.0 Acute kidney failure with tubular necrosis; L02.415 Cutaneous abscess of right lower limb; F17.210 Nicotine dependence, cigarettes, uncomplicated; G40.909 Epilepsy, unspecified, not intractable, without status epilepticus; Z95.2 Presence of prosthetic heart valve; E87.6 Hypokalemia; I13.10 Hypertensive heart and chronic kidney disease without heart failure, with stage 1 through stage 4 chronic kidney disease, or unspecified chronic kidney disease; Z96.643 Presence of artificial hip joint, bilateral; Z79.82 Long term (current) use of aspirin; Z98.1 Arthrodesis status; N18.9 Chronic kidney disease, unspecified; G89.29 Other chronic pain; F20.9 Schizophrenia, unspecified; F19.11 Other psychoactive substance abuse, in remission; F10.21 Alcohol dependence, in remission; B95.4 Other streptococcus as the cause of diseases classified elsewhere; Z86.79 Personal history of other diseases of the circulatory system
CPT/HCPCS: 36415; 73200; 76770; 76881; 83735; 83970; 84100; 84155; 84156; 84165; 84300; 84443; 85025; 85730; 87070; 87075; 87077; A4649; A4663; G0378; J0690; J1170; J2250; J2765; J3010; J3475; J3480; J3490; J7030; J7050; J7060; Q9967

== ENCOUNTER 2020-07-16 15:39 | Emergency (ER) | payer MEDICARE, OTHER ==
[~2020-07-16] VITALS: Ht 185.4 cm; Wt 66.7 kg
[~2020-07-16 15:39] MED LIST changes: -ACID1TAB4 PO; +AMLO-212 PO; +AMOX-430 PO; -ASPI-618 PO; -CLON0.1T14 PO; -FAMO-132 PO; +HYDR-4354 PO; +HYDR25TA4 PO; -HYDR2TAB4 PO; -LACT296L PO; -METO25TA6 PO; -NITR100C11 PO; +Neomy/Bacitrac/Polymi Oint TOP
== END 2020-07-16 16:17 | disposition home or self-care (01) ==
LOC: ER 15:39
DX: Z76.0 Encounter for issue of repeat prescription (principal); M54.9 Dorsalgia, unspecified; G89.29 Other chronic pain; G40.909 Epilepsy, unspecified, not intractable, without status epilepticus; Z96.643 Presence of artificial hip joint, bilateral; I10 Essential (primary) hypertension; Z59.0 Homelessness; F11.20 Opioid dependence, uncomplicated; F31.9 Bipolar disorder, unspecified; F20.9 Schizophrenia, unspecified; Z95.2 Presence of prosthetic heart valve; Z88.5 Allergy status to narcotic agent; Z88.8 Allergy status to other drugs, medicaments and biological substances; Z79.899 Other long term (current) drug therapy
CPT/HCPCS: A4663

== ENCOUNTER 2020-08-18 13:37 | Emergency (ER) | payer MEDICARE, OTHER ==
[~2020-08-18] VITALS: Ht 177.8 cm; Wt 68.0 kg
[2020-08-18] MEDS ORDERED: ONDANSETRON ODT 4 MG TAB.RAPDIS ONE (13:59)
[2020-08-18] MEDS ORDERED: HYDROMORPHONE 2 MG/1 ML DISP.SYRIN ONE (13:59)
[2020-08-18] MEDS ORDERED: HYDROMORPHONE 1 MG/1 ML DISP.SYRIN ONE (14:00)
[2020-08-18] MEDS ORDERED: HYDROMORPHONE 1 MG/1 ML DISP.SYRIN IM ONE (14:00)
[2020-08-18] MEDS ORDERED: ONDANSETRON ODT 4 MG TAB.RAPDIS SL ONE (14:00)
== END 2020-08-18 14:03 | disposition home or self-care (01) ==
LOC: ER 13:48
DX: G89.29 Other chronic pain (principal); Z76.0 Encounter for issue of repeat prescription; M25.552 Pain in left hip; M25.551 Pain in right hip; M54.2 Cervicalgia; Z96.643 Presence of artificial hip joint, bilateral; F17.210 Nicotine dependence, cigarettes, uncomplicated; Z98.1 Arthrodesis status; F20.9 Schizophrenia, unspecified; Z95.2 Presence of prosthetic heart valve
CPT/HCPCS: 96372; 99283; J1170 ×2; A4663; Q0162

== ENCOUNTER 2020-09-23 13:41 | Inpatient (IN) | payer MEDICARE, OTHER ==
[~2020-09-23] VITALS: Ht 177.8 cm; Wt 61.2 kg
[2020-09-23 14:35] LABS: BASOPHILS # (AUTO) 0.1 K/uL (0.0-8.0); BASOPHILS % (AUTO) 1.8 % (0.0-2.0); EOSINOPHILS # (AUTO) 0.2 K/uL (0.0-0.7); HEMATOCRIT 29.4 % (36.7-47.1); HEMOGLOBIN 9.2 g/dL (12.5-16.3); LYMPHOCYTES # (AUTO) 0.4 K/uL (20.0-40.0); LYMPHOCYTES % (AUTO) 5.5 % (20.5-51.5); MEAN CORPUSCULAR HEMOGLOBIN 26.6 uug (23.8-33.4); MEAN CORPUSCULAR HGB CONC 31 g/dL (32.5-36.3); MEAN CORPUSCULAR VOLUME 85.3 fL (73.0-96.2); MONOCYTES # (AUTO) 0.8 K/uL (2.0-10.0); MONOCYTES % (AUTO) 12.5 % (0.0-11.0); NEUTROPHILS % (AUTO) 77.2 % (38.5-71.5); PLATELET COUNT (AUTO) 275 K/uL (152-348); RED BLOOD CELL COUNT(AUTO) 3.45 MIL/uL (4.06-5.63); WHITE BLOOD COUNT (AUTO) 6.5 K/uL (3.6-10.2)
[2020-09-23 14:42] LABS: CREATININE 2.6 mg/dL (0.6-1.3); POTASSIUM 3.5 mmol/L (3.5-5.1)
[2020-09-23 14:53] LABS: ETHANOL < 3 MG/DL (0-0)
[2020-09-23 14:54] LABS: BILIRUBIN,DIRECT 0.1 mg/dL (0.0-0.2); BILIRUBIN,TOTAL 0.2 mg/dL (0.2-1.0); TOTAL PROTEIN, SERUM 6.9 g/dL (6.4-8.2)
[2020-09-23] MEDS ORDERED: OXYC15TA2 PO (14:56)
--- NOTE | 2020-09-23 15:10 | NUR ---
LUBA ENG ACCEPTED THE PT TO TELE.
[2020-09-23 15:20] LABS: LIPASE 71 U/L (73-393)
[2020-09-23] MEDS ORDERED: NITROGLYCERIN OINT 1 GM PACKET TP ONE (16:00)
[2020-09-23] MEDS ORDERED: ASPIRIN 81 MG TAB.CHEW PO ONE (16:00)
[2020-09-23 16:57] LABS: *BILIRUBIN,URIN NEGATIVE (NEGATIVE); *BLOOD, URINE 2+ (NEGATIVE); *CLARITY,URINE CLOUDY (CLEAR); *COLOR,URINE LIGHT YELLOW (YELLOW); *KETONES,URINE NEGATIVE (NEGATIVE); *UROBILINOGEN,URINE 0.2 E.U./dl (NORMAL); LEUKOCYTE ESTERASE ,URINE 1+ (NEGATIVE); NITRITE, URINE NEGATIVE (NEGATIVE); PH,URINE 6.5 (5.0-8.0); UGLUCOSE NEGATIVE (NEGATIVE)
[2020-09-23 17:09] LABS: *AMPHETAMINE, URINE NEGATIVE (NEGATIVE); *CANNABINOID, URINE NEGATIVE (NEGATIVE); *COCCAINE, URINE NEGATIVE (NEGATIVE); *OPIATE, URINE POSITIVE (NEGATIVE); *PHENCYCLIDINE SCREEN,URINE NEGATIVE (NEGATIVE)
--- NOTE | 2020-09-23 17:16 | NUR ---
vitaliy Irvin accepted the pt to tele.
[2020-09-23] MEDS ORDERED: Z GUARD REMEDY PASTE 57 GM TUBE TOP PRN (18:15)
[2020-09-23] MEDS ORDERED: ACETAMINOPHEN 325 MG TABLET PO PRN (18:15)
[2020-09-23] MEDS ORDERED: ONDANSETRON 4 MG/2 ML VIAL IV PRN (18:15)
[2020-09-23] MEDS ORDERED: MAGNESIUM HYDROXIDE 30 ML LIQUID UDC PO PRN (18:15)
[2020-09-23] MEDS ORDERED: CEFTRIAXONE 1 G in IV DEXTROSE 5% 50 ML IV SCH (18:30)
[2020-09-23] MEDS: CEFTRIAXONE 1 G in IV DEXTROSE 5% 50 ML IV SCH (18:57)
[2020-09-23] MEDS ORDERED: CEFTRIAXONE /D5W 50ML IVPB **ER PYXIS IV ONE (18:58)
--- NOTE | 2020-09-23 19:30 | NUR ---
Patient received in shift report
[2020-09-23 20:17] LABS: BACTERIA,URINE MODERATE /HPF (NONE SEEN)
[2020-09-23 20:18] LABS: SQUAMOUS EPITHELIAL CELL,UR NONE SEEN /HPF (NONE SEEN)
[2020-09-23] MEDS: PHENYTOIN SODIUM EXTENDED 100 MG CAPSULE.SA PO SCH (21:39)
--- NOTE | 2020-09-23 23:01 | NUR ---
Ginger Irvin NP paged due to patient's high BP.
[2020-09-23] MEDS ORDERED: CLONIDINE HCL 0.1 MG TABLET ONE ×2 (23:24→23:26)
[2020-09-23] MEDS ORDERED: CLONIDINE HCL 0.1 MG TABLET PO ONE (23:30)
[2020-09-24] MEDS: HYDROCODONE/APAP 5-325MG TABLET PO PRN (05:54)
[2020-09-24] MEDS ORDERED: HYDROCODONE/APAP 5-325MG TABLET ONE (05:57)
--- NOTE | 2020-09-24 07:05 | NUR ---
Recieved report from Elle FANG. Pt in [facility]. NAD noted. Noted elevated BP. Pt denies headache.
[2020-09-24 08:00] LABS: BASOPHILS % (AUTO) 0.3 % (0.0-2.0); EOSINOPHILS # (AUTO) 0.1 K/uL (0.0-0.7); EOSINOPHILS % (AUTO) 1.7 % (0.0-7.0); HEMATOCRIT 27.3 % (36.7-47.1); HEMOGLOBIN 8.7 g/dL (12.5-16.3); LYMPHOCYTES % (AUTO) 16.1 % (20.5-51.5); MEAN CORPUSCULAR HEMOGLOBIN 27.2 uug (23.8-33.4); MEAN CORPUSCULAR HGB CONC 32 g/dL (32.5-36.3); MEAN CORPUSCULAR VOLUME 85.4 fL (73.0-96.2); MONOCYTES # (AUTO) 0.7 K/uL (2.0-10.0); MONOCYTES % (AUTO) 10.9 % (0.0-11.0); NEUTROPHILS # (AUTO) 4.3 K/uL (1.8-8.9); PLATELET COUNT (AUTO) 287 K/uL (152-348)
[2020-09-24] MEDS ORDERED: HYDROCHLOROTHIAZIDE 25 MG TABLET ONE (08:47)
[2020-09-24] MEDS: AMLODIPINE 10 MG TABLET PO SCH (08:52)
[2020-09-24] MEDS ORDERED: AMLODIPINE 5 MG TABLET ONE (08:54)
[2020-09-24] MEDS: MULTIVITAMINS,THERAPEUTIC TABLET PO SCH (08:56)
[2020-09-24] MEDS ORDERED: HYDROCHLOROTHIAZIDE 25 MG TABLET PO SCH (09:00)
--- NOTE | 2020-09-24 09:26 | NUR ---
Dr. Robles, hemodialysis technician at bedside. Aware of elevated BP.
[2020-09-24] MEDS ORDERED: IV NS 1000 ML 1,000 ML IV ONE (09:30)
[2020-09-24] MEDS ORDERED: ASPIRIN 81 MG TAB.CHEW ONE (09:51)
[2020-09-24] MEDS: ASPIRIN 81 MG TAB.CHEW PO SCH (10:07)
[2020-09-24 11:45] LABS: BILIRUBIN,TOTAL 0.5 mg/dL (0.2-1.0); CREATININE 2.3 mg/dL (0.6-1.3); MAGNESIUM 1.9 mg/dL (1.8-2.4); PHOSPHOROUS 3.8 mg/dL (2.5-4.9); POTASSIUM 3.9 mmol/L (3.5-5.1); TOTAL PROTEIN, SERUM 6.3 g/dL (6.4-8.2)
--- NOTE | 2020-09-24 14:00 | NUR ---
Pt in [facility]. NAD noted
[2020-09-24] MEDS ORDERED: hydrALAZINE HCL 25 MG TABLET ONE ×2 (14:41→14:43)
[2020-09-24] MEDS: hydrALAZINE HCL 50 MG TABLET PO SCH ×2 (14:43→21:10)
[2020-09-24] MEDS ORDERED: CEFTRIAXONE /D5W 50ML IVPB **ER PYXIS IV ONE (18:40)
[2020-09-24] MEDS: CEFTRIAXONE 1 G in IV DEXTROSE 5% 50 ML IV SCH (18:42)
--- NOTE | 2020-09-24 19:00 | NUR ---
SBAR report give to Jaden FANG
[2020-09-24] MEDS ORDERED: QUETIAPINE FUMARATE 200 MG TABLET ONE (21:09)
[2020-09-24] MEDS ORDERED: PHENYTOIN SODIUM EXTENDED 100 MG CAPSULE.SA PO ONE (21:09)
[2020-09-24] MEDS: QUETIAPINE FUMARATE 200 MG TABLET PO SCH (21:10)
[2020-09-24] MEDS: PHENYTOIN SODIUM EXTENDED 100 MG CAPSULE.SA PO SCH (21:10)
[2020-09-25] VITALS (13 sets, daily range): BP systolic 137–174; BP diastolic 88–102
--- NOTE | 2020-09-25 03:15 | NUR ---
Transfered to 3rd floor Tele via wheelchair with no distress noted.
--- NOTE | 2020-09-25 03:55 | NUR ---
PATIENT BROUGHT TO TELE UNIT FROM ER VIA WHEELCHAIR BY STAFF NURSE.PATIENT ALOX4.DENIES PAIN AT THIS TIME.NO S/S OF DISTRESS NOTED.PATIENT STATED HE'S GETTING SLEEPY.ON ROOM AIR .IV ON RIGHT AC 20 G PATENT AND INTACT. PLACED PATIENT ON TELE MONITOR WITH SR.SAFETY MEASURES IN PLACE .CALL LIGHT WITH IN REACH. WILL CONTINUE TO MONITOR.
[2020-09-25] MEDS: hydrALAZINE HCL 50 MG TABLET PO SCH ×3 (05:31→21:08)
[2020-09-25] MEDS: HYDROCODONE/APAP 5-325MG TABLET PO PRN (05:35)
--- NOTE | 2020-09-25 07:30 | NUR ---
Received pt in bed, awake, A&Ox4. Able to verbalize needs. No s/s of acute distress. No SOB, respirations even. Call light and belongings in reach. Safety precautions in place. Will continue to monitor.
[2020-09-25] MEDS: MULTIVITAMINS,THERAPEUTIC TABLET PO SCH (08:40)
[2020-09-25] MEDS: ASPIRIN 81 MG TAB.CHEW PO SCH (08:40)
[2020-09-25] MEDS: AMLODIPINE 10 MG TABLET PO SCH (08:41)
[2020-09-25 08:43] LABS: BASOPHILS % (AUTO) 0.4 % (0.0-2.0); EOSINOPHILS # (AUTO) 0.1 K/uL (0.0-0.7); EOSINOPHILS % (AUTO) 1.4 % (0.0-7.0); HEMATOCRIT 33.1 % (36.7-47.1); HEMOGLOBIN 10.6 g/dL (12.5-16.3); LYMPHOCYTES # (AUTO) 0.9 K/uL (20.0-40.0); LYMPHOCYTES % (AUTO) 12.7 % (20.5-51.5); MEAN CORPUSCULAR HEMOGLOBIN 27.4 uug (23.8-33.4); MEAN CORPUSCULAR HGB CONC 32 g/dL (32.5-36.3); MEAN CORPUSCULAR VOLUME 85.9 fL (73.0-96.2); MONOCYTES # (AUTO) 0.5 K/uL (2.0-10.0); MONOCYTES % (AUTO) 6.7 % (0.0-11.0); NEUTROPHILS # (AUTO) 5.5 K/uL (1.8-8.9); NEUTROPHILS % (AUTO) 78.8 % (38.5-71.5); PLATELET COUNT (AUTO) 344 K/uL (152-348); RED BLOOD CELL COUNT(AUTO) 3.85 MIL/uL (4.06-5.63); WHITE BLOOD COUNT (AUTO) 6.9 K/uL (3.6-10.2)
[2020-09-25 08:56] LABS: BILIRUBIN,TOTAL 0.1 mg/dL (0.2-1.0); MAGNESIUM 1.9 mg/dL (1.8-2.4); PHOSPHOROUS 3.1 mg/dL (2.5-4.9); POTASSIUM 3.8 mmol/L (3.5-5.1); TOTAL PROTEIN, SERUM 6.8 g/dL (6.4-8.2)
[2020-09-25] MEDS: ENSURE ENLIVE (VAN) 240 ML LIQUID PO SCH ×2 (12:08→17:42)
[2020-09-25] MEDS: HYDROCODONE/APAP 10-325 MG TABLET PO PRN (14:38)
--- NOTE | 2020-09-25 15:15 | NUR ---
Gas Meter Repairer Dr. Noel at bedside, aware of elevated BP. Will continue to monitor.
[2020-09-25] MEDS ORDERED: ENSURE ENLIVE (VAN) 240 ML LIQUID PO SCH (17:00)
[2020-09-25] MEDS: CEFTRIAXONE 1 G in IV DEXTROSE 5% 50 ML IV SCH (17:43)
--- NOTE | 2020-09-25 18:30 | NUR ---
Spoke with pts sister Toya via telephone. Gave update of pts condition, pertinent labs, medications administered, and plan of care.
--- NOTE | 2020-09-25 19:30 | NUR ---
RECEIVED PT AWAKE, ALERT AND ORIENTEDX4. PT IN NO ACUTE DISTRESS. PT IV INTACT. SAFETY AND COMFORT PROVIDEWILL CONTINUE TO MONITOR.
--- NOTE | 2020-09-25 19:45 | NUR ---
EOSS: Pt in bed, A&Ox4. Respirations even and unlabored. No SOB, no s/s of acute distress noted. Able to make needs known during shift, all needs attended to promptly. Due medications administered per order, all care given as ordered. R AC 20g IV patent and intact. Safety measures maintained throughout shift. Call light and belongings within reach, call light usage reinforced. Will endorse care to night coordinator.
[2020-09-25] MEDS: QUETIAPINE FUMARATE 200 MG TABLET PO SCH (20:41)
[2020-09-25] MEDS: PHENYTOIN SODIUM EXTENDED 100 MG CAPSULE.SA PO SCH (20:41)
[2020-09-26] VITALS (7 sets, daily range): BP systolic 118–161; BP diastolic 64–110
[2020-09-26] MEDS: hydrALAZINE HCL 50 MG TABLET PO SCH ×3 (05:52→21:06)
--- NOTE | 2020-09-26 06:07 | NUR ---
PT SLEPT INTERMITTENTLY. PRESCRIBED MEDICATION GIVEN AND PT TOLERATED IT WELL. CELLPHONE FOUND IN THE BATHROOM. OXYCODONE MEDICATION SENT IN PHARMACY. FOUND CONTRABAND LIKE 3 LIGHTERS. 2 SYRINGES FOUND AND STAFF WASTED IT IN SHARP CONTAINER. SAFETY AND COMFORT PROVIDED. ALL NEEDS ARE MET. WILL ENDORSE TO INCOMING NURSE FOR CONTINUITY OF CARE.
--- NOTE | 2020-09-26 07:30 | NUR ---
Received pt in bed, awake, A&Ox4. Able to verbalize needs. No s/s of acute distress. No SOB, respirations even. IV patent and intact. Call light and belongings in reach. Will continue to monitor.
[2020-09-26] MEDS: ASPIRIN 81 MG TAB.CHEW PO SCH (08:26)
[2020-09-26] MEDS: MULTIVITAMINS,THERAPEUTIC TABLET PO SCH (08:26)
[2020-09-26] MEDS: AMLODIPINE 10 MG TABLET PO SCH (08:26)
[2020-09-26] MEDS: HYDROCODONE/APAP 10-325 MG TABLET PO PRN ×3 (08:27→22:53)
[2020-09-26] MEDS: ENSURE ENLIVE (VAN) 240 ML LIQUID PO SCH ×3 (08:32→17:05)
[2020-09-26 09:21] LABS: BASOPHILS % (AUTO) 0.4 % (0.0-2.0); EOSINOPHILS # (AUTO) 0.1 K/uL (0.0-0.7); EOSINOPHILS % (AUTO) 1.5 % (0.0-7.0); HEMATOCRIT 33.9 % (36.7-47.1); HEMOGLOBIN 10.6 g/dL (12.5-16.3); LYMPHOCYTES # (AUTO) 0.9 K/uL (20.0-40.0); LYMPHOCYTES % (AUTO) 13.3 % (20.5-51.5); MEAN CORPUSCULAR HEMOGLOBIN 26.7 uug (23.8-33.4); MEAN CORPUSCULAR HGB CONC 31 g/dL (32.5-36.3); MEAN CORPUSCULAR VOLUME 85.2 fL (73.0-96.2); MONOCYTES # (AUTO) 0.4 K/uL (2.0-10.0); MONOCYTES % (AUTO) 5.7 % (0.0-11.0); NEUTROPHILS # (AUTO) 5.1 K/uL (1.8-8.9); NEUTROPHILS % (AUTO) 79.1 % (38.5-71.5); PLATELET COUNT (AUTO) 382 K/uL (152-348); RED BLOOD CELL COUNT(AUTO) 3.97 MIL/uL (4.06-5.63); WHITE BLOOD COUNT (AUTO) 6.5 K/uL (3.6-10.2)
[2020-09-26 09:36] LABS: CREATININE 1.9 mg/dL (0.6-1.3); MAGNESIUM 1.8 mg/dL (1.8-2.4); PHOSPHOROUS 2.4 mg/dL (2.5-4.9); POTASSIUM 3.6 mmol/L (3.5-5.1)
[2020-09-26] MEDS ORDERED: NEUTRA PHOS PACKET PO ONE (17:45)
[2020-09-26] MEDS: CEFTRIAXONE 1 G in IV DEXTROSE 5% 50 ML IV SCH (17:58)
--- NOTE | 2020-09-26 19:30 | NUR ---
RECEIVED PT AWAKE, ALERT AND ORIENTEDX4. PT IN NO ACUTE DISTRESS. PT IV INTACT. SAFETY AND COMFORT PROVIDE. WILL CONTINUE TO MONITOR.
--- NOTE | 2020-09-26 19:30 | NUR ---
EOSS: Pt in bed, A&Ox4. No SOB, no s/s of acute distress noted. Able to make needs known during shift, all needs attended to promptly. Medications administered per order, all care given as ordered. R AC 20g IV patent and intact. Pt ambulated with PT using FWW. Safety measures maintained throughout shift. Call light and belongings within reach. Will endorse care to shift mgr.
[2020-09-26] MEDS: QUETIAPINE FUMARATE 200 MG TABLET PO SCH (20:42)
[2020-09-26] MEDS: PHENYTOIN SODIUM EXTENDED 100 MG CAPSULE.SA PO SCH (20:45)
[2020-09-27 04:14] VITALS: BP 150/88
[2020-09-27] MEDS: hydrALAZINE HCL 50 MG TABLET PO SCH ×2 (05:25→13:14)
--- NOTE | 2020-09-27 06:18 | NUR ---
PT SLEPT INTERMITTENTLY. PT IN NO ACUTE DISTRESS. IV INTACT. PRESCRIBED MEDICATION GIVEN AND PT TOLERATED IT WELL. PT GIVEN NORCO AT 2253H FOR PAIN. TYLENOL PRN GIVEN AT 2346H FOR PAIN. PT TOLERATED IT WELL. SAFETY AND COMFORT PROVIDED.PT COMPLIANT WITH CARE. ALL NEEDS ARE MET. WILL ENDORSE TO INCOMING NURSE FOR CONTINUITY OF CARE.
--- NOTE | 2020-09-27 06:55 | NUR ---
Received pt in bed, awake, A&Ox4. Able to verbalize needs. No s/s of acute distress. No SOB, respirations even. IV patent and intact. Call light with in reach. Will continue to monitor.
[2020-09-27] MEDS: AMLODIPINE 10 MG TABLET PO SCH (08:09)
[2020-09-27] MEDS: MULTIVITAMINS,THERAPEUTIC TABLET PO SCH (08:09)
[2020-09-27] MEDS: ASPIRIN 81 MG TAB.CHEW PO SCH (08:09)
[2020-09-27] MEDS: ENSURE ENLIVE (VAN) 240 ML LIQUID PO SCH ×3 (08:09→16:26)
[2020-09-27 09:37] LABS: PHOSPHOROUS 2.8 mg/dL (2.5-4.9); POTASSIUM 3.6 mmol/L (3.5-5.1)
[2020-09-27 11:53] VITALS: BP 124/77
[2020-09-27] MEDS: HYDROCODONE/APAP 10-325 MG TABLET PO PRN (14:40)
[2020-09-27 15:40] VITALS: BP 102/51
[2020-09-27] MEDS: CEFTRIAXONE 1 G in IV DEXTROSE 5% 50 ML IV SCH (17:15)
--- NOTE | 2020-09-27 18:42 | NUR ---
dc orders received noted and carried out,dc heplock per md orders,dc instruction and rn report given to the residential rn .pt left the facility via ambulances in stable condition
== END 2020-09-27 18:51 | DRG 280 ==
LOC: ER 13:45 → TRANSITION 18:22 → TELE 09-25 02:55 → MED 09-25 15:22
PROVIDERS: ADMIT Nurse Practitioner Acute Care; ATTEND Nurse Practitioner Acute Care
DX: I21.4 Non-ST elevation (NSTEMI) myocardial infarction (principal); N17.0 Acute kidney failure with tubular necrosis; E43 Unspecified severe protein-calorie malnutrition; N39.0 Urinary tract infection, site not specified; I13.0 Hypertensive heart and chronic kidney disease with heart failure and stage 1 through stage 4 chronic kidney disease, or unspecified chronic kidney disease; J90 Pleural effusion, not elsewhere classified; Z68.1 Body mass index [BMI] 19.9 or less, adult; D63.8 Anemia in other chronic diseases classified elsewhere; F11.10 Opioid abuse, uncomplicated; G40.909 Epilepsy, unspecified, not intractable, without status epilepticus; G89.4 Chronic pain syndrome; I25.10 Atherosclerotic heart disease of native coronary artery without angina pectoris; I25.2 Old myocardial infarction; Z95.2 Presence of prosthetic heart valve; E88.09 Other disorders of plasma-protein metabolism, not elsewhere classified; K52.9 Noninfective gastroenteritis and colitis, unspecified; F39 Unspecified mood [affective] disorder; I50.9 Heart failure, unspecified; M62.50 Muscle wasting and atrophy, not elsewhere classified, unspecified site; F20.9 Schizophrenia, unspecified; F17.210 Nicotine dependence, cigarettes, uncomplicated; N18.9 Chronic kidney disease, unspecified; Z96.643 Presence of artificial hip joint, bilateral; F31.9 Bipolar disorder, unspecified; B96.1 Klebsiella pneumoniae [K. pneumoniae] as the cause of diseases classified elsewhere; E86.0 Dehydration; Z20.822 Contact with and (suspected) exposure to COVID-19
CPT/HCPCS: 36415; 70030-TC; 71045; 83690; 83735; 83970; 84100; 84155; 84165; 85025; 85730; 86850; 86900; 86901; 87040; 87077; 87086; 93005; 93307; A4663; G0378; G0480; J0696; J7060

== ENCOUNTER 2020-10-22 13:15 | Emergency (ER) | payer MEDICARE, OTHER ==
[~2020-10-22] VITALS: Ht 177.8 cm; Wt 65.8 kg
[~2020-10-22 13:15] MED LIST changes: -AMLO-212 PO; -AMOX-430 PO; -HYDR-4354 PO; -HYDR25TA4 PO; -Neomy/Bacitrac/Polymi Oint TOP; +OXYC15TA2 PO
[2020-10-22] MEDS ORDERED: HYDROMORPHONE 1 MG/1 ML DISP.SYRIN IM ONE (13:30)
[2020-10-22] MEDS ORDERED: HYDROMORPHONE 1 MG/1 ML DISP.SYRIN ONE (13:43)
[2020-10-22] MEDS ORDERED: HYDROMORPHONE 2 MG/1 ML DISP.SYRIN ONE (13:43)
--- NOTE | 2020-10-22 13:45 | NUR ---
Patient discharged to home in stable condition. Written and verbal after care instructions given. Patient verbalizes understanding of instructions. Stressed follow up or return to ER for worsening s/s.PT WALKS IN STEADY GAIT.
== END 2020-10-22 13:46 | disposition home or self-care (01) ==
LOC: ER 13:15
DX: G89.29 Other chronic pain (principal); M54.2 Cervicalgia; M79.602 Pain in left arm; M25.552 Pain in left hip; M25.551 Pain in right hip; G40.909 Epilepsy, unspecified, not intractable, without status epilepticus; Z95.2 Presence of prosthetic heart valve; F20.9 Schizophrenia, unspecified; F31.9 Bipolar disorder, unspecified; I10 Essential (primary) hypertension; I25.2 Old myocardial infarction; Z96.643 Presence of artificial hip joint, bilateral; Z88.6 Allergy status to analgesic agent; Z88.5 Allergy status to narcotic agent; F17.210 Nicotine dependence, cigarettes, uncomplicated; Z79.899 Other long term (current) drug therapy
CPT/HCPCS: 96372; 99283; J1170 ×2; A4663

== ENCOUNTER 2020-11-23 10:12 | Emergency (ER) | payer MEDICARE, OTHER ==
[~2020-11-23] VITALS: Ht 182.9 cm; Wt 67.1 kg
[2020-11-23] MEDS ORDERED: ACETAMINOPHEN ES 500 MG TABLET ONE (10:42)
[2020-11-23] MEDS ORDERED: ACETAMINOPHEN ES 500 MG TABLET PO ONE (10:45)
--- NOTE | 2020-11-23 10:58 | NUR ---
Patient does not wish to proceed with medical care recommended by . Patient was given information related to possible complications, up to and including , which could occur as a result of leaving the hospital at this time. Patient verbalized understanding of risks involved due to leaving against medical advice. Patient signed AMA form.
== END 2020-11-23 10:59 | disposition left against medical advice (07) ==
LOC: ER 10:12
DX: M79.602 Pain in left arm (principal); R22.32 Localized swelling, mass and lump, left upper limb; F17.210 Nicotine dependence, cigarettes, uncomplicated; Z91.14 Patient's other noncompliance with medication regimen; G40.909 Epilepsy, unspecified, not intractable, without status epilepticus; I10 Essential (primary) hypertension; Z95.2 Presence of prosthetic heart valve; G89.29 Other chronic pain; Z96.643 Presence of artificial hip joint, bilateral; I25.2 Old myocardial infarction; F20.9 Schizophrenia, unspecified; F31.9 Bipolar disorder, unspecified; Z88.6 Allergy status to analgesic agent; Z88.5 Allergy status to narcotic agent; Z88.8 Allergy status to other drugs, medicaments and biological substances; Z82.49 Family history of ischemic heart disease and other diseases of the circulatory system; Z79.899 Other long term (current) drug therapy
CPT/HCPCS: 73060; 73090; A4663; A9150

== ENCOUNTER 2020-12-09 13:21 | Inpatient (IN) | payer MEDICARE, OTHER ==
[~2020-12-09] VITALS: Ht 185.4 cm; Wt 68.5 kg
--- NOTE | 2020-12-09 13:22 | NUR ---
at bedside for assessment
[2020-12-09 15:00] LABS: BILIRUBIN,TOTAL 0.2 mg/dL (0.2-1.0); CREATININE 2.9 mg/dL (0.6-1.3); POTASSIUM 3.8 mmol/L (3.5-5.1); TOTAL PROTEIN, SERUM 7.1 g/dL (6.4-8.2)
[2020-12-09 15:13] LABS: EOSINOPHILS # (AUTO) 0.2 K/uL (0.0-0.7); HEMATOCRIT 28.7 % (36.7-47.1); HEMOGLOBIN 9.1 g/dL (12.5-16.3); LYMPHOCYTES # (AUTO) 1.7 K/uL (20.0-40.0)
[2020-12-09] MEDS ORDERED: VANCOMYCIN 1G/D5W 200 ML PIGGYBACK IV ONE (15:15)
[2020-12-09] MEDS ORDERED: PIPERACILLIN SODIUM/TAZOBACTAM 3.375 G in IV DEXTROSE 5% 50 ML IV ONE (15:15)
[2020-12-09 15:17] LABS: BASOPHILS % (AUTO) 0.6 % (0.0-2.0); LYMPHOCYTES % (AUTO) 21.6 % (20.5-51.5); MEAN CORPUSCULAR HEMOGLOBIN 26.7 uug (23.8-33.4); MEAN CORPUSCULAR HGB CONC 32 g/dL (32.5-36.3); MEAN CORPUSCULAR VOLUME 83.8 fL (73.0-96.2); MONOCYTES % (AUTO) 12.4 % (0.0-11.0); NEUTROPHILS # (AUTO) 4.9 K/uL (1.8-8.9); NEUTROPHILS % (AUTO) 63.4 % (38.5-71.5); PLATELET COUNT (AUTO) 312 K/uL (152-348); RED BLOOD CELL COUNT(AUTO) 3.43 MIL/uL (4.06-5.63); WHITE BLOOD COUNT (AUTO) 7.8 K/uL (3.6-10.2)
[2020-12-09] MEDS ORDERED: VANCOMYCIN IV 200 ML ONE (15:37)
[2020-12-09] MEDS ORDERED: PIPERACILLIN/TAZOBACTAM/D5W 50 ML IV ONE (15:37)
--- NOTE | 2020-12-09 17:05 | NUR ---
Ede Barry called for consult on patients right arm abscess per MD orders
--- NOTE | 2020-12-09 19:44 | NUR ---
Report given to Opal FANG
[2020-12-09] MEDS ORDERED: MAGNESIUM HYDROXIDE 30 ML LIQUID UDC PO PRN (19:45)
[2020-12-09] MEDS ORDERED: Z GUARD REMEDY PASTE 57 GM TUBE TOP PRN (19:45)
--- NOTE | 2020-12-09 19:54 | NUR ---
Admitted a 65 y/o male to [facility] with a diagnosis of left arm abscess and kidney failure. Pt is ambulatory with assistance. Assisted pt to bed, admission care rendered. No s/s of respiratory distress. IV access on left foot intact and patent. Safety measures initiated. Call light within reach.
--- NOTE | 2020-12-09 20:00 | NUR ---
Patient taken to 318, without incident. Further report given to Kade at [facility].
[2020-12-09] MEDS ORDERED: PIPERACILLIN/TAZOBACTAM/D5W 100 ML IV ONE (20:38)
[2020-12-09] MEDS: DOCUSATE SODIUM 100 MG CAPSULE PO SCH (20:43)
[2020-12-09] MEDS: HYDROCODONE/APAP 5-325MG TABLET PO PRN (20:44)
[2020-12-09] MEDS: PHENYTOIN SODIUM EXTENDED 100 MG CAPSULE.SA PO SCH (20:44)
[2020-12-09] MEDS: IV 1/2NS 1000 ML 1,000 ML IV PRN (20:45)
[2020-12-09] MEDS: AMLODIPINE 10 MG TABLET PO SCH (20:53)
[2020-12-09] MEDS ORDERED: AMLODIPINE 5 MG TABLET ONE (20:53)
--- NOTE | 2020-12-09 20:53 | NUR ---
Patient's initial BP is 195/80. Notified Elias Sánchez NP. New order given to administer Norvasc 10mg before 0900 scheduled time. Rechecked BP before administration, BP is 177/96. Pt denies any dizziness, chest pain, light headedness. will continue to monitor for s/s of HTN.
[2020-12-09 20:55] VITALS: BP 177/96
[2020-12-09] MEDS: PIPERACILLIN SODIUM/TAZOBACTAM 3.375 G in IV DEXTROSE 5% 50 ML IV SCH (21:27)
[2020-12-09] MEDS: QUETIAPINE FUMARATE 200 MG TABLET PO SCH (22:15)
[2020-12-10] MEDS: PIPERACILLIN SODIUM/TAZOBACTAM 3.375 G in IV DEXTROSE 5% 50 ML IV SCH (05:42)
[2020-12-10 05:44] VITALS: BP 148/79
--- NOTE | 2020-12-10 06:11 | NUR ---
Pt in bed, asleep but arousable to name. able to make needs known. No s/s of respiratory distress, denies pain or discomfort on left arm. IVF infusing well. Tolerated medications well. Safety measures maintained, call light within reach. all needs attended. Dr. Barry visited the pt for consult this morning. will endorse to day shift nurse.
[2020-12-10 06:46] LABS: BASOPHILS % (AUTO) 0.5 % (0.0-2.0); EOSINOPHILS # (AUTO) 0.2 K/uL (0.0-0.7); EOSINOPHILS % (AUTO) 2.9 % (0.0-7.0); HEMOGLOBIN 8.3 g/dL (12.5-16.3); LYMPHOCYTES # (AUTO) 1.7 K/uL (20.0-40.0); LYMPHOCYTES % (AUTO) 23.2 % (20.5-51.5); MEAN CORPUSCULAR HEMOGLOBIN 27.7 uug (23.8-33.4); MEAN CORPUSCULAR HGB CONC 33 g/dL (32.5-36.3); MEAN CORPUSCULAR VOLUME 83.4 fL (73.0-96.2); MONOCYTES # (AUTO) 0.9 K/uL (2.0-10.0); MONOCYTES % (AUTO) 12.3 % (0.0-11.0); NEUTROPHILS # (AUTO) 4.5 K/uL (1.8-8.9); NEUTROPHILS % (AUTO) 61.1 % (38.5-71.5); PLATELET COUNT (AUTO) 263 K/uL (152-348); RED BLOOD CELL COUNT(AUTO) 2.98 MIL/uL (4.06-5.63); WHITE BLOOD COUNT (AUTO) 7.4 K/uL (3.6-10.2)
[2020-12-10 07:08] LABS: CREATININE 2.8 mg/dL (0.6-1.3); PHOSPHOROUS 4.5 mg/dL (2.5-4.9); POTASSIUM 3.9 mmol/L (3.5-5.1)
[2020-12-10 07:10] LABS: HEMATOCRIT 24.9 % (36.7-47.1)
[2020-12-10 07:20] LABS: THYROID STIMULATING HORMONE 3.873 mIU/mL (0.358-3.740)
--- NOTE | 2020-12-10 07:30 | NUR ---
Pt is in bed sleeping. On room air, no S/S of acute distress noted. Able to make needs known A&Ox4. No complaints of pain or discomfort. Safety measures in place, call light in reach, will continue to monitor.
[2020-12-10] MEDS ORDERED: PIPERACILLIN SODIUM/TAZOBACTAM 3.375 G in IV DEXTROSE 5% 50 ML IV SCH ×2 (08:00→12:00)
[2020-12-10] MEDS: MULTIVITAMINS,THERAPEUTIC TABLET PO SCH (09:19)
[2020-12-10] MEDS: FERROUS SULFATE 325 MG TABEC PO SCH ×2 (09:32→20:34)
[2020-12-10 11:35] VITALS: BP 152/83
--- NOTE | 2020-12-10 14:00 | NUR ---
ordered for possible I&D tomorrow morning. Keep pt NPO after midnight.
[2020-12-10] MEDS: METRONIDAZOLE 500 MG/NS 100ML 500 MG in PREMIXED 1 EACH IV SCH ×2 (15:18→22:24)
[2020-12-10] MEDS: IV 1/2NS 1000 ML 1,000 ML IV PRN (15:19)
--- NOTE | 2020-12-10 15:30 | NUR ---
Pt complaining of upper left arm pain. Dilaudid given as ordered.
[2020-12-10 15:35] VITALS: BP 162/94
[2020-12-10] MEDS: HYDROMORPHONE 1 MG/1 ML DISP.SYRIN IV PRN ×2 (15:37→20:32)
[2020-12-10] MEDS: CLONIDINE HCL 0.1 MG TABLET PO PRN (15:38)
[2020-12-10] MEDS ORDERED: VANCOMYCIN IV 750 MG in IV DEXTROSE 5% 250 ML IV SCH (16:00)
[2020-12-10] MEDS: CEFEPIME HCL 2 G in IV DEXTROSE 5% 100 ML IV SCH (18:24)
--- NOTE | 2020-12-10 18:50 | NUR ---
Pt complaining about IV site pain and burning and took out IV requesting a picc line.
--- NOTE | 2020-12-10 19:23 | NUR ---
EOSR Pt is in bed resting, On room air saturating at 97%. Pt was complaining of IV site irritation of the left foot. The pt is asking for a PICC line. Medications given as ordered. Safety measures in place, call light in reach. Will endorse to oncoming nurse.
--- NOTE | 2020-12-10 20:00 | NUR ---
RECEIVED ORDER FOR MID-LINE INSERTION. NURSING RESIDENT CARE SUPERVISOR NOTIFIED. MID-LINE INSERTED TO RIGHT UPPER ARM, #18 GAUGE PER MID-LINE NURSE. ALL NEEDS ATTENDED. WILL CONTINUE TO MONITOR AND ASSESS.
[2020-12-10 20:09] VITALS: BP 157/95
[2020-12-10] MEDS: PHENYTOIN SODIUM EXTENDED 100 MG CAPSULE.SA PO SCH (20:34)
[2020-12-10] MEDS: SIMVASTATIN 20 MG TABLET PO SCH (20:35)
[2020-12-10] MEDS: DOCUSATE SODIUM 100 MG CAPSULE PO SCH (20:35)
[2020-12-10] MEDS: QUETIAPINE FUMARATE 200 MG TABLET PO SCH (20:35)
[2020-12-11] MEDS: HYDROMORPHONE 1 MG/1 ML DISP.SYRIN IV PRN ×5 (01:40→20:15)
[2020-12-11 04:15] VITALS: BP 169/105
[2020-12-11] MEDS: METRONIDAZOLE 500 MG/NS 100ML 500 MG in PREMIXED 1 EACH IV SCH ×3 (05:45→21:59)
--- NOTE | 2020-12-11 05:59 | NUR ---
PATIENT AWAKE IN BED. C/O PAIN, GIVEN DILAUDID 1MG IV PER NEUROSURGICAL NURSE, VS WNL. PATIENT KEPT NPO SINCE MIDNIGHT ORDERED. IVF INFUSING WELL TO RIGHT MID-LINE. CALL LIGHT IN REACH. ALL NEEDS ATTENDED.
[2020-12-11 06:37] LABS: CREATININE 2.7 mg/dL (0.6-1.3); POTASSIUM 4.1 mmol/L (3.5-5.1)
[2020-12-11 06:46] LABS: BASOPHILS % (AUTO) 0.4 % (0.0-2.0); EOSINOPHILS # (AUTO) 0.2 K/uL (0.0-0.7); EOSINOPHILS % (AUTO) 2.3 % (0.0-7.0); HEMATOCRIT 24.2 % (36.7-47.1); HEMOGLOBIN 7.7 g/dL (12.5-16.3); LYMPHOCYTES # (AUTO) 1.7 K/uL (20.0-40.0); LYMPHOCYTES % (AUTO) 18.9 % (20.5-51.5); MEAN CORPUSCULAR HEMOGLOBIN 27.2 uug (23.8-33.4); MEAN CORPUSCULAR HGB CONC 32 g/dL (32.5-36.3); MEAN CORPUSCULAR VOLUME 85.2 fL (73.0-96.2); MONOCYTES # (AUTO) 1.2 K/uL (2.0-10.0); MONOCYTES % (AUTO) 13.3 % (0.0-11.0); NEUTROPHILS # (AUTO) 5.7 K/uL (1.8-8.9); NEUTROPHILS % (AUTO) 65.1 % (38.5-71.5); PLATELET COUNT (AUTO) 245 K/uL (152-348); RED BLOOD CELL COUNT(AUTO) 2.84 MIL/uL (4.06-5.63); WHITE BLOOD COUNT (AUTO) 8.7 K/uL (3.6-10.2)
[2020-12-11] MEDS: FERROUS SULFATE 325 MG TABEC PO SCH ×2 (08:04→20:38)
[2020-12-11] MEDS: MULTIVITAMINS,THERAPEUTIC TABLET PO SCH (08:04)
[2020-12-11] MEDS: AMLODIPINE 10 MG TABLET PO SCH (08:04)
[2020-12-11] MEDS: IV 1/2NS 1000 ML 1,000 ML IV PRN (10:18)
[2020-12-11 11:34] VITALS: BP 159/89
[2020-12-11 14:21] LABS: *BILIRUBIN,URIN NEGATIVE (NEGATIVE); *CLARITY,URINE SLIGHTLY CLOUDY (CLEAR); *COLOR,URINE YELLOW (YELLOW); *KETONES,URINE NEGATIVE (NEGATIVE); *UROBILINOGEN,URINE 0.2 E.U./dl (NORMAL); NITRITE, URINE NEGATIVE (NEGATIVE); UGLUCOSE NEGATIVE (NEGATIVE)
[2020-12-11 14:31] LABS: *CREATININE,URINE 66.8 mg/dL (30-125); *URINE TOTAL PROTEIN RANDOM 425.9 mg/dL (<150/24HR)
[2020-12-11 14:39] LABS: *BLOOD, URINE SMALL (NEGATIVE); LEUKOCYTE ESTERASE ,URINE SMALL (NEGATIVE)
[2020-12-11 14:45] LABS: SQUAMOUS EPITHELIAL CELL,UR MODERATE /HPF (NONE SEEN)
[2020-12-11 14:48] LABS: BACTERIA,URINE FEW /HPF (NONE SEEN); MUCUS,URINE NONE SEEN /LPF (0-FEW)
[2020-12-11 15:53] VITALS: BP 188/93
[2020-12-11] MEDS: CEFEPIME HCL 2 G in IV DEXTROSE 5% 100 ML IV SCH (17:14)
[2020-12-11 17:50] VITALS: BP 170/88
[2020-12-11] MEDS: HYDROCODONE/APAP 5-325MG TABLET PO PRN (17:50)
[2020-12-11] MEDS: CLONIDINE HCL 0.1 MG TABLET PO PRN ×2 (17:50→20:41)
--- NOTE | 2020-12-11 19:30 | NUR ---
Received pt in bed, awake and verbally responsive,able to make needs known. No s/s of respiratory distress. Reported pain on left upper arm. Will administer pain medication as ordered. NPO status starting 12 midnight. Pt informed and verbalized understanding. Safety measures initiated, call light within reach, will continue to monitor.
[2020-12-11 20:09] VITALS: BP 174/96
[2020-12-11] MEDS: QUETIAPINE FUMARATE 200 MG TABLET PO SCH (20:38)
[2020-12-11] MEDS: SIMVASTATIN 20 MG TABLET PO SCH (20:39)
[2020-12-11] MEDS: DOCUSATE SODIUM 100 MG CAPSULE PO SCH (20:39)
[2020-12-11] MEDS: ACETAMINOPHEN 325 MG TABLET PO PRN (20:41)
[2020-12-11] MEDS: PHENYTOIN SODIUM EXTENDED 100 MG CAPSULE.SA PO SCH (20:43)
[2020-12-11] MEDS: VANCOMYCIN IV 1,000 MG in IV DEXTROSE 5% 250 ML IV SCH (22:45)
[2020-12-12] MEDS: HYDROMORPHONE 1 MG/1 ML DISP.SYRIN IV PRN ×5 (00:16→22:06)
[2020-12-12 04:15] VITALS: BP 158/86
[2020-12-12] MEDS: IV 1/2NS 1000 ML 1,000 ML IV PRN (04:30)
--- NOTE | 2020-12-12 05:16 | NUR ---
Pt's BP is 158/86, asymptomatic, no complains of lightheadedness, chest pain or dizziness. Pt on NPO status, unable to take PRN Catapres 0.1mg tab. Called Dr. Gillespie regarding pt's BP and received an order to recheck BP with manual bp cuff. Current BP is 155/100. Received an order to give Hydralazine 10 mg IV once if BP is >160/90 and monitor if <160/90. Will continue to monitor.
[2020-12-12] MEDS: METRONIDAZOLE 500 MG/NS 100ML 500 MG in PREMIXED 1 EACH IV SCH ×3 (05:23→21:57)
--- NOTE | 2020-12-12 06:27 | NUR ---
Current BP is 130/90, no lightheadedness, no chest pain or discomfort reported. NPO status since 12 midnight. Consent for surgery to be signed today. Will endorse to day shift nurse. Safety measures maintained at all times, call light within reach. all needs attended.
[2020-12-12 06:37] LABS: EOSINOPHILS # (AUTO) 0.2 K/uL (0.0-0.7); NEUTROPHILS # (AUTO) 3.9 K/uL (1.8-8.9)
[2020-12-12 06:41] LABS: BASOPHILS % (AUTO) 0.6 % (0.0-2.0); HEMATOCRIT 23.5 % (36.7-47.1); LYMPHOCYTES # (AUTO) 1.4 K/uL (20.0-40.0); LYMPHOCYTES % (AUTO) 21.8 % (20.5-51.5); MEAN CORPUSCULAR HEMOGLOBIN 26.8 uug (23.8-33.4); MEAN CORPUSCULAR HGB CONC 32 g/dL (32.5-36.3); MEAN CORPUSCULAR VOLUME 84.8 fL (73.0-96.2); MONOCYTES % (AUTO) 14.6 % (0.0-11.0); PLATELET COUNT (AUTO) 253 K/uL (152-348); RED BLOOD CELL COUNT(AUTO) 2.77 MIL/uL (4.06-5.63)
[2020-12-12 06:55] LABS: WHITE BLOOD COUNT (AUTO) 6.5 K/uL (3.6-10.2)
[2020-12-12 06:57] LABS: HEMOGLOBIN 7.4 g/dL (12.5-16.3)
--- NOTE | 2020-12-12 07:02 | NUR ---
Called Dr. Melara twice last night to confirm the procedure today. No call back received. will endorse to day shift nurse.
--- NOTE | 2020-12-12 07:13 | NUR ---
Notified Dr. Bermudez of pt's critical lab value: Hemoglobin 7.4.
[2020-12-12 07:18] LABS: BILIRUBIN,TOTAL 0.2 mg/dL (0.2-1.0); CREATININE 2.4 mg/dL (0.6-1.3); PHOSPHOROUS 5.2 mg/dL (2.5-4.9); POTASSIUM 3.7 mmol/L (3.5-5.1); TOTAL PROTEIN, SERUM 6.2 g/dL (6.4-8.2)
--- NOTE | 2020-12-12 08:21 | NUR ---
Notified RN REGISTRY Aidan of pt's critical lab value: albumin 1.3
[2020-12-12] MEDS: AMLODIPINE 10 MG TABLET PO SCH (08:22)
[2020-12-12 08:30] LABS: IRON, SERUM 36 ug/dL (50-175)
--- NOTE | 2020-12-12 10:37 | NUR ---
pt went to or via bed for the procedure in stable condition
[2020-12-12] MEDS ORDERED: FENTANYL CITRATE 100 MCG/2 ML AMPUL ONE (10:55)
[2020-12-12] MEDS ORDERED: CEFAZOLIN 1 G VIAL IM ONE (11:23)
[2020-12-12] MEDS ORDERED: EPHEDRINE SULFATE 50 MG/ML AMPUL IM ONE (11:23)
[2020-12-12] MEDS ORDERED: SEVOFLURANE 250 ML BOTTLE IH ONE (11:23)
[2020-12-12] MEDS ORDERED: LIDOCAINE-MPF 2% 5 ML VIAL IJ ONE (11:23)
[2020-12-12] MEDS ORDERED: ONDANSETRON 4 MG/2 ML VIAL IV ONE (11:23)
[2020-12-12] MEDS ORDERED: PROPOFOL 200 MG/20 ML BOTTLE IV ONE (11:23)
[2020-12-12] MEDS ORDERED: HYDROMORPHONE 1 MG/1 ML DISP.SYRIN ONE ×2 (11:37→11:55)
[2020-12-12] MEDS ORDERED: LABETALOL HCL 100 MG/20 ML VIAL IV PRN (11:45)
[2020-12-12] MEDS ORDERED: HYDROCODONE/APAP 10-325 MG TABLET PO PRN (12:00)
[2020-12-12] MEDS ORDERED: LABETALOL HCL 100 MG/20 ML VIAL ONE (12:03)
[2020-12-12] MEDS ORDERED: hydrALAZINE HCL 20 MG/1 ML VIAL ONE (12:18)
[2020-12-12] MEDS: FERROUS SULFATE 325 MG TABEC PO SCH ×2 (12:30→20:13)
[2020-12-12] MEDS: MULTIVITAMINS,THERAPEUTIC TABLET PO SCH (12:30)
--- NOTE | 2020-12-12 12:54 | NUR ---
pt received from recovery room via bed in stable condition,
[2020-12-12] MEDS: IV D5W-0.45% NS +20 KCL 1,000 ML IV PRN (13:10)
[2020-12-12 13:51] VITALS: BP 163/87
[2020-12-12] MEDS: CLONIDINE HCL 0.1 MG TABLET PO PRN (13:54)
--- NOTE | 2020-12-12 14:00 | NUR ---
pt hr is 145 and bp is 165/73 md made aware transfer the pt to tele
[2020-12-12 14:50] VITALS: BP 123/73
--- NOTE | 2020-12-12 14:58 | NUR ---
pt is sinus tachy 156 and bp is 123/73 resp is 22 temp is 0
--- NOTE | 2020-12-12 15:00 | NUR ---
pt bp is 123/73 and hr is 159 resp is 22 temp is 98 put the pt on o2 2 l nc pt is resting in his bed ans watching tv no c/o chest pain noted md made aware
[2020-12-12] MEDS ORDERED: AMIODARONE HCL IV 150 MG in IV DEXTROSE 5% 100 ML IV ONE ×2 (15:30→16:15)
--- NOTE | 2020-12-12 15:31 | NUR ---
transfer the pt to stephanie rn report given to the jeremiah solomon
[2020-12-12 16:00] VITALS: BP 138/70
[2020-12-12] MEDS ORDERED: AMIODARONE HCL IV 900 MG in IV DEXTROSE 5% 482 ML IV PRN (16:15)
[2020-12-12 16:32] LABS: HEMATOCRIT 28.5 % (36.7-47.1)
[2020-12-12] MEDS: AMIODARONE HCL IV 450 MG in IV DEXTROSE 5% 250 ML IV PRN (17:00)
[2020-12-12] MEDS: CEFEPIME HCL 2 G in IV DEXTROSE 5% 100 ML IV SCH (17:01)
--- NOTE | 2020-12-12 17:01 | NUR ---
IV Amiodarone infusing in single lumen midline at this time. Check compatibility prior to next scheduled dose if amiodarone still infusing. Salas Guerra RN
--- NOTE | 2020-12-12 17:51 | NUR ---
Patient refused underpad check and change. Says it's too painful to move right now. Salas Guerra RN
--- NOTE | 2020-12-12 19:30 | NUR ---
Received patient in bed, awake, alert and oriented x 3, stating that he is cold, warm blanket provided. ST 104 on the monitor. On continuous Amiodarone drip at prescribed setting, tolerating well. Mid line LORENZO intact and patent, no s/s of infiltration noted. Uses urinal at bedside. Voiding good. Safety measures and fall prevention maintained. Continue care as planned.
[2020-12-12 20:00] VITALS: BP 159/93
[2020-12-12] MEDS: PHENYTOIN SODIUM EXTENDED 100 MG CAPSULE.SA PO SCH (20:12)
[2020-12-12] MEDS: SIMVASTATIN 20 MG TABLET PO SCH (20:13)
[2020-12-12] MEDS: DOCUSATE SODIUM 100 MG CAPSULE PO SCH (20:13)
[2020-12-12] MEDS: QUETIAPINE FUMARATE 200 MG TABLET PO SCH (20:13)
--- NOTE | 2020-12-12 20:15 | NUR ---
Complaint of LA pain in scale of 10/10. Medicated as ordered and needed. Will monitor.
[2020-12-13] VITALS (7 sets, daily range): BP systolic 133–184; BP diastolic 64–113
[2020-12-13] MEDS: HYDROMORPHONE 1 MG/1 ML DISP.SYRIN IV PRN ×7 (00:16→21:21)
[2020-12-13] MEDS: ACETAMINOPHEN 325 MG TABLET PO PRN (00:29)
[2020-12-13] MEDS: CLONIDINE HCL 0.1 MG TABLET PO PRN (00:30)
--- NOTE | 2020-12-13 00:31 | NUR ---
Latest temp 101.3, Tylenol 650 mg given, SBP 184/94 Catapres 0.1 mg given as well as ordered and needed. Cooling measures initiated. Will continue to monitor.
--- NOTE | 2020-12-13 01:40 | NUR ---
Temperature down to 98.9. Good sponge bath was given Continue IVF and IV ATB therapy as ordered. BP 154/89. Continue to monitor.
[2020-12-13] MEDS: AMIODARONE HCL IV 450 MG in IV DEXTROSE 5% 250 ML IV PRN (03:04)
[2020-12-13] MEDS: IV D5W-0.45% NS +20 KCL 1,000 ML IV PRN (04:01)
[2020-12-13] MEDS: METRONIDAZOLE 500 MG/NS 100ML 500 MG in PREMIXED 1 EACH IV SCH (05:22)
--- NOTE | 2020-12-13 05:43 | NUR ---
Shift End Report: Now afebrile with a temperature of 98.4 and BP down to 158/87. Continue on Amiodarone drip of 16.6 ml/hour, Sinus Tach to Sinus rhythm back and forth. Medicated 5x for LUE pain with help. Continue on IV ATB therapy of Flagyl without s/s of adverse reaction noted. Continue current plan of care.
[2020-12-13] MEDS: LEVOTHYROXINE SODIUM 25 MCG TABLET PO SCH (06:17)
[2020-12-13] MEDS: MULTIVITAMINS,THERAPEUTIC TABLET PO SCH (08:15)
[2020-12-13] MEDS: AMLODIPINE 10 MG TABLET PO SCH (08:15)
[2020-12-13] MEDS: FERROUS SULFATE 325 MG TABEC PO SCH ×2 (08:15→21:17)
[2020-12-13] MEDS: METOPROLOL TARTRATE 50 MG TABLET PO SCH ×2 (08:15→21:18)
[2020-12-13] MEDS: hydrALAZINE HCL 50 MG TABLET PO SCH ×3 (08:26→21:20)
[2020-12-13] MEDS ORDERED: LISINOPRIL 5 MG TABLET PO SCH (09:00)
[2020-12-13] MEDS: CEFEPIME HCL 2 G in IV DEXTROSE 5% 100 ML IV SCH (10:04)
[2020-12-13] MEDS: VANCOMYCIN IV 1,000 MG in IV DEXTROSE 5% 250 ML IV SCH (11:22)
[2020-12-13] MEDS: METRONIDAZOLE 500 MG TABLET PO SCH ×2 (13:14→21:20)
[2020-12-13] MEDS: ENSURE CLEAR 240 ML LIQUID (MIX BERRY) PO SCH ×2 (13:14→18:35)
[2020-12-13 15:49] LABS: BASOPHILS # (AUTO) 0.1 K/uL (0.0-8.0); BASOPHILS % (AUTO) 0.4 % (0.0-2.0); EOSINOPHILS # (AUTO) 0.1 K/uL (0.0-0.7); EOSINOPHILS % (AUTO) 0.8 % (0.0-7.0); HEMATOCRIT 25.2 % (36.7-47.1); LYMPHOCYTES # (AUTO) 1.6 K/uL (20.0-40.0); LYMPHOCYTES % (AUTO) 9.5 % (20.5-51.5); MEAN CORPUSCULAR HEMOGLOBIN 26.6 uug (23.8-33.4); MEAN CORPUSCULAR HGB CONC 32 g/dL (32.5-36.3); MONOCYTES # (AUTO) 2.1 K/uL (2.0-10.0); NEUTROPHILS # (AUTO) 13.5 K/uL (1.8-8.9); NEUTROPHILS % (AUTO) 77.3 % (38.5-71.5); PLATELET COUNT (AUTO) 283 K/uL (152-348); RED BLOOD CELL COUNT(AUTO) 3.01 MIL/uL (4.06-5.63); WHITE BLOOD COUNT (AUTO) 17.4 K/uL (3.6-10.2)
[2020-12-13 16:13] LABS: CREATININE 2.6 mg/dL (0.6-1.3); MAGNESIUM 1.8 mg/dL (1.8-2.4); POTASSIUM 3.8 mmol/L (3.5-5.1)
[2020-12-13 17:40] LABS: A/G RATIO 0.5; ALBUMIN 1.8; ALPHA-1-GLOBULIN 0.2; BETA GLOBULIN 1.3; GAMMA GLOBULIN 1.2; GLOBULIN, TOTAL 3.7
[2020-12-13 17:47] LABS: M-SPIKE 0.5
[2020-12-13] MEDS: QUETIAPINE FUMARATE 200 MG TABLET PO SCH (21:18)
[2020-12-13] MEDS: DOCUSATE SODIUM 100 MG CAPSULE PO SCH (21:19)
[2020-12-13] MEDS: PHENYTOIN SODIUM EXTENDED 100 MG CAPSULE.SA PO SCH (21:27)
[2020-12-13] MEDS: SIMVASTATIN 20 MG TABLET PO SCH (21:35)
[2020-12-14 00:05] VITALS: BP 121/70
[2020-12-14] MEDS: IV D5W-0.45% NS +20 KCL 1,000 ML IV PRN (00:13)
[2020-12-14] MEDS: HYDROMORPHONE 1 MG/1 ML DISP.SYRIN IV PRN ×8 (02:51→23:04)
[2020-12-14 04:20] VITALS: BP 112/76
[2020-12-14] MEDS: METRONIDAZOLE 500 MG TABLET PO SCH ×3 (05:47→21:33)
[2020-12-14] MEDS: hydrALAZINE HCL 50 MG TABLET PO SCH ×3 (05:47→21:34)
[2020-12-14] MEDS: LEVOTHYROXINE SODIUM 25 MCG TABLET PO SCH (05:56)
[2020-12-14 06:49] LABS: CREATININE 2.7 mg/dL (0.6-1.3); MAGNESIUM 1.9 mg/dL (1.8-2.4)
--- NOTE | 2020-12-14 07:25 | NUR ---
iraida 138 paged await call back.
--- NOTE | 2020-12-14 07:30 | NUR ---
received change of shift report, pt in bed resting, c/o left upper arm abscess and kidney failure. pt is awake alert and oriented x4, pt has tele monitor on, O2 saturation is 98% on 1.5L via NC, no signs of distress noted. pt is ambulatory with assistance, uses urinal at bedside. Pt had pain 8/10 on the left upper arm, pain medication given as ordered. pt has Right upper arm midline IVF infusing D51/2NS+KCL at 75cc/hr. bed in low and locked position, call light within reach, safety and fall precautions in place, will continue to monitor.
[2020-12-14 07:50] VITALS: BP 156/78
[2020-12-14 08:20] LABS: BASOPHILS % (AUTO) 0.3 % (0.0-2.0); EOSINOPHILS # (AUTO) 0.1 K/uL (0.0-0.7); EOSINOPHILS % (AUTO) 0.6 % (0.0-7.0); HEMATOCRIT 22.6 % (36.7-47.1); LYMPHOCYTES # (AUTO) 1.8 K/uL (20.0-40.0); LYMPHOCYTES % (AUTO) 12.2 % (20.5-51.5); MEAN CORPUSCULAR HEMOGLOBIN 27.6 uug (23.8-33.4); MEAN CORPUSCULAR HGB CONC 32 g/dL (32.5-36.3); MEAN CORPUSCULAR VOLUME 85.6 fL (73.0-96.2); MONOCYTES % (AUTO) 13.6 % (0.0-11.0); NEUTROPHILS # (AUTO) 10.7 K/uL (1.8-8.9); NEUTROPHILS % (AUTO) 73.3 % (38.5-71.5); PLATELET COUNT (AUTO) 206 K/uL (152-348); RED BLOOD CELL COUNT(AUTO) 2.64 MIL/uL (4.06-5.63); WHITE BLOOD COUNT (AUTO) 14.6 K/uL (3.6-10.2)
[2020-12-14 08:23] LABS: HEMOGLOBIN 7.3 g/dL (12.5-16.3)
--- NOTE | 2020-12-14 08:23 | NUR ---
Marlyn from lab called with critical lab value, hgb 7.3, hospitalist made aware.
[2020-12-14] MEDS: MULTIVITAMINS,THERAPEUTIC TABLET PO SCH (08:33)
[2020-12-14] MEDS: FERROUS SULFATE 325 MG TABEC PO SCH ×2 (08:33→20:15)
[2020-12-14] MEDS: AMLODIPINE 10 MG TABLET PO SCH (08:33)
[2020-12-14] MEDS: METOPROLOL TARTRATE 50 MG TABLET PO SCH ×2 (08:34→20:16)
[2020-12-14] MEDS: ENSURE CLEAR 240 ML LIQUID (MIX BERRY) PO SCH ×3 (09:05→17:15)
[2020-12-14] MEDS: CEFEPIME HCL 2 G in IV DEXTROSE 5% 100 ML IV SCH (10:31)
[2020-12-14 12:01] VITALS: BP 134/73
[2020-12-14] MEDS: SOD FERRIC GLUC COMPLX/SUCROSE 125 MG in IV NORMAL SALINE 100 ML IV SCH (13:51)
[2020-12-14 16:09] VITALS: BP 160/66
--- NOTE | 2020-12-14 18:20 | NUR ---
Patient is resting in bed. Alert and oriented x 4. Patient no longer MICHELLE, transferred to TELE. Patient is sinus rhythm at 85 BPM. Patient comfortable at room air, titrated off of oxygen. Saturating at 98%. Has mild weakness in lower extremities. Incontinent urine but has urinal at bedside. Pt has LORENZO midline saline lock. Dilaudid given at 1643. No pain reported at this time. All medication given as ordered. Bed in low and locked position. Fall and safety precautions taken. Call light with in reach. Will endorse to oncoming shift.
[2020-12-14] MEDS: ACETAMINOPHEN 325 MG TABLET PO PRN (19:53)
[2020-12-14 20:04] VITALS: BP 126/66
[2020-12-14] MEDS: SIMVASTATIN 20 MG TABLET PO SCH (20:15)
[2020-12-14] MEDS: QUETIAPINE FUMARATE 200 MG TABLET PO SCH (20:15)
[2020-12-14] MEDS: DOCUSATE SODIUM 100 MG CAPSULE PO SCH (20:15)
[2020-12-14] MEDS: PHENYTOIN SODIUM EXTENDED 100 MG CAPSULE.SA PO SCH (20:15)
[2020-12-14] MEDS: VANCOMYCIN IV 1,000 MG in IV DEXTROSE 5% 250 ML IV SCH (23:03)
[2020-12-15 00:18] VITALS: BP 127/64
[2020-12-15] MEDS: HYDROMORPHONE 1 MG/1 ML DISP.SYRIN IV PRN ×8 (04:31→23:11)
[2020-12-15 04:59] VITALS: BP 141/56
[2020-12-15] MEDS: hydrALAZINE HCL 50 MG TABLET PO SCH ×3 (05:30→22:50)
[2020-12-15] MEDS: METRONIDAZOLE 500 MG TABLET PO SCH ×3 (05:30→22:51)
[2020-12-15] MEDS: LEVOTHYROXINE SODIUM 25 MCG TABLET PO SCH (05:31)
[2020-12-15 07:02] LABS: BASOPHILS % (AUTO) 0.3 % (0.0-2.0); EOSINOPHILS # (AUTO) 0.1 K/uL (0.0-0.7); EOSINOPHILS % (AUTO) 1.1 % (0.0-7.0); HEMOGLOBIN 7.5 g/dL (12.5-16.3); LYMPHOCYTES # (AUTO) 1.6 K/uL (20.0-40.0); LYMPHOCYTES % (AUTO) 11.7 % (20.5-51.5); MEAN CORPUSCULAR HEMOGLOBIN 26.2 uug (23.8-33.4); MEAN CORPUSCULAR HGB CONC 31 g/dL (32.5-36.3); MEAN CORPUSCULAR VOLUME 84.3 fL (73.0-96.2); MONOCYTES # (AUTO) 1.6 K/uL (2.0-10.0); NEUTROPHILS # (AUTO) 9.9 K/uL (1.8-8.9); NEUTROPHILS % (AUTO) 74.9 % (38.5-71.5); PLATELET COUNT (AUTO) 211 K/uL (152-348); RED BLOOD CELL COUNT(AUTO) 2.85 MIL/uL (4.06-5.63); WHITE BLOOD COUNT (AUTO) 13.2 K/uL (3.6-10.2)
[2020-12-15 07:08] LABS: CREATININE 3.3 mg/dL (0.6-1.3); POTASSIUM 3.9 mmol/L (3.5-5.1)
--- NOTE | 2020-12-15 07:45 | NUR ---
Received in bed sleeping but easily arousable to stimuli. Left arm with dressing intact. No bleeding noted. Fredy iv site intact and patent. Afebrile this morning temp 98.1. Denies sob. 96% on ra. Bed low and locked. Kept comfortable. Call light within reach. Will continue to monitor.
[2020-12-15 08:05] VITALS: BP 145/69
[2020-12-15] MEDS: FERROUS SULFATE 325 MG TABEC PO SCH ×2 (08:23→20:11)
[2020-12-15] MEDS: MULTIVITAMINS,THERAPEUTIC TABLET PO SCH (08:23)
[2020-12-15] MEDS: METOPROLOL TARTRATE 50 MG TABLET PO SCH ×2 (08:23→20:11)
[2020-12-15] MEDS: ENSURE CLEAR 240 ML LIQUID (MIX BERRY) PO SCH ×3 (08:24→17:21)
[2020-12-15] MEDS: AMLODIPINE 10 MG TABLET PO SCH (08:24)
[2020-12-15] MEDS: CEFEPIME HCL 2 G in IV DEXTROSE 5% 100 ML IV SCH (09:14)
[2020-12-15 11:51] VITALS: BP 155/69
[2020-12-15] MEDS: SOD FERRIC GLUC COMPLX/SUCROSE 125 MG in IV NORMAL SALINE 100 ML IV SCH (14:55)
[2020-12-15 15:26] LABS: *IMMUNOFIXATION RESULT Abnormal; *IMMUNOGLOBULIN G, SERUM 1279
[2020-12-15 15:27] LABS: IMMUNOGLOBULIN A, SERUM 786 High
[2020-12-15 15:28] LABS: IMMUNOGLOBULIN M, SERUM 275 High
[2020-12-15 15:29] LABS: ALBUMIN 1.8 Low; ALPHA-1-GLOBULIN 0.3
[2020-12-15 15:30] LABS: BETA GLOBULIN 1.3; GAMMA GLOBULIN 1.3
[2020-12-15 15:31] LABS: GLOBULIN, TOTAL 3.9; M-SPIKE 0.4 High
[2020-12-15 15:32] LABS: A/G RATIO 0.5 Low
[2020-12-15 16:10] VITALS: BP 145/72
--- NOTE | 2020-12-15 20:00 | NUR ---
AWAKE.ALERT,LEFT UPPER ARM GIGI WRAP DRESSINGS INTACT,COMPLAINED OG PAIN DILAUDID 1 MG GIVEN ORDERED.TELEMETRY SINUS RHYTHM.
[2020-12-15] MEDS: PHENYTOIN SODIUM EXTENDED 100 MG CAPSULE.SA PO SCH (20:10)
[2020-12-15] MEDS: DOCUSATE SODIUM 100 MG CAPSULE PO SCH (20:10)
[2020-12-15] MEDS: QUETIAPINE FUMARATE 200 MG TABLET PO SCH (20:12)
[2020-12-15] MEDS: SIMVASTATIN 20 MG TABLET PO SCH (20:12)
[2020-12-15 20:24] VITALS: BP 162/88
--- NOTE | 2020-12-15 21:30 | NUR ---
DR ROSALES SAW PATIENT,FOR BONE BIOPSY TOMORROW.PATIENT ASKING DILAUDID Q 2 HOURS.RESTING COMFORTABLY.
[2020-12-15] MEDS ORDERED: LIDOCAINE HCL 1% 20 ML VIAL IJ ONE (21:45)
[2020-12-16 00:31] VITALS: BP 137/68
[2020-12-16] MEDS: hydrALAZINE HCL 50 MG TABLET PO SCH ×3 (05:18→21:14)
[2020-12-16] MEDS: METRONIDAZOLE 500 MG TABLET PO SCH ×3 (05:19→21:14)
--- NOTE | 2020-12-16 05:32 | NUR ---
SLEPT AT SHORT INTERVALS,IV DILAUDID GIVEN AT INTERVALS.
[2020-12-16 05:45] VITALS: BP 150/79
[2020-12-16] MEDS: LEVOTHYROXINE SODIUM 25 MCG TABLET PO SCH (06:23)
--- NOTE | 2020-12-16 07:41 | NUR ---
Awake ad watching tv. No distress noted. 96% on room air. Denies sob. Bed low and locked. Call light within reach. Will continue to monitor.
[2020-12-16] MEDS: AMLODIPINE 10 MG TABLET PO SCH (08:22)
[2020-12-16] MEDS: FERROUS SULFATE 325 MG TABEC PO SCH ×2 (08:22→20:36)
[2020-12-16] MEDS: METOPROLOL TARTRATE 50 MG TABLET PO SCH ×2 (08:22→20:38)
[2020-12-16] MEDS: ENSURE CLEAR 240 ML LIQUID (MIX BERRY) PO SCH ×3 (08:22→18:43)
[2020-12-16] MEDS: MULTIVITAMINS,THERAPEUTIC TABLET PO SCH (08:22)
[2020-12-16 09:07] LABS: BASOPHILS % (AUTO) 0.4 % (0.0-2.0); EOSINOPHILS # (AUTO) 0.1 K/uL (0.0-0.7); EOSINOPHILS % (AUTO) 1.3 % (0.0-7.0); LYMPHOCYTES # (AUTO) 1.2 K/uL (20.0-40.0); LYMPHOCYTES % (AUTO) 12.2 % (20.5-51.5); MEAN CORPUSCULAR HEMOGLOBIN 27.1 uug (23.8-33.4); MEAN CORPUSCULAR HGB CONC 31 g/dL (32.5-36.3); MEAN CORPUSCULAR VOLUME 86.4 fL (73.0-96.2); MONOCYTES # (AUTO) 0.9 K/uL (2.0-10.0); MONOCYTES % (AUTO) 9.2 % (0.0-11.0); NEUTROPHILS # (AUTO) 7.7 K/uL (1.8-8.9); NEUTROPHILS % (AUTO) 76.9 % (38.5-71.5); RED BLOOD CELL COUNT(AUTO) 3.42 MIL/uL (4.06-5.63)
[2020-12-16 09:15] LABS: CREATININE 3.9 mg/dL (0.6-1.3); MAGNESIUM 2.1 mg/dL (1.8-2.4); POTASSIUM 3.7 mmol/L (3.5-5.1)
[2020-12-16 09:30] LABS: HEMATOCRIT 29.5 % (36.7-47.1); HEMOGLOBIN 9.3 g/dL (12.5-16.3); PLATELET COUNT (AUTO) 283 K/uL (152-348)
[2020-12-16] MEDS: CEFEPIME HCL 2 G in IV DEXTROSE 5% 100 ML IV SCH (09:40)
[2020-12-16] MEDS: HYDROMORPHONE 1 MG/1 ML DISP.SYRIN IV PRN ×4 (09:41→20:34)
--- NOTE | 2020-12-16 10:57 | NUR ---
seen and examined by LEATHA Bermudez. BUFFER OPERATOR removed old dressing on left upper arm wound, removed old packing dressing and reinserted new one, swab wound with betadine, wrapped with kerlix and secured with tape. noted with small amount of bleeding and pus from wound when packing was removed. sutures still in place. pt verbalized area still hurts. tolerated procedure. will continue to monitor.
[2020-12-16 12:00] VITALS: BP 163/97
--- NOTE | 2020-12-16 12:04 | NUR ---
talked to pt about bone marrow biopsy. he said dr. leon talked to him last night also. consent signed.
[2020-12-16] MEDS: SOD FERRIC GLUC COMPLX/SUCROSE 125 MG in IV NORMAL SALINE 100 ML IV SCH (14:00)
[2020-12-16 16:00] VITALS: BP 175/81
[2020-12-16] MEDS: IV NS 1000 ML 1,000 ML IV PRN (16:20)
--- NOTE | 2020-12-16 19:23 | NUR ---
alert and oriented. no respiratory distress. due meds given and tolerated. iv hydration ongoing. on iv atb no adverse reaction noted. safety measures maintained. needs attended. endorsed accordingly.
--- NOTE | 2020-12-16 19:30 | NUR ---
RECEIVED PT AWAKE,ALERT AND ORIENTEDX4. PT IN NO ACUTE DISTRESS. IV INTACT. SAFETY AND COMFORT PROVIDED. WILL CONTINUE TO MONITOR.
[2020-12-16 20:00] VITALS: BP 178/85
[2020-12-16] MEDS: PHENYTOIN SODIUM EXTENDED 100 MG CAPSULE.SA PO SCH (20:36)
[2020-12-16] MEDS: DOCUSATE SODIUM 100 MG CAPSULE PO SCH (20:36)
[2020-12-16] MEDS: SIMVASTATIN 20 MG TABLET PO SCH (20:37)
[2020-12-16] MEDS: QUETIAPINE FUMARATE 200 MG TABLET PO SCH (20:37)
[2020-12-16 21:10] VITALS: BP 162/86
[2020-12-16] MEDS ORDERED: VANCOMYCIN IV 1,000 MG in IV DEXTROSE 5% 250 ML IV SCH (23:00)
[2020-12-17 00:26] VITALS: BP 132/77
[2020-12-17] MEDS: HYDROMORPHONE 1 MG/1 ML DISP.SYRIN IV PRN ×4 (01:56→19:58)
[2020-12-17] MEDS: METRONIDAZOLE 500 MG TABLET PO SCH ×2 (05:34→13:14)
[2020-12-17] MEDS: hydrALAZINE HCL 50 MG TABLET PO SCH ×3 (05:34→23:38)
[2020-12-17 05:39] VITALS: BP 126/78
[2020-12-17] MEDS: LEVOTHYROXINE SODIUM 25 MCG TABLET PO SCH (06:08)
--- NOTE | 2020-12-17 06:17 | NUR ---
PT SLEPT INTERMITTENTLY. PRESCRIBED MEDICATION GIVEN AND PT TOLERATED IT WELL. IV INTACT. PT GIVEN DILAUDID PRN AT 2034H AND 0156HFOR PAIN . PT TOLERATED IT WELL. SAFETY AND COMFORT PROVIDED. ALL NEEDS ARE MET. WILL ENDORSE TO INCOMING NURSE FOR CONTINUITY OF CARE.
[2020-12-17 06:55] LABS: BASOPHILS % (AUTO) 0.5 % (0.0-2.0); EOSINOPHILS # (AUTO) 0.2 K/uL (0.0-0.7); EOSINOPHILS % (AUTO) 2.6 % (0.0-7.0); LYMPHOCYTES # (AUTO) 1.4 K/uL (20.0-40.0); LYMPHOCYTES % (AUTO) 16.6 % (20.5-51.5); MEAN CORPUSCULAR HEMOGLOBIN 27.6 uug (23.8-33.4); MEAN CORPUSCULAR HGB CONC 33 g/dL (32.5-36.3); MEAN CORPUSCULAR VOLUME 84.8 fL (73.0-96.2); MONOCYTES % (AUTO) 11.7 % (0.0-11.0); NEUTROPHILS # (AUTO) 5.9 K/uL (1.8-8.9); NEUTROPHILS % (AUTO) 68.6 % (38.5-71.5); PLATELET COUNT (AUTO) 285 K/uL (152-348); RED BLOOD CELL COUNT(AUTO) 2.67 MIL/uL (4.06-5.63); WHITE BLOOD COUNT (AUTO) 8.7 K/uL (3.6-10.2)
[2020-12-17 07:01] LABS: CREATININE 4.2 mg/dL (0.6-1.3); POTASSIUM 3.7 mmol/L (3.5-5.1)
[2020-12-17 07:16] LABS: HEMATOCRIT 22.6 % (36.7-47.1)
[2020-12-17 07:22] LABS: HEMOGLOBIN 7.4 g/dL (12.5-16.3)
--- NOTE | 2020-12-17 07:25 | NUR ---
received sleeping but easily arousable. breathing even and non labored. denies chest pain. no sob noted. iv hydration ongoing tolerated. bed low and locked. call light in reach. will continue to monitor. Addendum: 12/17/20 at 0918 by MEI DIAZ RN remains on room air spo2 96%.
[2020-12-17] MEDS: IV NS 1000 ML 1,000 ML IV PRN ×3 (07:36→23:30)
[2020-12-17] MEDS: AMLODIPINE 10 MG TABLET PO SCH (08:22)
[2020-12-17] MEDS: FERROUS SULFATE 325 MG TABEC PO SCH ×2 (08:22→20:03)
[2020-12-17] MEDS: MULTIVITAMINS,THERAPEUTIC TABLET PO SCH (08:22)
[2020-12-17] MEDS: ENSURE CLEAR 240 ML LIQUID (MIX BERRY) PO SCH ×3 (08:23→17:29)
[2020-12-17] MEDS: METOPROLOL TARTRATE 50 MG TABLET PO SCH ×2 (08:23→20:34)
--- NOTE | 2020-12-17 09:14 | NUR ---
pt did physical therapy at bedside. per therapist, unsteady when walking. no desaturation noted on room air. able to move upper extremities. pt tolerated.
[2020-12-17] MEDS: CEFEPIME HCL 2 G in IV DEXTROSE 5% 100 ML IV SCH (10:12)
--- NOTE | 2020-12-17 10:32 | NUR ---
left upper arm dressing soiled. changed betadine dressing, wrap with kerlix and secured with tape. pt verbalized it hurts less.
[2020-12-17 11:35] VITALS: BP 143/75
--- NOTE | 2020-12-17 12:52 | NUR ---
WOUND CARE CONSULT: PT PRESENTS WITH LEFT UPPER ARM CLOSED INCISION WITH SUTURES AND SMALL OPEN AREA AT LOWER EDGE WITH 1CM OPENING, SEROSANGUINOUS DRAINAGE AND IODOFORM PACKING IN PLACE. PT REFUSED TO HAVE PACKING REMOVED. RECOMMENDATIONS MADE FOR WOUND CARE AND SKIN PROTECTION. DISCUSSED WITH NURSING STAFF. IN AGREEMENT WITH PLAN OF CARE. Addendum: 12/17/20 at 1259 by ANALI ÁLVAREZ RN DISCUSSED WOUND CARE ORDERS WITH N.P. ON CASE (NICOLE MCCRAY).
[2020-12-17] MEDS: SOD FERRIC GLUC COMPLX/SUCROSE 125 MG in IV NORMAL SALINE 100 ML IV SCH (14:00)
[2020-12-17 15:36] VITALS: BP 145/86
--- NOTE | 2020-12-17 19:18 | NUR ---
Alert and oriented. No respiratory distress. On room air 98%. Safety measures maintained. Due meds tolerated. No adverse effects from atb. Endorsed.
--- NOTE | 2020-12-17 19:30 | NUR ---
RECEIVED PT AWAKE, ALERT AND ORIENTEDX4. PT IN NO ACUTE DISTRESS. IV INTACT. PT COMPLIANT WITH CARE. PT COMPLAINT OF PAIN ON HIS LEFT ARM AND ASKING FOR HIS PAIN MEDICATION. SAFETY AND COMFORT PROVIDED. WILL COTNINUE TO MONITOR.
--- NOTE | 2020-12-17 19:58 | NUR ---
DILAUDID PRN 1MG IV GIVEN TO PT FOR PAIN ON LEFT ARM. PT TOLERATED IT WELL. VITAL SIGNS STABLE. WILL CONTINUE TO MONITOR.
[2020-12-17] MEDS: SIMVASTATIN 20 MG TABLET PO SCH (20:03)
[2020-12-17] MEDS: QUETIAPINE FUMARATE 200 MG TABLET PO SCH (20:03)
[2020-12-17] MEDS: DOCUSATE SODIUM 100 MG CAPSULE PO SCH (20:03)
[2020-12-17] MEDS: PHENYTOIN SODIUM EXTENDED 100 MG CAPSULE.SA PO SCH (20:03)
[2020-12-17 20:15] VITALS: BP 179/96
[2020-12-17] MEDS: CLONIDINE HCL 0.1 MG TABLET PO PRN (20:34)
--- NOTE | 2020-12-17 20:48 | NUR ---
CALLED DR. ROSALES AND ASKED WHEN WILL SHE COME FOR THE BONE MARROW BIOPSY. DR. ROSALES INFORMED ME THAT THE PROCEDURE WILL BE TOMORROW.
--- NOTE | 2020-12-17 20:55 | NUR ---
NOTIFY [facility] THAT PT WILL STAY TONIGHT AND MIGHT GO TO THERE FACILITY [place]. AFTER THE PROCEDURE OF THE PT.
--- NOTE | 2020-12-17 23:00 | NUR ---
GOT A CALL FROM FARHAD ZHANG OF DR. SPANGLER. SHE STATED THAT PT SHOULD BE ON VANCOMYCIN. SHE WILL PLACED AN ORDER.
[2020-12-18] MEDS: HYDROMORPHONE 1 MG/1 ML DISP.SYRIN IV PRN ×4 (00:02→14:29)
[2020-12-18 00:12] VITALS: BP 114/72
--- NOTE | 2020-12-18 00:44 | NUR ---
AT 2033H CATAPRES PRN GIVEN FOR BP 179/96. PT ASYMPTOMATIC AND IN NO ACUTE DISTRESS. AT 0002H DILAUDID PRN GIVEN FOR LEFT ARM PAIN. PT TOLERATED IT WELL. PT VITAL SIGNS WNL. SAFETY AND COMFORT PROVIDED.WILL CONTINUE TO MONITOR.
[2020-12-18 04:18] VITALS: BP 152/97
[2020-12-18 05:07] LABS: HEPATITIS B SURFACE AB Non Reactive (.); HEPATITIS B SURFACE AG Negative (Negative)
[2020-12-18] MEDS: LEVOTHYROXINE SODIUM 25 MCG TABLET PO SCH (06:01)
[2020-12-18] MEDS: hydrALAZINE HCL 50 MG TABLET PO SCH (06:02)
--- NOTE | 2020-12-18 06:27 | NUR ---
PT SLEPT INTERMITTENTLY. PRESCRIBED MEDICATION GIVEN AND PT TOLERATED IT WELL. PT IV INTACT. PT GIVEN DILAUDID PRN ON 1957H , 1H AND 601H FOR LEFT ARM PAIN. PT TOLERATED IT WELL. PT IN NO ACUTE RESPIRATORY DISTRESS. SAFETY AND COMFORT PROVIDED. ALL NEEDS ARE MET. WILL ENDORSE TO INCOMING NURSE FOR CONTINUITY OF CARE.
[2020-12-18 07:06] LABS: *ANTI-SCLERODERMA-70 AB <0.2 AI (0.0-0.9); *SJOGREN'S ANTI-SS-A <0.2 AI (0.0-0.9); *SJOGREN'S ANTI-SS-B <0.2 AI (0.0-0.9); *SMITH ANTIBODIES <0.2 AI (0.0-0.9)
[2020-12-18 08:00] VITALS: BP 100/81
[2020-12-18 08:06] LABS: COMPLEMENT, C3 SERUM 73 mg/dL (82-167); COMPLEMENT, C4 SERUM 19 mg/dL (12-38)
[2020-12-18] MEDS: FERROUS SULFATE 325 MG TABEC PO SCH (08:51)
[2020-12-18] MEDS: METOPROLOL TARTRATE 50 MG TABLET PO SCH (08:51)
[2020-12-18] MEDS: ENSURE CLEAR 240 ML LIQUID (MIX BERRY) PO SCH ×2 (08:52→12:06)
[2020-12-18] MEDS: AMLODIPINE 10 MG TABLET PO SCH (08:52)
[2020-12-18] MEDS: MULTIVITAMINS,THERAPEUTIC TABLET PO SCH (08:52)
[2020-12-18] MEDS: IV NS 1000 ML 1,000 ML IV PRN (08:56)
[2020-12-18 11:37] VITALS: BP 155/88
--- NOTE | 2020-12-18 12:39 | NUR ---
WOUND CARE FOLLOW UP: PT SEEN FOR RE-EVALUATION OF LEFT UPPER ARM INCISION. IODOFORM PACKING HAD COME OUT AND INCISION IS NOW CLOSED. RECOMMENDATIONS MADE FOR SKIN PROTECTION AND WOUND CARE. ORDERS UPDATED AND DISCUSSED WITH NURSING STAFF. MD IN AGREEMENT WITH PLAN OF CARE.
--- NOTE | 2020-12-18 13:10 | NUR ---
DCD instructions and belongings discussed with pt. who verbalized understanding. Report called to Karthik Potter at [facility]. patient will be leaving via ambulance with schedule pharmacy picking tech at 1400. vitals stable picture to VELMA abscess changed with the help of wound care Karthik Jimenez. Pt's sister and next of kin notified of transfer.
[2020-12-18] MEDS ORDERED: hydrALAZINE HCL 50 MG TABLET PO SCH (14:00)
[2020-12-18 14:06] LABS: ANTI-DNA(DS) AB, QN 3 IU/mL (0-9)
[2020-12-18 14:31] VITALS: BP 162/92
--- NOTE | 2020-12-18 14:37 | NUR ---
Ambulance services, in report given to Jessenia. pt's SBP above 164/98 Hr. of 89 this is post physical therapy. pt. medicated with hydralazine, and pain medication as requested.
--- NOTE | 2020-12-18 14:39 | NUR ---
Patient taken with sbp above 150's no objection belongings sent with pt.
[2020-12-18] MEDS ORDERED: VANCOMYCIN IV 750 MG in IV DEXTROSE 5% 250 ML IV SCH (23:00)
== END 2020-12-18 14:30 | DRG 500 ==
LOC: ER 13:22 → MEDSURG3 19:34 → TELE-TD3 12-12 15:00 → TELE3 12-14 10:00 → MEDSURG3 12-17 10:00
PROVIDERS: ADMIT Nurse Practitioner Acute Care; ATTEND Hospitalist
PROC: 05H533Z Insertion of Infusion Device into Right Subclavian Vein, Percutaneous Approach (ICD-10-PCS; 2020-12-10)
PROC: B546ZZA Ultrasonography of Right Subclavian Vein, Guidance (ICD-10-PCS; 2020-12-10)
PROC: 0K980ZZ Drainage of Left Upper Arm Muscle, Open Approach (ICD-10-PCS; principal; 2020-12-12)
DX: M60.022 Infective myositis, left upper arm (principal); N17.0 Acute kidney failure with tubular necrosis; E43 Unspecified severe protein-calorie malnutrition; L03.114 Cellulitis of left upper limb; D68.69 Other thrombophilia; I48.92 Unspecified atrial flutter; Z68.1 Body mass index [BMI] 19.9 or less, adult; L02.414 Cutaneous abscess of left upper limb; S41.132S Puncture wound without foreign body of left upper arm, sequela; X78.8XXS Intentional self-harm by other sharp object, sequela; F11.10 Opioid abuse, uncomplicated; Z20.822 Contact with and (suspected) exposure to COVID-19; D63.8 Anemia in other chronic diseases classified elsewhere; E03.9 Hypothyroidism, unspecified; I13.10 Hypertensive heart and chronic kidney disease without heart failure, with stage 1 through stage 4 chronic kidney disease, or unspecified chronic kidney disease; I25.2 Old myocardial infarction; Z98.1 Arthrodesis status; N18.9 Chronic kidney disease, unspecified; G89.4 Chronic pain syndrome; G40.909 Epilepsy, unspecified, not intractable, without status epilepticus; F20.9 Schizophrenia, unspecified; Z96.643 Presence of artificial hip joint, bilateral; Z95.2 Presence of prosthetic heart valve; E78.5 Hyperlipidemia, unspecified; F17.210 Nicotine dependence, cigarettes, uncomplicated; Z74.09 Other reduced mobility; D50.9 Iron deficiency anemia, unspecified; T36.8X5A Adverse effect of other systemic antibiotics, initial encounter; Y92.89 Other specified places as the place of occurrence of the external cause; D47.2 Monoclonal gammopathy; B19.20 Unspecified viral hepatitis C without hepatic coma
CPT/HCPCS: 36415; 73060; 73200; 76770; 82784; 83550; 83605; 83735; 83970; 84100; 84155; 84156; 84165; 84300; 84443; 85018; 85025; 85610; 85651; 85730; 86038; 86160; 86334; 86706; 86803; 86850; 86900; 86901; 86920; 87040; 87070; 87075; 87086; 87340; 87536; 93005; A4649; A4663; G0378; J0282; J0360; J0690; J0692; J1170; J2405; J2543; J2916; J3010; J3370; J3490; J7060